=== PATIENT | female | born 1955 | race Caucasian/White ===

== ENCOUNTER 2017-04-30 10:22 | Observation (INO) | payer MEDICARE, MEDICAID ==
[2017-04-30] MEDS ORDERED: Sodium Chloride 0.9% 10 ML Syringe FLUSH PRN (11:48)
[2017-04-30] MEDS ORDERED: Acetaminophen 325 MG Tab PO PRN (12:00)
--- NOTE | 2017-04-30 12:17 | PCM.HP ---
H&P History of Present Illness - General Date of Service: 04/30/17 Admit Problem/Dx: Admission Diagnosis/Problem Admission Diagnosis/Problem Anemia due to blood loss Source of Information: Patient History Limitations: Reports: No Limitations - History of Present Illness Initial Comments - Free Text/Narative: Patient presents to the clinic with shortness of breath, vertigo and low blood pressure. Patient thinks it is due to her weight loss and needing to decrease medications. However, about 1 1/2 weeks ago the patient had a significant amount of vaginal blooding with clots which lasted for 3 days. Patient has been having vaginal bleeding on and off for the last 9 months however has not been compliant in following up with the recommendations in doing a pelvic ultrasound and endometrial biopsy. Onset of Symptoms: Reports: Gradual Improves with: Reports: Rest Worsens with: Reports: Movement Associated Symptoms: Reports: Shortness of Breath, Weakness - Related Data Allergies/Adverse Reactions: Allergies Allergy/AdvReac Type Severity Reaction Status Date / Time gabapentin Allergy Other Verified 04/30/17 12:17 morphine Allergy Other Verified 04/30/17 12:17 promethazine [From Phenergan] Allergy Other Verified 04/30/17 12:17 Home Medications: Home Meds Lisinopril 20 mg PO QPM@199904/30/17 [History] Metoprolol Tartrate 25 mg PO BID@,04/30/17 [History] Solifenacin Succinate [Vesicare] 10 mg PO QPM@199904/30/17 [History] Past Medical History HEENT History: Reports: Sinusitis Other HEENT History: recurrent sinusitis Cardiovascular History: Reports: Hypertension, PVD Respiratory History: Reports: COPD 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: Reports: Dysfunctional 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 Musculoskeletal History: Reports: Fibromyalgia Endocrine/Metabolic History: Reports: Diabetes, Type II Hematologic History: Reports: B12 Deficiency - Past Surgical History GI Surgical History: Reports: Bariatric Procedure, Cholecystectomy, Hernia Repair/Other (ventral hernia surgery) Social & Family History - Family History Cardiac: Reports: CAD (sister with CAD) - Tobacco Use Smoking Status *Q: Never Smoker - Alcohol Use Alcohol Use History: No H&P Review of Systems - Review of Systems: Review Of Systems: See Below General: Reports: Weakness, Fatigue HEENT: Reports: Vertigo Pulmonary: Reports: Shortness of Breath Cardiovascular: Reports: Dyspnea on Exertion, Lightheadedness Gastrointestinal: Reports: No Symptoms Genitourinary: Reports: Other (heavy vaginally bleeding) Musculoskeletal: Reports: No Symptoms Skin: Reports: No Symptoms Psychiatric: Reports: No Symptoms Neurological: Reports: No Symptoms Hematologic/Lymphatic: Reports: No Symptoms Immunologic: Reports: No Symptoms Exam - Exam Exam: See Below - Exam General: Alert, Oriented, Cooperative HEENT: Conjunctiva Clear, EACs Clear, EOMI, Hearing Intact, Mucosa Moist & [place] , Nares Patent, Normal Nasal Septum, Posterior Pharynx Clear, Pupils Equal, Pupils Reactive Neck: Supple, Trachea Midline Lungs: Clear to Auscultation, Normal Respiratory Effort Cardiovascular: Regular Rate, Regular Rhythm, Normal S1, Normal S2 Abdomen: Normal Bowel Sounds, Soft, Pelvis Stable Back Exam: Normal Inspection, Full Range of Motion Extremities: Normal Inspection Peripheral Pulses: 1+: Dorsalis Pedis (L), Dorsalis Pedis (R) Skin: Warm, Dry, Intact Neurological: Cranial Nerves Intact, Reflexes Equal Bilateral Neuro Extensive - Mental Status: Alert, Oriented x3, Normal Mood/Affect, Normal Cognition, Memory Intact Neuro Extensive - Motor, Sensory, Reflexes: CN II-XII Intact, Normal Gait, Normal Reflexes Psychiatric: Alert, Normal Affect, Normal Mood *Q Meaningful Use (ADM) - VTE *Q VTE Criteria *Q: - Stroke *Q Stroke Criteria *Q: - AMI *Q AMI Criteria *Q: - Problem List (1) Anemia SNOMED Code(s): 923076062 ICD Code: D64.9 - ANEMIA, UNSPECIFIED Status: Acute Current Visit: Yes Qualifiers: Anemia type: unspecified type Qualified Code(s): D64.9 - Anemia, unspecified (2) Dysfunctional uterine bleeding SNOMED Code(s): 09439051 ICD Code: N93.8 - OTHER SPECIFIED ABNORMAL UTERINE AND VAGINAL BLEEDING Status: Acute Current Visit: Yes (3) Diabetes SNOMED Code(s): 12953171 ICD Code: E11.9 - TYPE 2 DIABETES MELLITUS WITHOUT COMPLICATIONS Status: Acute Current Visit: Yes Qualifiers: Diabetes mellitus type: type 2 Diabetes mellitus complication status: without complication (4) Hypotension SNOMED Code(s): 65911696 ICD Code: I95.9 - HYPOTENSION, UNSPECIFIED Status: Acute Current Visit: Yes Qualifiers: Hypotension type: unspecified hypotension type Qualified Code(s): I95.9 - Hypotension, unspecified (5) Vertigo SNOMED Code(s): 934449279 ICD Code: R42 - DIZZINESS AND GIDDINESS Status: Acute Current Visit: Yes Problem List Initiated/Reviewed/Updated: Yes Orders Last 24hrs: Active Orders 24 hr Category Date Time Status Patient Status [ADT] Routine ADT 04/30/17 11:48 Ordered Blood Glucose Check, Bedside [RC] BIDMEALS Care 04/30/17 11:48 Ordered Intake and Output [RC] QSHIFT Care 04/30/17 11:50 Ordered May Shower [RC] ASDIRECTED Care 04/30/17 11:48 Ordered Oxygen Therapy [RC] PRN Care 04/30/17 11:48 Ordered Peripheral IV Care [RC] . DIRECTED Care 04/30/17 11:52 Ordered Pulse Oximetry [RC] PRN Care 04/30/17 11:50 Ordered Up With Assistance [RC] ASDIRECTED Care 04/30/17 11:48 Ordered VTE/DVT Education [RC] PER UNIT ROUTINE Care 04/30/17 11:48 Ordered Vital Signs [RC] Q4H Care 04/30/17 11:48 Ordered [place] [employer] Diet [DIET] Diet 04/30/17 Lunch Ordered Chest 2V [CR] Routine Exams 04/30/17 10:30 Taken Pelvis Non OB Comp [US] Routine Exams 05/01/17 08:00 Ordered CBC WITH AUTO DIFF [HEME] AM Lab 05/01/17 05:11 Ordered COMPREHENSIVE METABOLIC PN,CMP [CHEM] AM Lab 05/01/17 05:11 Ordered RED BLOOD CELLS LP [BBK] Routine Lab 04/30/17 11:53 Ordered TYPE AND SCREEN [BBK] Routine Lab 04/30/17 11:53 Ordered Acetaminophen [Tylenol] Med 04/30/17 11:48 Ordered 650 mg PO Q4H PRN Sodium Chloride 0.9% @ 75 MLS/HR(1000ml) Med 04/30/17 12:00 Ordered Sodium Chloride 0.9% [Normal Saline] 1,000 ml IV ASDIRECTED Sodium Chloride 0.9% [Saline Flush] Med 04/30/17 11:48 Ordered 10 ml FLUSH ASDIRECTED PRN Peripheral IV Insertion Adult [OM.PC] Routine Oth 04/30/17 11:48 Ordered Transfuse PRBC [Transfuse Red Blood Cells] [COMM] Oth 04/30/17 11:53 Ordered Routine Resuscitation Status Routine Resus Stat 04/30/17 11:48 Ordered Medication Orders Acetaminophen (Tylenol) 650 mg PO Q4H PRN PRN Reason: Pain (Mild 1-3)/fever Sodium Chloride (Normal Saline) 1,000 mls @ 75 mls/hr IV ASDIRECTED AMANDO Sodium Chloride (Saline Flush) 10 ml FLUSH ASDIRECTED PRN PRN Reason: Keep Vein Open Assessment/Plan Comment:: 04/30/2017 Patient is admitted for observation due to symptomatic anemia from significant vaginally bleeding. Hgb 7.1. Patient agreed to the plan of care and blood transfusion. Ordered pelvic ultrasound. Recheck labs in the morning. Oxygen as needed. Blood consent obtained. D Dimer slightly elevated at 507 (0-400) will recheck and ordered Ct scan of the lungs and bilat venous doppler. Discussed with Dr Javier. Ariela Cameron,GERONTOLOGY AIDE
[2017-04-30] MEDS ORDERED: Meclizine 25 MG Tab PO PRN (13:09)
[2017-04-30] MEDS ORDERED: Acetaminophen/HYDROcodone 325-5 MG Tab PO PRN (13:19)
[2017-04-30] MEDS ORDERED: Iopamidol 755 Mg/ML 100 ML Bottle IVPUSH ONE (13:30)
[2017-04-30] MEDS: Sodium Chloride 0.9% 1,000 ML IV SCH (14:05)
[2017-04-30] MEDS ORDERED: Insulin Detemir 100 Units/ML 3 ML Pen SUBCUT SCH (20:00)
[2017-04-30] MEDS ORDERED: VESICARE 10 MG PO SCH (20:00)
[2017-04-30] MEDS: Metoprolol Tartrate 25 MG Tab PO SCH (20:28)
[2017-04-30] MEDS ORDERED: Temazepam 15 MG Cap PO PRN (22:08)
[2017-05-01] MEDS: Sodium Chloride 0.9% 1,000 ML IV SCH (05:32)
[2017-05-01 07:58] LABS: CHLORIDE,CL 107 mmol/L (98-107); SODIUM,NA 141 mmol/L (136-145)
[2017-05-01] MEDS ORDERED: Cyanocobalamin (Vitamin B12) 250 MCG Tab PO SCH (08:00)
[2017-05-01] MEDS ORDERED: Montelukast 10 MG Tab PO SCH (08:00)
[2017-05-01] MEDS ORDERED: Insulin Detemir 100 Units/ML 3 ML Pen SUBCUT SCH (08:00)
[2017-05-01] MEDS: Metoprolol Tartrate 25 MG Tab PO SCH (08:38)
[2017-05-01 12:28] VITALS: BP 144/67
--- NOTE | 2017-05-01 12:45 | PCM.PN ---
- General Info Date of Service: 05/01/17 Admission Dx/Problem (Free Text): Admission Diagnosis/Problem Admission Diagnosis/Problem Anemia due to blood loss Functional Status: Reports: pain controlled - Review of Systems General: Reports: No Symptoms HEENT: Reports: no symptoms Pulmonary: Reports: no symptoms Cardiovascular: Reports: No Symptoms Gastrointestinal: Reports: No symptoms Genitourinary: Reports: no symptoms Musculoskeletal: Reports: no symptoms Skin: Reports: no symptoms Neurological: Reports: No Symptoms Psychiatric: Reports: no symptoms - Patient Data Vitals - most recent: Last Vital Signs Temp 98.5 F 05/01/17 12:00 Pulse 77 05/01/17 12:00 Resp 16 05/01/17 12:00 BP 144/67 H 05/01/17 12:00 Pulse Ox 100 05/01/17 12:00 Weight - most recent: 258 lb 1.593 oz I&O - last 24 hours: Intake & Output 04/30/17 05/01/17 05/01/17 22:59 06:59 14:59 Intake Total 1331 500 730 Output Total 2100 1200 1100 Balance -769 -700 -370 Lab Results last 24 hrs: Laboratory Results - last 24 hr 04/30/17 04/30/17 05/01/17 Range/Units 12:00 17:36 07:05 WBC 7.8 (4.0-10.2) K/uL RBC 3.22 L (3.77-5.09) M/uL Hgb 9.5 L D (11.7-15.5) g/dL Hct 28.7 L (34.0-46.0) % MCV 89.1 (84.0-98.0) fL MCH 29.5 (28.2-33.3) pg MCHC 33.1 (31.7-36.0) g/dL RDW 13.4 (11.2-14.1) % Plt Count 613 H D (150-350) K/uL Neut % (Auto) 61.5 (45.0-80.0) % Lymph % (Auto) 26.0 (10.0-50.0) % [place] % (Auto) 7.9 (2.0-14.0) % Eos % (Auto) 3.6 (0.0-5.0) % Baso % (Auto) 1.0 (0.0-2.0) % Neut # (Auto) 4.80 (1.40-7.00) K/uL Lymph # (Auto) 2.03 (0.50-3.50) K/uL [place] # (Auto) 0.62 (0.00-1.00) K/uL Eos # (Auto) 0.28 (0.00-0.50) K/uL Baso # (Auto) 0.08 (0.00-0.20) K/uL D-Dimer, Quantitative (0-400) ng/mL Sodium (136-145) mmol/L Potassium (3.5-5.1) mmol/L Chloride (98-107) mmol/L Carbon Dioxide (21.0-32.0) mmol/L BUN (7-18) mg/dL Creatinine (0.51-1.17) mg/dL Est Cr Clr Drug Dosing mL/min Estimated GFR (MDRD) mL/min Glucose (74-106) mg/dL POC Glucose 178 H (65-110) mg/dl Calcium (8.5-10.1) mg/dL Total Bilirubin (0.2-1.0) mg/dL AST (15-37) U/L ALT (12-78) U/L Alkaline Phosphatase (46-116) IU/L Total Protein (6.4-8.2) g/dL Albumin (3.4-5.0) g/dL Blood Type O POSITIVE Gel Antibody Screen Negative Crossmatch See Detail 05/01/17 05/01/17 05/01/17 Range/Units 07:05 07:05 07:12 WBC (4.0-10.2) K/uL RBC (3.77-5.09) M/uL Hgb (11.7-15.5) g/dL Hct (34.0-46.0) % MCV (84.0-98.0) fL MCH (28.2-33.3) pg MCHC (31.7-36.0) g/dL RDW (11.2-14.1) % Plt Count (150-350) K/uL Neut % (Auto) (45.0-80.0) % Lymph % (Auto) (10.0-50.0) % [place] % (Auto) (2.0-14.0) % Eos % (Auto) (0.0-5.0) % Baso % (Auto) (0.0-2.0) % Neut # (Auto) (1.40-7.00) K/uL Lymph # (Auto) (0.50-3.50) K/uL [place] # (Auto) (0.00-1.00) K/uL Eos # (Auto) (0.00-0.50) K/uL Baso # (Auto) (0.00-0.20) K/uL D-Dimer, Quantitative 588 H (0-400) ng/mL Sodium 141 (136-145) mmol/L Potassium 4.2 (3.5-5.1) mmol/L Chloride 107 (98-107) mmol/L Carbon Dioxide 24.9 (21.0-32.0) mmol/L BUN 16 (7-18) mg/dL Creatinine 0.62 (0.51-1.17) mg/dL Est Cr Clr Drug Dosing 97.72 mL/min Estimated GFR (MDRD) > 60 mL/min Glucose 149 H (74-106) mg/dL POC Glucose 156 H (65-110) mg/dl Calcium 8.6 (8.5-10.1) mg/dL Total Bilirubin 0.3 (0.2-1.0) mg/dL AST 18 (15-37) U/L ALT 24 (12-78) U/L Alkaline Phosphatase 75 (46-116) IU/L Total Protein 7.2 (6.4-8.2) g/dL Albumin 3.0 L (3.4-5.0) g/dL Blood Type Gel Antibody Screen Crossmatch Med Orders - Current: Current Medications Acetaminophen (Tylenol) 650 mg PO Q4H PRN PRN Reason: Pain (Mild 1-3)/fever Hydrocodone Bitart/Acetaminophen ([place] 325-5 Mg) 1 tab PO TID PRN PRN Reason: Pain Last Admin: 04/30/17 22:15 Dose: 1 tab Cyanocobalamin (Vitamin B12) 500 mcg PO DAILY [facility] Last Admin: 05/01/17 08:39 Dose: 500 mcg Insulin Detemir (Levemir) 20 unit SUBCUT QPM@1999 [facility] Last Admin: 04/30/17 20:30 Dose: 20 units Insulin Detemir (Levemir) 40 unit SUBCUT DAILY [facility] Last Admin: 05/01/17 08:39 Dose: 40 unit Meclizine HCl (Antivert) 25 mg PO Q6H PRN PRN Reason: Dizziness Last Admin: 04/30/17 13:16 Dose: 25 mg Metoprolol Tartrate (Lopressor) 25 mg PO BID@08,20 [facility] Last Admin: 05/01/17 08:38 Dose: 25 mg Montelukast Sodium (Singulair) 10 mg PO DAILY [facility] Last Admin: 05/01/17 08:38 Dose: 10 mg Vesicare 10 Mg Tabs (*Pt Own Med*) 1 each PO DAILY@1999 [facility] Last Admin: 04/30/17 20:29 Dose: 1 each Temazepam (Restoril) 15 mg PO BEDTIME PRN PRN Reason: Insomnia Last Admin: 04/30/17 22:15 Dose: 15 mg Discontinued Medications Sodium Chloride (Normal Saline) 1,000 mls @ 75 mls/hr IV ASDIRECTED [facility] Last Admin: 05/01/17 05:32 Dose: 75 mls/hr Iopamidol (Isovue-370 (76%)) 100 ml IVPUSH ONETIME ONE Stop: 04/30/17 13:31 Last Admin: 04/30/17 13:50 Dose: 100 ml Sodium Chloride (Saline Flush) 10 ml FLUSH ASDIRECTED PRN PRN Reason: Keep Vein Open - Exam General: alert, oriented HEENT: Pupils equal, Pupils reactive, EOMI, Mucous membr. moist/pink Neck: supple Lungs: Clear to auscultation, Normal respiratory effort Cardiovascular: Regular Rate, Regular Rhythm Abdomen: bowel sounds present, soft, no tenderness, no distension (Female) Exam: Deferred Back Exam: Normal Inspection Extremities: no edema, no calf tenderness Skin: warm, dry, intact Neurological: no new focal deficit Psy/Mental Status: alert, normal affect, normal mood - Problem List & Annotations (1) Anemia SNOMED Code(s): 112712536 Code(s): D64.9 - ANEMIA, UNSPECIFIED Status: Acute Priority: High Current Visit: Yes Qualifiers: Anemia type: unspecified type Qualified Code(s): D64.9 - Anemia, unspecified (2) Diabetes SNOMED Code(s): 50445514 Code(s): E11.9 - TYPE 2 DIABETES MELLITUS WITHOUT COMPLICATIONS Status: Acute Current Visit: Yes Qualifiers: Diabetes mellitus type: type 2 Diabetes mellitus complication status: without complication (3) Dysfunctional uterine bleeding SNOMED Code(s): 90931348 Code(s): N93.8 - OTHER SPECIFIED ABNORMAL UTERINE AND VAGINAL BLEEDING Status: Acute Current Visit: Yes (4) Hypotension SNOMED Code(s): 88082670 Code(s): I95.9 - HYPOTENSION, UNSPECIFIED Status: Acute Current Visit: Yes Qualifiers: Hypotension type: unspecified hypotension type Qualified Code(s): I95.9 - Hypotension, unspecified (5) Vertigo SNOMED Code(s): 059767364 Code(s): R42 - DIZZINESS AND GIDDINESS Status: Acute Current Visit: Yes - Problem List Review Problem List Initiated/Reviewed/Updated: Yes - My Orders Last 24 Hours: My Active Orders 04/30/17 22:08 Temazepam [Restoril] 15 mg PO BEDTIME PRN 05/01/17 12:41 Peripheral IV Discontinue [OM.PC] Routine - Plan Plan:: 04/30/2017 Patient is admitted for observation due to symptomatic anemia from significant vaginally bleeding. Hgb 7.1. Patient agreed to the plan of care and blood transfusion. Ordered pelvic ultrasound. Recheck labs in the morning. Oxygen as needed. Blood consent obtained. D Dimer slightly elevated at 507 (0-400) will recheck and ordered Ct scan of the lungs and bilat venous doppler. Discussed with Dr Javier. Ariela Cameron,CIVIL GEOTECHNICAL ENGINEER 05/01/17 Concepcion Osorio MD Feels much better today. Ready for discharge.
--- NOTE | 2017-05-01 12:48 | PCM.DCSUM1 ---
Discharge Summary - Discharge Data Discharge Date: 05/01/17 Discharge Disposition: Home, Self-Care 01 Condition: Good - Discharge Diagnosis/Problem(s) (1) Anemia SNOMED Code(s): 688968565 ICD Code: D64.9 - ANEMIA, UNSPECIFIED Status: Acute Priority: High Current Visit: Yes Qualifiers: Anemia type: unspecified type Qualified Code(s): D64.9 - Anemia, unspecified (2) Diabetes SNOMED Code(s): 88669153 ICD Code: E11.9 - TYPE 2 DIABETES MELLITUS WITHOUT COMPLICATIONS Status: Acute Current Visit: Yes Qualifiers: Diabetes mellitus type: type 2 Diabetes mellitus complication status: without complication Diabetes mellitus superintendent container terminal insulin use: with superintendent container terminal use Qualified Code(s): E11.9 - Type 2 diabetes mellitus without complications ; Z79.4 - shelter (current) use of insulin (3) Dysfunctional uterine bleeding SNOMED Code(s): 22036315 ICD Code: N93.8 - OTHER SPECIFIED ABNORMAL UTERINE AND VAGINAL BLEEDING Status: Acute Priority: High Current Visit: Yes (4) Hypotension SNOMED Code(s): 04666116 ICD Code: I95.9 - HYPOTENSION, UNSPECIFIED Status: Acute Current Visit: Yes Qualifiers: Hypotension type: unspecified hypotension type Qualified Code(s): I95.9 - Hypotension, unspecified (5) Vertigo SNOMED Code(s): 193043020 ICD Code: R42 - DIZZINESS AND GIDDINESS Status: Acute Current Visit: Yes - Discharge Plan Home Medications: Home Meds Acetaminophen/Diphenhydramine [Tylenol Pm Ex-Strength Caplet] 2 tab PO QPM 04/30 [History] Acetaminophen/HYDROcodone [[place] 325-5 MG] 1 tab PO TID PRN 04/30/17 [History] Biotin 10,000 mcg PO QPM 04/30/17 [History] Calcium Carbonate/Vitamin D3 [Calcium 600 + Vit D Tablet] 1 tab PO BID@0800, 2000 04/30/17 [History] Cholecalciferol (Vitamin D3) [Vitamin D3] 2,000 units PO DAILY 04/30/17 [History ] Clopidogrel [Plavix] 75 mg PO DAILY 04/30/17 [History] Cyanocobalamin (Vitamin B-12) [B-12] 500 mcg PO DAILY 04/30/17 [History] Fish Oil/[place]-3 Fatty Acids [Fish Oil 1,000 MG] 1 cap PO QPM 04/30/17 [History] Insulin Detemir [Levemir Flextouch] 20 units SUBCUT QPM 04/30/17 [History] Insulin Detemir [Levemir Flextouch] 40 unit SQ DAILY 04/30/17 [History] Ipratropium [place] 2 sprays NS BID@0800,199904/30/17 [History] Lisinopril 20 mg PO QPM@199904/30/17 [History] Magnesium Oxide [Magnesium] 500 mg PO DAILY 04/30/17 [History] Metoprolol Tartrate 25 mg PO BID@08,04/30/17 [History] Milnacipran HCl [[place]] 50 mg PO QPM 04/30/17 [History] Montelukast [Singulair] 10 mg PO DAILY 04/30/17 [History] Multivitamin with Minerals [Jose Multivitamin with Mineral] 1 tab PO BID@0800, 199904/30/17 [History] Solifenacin Succinate [Vesicare] 10 mg PO QPM@199904/30/17 [History] Ubidecarenone [Co Q-10] 200 mg PO DAILY 04/30/17 [History] - Discharge Summary/Plan Comment DC Time >30 min.: No Discharge Summary/Plan Comment: 05/01/17 Follow up at [facility]. - Patient Data Vitals - Most Recent: Last Vital Signs Temp 98.5 F 05/01/17 12:00 Pulse 77 05/01/17 12:00 Resp 16 05/01/17 12:00 BP 144/67 H 05/01/17 12:00 Pulse Ox 100 05/01/17 12:00 Weight - Most Recent: 258 lb 1.593 oz I&O - Last 24 hours: Intake & Output 04/30/17 05/01/17 05/01/17 22:59 06:59 14:59 Intake Total 1331 500 730 Output Total 2100 1200 1100 Balance -302 -924 -418 Lab Results - Last 24 hrs: Laboratory Results - last 24 hr 04/30/17 04/30/17 05/01/17 Range/Units 12:00 17:36 07:05 WBC 7.8 (4.0-10.2) K/uL RBC 3.22 L (3.77-5.09) M/uL Hgb 9.5 L D (11.7-15.5) g/dL Hct 28.7 L (34.0-46.0) % MCV 89.1 (84.0-98.0) fL MCH 29.5 (28.2-33.3) pg MCHC 33.1 (31.7-36.0) g/dL RDW 13.4 (11.2-14.1) % Plt Count 613 H D (150-350) K/uL Neut % (Auto) 61.5 (45.0-80.0) % Lymph % (Auto) 26.0 (10.0-50.0) % [place] % (Auto) 7.9 (2.0-14.0) % Eos % (Auto) 3.6 (0.0-5.0) % Baso % (Auto) 1.0 (0.0-2.0) % Neut # (Auto) 4.80 (1.40-7.00) K/uL Lymph # (Auto) 2.03 (0.50-3.50) K/uL [place] # (Auto) 0.62 (0.00-1.00) K/uL Eos # (Auto) 0.28 (0.00-0.50) K/uL Baso # (Auto) 0.08 (0.00-0.20) K/uL D-Dimer, Quantitative (0-400) ng/mL Sodium (136-145) mmol/L Potassium (3.5-5.1) mmol/L Chloride (98-107) mmol/L Carbon Dioxide (21.0-32.0) mmol/L BUN (7-18) mg/dL Creatinine (0.51-1.17) mg/dL Est Cr Clr Drug Dosing mL/min Estimated GFR (MDRD) mL/min Glucose (74-106) mg/dL POC Glucose 178 H (65-110) mg/dl Calcium (8.5-10.1) mg/dL Total Bilirubin (0.2-1.0) mg/dL AST (15-37) U/L ALT (12-78) U/L Alkaline Phosphatase (46-116) IU/L Total Protein (6.4-8.2) g/dL Albumin (3.4-5.0) g/dL Blood Type O POSITIVE Gel Antibody Screen Negative Crossmatch See Detail 05/01/17 05/01/17 05/01/17 Range/Units 07:05 07:05 07:12 WBC (4.0-10.2) K/uL RBC (3.77-5.09) M/uL Hgb (11.7-15.5) g/dL Hct (34.0-46.0) % MCV (84.0-98.0) fL MCH (28.2-33.3) pg MCHC (31.7-36.0) g/dL RDW (11.2-14.1) % Plt Count (150-350) K/uL Neut % (Auto) (45.0-80.0) % Lymph % (Auto) (10.0-50.0) % [place] % (Auto) (2.0-14.0) % Eos % (Auto) (0.0-5.0) % Baso % (Auto) (0.0-2.0) % Neut # (Auto) (1.40-7.00) K/uL Lymph # (Auto) (0.50-3.50) K/uL [place] # (Auto) (0.00-1.00) K/uL Eos # (Auto) (0.00-0.50) K/uL Baso # (Auto) (0.00-0.20) K/uL D-Dimer, Quantitative 588 H (0-400) ng/mL Sodium 141 (136-145) mmol/L Potassium 4.2 (3.5-5.1) mmol/L Chloride 107 (98-107) mmol/L Carbon Dioxide 24.9 (21.0-32.0) mmol/L BUN 16 (7-18) mg/dL Creatinine 0.62 (0.51-1.17) mg/dL Est Cr Clr Drug Dosing 97.72 mL/min Estimated GFR (MDRD) > 60 mL/min Glucose 149 H (74-106) mg/dL POC Glucose 156 H (65-110) mg/dl Calcium 8.6 (8.5-10.1) mg/dL Total Bilirubin 0.3 (0.2-1.0) mg/dL AST 18 (15-37) U/L ALT 24 (12-78) U/L Alkaline Phosphatase 75 (46-116) IU/L Total Protein 7.2 (6.4-8.2) g/dL Albumin 3.0 L (3.4-5.0) g/dL Blood Type Gel Antibody Screen Crossmatch Med Orders - Current: Current Medications Acetaminophen (Tylenol) 650 mg PO Q4H PRN PRN Reason: Pain (Mild 1-3)/fever Hydrocodone Bitart/Acetaminophen ([place] 325-5 Mg) 1 tab PO TID PRN PRN Reason: Pain Last Admin: 04/30/17 22:15 Dose: 1 tab Cyanocobalamin (Vitamin B12) 500 mcg PO DAILY [facility] Last Admin: 05/01/17 08:39 Dose: 500 mcg Insulin Detemir (Levemir) 20 unit SUBCUT QPM@1999 [facility] Last Admin: 04/30/17 20:30 Dose: 20 units Insulin Detemir (Levemir) 40 unit SUBCUT DAILY [facility] Last Admin: 05/01/17 08:39 Dose: 40 unit Meclizine HCl (Antivert) 25 mg PO Q6H PRN PRN Reason: Dizziness Last Admin: 04/30/17 13:16 Dose: 25 mg Metoprolol Tartrate (Lopressor) 25 mg PO BID@08 [facility] Last Admin: 05/01/17 08:38 Dose: 25 mg Montelukast Sodium (Singulair) 10 mg PO DAILY [facility] Last Admin: 05/01/17 08:38 Dose: 10 mg Vesicare 10 Mg Tabs (*Pt Own Med*) 1 each PO DAILY@1999 [facility] Last Admin: 04/30/17 20:29 Dose: 1 each Temazepam (Restoril) 15 mg PO BEDTIME PRN PRN Reason: Insomnia Last Admin: 04/30/17 22:15 Dose: 15 mg Discontinued Medications Sodium Chloride (Normal Saline) 1,000 mls @ 75 mls/hr IV ASDIRECTED [facility] Last Admin: 05/01/17 05:32 Dose: 75 mls/hr Iopamidol (Isovue-370 (76%)) 100 ml IVPUSH ONETIME ONE Stop: 04/30/17 13:31 Last Admin: 04/30/17 13:50 Dose: 100 ml Sodium Chloride (Saline Flush) 10 ml FLUSH ASDIRECTED PRN PRN Reason: Keep Vein Open *Q Meaningful Use (DIS) - VTE *Q VTE Criteria *Q: - Stroke *Q Stroke Criteria *Q: - AMI *Q AMI Criteria *Q:
== END 2017-05-01 13:27 | disposition home or self-care (01) ==
LOC: LL.DI 10:22 → LL.MS 11:27
PROVIDERS: ADMIT Nurse Practitioner Family; ATTEND Family Medicine
DX: D50.0 Iron deficiency anemia secondary to blood loss (chronic) (principal); N93.8 Other specified abnormal uterine and vaginal bleeding; E11.9 Type 2 diabetes mellitus without complications; I95.9 Hypotension, unspecified; R42 Dizziness and giddiness; R06.02 Shortness of breath; R53.1 Weakness; I10 Essential (primary) hypertension; I73.9 Peripheral vascular disease, unspecified; M79.7 Fibromyalgia; E53.8 Deficiency of other specified B group vitamins; J44.9 Chronic obstructive pulmonary disease, unspecified; Z79.02 Long term (current) use of antithrombotics/antiplatelets; Z79.4 Long term (current) use of insulin; Z79.899 Other long term (current) drug therapy; Z98.84 Bariatric surgery status; Z90.49 Acquired absence of other specified parts of digestive tract; Z82.49 Family history of ischemic heart disease and other diseases of the circulatory system
CPT/HCPCS: 36415; 36430; 71020; 71275; 76830; 76856; 80053; 82962; 85025; 85379; 86850; 86900; 86901; 86920; 86922; 93970; 96360; 96361; A9270; G0378; G0379; J1815; J7030; P9016; Q9967

== ENCOUNTER 2017-10-22 11:11 | Emergency (ER) | payer MEDICARE, MEDICAID ==
[2017-10-22 11:17] VITALS: BP 145/81
--- NOTE | 2017-10-22 11:41 | EDM.PDOC ---
ED HPI GENERAL MEDICAL PROBLEM - General Chief Complaint: Fever Stated Complaint: fever Time Seen by Provider: 10/22/17 11:30 Source of Information: Reports: Patient History Limitations: Reports: No Limitations - History of Present Illness INITIAL COMMENTS - FREE TEXT/NARRATIVE: Patient is a 62-year-old female known to have endometrial cancer underwent hysterectomy and lymph node dissection. Patient is currently on fourth round of chemotherapy. Patient had been doing fairly well. She has now developed a temperature at home of 100.5 per her report. Now she is in the ER and her temp is 101.2 F. Patient also reporting nausea yesterday and diarrhea today with chills and body aches. 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 Generalized Pain Score (Numeric/FACES): 4 - Related Data Allergies Allergy/AdvReac Type Severity Reaction Status Date / Time gabapentin Allergy Other Verified 10/22/17 11:22 morphine Allergy Other Verified 10/22/17 11:22 promethazine [From Phenergan] Allergy Other Verified 10/22/17 11:22 Home Meds: Home Meds Acetaminophen/Diphenhydramine [Tylenol Pm Ex-Strength Caplet] 2 tab PO QPM 04/30 [History] Acetaminophen/HYDROcodone [[place] 325-5 MG] 1 - 2 tab PO QPM PRN 04/30/17 [ History] Biotin 10,000 mcg PO QAM 04/30/17 [History] Calcium Carbonate/Vitamin D3 [Calcium 600 + Vit D Tablet] 1 tab PO BID@799, 199904/30/17 [History] Clopidogrel [Plavix] 75 mg PO QAM 04/30/17 [History] Fish Oil/[place]-3 Fatty Acids [Fish Oil 1,000 MG] 1 cap PO QPM 04/30/17 [History] Insulin Detemir [Levemir Flextouch] 20 units SUBCUT QPM 04/30/17 [History] Insulin Detemir [Levemir Flextouch] 40 unit SQ QAM 04/30/17 [History] Ipratropium [place] 2 sprays NS BID@08,199904/30/17 [History] Metoprolol Tartrate 25 mg PO BID@08,20 04/30/17 [History] Milnacipran HCl [Savella] 50 mg PO BID 04/30/17 [History] Montelukast [Singulair] 10 mg PO QAM 04/30/17 [History] Solifenacin Succinate [Vesicare] 10 mg PO QPM@199904/30/17 [History] Ubidecarenone [Co Q-10] 200 mg PO QAM 04/30/17 [History] Dexamethasone 4 mg PO ASDIRECTED 08/29/17 [History] Docusate Sodium [Stool Softener] 1 tab PO ASDIRECTED PRN 08/29/17 [History] Non-Formulary Medication [NF Drug] 1 tab PO BID 08/29/17 [History] Ondansetron [Zofran ODT] 4 mg PO ASDIRECTED PRN 08/29/17 [History] Polyethylene Glycol 3350 [MiraLAX] 17 gm PO DAILY PRN 08/29/17 [History] Lisinopril 10 mg PO DAILY 10/17/17 [History] Ascorbate Calcium [Vitamin C] 500 mg PO DAILY 10/22/17 [History] Ferrous Sulfate [Iron] 65 mg PO DAILY 10/22/17 [History] Past Medical History HEENT History: Reports: Sinusitis Other HEENT History: recurrent sinusitis Cardiovascular History: Reports: Hypertension, PVD Respiratory History: Reports: COPD 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 Denies: Cough, Sputum, Hemoptysis Cardiovascular: Reports: No Symptoms Endocrine: Reports: No Symptoms GI/Abdominal: Reports: Diarrhea : Reports: No Symptoms Musculoskeletal: Reports: Other (Muscle aches) Skin: Reports: No Symptoms Neurological: Reports: No Symptoms Psychiatric: Reports: No Symptoms ED EXAM, GENERAL - Physical Exam Exam: See Below Exam Limited By: No Limitations General Appearance: Alert, WD/WN, Mild Distress Eye Exam: Bilateral Eye: EOMI, PERRL Ears: Normal External Exam, Normal Canal, Hearing Grossly Normal, Normal TMs Ear Exam: Bilateral Ear: Auricle Normal, Canal Normal, TM normal Nose: Normal Inspection, Normal Mucosa, No Blood Throat/Mouth: Normal Inspection, Normal Lips, Normal Teeth, Normal Gums, Normal Oropharynx, Normal Voice, No Airway Compromise Head: Atraumatic, Normocephalic Neck: Normal Inspection, Supple, Non-Tender, Full Range of Motion Respiratory/Chest: No Respiratory Distress, Lungs Clear, Normal Breath Sounds, No Accessory Muscle Use, Chest Non-Tender Cardiovascular: Normal Peripheral Pulses, Regular Rate, Rhythm, No Edema, No Gallop, No JVD, No Murmur, No Rub GI/Abdominal: Normal Bowel Sounds, Soft, Non-Tender, No Organomegaly, No Distention, No Abnormal Bruit, No Mass (Female) Exam: Deferred Rectal (Female) Exam: Deferred Back Exam: Normal Inspection, Full Range of Motion, NT Extremities: Normal Inspection, Normal Range of Motion, Non-Tender, Normal Capillary Refill, No Pedal Edema Neurological: Alert, Oriented, CN II-XII Intact, Normal Cognition, Normal Gait, Normal Reflexes, No Motor/Sensory Deficits Psychiatric: Normal Affect, Normal Mood Skin Exam: Warm, Dry, Intact, Normal Color, No Rash Lymphatic: No Adenopathy Course - Vital Signs Last Recorded V/S: Last Vital Signs Temp 101.2 F H 10/22/17 11:16 Pulse 107 H 10/22/17 11:16 Resp 16 10/22/17 11:16 BP 145/81 H 10/22/17 11:16 Pulse Ox 100 10/22/17 11:16 - Orders/Labs/Meds Orders: Active Orders 24 hr Category Date Time Status CXR [Chest 2V] [CR] Stat Exams 10/22/17 11:48 Taken CULTURE BLOOD [BC] Stat Lab 10/22/17 11:38 Received CULTURE BLOOD [BC] Stat Lab 10/22/17 11:38 Received Blood Culture x2 Reflex Set [OM.PC] Stat Oth 10/22/17 11:28 Ordered Labs: Laboratory Tests 10/22/17 10/22/17 10/22/17 Range/Units 11:30 11:30 11:50 WBC 10.6 H (4.0-10.2) K/uL RBC 3.41 L (3.77-5.09) M/uL Hgb 9.8 L (11.7-15.5) g/dL Hct 30.4 L (34.0-46.0) % MCV 89.1 (84.0-98.0) fL MCH 28.7 (28.2-33.3) pg MCHC 32.2 (31.7-36.0) g/dL Plt Count 288 D (150-350) K/uL Neut % (Auto) 84.7 H (45.0-80.0) % Lymph % (Auto) 10.6 (10.0-50.0) % [place] % (Auto) 2.8 (2.0-14.0) % Eos % (Auto) 1.6 (0.0-5.0) % Baso % (Auto) 0.3 (0.0-2.0) % Neut # (Auto) 8.94 H (1.40-7.00) K/uL Lymph # (Auto) 1.12 (0.50-3.50) K/uL [place] # (Auto) 0.30 (0.00-1.00) K/uL Eos # (Auto) 0.17 (0.00-0.50) K/uL Baso # (Auto) 0.03 (0.00-0.20) K/uL Sodium 137 (136-145) mmol/L Potassium 4.7 (3.5-5.1) mmol/L Chloride 104 (98-107) mmol/L Carbon Dioxide 23.3 (21.0-32.0) mmol/L BUN 18 (7-18) mg/dL Creatinine 0.68 (0.51-1.17) mg/dL Est Cr Clr Drug Dosing 87.64 mL/min Estimated GFR (MDRD) > 60 mL/min Glucose 125 H (74-106) mg/dL Lactic Acid (0.4-2.0) mmol/L Calcium 9.1 (8.5-10.1) mg/dL Total Bilirubin 0.2 (0.2-1.0) mg/dL AST 18 (15-37) U/L ALT 31 (12-78) U/L Alkaline Phosphatase 111 (46-116) IU/L Total Protein 7.2 (6.4-8.2) g/dL Albumin 3.3 L (3.4-5.0) g/dL Specimen Type Urincc Urine Color Yellow Urine Appearance Clear Urine pH 5.5 (5.0-9.0) Ur Specific [place] 1.025 (1.005-1.030) Urine Protein 100 H (NEGATIVE) mg/dL Urine Glucose (UA) 100 H (NEGATIVE) mg/dL Urine Ketones Negative (NEGATIVE) mg/dL Urine Occult Blood Negative (NEGATIVE) Urine Nitrite Negative (NEGATIVE) Urine Bilirubin Negative (NEGATIVE) Urine Urobilinogen 0.2 (0.2-1.0) E.U./dL Ur Leukocyte Esterase Negative (NEGATIVE) Urine RBC 0-5 /HPF Urine WBC 0-5 /HPF Ur Epithelial Cells Few /LPF Urine Bacteria Rare (NONE TO FEW) /HPF 10/22/17 Range/Units 11:50 WBC (4.0-10.2) K/uL RBC (3.77-5.09) M/uL Hgb (11.7-15.5) g/dL Hct (34.0-46.0) % MCV (84.0-98.0) fL MCH (28.2-33.3) pg MCHC (31.7-36.0) g/dL Plt Count (150-350) K/uL Neut % (Auto) (45.0-80.0) % Lymph % (Auto) (10.0-50.0) % [place] % (Auto) (2.0-14.0) % Eos % (Auto) (0.0-5.0) % Baso % (Auto) (0.0-2.0) % Neut # (Auto) (1.40-7.00) K/uL Lymph # (Auto) (0.50-3.50) K/uL [place] # (Auto) (0.00-1.00) K/uL Eos # (Auto) (0.00-0.50) K/uL Baso # (Auto) (0.00-0.20) K/uL Sodium (136-145) mmol/L Potassium (3.5-5.1) mmol/L Chloride (98-107) mmol/L Carbon Dioxide (21.0-32.0) mmol/L BUN (7-18) mg/dL Creatinine (0.51-1.17) mg/dL Est Cr Clr Drug Dosing mL/min Estimated GFR (MDRD) mL/min Glucose (74-106) mg/dL Lactic Acid < 0.3 L (0.4-2.0) mmol/L Calcium (8.5-10.1) mg/dL Total Bilirubin (0.2-1.0) mg/dL AST (15-37) U/L ALT (12-78) U/L Alkaline Phosphatase (46-116) IU/L Total Protein (6.4-8.2) g/dL Albumin (3.4-5.0) g/dL Specimen Type Urine Color Urine Appearance Urine pH (5.0-9.0) Ur Specific [place] (1.005-1.030) Urine Protein (NEGATIVE) mg/dL Urine Glucose (UA) (NEGATIVE) mg/dL Urine Ketones (NEGATIVE) mg/dL Urine Occult Blood (NEGATIVE) Urine Nitrite (NEGATIVE) Urine Bilirubin (NEGATIVE) Urine Urobilinogen (0.2-1.0) E.U./dL Ur Leukocyte Esterase (NEGATIVE) Urine RBC /HPF Urine WBC /HPF Ur Epithelial Cells /LPF Urine Bacteria (NONE TO FEW) /HPF - Re-Assessments/Exams Free Text/Narrative Re-Assessment/Exam: Patient seen and worked up. The white count slightly elevated 10.6. ANC 8.9. Urine negative. Chest x-ray negative. No focus of infection identified. Discussed patient with oncologist Dr. Carson Blanchard. At this time, we will send her home. If her fever continues 24 hours or more, we will start her on Levaquin 500 daily by mouth per oncologist recommendation. Prescription given to patient. Departure - Departure Time of Disposition: 12:34 Disposition: Home, Self-Care 01 Condition: Good Clinical Impression: Fever and chills - Discharge Information Referrals: Ariela Cameron NP [Primary Care Provider] - Forms: ED Department Discharge Care Plan Goals: Patient seen and worked up. The white count slightly elevated 10.6. ANC 8.9. Urine negative. Chest x-ray negative. No focus of infection identified. Discussed patient with oncologist Dr. Carson Blanchard. At this time, we will send her home. If her fever continues 24 hours or more, we will start her on Levaquin 500 daily by mouth per oncologist recommendation. Prescription given to patient. - My Orders Last 24 Hours: My Active Orders 10/22/17 11:28 Blood Culture x2 Reflex Set [OM.PC] Stat 10/22/17 11:38 CULTURE BLOOD [BC] Stat CULTURE BLOOD [BC] Stat 10/22/17 11:48 CXR [Chest 2V] [CR] Stat - Assessment/Plan Last 24 Hours: My Active Orders 10/22/17 11:28 Blood Culture x2 Reflex Set [OM.PC] Stat 10/22/17 11:38 CULTURE BLOOD [BC] Stat CULTURE BLOOD [BC] Stat 10/22/17 11:48 CXR [Chest 2V] [CR] Stat
[2017-10-22 11:47] LABS: CHLORIDE,CL 104 mmol/L (98-107); SODIUM,NA 137 mmol/L (136-145)
== END 2017-10-22 12:40 | disposition home or self-care (01) ==
LOC: LL.ED 11:11
DX: R50.9 Fever, unspecified (principal); I10 Essential (primary) hypertension; J44.9 Chronic obstructive pulmonary disease, unspecified; E11.9 Type 2 diabetes mellitus without complications; Z79.4 Long term (current) use of insulin; Z79.02 Long term (current) use of antithrombotics/antiplatelets; Z79.899 Other long term (current) drug therapy; Z88.5 Allergy status to narcotic agent; Z88.8 Allergy status to other drugs, medicaments and biological substances
CPT/HCPCS: 36415; 71020; 80053; 81001; 83605; 85025; 87040; 99283; 99284

== ENCOUNTER 2017-10-25 10:20 | Emergency (ER) | payer MEDICARE, MEDICAID ==
[2017-10-25 10:23] VITALS: BP 143/54
--- NOTE | 2017-10-25 10:57 | EDM.PDOC ---
ED HPI GENERAL MEDICAL PROBLEM - General Chief Complaint: Fever Stated Complaint: fever Time Seen by Provider: 10/25/17 10:30 Source of Information: Reports: Patient History Limitations: Reports: No Limitations - History of Present Illness INITIAL COMMENTS - FREE TEXT/NARRATIVE: Pt. is a 62 Y/O seen in ER with C/C of fever Left leg swelling with redness and warm, resent history of chemo for endometrial cancer last row was October 16, 2017 about 3 days ago patient was worked up for increased temperature and discuss with oncologist patient sent home on no medications as per oncologist Onset: Gradual Duration: Day(s): (2 days) Location: Reports: Lower Extremity, Left Quality: Reports: Sharp (Left ankle pain on flexion) Severity: Moderate Improves with: Reports: Immobilization Worsens with: Reports: Movement Context: Reports: Other (Multiple foot ulcers) Associated Symptoms: Reports: Other (Foot ulcers one in the great toe two left heel patient seen podiatry) Left Ankle Pain Score (Numeric/FACES): 8 - Related Data Allergies Allergy/AdvReac Type Severity Reaction Status Date / Time gabapentin Allergy Other Verified 10/25/17 10:24 morphine Allergy Other Verified 10/25/17 10:24 promethazine [From Phenergan] Allergy Other Verified 10/25/17 10:24 Home Meds: Home Meds Acetaminophen/Diphenhydramine [Tylenol Pm Ex-Strength Caplet] 2 tab PO QPM 04/30 [History] Acetaminophen/HYDROcodone [[place] 325-5 MG] 1 - 2 tab PO QPM PRN 04/30/17 [ History] Biotin 10,000 mcg PO QAM 04/30/17 [History] Calcium Carbonate/Vitamin D3 [Calcium 600 + Vit D Tablet] 1 tab PO BID@0800, 199904/30/17 [History] Clopidogrel [Plavix] 75 mg PO QAM 04/30/17 [History] Fish Oil/[place]-3 Fatty Acids [Fish Oil 1,000 MG] 1 cap PO QPM 04/30/17 [History] Insulin Detemir [Levemir Flextouch] 20 units SUBCUT QPM 04/30/17 [History] Insulin Detemir [Levemir Flextouch] 40 unit SQ QAM 04/30/17 [History] Ipratropium [place] 2 sprays NS BID@0800,199904/30/17 [History] Metoprolol Tartrate 25 mg PO BID@08,20 04/30/17 [History] Milnacipran HCl [Savella] 50 mg PO BID 04/30/17 [History] Montelukast [Singulair] 10 mg PO QAM 04/30/17 [History] Solifenacin Succinate [Vesicare] 10 mg PO QPM@199904/30/17 [History] Ubidecarenone [Co Q-10] 200 mg PO QAM 04/30/17 [History] Dexamethasone 4 mg PO ASDIRECTED 08/29/17 [History] Docusate Sodium [Stool Softener] 1 tab PO ASDIRECTED PRN 08/29/17 [History] Non-Formulary Medication [NF Drug] 1 tab PO BID 08/29/17 [History] Ondansetron [Zofran ODT] 4 mg PO ASDIRECTED PRN 08/29/17 [History] Polyethylene Glycol 3350 [MiraLAX] 17 gm PO DAILY PRN 08/29/17 [History] Lisinopril 10 mg PO DAILY 10/17/17 [History] Ascorbate Calcium [Vitamin C] 500 mg PO DAILY 10/22/17 [History] Ferrous Sulfate [Iron] 65 mg PO DAILY 10/22/17 [History] Acetaminophen [Acetaminophen Extra Strength] 1,000 mg PO Q4HR PRN 10/25/17 [ History] Levofloxacin [Levaquin] 500 mg PO Q24H 10 Days #10 tablet 10/25/17 [Rx] Past Medical History HEENT History: Reports: Sinusitis Other HEENT History: recurrent sinusitis Cardiovascular History: Reports: Hypertension, PVD 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 History: Reports: COPD 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 Musculoskeletal History: Reports: Fibromyalgia Endocrine/Metabolic History: Reports: Diabetes, Type II Hematologic History: Reports: B12 Deficiency - Past Surgical History GI Surgical History: Reports: Bariatric Procedure, Cholecystectomy, Hernia Repair/Other Social & Family History - Family History Cardiac: Reports: CAD - Tobacco Use Smoking Status *Q: Former Smoker Packs/Tins Daily: 0.5 Used Tobacco, but Quit: Yes Month Tobacco Last Used: - Caffeine Use Caffeine Use: Reports: Coffee - Recreational Drug Use Recreational Drug Use: No ED ROS GENERAL - Review of Systems Review Of Systems: See Below Constitutional: Reports: Fever (Low-grade according to patient has taken Tylenol ) HEENT: Reports: Rhinitis Respiratory: Reports: No Symptoms Cardiovascular: Reports: No Symptoms Endocrine: Reports: Other (Type 2 diabetes insulin required) GI/Abdominal: Reports: No Symptoms : Reports: No Symptoms Musculoskeletal: Reports: Leg Pain (Left ankle with movement) Skin: Reports: Erythema, Change in Color, Other (Redness of left ankle with poikilothremia) Neurological: Reports: No Symptoms Psychiatric: Reports: No Symptoms Hematologic/Lymphatic: Reports: No Symptoms ED EXAM, GENERAL - Physical Exam Exam: See Below Exam Limited By: No Limitations General Appearance: Alert, WD/WN Ears: Normal External Exam, Normal Canal, Hearing Grossly Normal, Normal TMs Nose: Normal Inspection, Clear Rhinorrhea Throat/Mouth: Normal Inspection, Normal Lips, Normal Teeth, Normal Gums, Normal Oropharynx, Normal Voice, No Airway Compromise Head: Atraumatic, Normocephalic Neck: Normal Inspection, Supple, Non-Tender, Full Range of Motion Respiratory/Chest: No Respiratory Distress, Lungs Clear, Normal Breath Sounds, No Accessory Muscle Use, Chest Non-Tender Cardiovascular: Normal Peripheral Pulses, Regular Rate, Rhythm, No Edema, No Gallop, No JVD, No Murmur, No Rub GI/Abdominal: Normal Bowel Sounds, Soft, Non-Tender, No Organomegaly, No Distention, No Abnormal Bruit, No Mass (Female) Exam: Deferred Rectal (Female) Exam: Deferred Back Exam: Normal Inspection, Full Range of Motion, NT Extremities: Pedal Edema (Left leg), Leg Pain (Left leg pain), Other (3 small ulcers to 2 in the heel, 1 in the great toe left foot left foot edema) Skin Exam: Warm, Dry, Erythema, Increased Warmth (Left leg) Course - Vital Signs Last Recorded V/S: Last Vital Signs Temp 97.3 F 10/25/17 10:20 Pulse 92 10/25/17 10:20 Resp 18 10/25/17 10:20 BP 143/54 H 10/25/17 10:20 Pulse Ox 98 10/25/17 10:20 - Orders/Labs/Meds Orders: Active Orders 24 hr Category Date Time Status CULTURE BLOOD [BC] Stat Lab 10/25/17 10:50 Ordered CULTURE BLOOD [BC] Stat Lab 12/09/17 11:15 Ordered Labs: Laboratory Tests 10/25/17 10/25/17 Range/Units 11:05 11:05 WBC 14.3 H (4.0-10.2) K/uL RBC 2.98 L (3.77-5.09) M/uL Hgb 8.6 L (11.7-15.5) g/dL Hct 26.9 L (34.0-46.0) % MCV 90.3 (84.0-98.0) fL MCH 28.9 (28.2-33.3) pg MCHC 32.0 (31.7-36.0) g/dL Plt Count 297 (150-350) K/uL Neut % (Auto) 86.2 H (45.0-80.0) % Lymph % (Auto) 6.6 L (10.0-50.0) % [place] % (Auto) 6.4 (2.0-14.0) % Eos % (Auto) 0.6 (0.0-5.0) % Baso % (Auto) 0.2 (0.0-2.0) % Neut # (Auto) 12.33 H (1.40-7.00) K/uL Lymph # (Auto) 0.94 (0.50-3.50) K/uL [place] # (Auto) 0.91 (0.00-1.00) K/uL Eos # (Auto) 0.08 (0.00-0.50) K/uL Baso # (Auto) 0.03 (0.00-0.20) K/uL Sodium 136 (136-145) mmol/L Potassium 4.3 (3.5-5.1) mmol/L Chloride 104 (98-107) mmol/L Carbon Dioxide 21.7 (21.0-32.0) mmol/L BUN 29 H (7-18) mg/dL Creatinine 0.82 (0.51-1.17) mg/dL Est Cr Clr Drug Dosing 72.68 mL/min Estimated GFR (MDRD) > 60 mL/min Glucose 177 H (74-106) mg/dL Calcium 8.4 L (8.5-10.1) mg/dL Departure - Departure Time of Disposition: 11:43 Disposition: Home, Self-Care 01 Condition: Fair Clinical Impression: Cellulitis of left leg Diabetes Qualifiers: Diabetes mellitus type: type 2 Diabetes mellitus complication status: without complication Diabetes mellitus 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
[2017-10-25 11:29] LABS: CHLORIDE,CL 104 mmol/L (98-107); SODIUM,NA 136 mmol/L (136-145)
== END 2017-10-25 11:48 | disposition home or self-care (01) ==
LOC: LL.ED 10:20
DX: L03.116 Cellulitis of left lower limb (principal); E11.9 Type 2 diabetes mellitus without complications; I10 Essential (primary) hypertension; J44.9 Chronic obstructive pulmonary disease, unspecified; Z79.899 Other long term (current) drug therapy; Z79.4 Long term (current) use of insulin; Z87.891 Personal history of nicotine dependence; Z88.5 Allergy status to narcotic agent; Z88.8 Allergy status to other drugs, medicaments and biological substances
CPT/HCPCS: 36415; 80048; 85025; 87040; 99283

== ENCOUNTER 2018-02-26 16:00 | Inpatient (IN) | payer MEDICARE, MEDICAID ==
[2018-02-26] MEDS ORDERED: Ondansetron 4 MG Tab.DIS PO PRN (16:52)
--- NOTE | 2018-02-26 17:23 | PCM.HP ---
H&P History of Present Illness - General Date of Service: 02/26/18 Admit Problem/Dx: Admission Diagnosis/Problem Admission Diagnosis/Problem Sinusitis Source of Information: Patient History Limitations: Reports: No Limitations - History of Present Illness Initial Comments - Free Text/Narative: Patient presents to the clinic with not feeling well, states, " I feel like I am going crazy!" Patient has been seen frequently in the clinic for recurrent sinusitis and vertigo. Received IM injections of antibiotic, oral antibiotics, IM Kenalog injection 4 weeks ago, oral prednisone given 02/09/2018 for 4 doses but then later she got a prescription for Dexamethasone 4mg which she has been taking daily since the end of January. Sometimes she will take one to three pills a day. She states that once the pill wore off, she will start to have shakes and dizziness so she would end of taking another steroid pill. The patient recently finished radiation treatments for endometrial cancer. she has episodes of sweating and blood sugars have been elevated. Onset of Symptoms: Reports: Sudden Duration of Symptoms: Reports: Intermittent Location: Reports: Generalized Improves with: Reports: Rest Worsens with: Reports: Movement Associated Symptoms: Reports: Diaphoresis, Loss of Appetite, Malaise, Nausea/ Vomiting, Weakness - Related Data Allergies/Adverse Reactions: Allergies Allergy/AdvReac Type Severity Reaction Status Date / Time gabapentin Allergy Other Verified 10/25/17 10:24 morphine Allergy Other Verified 10/25/17 10:24 promethazine [From Phenergan] Allergy Other Verified 10/25/17 10:24 Home Medications: Home Meds Acetaminophen/Diphenhydramine [Tylenol Pm Ex-Strength Caplet] 2 tab PO QPM 04/30 [History] Acetaminophen/HYDROcodone [[place] 325-5 MG] 1 - 2 tab PO QPM PRN 04/30/17 [ History] Biotin 10,000 mcg PO QAM 04/30/17 [History] Calcium Carbonate/Vitamin D3 [Calcium 600 + Vit D Tablet] 1 tab PO BID@0800, 2000 04/30/17 [History] Clopidogrel [Plavix] 75 mg PO QAM 04/30/17 [History] Fish Oil/[place]-3 Fatty Acids [Fish Oil 1,000 MG] 1 cap PO QPM 04/30/17 [History] Insulin Detemir [Levemir Flextouch] 20 units SUBCUT QPM 04/30/17 [History] Insulin Detemir [Levemir Flextouch] 40 unit SQ QAM 04/30/17 [History] Ipratropium [place] 2 sprays NS BID@0800,199904/30/17 [History] Metoprolol Tartrate 25 mg PO BID@08,20 04/30/17 [History] Milnacipran HCl [Savella] 50 mg PO BID 04/30/17 [History] Montelukast [Singulair] 10 mg PO QAM 04/30/17 [History] Solifenacin Succinate [Vesicare] 10 mg PO QPM@199904/30/17 [History] Ubidecarenone [Co Q-10] 200 mg PO QAM 04/30/17 [History] Dexamethasone 4 mg PO ASDIRECTED 08/29/17 [History] Docusate Sodium [Stool Softener] 1 tab PO ASDIRECTED PRN 08/29/17 [History] Non-Formulary Medication [NF Drug] 1 tab PO BID 08/29/17 [History] Ondansetron [Zofran ODT] 4 mg PO ASDIRECTED PRN 08/29/17 [History] Polyethylene Glycol 3350 [MiraLAX] 17 gm PO DAILY PRN 08/29/17 [History] Lisinopril 10 mg PO DAILY 10/17/17 [History] Ascorbate Calcium [Vitamin C] 500 mg PO DAILY 10/22/17 [History] Ferrous Sulfate [Iron] 65 mg PO DAILY 10/22/17 [History] Acetaminophen [Acetaminophen Extra Strength] 1,000 mg PO Q4HR PRN 10/25/17 [ History] Levofloxacin [Levaquin] 500 mg PO Q24H 10 Days #10 tablet 10/25/17 [Rx] Past Medical History HEENT History: Reports: Sinusitis Other HEENT History: recurrent sinusitis Cardiovascular History: Reports: Hypertension, PVD Respiratory History: Reports: COPD 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: Dysfunctional 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 Musculoskeletal History: Reports: Fibromyalgia Endocrine/Metabolic History: Reports: Diabetes, Type II Hematologic History: Reports: B12 Deficiency - Past Surgical History GI Surgical History: Reports: Bariatric Procedure, Cholecystectomy, Hernia Repair/Other Social & Family History - Family History Cardiac: Reports: CAD - Tobacco Use Smoking Status *Q: Former Smoker Packs/Tins Daily: 0.5 Used Tobacco, but Quit: Yes Month/Year Tobacco Last Used: - Caffeine Use Caffeine Use: Reports: Coffee - Recreational Drug Use Recreational Drug Use: No H&P Review of Systems - Review of Systems: Review Of Systems: See Below General: Reports: Weakness HEENT: Reports: Sinus Congestion, Sore Throat, Vertigo Pulmonary: Reports: No Symptoms Cardiovascular: Reports: No Symptoms Gastrointestinal: Reports: Decreased Appetite Genitourinary: Reports: No Symptoms Musculoskeletal: Reports: No Symptoms Skin: Reports: Erythema (redness noted on nose and bilat elbows and hands) Psychiatric: Reports: Mood Lability Neurological: Reports: Dizziness Hematologic/Lymphatic: Reports: No Symptoms Immunologic: Reports: No Symptoms Exam - Exam Exam: See Below - Vital Signs Vital Signs: Last Vital Signs Temp 98.5 F 02/26/18 16:27 Pulse 71 02/26/18 16:27 Resp 16 02/26/18 16:27 BP 136/75 02/26/18 16:27 Pulse Ox 92 L 02/26/18 16:27 Weight: 259 lb 3.2 oz - Exam General: Alert, Oriented, Cooperative HEENT: Conjunctiva Clear, EACs Clear, EOMI, Hearing Intact, Mucosa Moist & [place] , Nares Patent, Normal Nasal Septum, Posterior Pharynx Clear, Pupils Equal, Pupils Reactive, TMs Clear (sinus pressures frontal and maxillary ) Neck: Supple, Trachea Midline Lungs: Clear to Auscultation, Normal Respiratory Effort Cardiovascular: Regular Rate, Regular Rhythm, Normal S1, Normal S2 GI/Abdominal Exam: Normal Bowel Sounds, Soft, Non-Tender, No Organomegaly, No Distention, No Abnormal Bruit Back Exam: Normal Inspection, Full Range of Motion Extremities: Normal Inspection, Normal Range of Motion, Non-Tender, No Pedal Edema, Normal Capillary Refill Peripheral Pulses: 1+: Dorsalis Pedis (L), Dorsalis Pedis (R) Skin: Warm, Dry, Intact Neurological: Cranial Nerves Intact, Reflexes Equal Bilateral Neuro Extensive - Mental Status: Alert, Oriented x3, Normal Mood/Affect, Normal Cognition, Memory Intact Neuro Extensive - Motor, Sensory, Reflexes: CN II-XII Intact, Normal Gait, Normal Reflexes Psychiatric: Alert, Normal Affect - Problem List (1) Sinusitis SNOMED Code(s): 95341976 ICD Code: J32.9 - CHRONIC SINUSITIS, UNSPECIFIED Status: Acute Current Visit: Yes Qualifiers: Sinusitis location: maxillary Recurrence: recurrent (2) Steroid-induced psychosis SNOMED Code(s): 686113132 ICD Code: AHB8921 - Status: Acute Current Visit: Yes (3) Vertigo SNOMED Code(s): 646524119 ICD Code: R42 - DIZZINESS AND GIDDINESS Status: Acute Current Visit: No (4) Diabetes mellitus SNOMED Code(s): 37676045 ICD Code: E11.9 - TYPE 2 DIABETES MELLITUS WITHOUT COMPLICATIONS Status: Acute Current Visit: Yes Qualifiers: Diabetes mellitus type: type 2 Diabetes mellitus remote computer terminal operator insulin use: with remote computer terminal operator use Diabetes mellitus complication status: with unspecified complications Qualified Code(s): E11.8 - Type 2 diabetes mellitus with unspecified complications; Z79.4 - detention (current) use of insulin Problem List Initiated/Reviewed/Updated: Yes Orders Last 24hrs: Active Orders 24 hr Category Date Time Status Patient Status [ADT] Routine ADT 02/26/18 16:52 Ordered Ambulate [RC] ASDIRECTED Care 02/26/18 16:52 Ordered Ambulate [RC] PER UNIT ROUTINE Care 02/26/18 16:55 Ordered Blood Glucose Check, Bedside [RC] QIDACANDBED Care 02/26/18 16:52 Ordered Cardiac Monitoring [RC] CONTINUOUS Care 02/26/18 16:55 Ordered Intake and Output [RC] QSHIFT Care 02/26/18 16:54 Ordered May Shower [RC] ASDIRECTED Care 02/26/18 16:52 Ordered Oxygen Therapy [RC] PRN Care 02/26/18 16:52 Ordered Peripheral IV Care [RC] . DIRECTED Care 02/26/18 16:56 Ordered VTE/DVT Education [RC] PER UNIT ROUTINE Care 02/26/18 16:52 Ordered Vital Signs [RC] Q4H Care 02/26/18 16:52 Ordered [place] Diet [DIET] Diet 02/26/18 Dinner Ordered CBC WITH AUTO DIFF [HEME] DAILY Lab 02/27/18 05:11 Ordered CBC WITH AUTO DIFF [HEME] DAILY Lab 02/28/18 05:11 Ordered CBC WITH AUTO DIFF [HEME] DAILY Lab 03/01/18 05:11 Ordered CBC WITH AUTO DIFF [HEME] DAILY Lab 03/02/18 05:11 Ordered COMPREHENSIVE METABOLIC PN,CMP [CHEM] DAILY Lab 02/27/18 05:11 Ordered COMPREHENSIVE METABOLIC PN,CMP [CHEM] DAILY Lab 02/28/18 05:11 Ordered COMPREHENSIVE METABOLIC PN,CMP [CHEM] DAILY Lab 03/01/18 05:11 Ordered COMPREHENSIVE METABOLIC PN,CMP [CHEM] DAILY Lab 03/02/18 05:11 Ordered CULTURE URINE [RM] Stat Lab 02/26/18 16:52 Ordered FOLATE [REF] Routine Lab 02/27/18 05:11 Ordered IRON PNL (FE, TIBC, ELIANA, %SAT) [REF] Routine Lab 02/27/18 05:11 Ordered MAGNESIUM [CHEM] Routine Lab 02/27/18 05:11 Ordered TSH ULTRASENSITIVE [CHEM] Routine Lab 02/27/18 05:11 Ordered UA W/MICROSCOPIC [URIN] Routine Lab 02/26/18 16:52 Ordered VITAMIN B12 [CHEM] Routine Lab 02/27/18 05:11 Ordered Acetaminophen [Tylenol] Med 02/26/18 16:52 Ordered 650 mg PO Q4H PRN Lactated Ringers [Ringers, Lactated] 1,000 ml Med 02/26/18 17:00 Ordered IV ASDIRECTED Ondansetron [Zofran ODT] Med 02/26/18 16:52 Ordered 4 mg PO Q6H PRN Sodium Chloride 0.9% [Saline Flush] Med 02/26/18 16:52 Ordered 10 ml FLUSH ASDIRECTED PRN cefTRIAXone [Rocephin] Med 02/26/18 20:00 Ordered 1 gm IVPUSH Q12H methylPREDNISolone Sod Succ [Solu-MEDROL] Med 02/26/18 17:15 Ordered 40 mg IVPUSH DAILY Antiembolic Hose [OM.PC] Per Unit Routine Oth 02/26/18 16:55 Ordered Peripheral IV Insertion Adult [OM.PC] Routine Oth 02/26/18 16:52 Ordered Saline Lock Insert [OM.PC] Routine Oth 02/26/18 16:52 Ordered Resuscitation Status Routine Resus Stat 02/26/18 16:52 Ordered Medication Orders Acetaminophen (Tylenol) 650 mg PO Q4H PRN PRN Reason: Pain (Mild 1-3)/fever Ceftriaxone Sodium (Rocephin) 1 gm IVPUSH Q12H AMANDO Lactated Ringer's (Ringers, Lactated) 1,000 mls @ 50 mls/hr IV ASDIRECTED AMANDO Methylprednisolone Sodium Succinate (Solu-Medrol) 40 mg IVPUSH DAILY AMANDO Ondansetron HCl (Zofran Odt) 4 mg PO Q6H PRN PRN Reason: Nausea/Vomiting Sodium Chloride (Saline Flush) 10 ml FLUSH ASDIRECTED PRN PRN Reason: Keep Vein Open Assessment/Plan Comment:: 02/26/2018 Patient is admitted and treated with IV Rocephin for recurrent sinusitis and outpatient failure in this immunocompromised patient. Pt recently finished chemo and radiation for endometrial cancer. Complicated symptoms due to patient self administering oral steroid usage causing diaphoresis, elevated blood sugars , mood alterations, elevated white count and diaphoresis. Will give IV fluids and low dose solumedrol IV, start a slow taper down of steroid due to patient's build up dependency to the steroid. Check labs in the morning, and monitor blood sugars. Patient is a full code and agreed to plan of care. Discussed with Dr Javier. Patient may need CT scan of the sinus if no improvement with IV rocephin Ariela Cameron,SEED TECHNICIAN
[2018-02-26] MEDS: Lactated Ringers 1,000 ML IV SCH (17:31)
[2018-02-26] MEDS: methylPREDNISolone Sodium Succinate 40 MG/1 ML SDV IVPUSH SCH (17:31)
[2018-02-26] MEDS ORDERED: Docusate Sodium 100 MG Cap PO PRN (17:37)
[2018-02-26] MEDS ORDERED: Insulin Detemir 100 Units/ML 3 ML Pen SUBCUT SCH (18:00)
[2018-02-26] MEDS: Metoprolol Tartrate 25 MG Tab PO SCH (21:07)
[2018-02-26] MEDS: Acetaminophen 500 MG Tab PO SCH (21:07)
[2018-02-26] MEDS: diphenhydrAMINE 25 MG Cap PO SCH (21:07)
[2018-02-26] MEDS: Insulin Detemir 100 Units/ML 3 ML Pen SUBCUT SCH (21:08)
[2018-02-26] MEDS: IPRATROPIUM 0.06% NS SCH (21:08)
[2018-02-26] MEDS: Calcium Carbonate/Vitamin D3 1500 MG-400 Units Tab PO SCH (21:08)
[2018-02-26] MEDS: cefTRIAXone 1 GM Vial IVPUSH SCH (21:10)
[2018-02-26] MEDS: SAVELLA 50 MG PO SCH (21:10)
[2018-02-26] MEDS: Sodium Chloride 0.9% 10 ML Syringe FLUSH PRN (21:13)
[2018-02-26] MEDS: Acetaminophen/HYDROcodone 325-5 MG Tab PO PRN (21:20)
[2018-02-27] MEDS: cefTRIAXone 1 GM Vial IVPUSH SCH ×2 (08:16→21:03)
[2018-02-27] MEDS: methylPREDNISolone Sodium Succinate 40 MG/1 ML SDV IVPUSH SCH (08:16)
[2018-02-27] MEDS: Lisinopril 10 MG Tab PO SCH (08:16)
[2018-02-27 08:17] LABS: CHLORIDE,CL 103 mmol/L (98-107); SODIUM,NA 139 mmol/L (136-145)
[2018-02-27] MEDS: Montelukast 10 MG Tab PO SCH (08:17)
[2018-02-27] MEDS: Ascorbic Acid 500 MG Tab PO SCH (08:17)
[2018-02-27] MEDS: Metoprolol Tartrate 25 MG Tab PO SCH ×2 (08:17→20:54)
[2018-02-27] MEDS: Calcium Carbonate/Vitamin D3 1500 MG-400 Units Tab PO SCH ×2 (08:17→20:54)
[2018-02-27] MEDS: Clopidogrel 75 MG Tab PO SCH (08:17)
[2018-02-27] MEDS: Fluconazole 100 MG Tab PO SCH (08:18)
[2018-02-27] MEDS: Ferrous Sulfate 325 MG Tab PO SCH (08:18)
[2018-02-27] MEDS: Trospium 20 MG Tab PO SCH ×3 (08:18→17:02)
[2018-02-27] MEDS: Insulin Detemir 100 Units/ML 3 ML Pen SUBCUT SCH ×2 (08:19→20:58)
[2018-02-27] MEDS: SAVELLA 50 MG PO SCH ×2 (08:47→20:58)
[2018-02-27] MEDS: IPRATROPIUM 0.06% NS SCH ×2 (08:48→21:02)
[2018-02-27] MEDS: Acetaminophen 325 MG Tab PO PRN ×2 (11:13→17:08)
[2018-02-27] MEDS: Lactated Ringers 1,000 ML IV SCH (16:29)
[2018-02-27] MEDS: diphenhydrAMINE 25 MG Cap PO SCH (20:52)
[2018-02-27] MEDS: Acetaminophen 500 MG Tab PO SCH (20:53)
[2018-02-27] MEDS: [UNRECOGNIZED DRUG - OTHER] PO SCH (20:57)
[2018-02-27] MEDS: Sodium Chloride 0.9% 10 ML Syringe FLUSH SCH (21:06)
[2018-02-27] MEDS: Acetaminophen/HYDROcodone 325-5 MG Tab PO PRN (22:49)
--- NOTE | 2018-02-27 23:00 | PCM.PN ---
- General Info Date of Service: 02/27/18 Admission Dx/Problem (Free Text): Admission Diagnosis/Problem Admission Diagnosis/Problem Sinusitis Functional Status: Reports: Pain Controlled, Other (feeling a little bit better) - Review of Systems General: Reports: Appetite (decreased) HEENT: Reports: No Symptoms Pulmonary: Reports: No Symptoms Cardiovascular: Reports: No Symptoms Gastrointestinal: Reports: No Symptoms Genitourinary: Reports: No Symptoms Musculoskeletal: Reports: No Symptoms Skin: Reports: No Symptoms Neurological: Reports: Dizziness, Weakness Psychiatric: Reports: Other (feeling like I'm going crazy is improving) - Patient Data Vitals - Most Recent: Last Vital Signs Temp 98.5 F 02/27/18 16:00 Pulse 60 02/27/18 20:54 Resp 16 02/27/18 16:00 BP 128/74 02/27/18 20:54 Pulse Ox 95 02/27/18 16:00 Weight - Most Recent: 259 lb 3.2 oz I&O - Last 24 Hours: Intake & Output 02/27/18 02/27/18 02/27/18 06:59 14:59 22:59 Intake Total 330 1200 1230 Output Total 1000 2100 1250 Balance -670 -900 -20 Lab Results Last 24 Hours: Laboratory Results - last 24 hr 02/26/18 02/27/18 02/27/18 Range/Units 17:35 06:55 06:55 WBC 9.3 (4.0-10.2) K/uL RBC 3.43 L (3.77-5.09) M/uL Hgb 11.3 L (11.7-15.5) g/dL Hct 33.7 L (34.0-46.0) % MCV 98.3 H (84.0-98.0) fL MCH 32.9 (28.2-33.3) pg MCHC 33.5 (31.7-36.0) g/dL RDW 12.6 (11.2-14.1) % Plt Count 274 (150-350) K/uL Neut % (Auto) 88.6 H (45.0-80.0) % Lymph % (Auto) 6.2 L (10.0-50.0) % [place] % (Auto) 5.0 (2.0-14.0) % Eos % (Auto) 0.1 (0.0-5.0) % Baso % (Auto) 0.1 (0.0-2.0) % Neut # (Auto) 8.21 H (1.40-7.00) K/uL Lymph # (Auto) 0.57 (0.50-3.50) K/uL [place] # (Auto) 0.46 (0.00-1.00) K/uL Eos # (Auto) 0.01 (0.00-0.50) K/uL Baso # (Auto) 0.01 (0.00-0.20) K/uL Sodium 139 (136-145) mmol/L Potassium 3.3 L (3.5-5.1) mmol/L Chloride 103 (98-107) mmol/L Carbon Dioxide 28.9 (21.0-32.0) mmol/L BUN 22 H (7-18) mg/dL Creatinine 0.71 (0.51-1.17) mg/dL Est Cr Clr Drug Dosing 89.98 mL/min Estimated GFR (MDRD) > 60 mL/min Glucose 195 H (74-106) mg/dL POC Glucose (65-110) mg/dl Calcium 8.6 (8.5-10.1) mg/dL Magnesium 2.0 (1.8-2.4) mg/dL Iron (50-175) ug/dL TIBC (250-450) ug/dL % Saturation Ferritin (8-388) ng/mL Total Bilirubin 0.2 (0.2-1.0) mg/dL AST 15 (15-37) U/L ALT 52 (12-78) U/L Alkaline Phosphatase 76 (46-116) IU/L C-Reactive Protein (<=0.9) mg/dL Total Protein 7.0 (6.4-8.2) g/dL Albumin 3.0 L (3.4-5.0) g/dL Vitamin B12 416 (193-986) pg/mL Folate (8.6-58.9) ng/mL TSH, Ultra Sensitive 0.755 (0.358-3.740) mIU/mL Specimen Type Urinblad Urine Color Yellow Urine Appearance Clear Urine pH 5.5 (5.0-9.0) Ur Specific [place] 1.010 (1.005-1.030) Urine Protein 30 H (NEGATIVE) mg/dL Urine Glucose (UA) 250 H (NEGATIVE) mg/dL Urine Ketones Negative (NEGATIVE) mg/dL Urine Occult Blood Negative (NEGATIVE) Urine Nitrite Negative (NEGATIVE) Urine Bilirubin Negative (NEGATIVE) Urine Urobilinogen 0.2 (0.2-1.0) E.U./dL Ur Leukocyte Esterase Negative (NEGATIVE) Urine RBC 0-5 /HPF Urine WBC 0-5 /HPF Ur Epithelial Cells Rare /LPF Amorphous Sediment Few (0/HPF) /HPF Urine Bacteria Few (NONE TO FEW) /HPF 02/27/18 02/27/18 02/27/18 Range/Units 06:55 06:55 06:55 WBC (4.0-10.2) K/uL RBC (3.77-5.09) M/uL Hgb (11.7-15.5) g/dL Hct (34.0-46.0) % MCV (84.0-98.0) fL MCH (28.2-33.3) pg MCHC (31.7-36.0) g/dL RDW (11.2-14.1) % Plt Count (150-350) K/uL Neut % (Auto) (45.0-80.0) % Lymph % (Auto) (10.0-50.0) % [place] % (Auto) (2.0-14.0) % Eos % (Auto) (0.0-5.0) % Baso % (Auto) (0.0-2.0) % Neut # (Auto) (1.40-7.00) K/uL Lymph # (Auto) (0.50-3.50) K/uL [place] # (Auto) (0.00-1.00) K/uL Eos # (Auto) (0.00-0.50) K/uL Baso # (Auto) (0.00-0.20) K/uL Sodium (136-145) mmol/L Potassium (3.5-5.1) mmol/L Chloride (98-107) mmol/L Carbon Dioxide (21.0-32.0) mmol/L BUN (7-18) mg/dL Creatinine (0.51-1.17) mg/dL Est Cr Clr Drug Dosing mL/min Estimated GFR (MDRD) mL/min Glucose (74-106) mg/dL POC Glucose (65-110) mg/dl Calcium (8.5-10.1) mg/dL Magnesium (1.8-2.4) mg/dL Iron 84 (50-175) ug/dL TIBC 277 (250-450) ug/dL % Saturation 30.98898 Ferritin 73 (8-388) ng/mL Total Bilirubin (0.2-1.0) mg/dL AST (15-37) U/L ALT (12-78) U/L Alkaline Phosphatase (46-116) IU/L C-Reactive Protein < 0.1 (<=0.9) mg/dL Total Protein (6.4-8.2) g/dL Albumin (3.4-5.0) g/dL Vitamin B12 (193-986) pg/mL Folate 12.8 (8.6-58.9) ng/mL TSH, Ultra Sensitive (0.358-3.740) mIU/mL Specimen Type Urine Color Urine Appearance Urine pH (5.0-9.0) Ur Specific [place] (1.005-1.030) Urine Protein (NEGATIVE) mg/dL Urine Glucose (UA) (NEGATIVE) mg/dL Urine Ketones (NEGATIVE) mg/dL Urine Occult Blood (NEGATIVE) Urine Nitrite (NEGATIVE) Urine Bilirubin (NEGATIVE) Urine Urobilinogen (0.2-1.0) E.U./dL Ur Leukocyte Esterase (NEGATIVE) Urine RBC /HPF Urine WBC /HPF Ur Epithelial Cells /LPF Amorphous Sediment (0/HPF) /HPF Urine Bacteria (NONE TO FEW) /HPF 02/27/18 02/27/18 Range/Units 07:45 16:53 WBC (4.0-10.2) K/uL RBC (3.77-5.09) M/uL Hgb (11.7-15.5) g/dL Hct (34.0-46.0) % MCV (84.0-98.0) fL MCH (28.2-33.3) pg MCHC (31.7-36.0) g/dL RDW (11.2-14.1) % Plt Count (150-350) K/uL Neut % (Auto) (45.0-80.0) % Lymph % (Auto) (10.0-50.0) % [place] % (Auto) (2.0-14.0) % Eos % (Auto) (0.0-5.0) % Baso % (Auto) (0.0-2.0) % Neut # (Auto) (1.40-7.00) K/uL Lymph # (Auto) (0.50-3.50) K/uL [place] # (Auto) (0.00-1.00) K/uL Eos # (Auto) (0.00-0.50) K/uL Baso # (Auto) (0.00-0.20) K/uL Sodium (136-145) mmol/L Potassium (3.5-5.1) mmol/L Chloride (98-107) mmol/L Carbon Dioxide (21.0-32.0) mmol/L BUN (7-18) mg/dL Creatinine (0.51-1.17) mg/dL Est Cr Clr Drug Dosing mL/min Estimated GFR (MDRD) mL/min Glucose (74-106) mg/dL POC Glucose 178 H 280 H* (65-110) mg/dl Calcium (8.5-10.1) mg/dL Magnesium (1.8-2.4) mg/dL Iron (50-175) ug/dL TIBC (250-450) ug/dL % Saturation Ferritin (8-388) ng/mL Total Bilirubin (0.2-1.0) mg/dL AST (15-37) U/L ALT (12-78) U/L Alkaline Phosphatase (46-116) IU/L C-Reactive Protein (<=0.9) mg/dL Total Protein (6.4-8.2) g/dL Albumin (3.4-5.0) g/dL Vitamin B12 (193-986) pg/mL Folate (8.6-58.9) ng/mL TSH, Ultra Sensitive (0.358-3.740) mIU/mL Specimen Type Urine Color Urine Appearance Urine pH (5.0-9.0) Ur Specific [place] (1.005-1.030) Urine Protein (NEGATIVE) mg/dL Urine Glucose (UA) (NEGATIVE) mg/dL Urine Ketones (NEGATIVE) mg/dL Urine Occult Blood (NEGATIVE) Urine Nitrite (NEGATIVE) Urine Bilirubin (NEGATIVE) Urine Urobilinogen (0.2-1.0) E.U./dL Ur Leukocyte Esterase (NEGATIVE) Urine RBC /HPF Urine WBC /HPF Ur Epithelial Cells /LPF Amorphous Sediment (0/HPF) /HPF Urine Bacteria (NONE TO FEW) /HPF Med Orders - Current: Current Medications Acetaminophen (Tylenol) 650 mg PO Q4H PRN PRN Reason: Pain (Mild 1-3)/fever Last Admin: 02/27/18 17:08 Dose: 650 mg Acetaminophen (Tylenol Extra Strength) 1,000 mg PO DAILY@1999 [facility] Last Admin: 02/27/18 20:53 Dose: 1,000 mg Hydrocodone Bitart/Acetaminophen ([place] 325-5 Mg) 1 tab PO DAILY@1999 PRN PRN Reason: Pain Last Admin: 02/27/18 22:49 Dose: 1 tab Ascorbic Acid (Vitamin C) 500 mg PO DAILY [facility] Last Admin: 02/27/18 08:17 Dose: 500 mg Calcium Carbonate (Caltrate 600+D 1500 Mg-400 Units) 1 tab PO BID@ [facility] Last Admin: 02/27/18 20:54 Dose: 1 tab Ceftriaxone Sodium (Rocephin) 1 gm IVPUSH Q12H [facility] Last Admin: 02/27/18 21:03 Dose: 1 gm [facility]opidogrel [facility] ([facility]) [facility] Admin: 02/27/18 08:17 Dose: 75 mg Diphenhydramine HCl (Benadryl) 50 mg PO DAILY@1999 [facility] Last Admin: 02/27/18 20:52 Dose: 50 mg Docusate Sodium (Colace) 100 mg PO BID PRN PRN Reason: Constipation Ferrous Sulfate (Ferrous Sulfate) 325 mg PO DAILY [facility] Last Admin: 02/27/18 08:18 Dose: 325 mg Fluconazole (Diflucan) 100 mg PO DAILY [facility] Stop: 03/02/18 08:01 Last Admin: 02/27/18 08:18 Dose: 100 mg Insulin Detemir (Levemir) [facility] [place] Admin: 02/27/18 08:19 Dose: 40 units Insulin Detemir (Levemir) 20 unit SUBCUT DAILY@1999 [facility] Last Admin: 02/27/18 20:58 Dose: 20 units Lisinopril (Prinivil) 10 mg PO DAILY [facility] Last Admin: 02/27/18 08:16 Dose: 10 mg Methylprednisolone Sodium Succinate (Solu-Medrol) 40 mg IVPUSH DAILY [facility] Last Admin: 02/27/18 08:16 Dose: 40 mg Metoprolol Tartrate (Lopressor) 25 mg PO BID@08,20 [facility] Last Admin: 02/27/18 20:54 Dose: 25 mg Montelukast Sodium (Singulair) 10 mg PO QAM [facility] Last Admin: 02/27/18 08:17 Dose: 10 mg Ipratropium 0.06% Nasal [place] Own Med 0 sprays NS BID@799,1999 [facility] Last Admin: 02/27/18 21:02 Dose: 2 sprays [place] 50 Mg Tablet (Own Med) 0 mg PO BID@ [facility] Last Admin: 02/27/18 20:58 Dose: 50 mg NfBariatric Advantage Ultra Mvi Own Med 1 each PO BID [facility] Last Admin: 02/27/18 20:57 Dose: 1 each Ondansetron HCl (Zofran Odt) 4 mg PO Q6H PRN PRN Reason: Nausea/Vomiting Sodium Chloride (Saline Flush) 10 ml FLUSH ASDIRECTED PRN PRN Reason: Keep Vein Open Last Admin: 02/26/18 21:13 Dose: 10 ml Sodium Chloride (Saline Flush) 10 ml FLUSH Q12HR [facility] Last Admin: 02/27/18 21:06 Dose: 10 ml Trospium (Sanctura) 20 mg PO BID [facility] Last Admin: 02/27/18 17:02 Dose: 20 mg Discontinued Medications Lactated Ringer's (Ringers, Lactated) 1,000 mls @ 50 mls/hr IV ASDIRECTED [facility] Last Admin: 02/27/18 16:29 Dose: 50 mls/hr Insulin Detemir (Levemir) 20 unit SUBCUT QPM [facility] Last Admin: 02/26/18 18:45 Dose: Not Given Non-Formulary Medication (Acetaminophen/Diphenhydramine [Tylenol Pm Ex-Strength Caplet]) 2 tab PO DAILY@1999 [facility] - Exam General: Alert, Cooperative, No Acute Distress HEENT: Mucous Membr. Moist/[place], Other (alopecia generalized) Neck: Trachea Midline, No JVD Lungs: Clear to Auscultation, Normal Respiratory Effort Cardiovascular: Regular Rate, Regular Rhythm GI/Abdominal Exam: Soft, Non-Tender, No Distention (Female) Exam: Deferred Back Exam: Normal Inspection Extremities: Non-Tender, No Pedal Edema, Other (increased pigmentation unchanged ) Skin: Warm, Dry, Intact Neurological: No New Focal Deficit Psy/Mental Status: Alert, Normal Affect, Normal Mood - Problem List & Annotations (1) Dizziness SNOMED Code(s): 755436799, 656061987 Code(s): R42 - DIZZINESS AND GIDDINESS Status: Acute Priority: High Current Visit: Yes (2) Diabetes mellitus SNOMED Code(s): 38750620 Code(s): E11.9 - TYPE 2 DIABETES MELLITUS WITHOUT COMPLICATIONS Status: Acute Current Visit: Yes Qualifiers: Diabetes mellitus type: type 2 Diabetes mellitus skilled nursing insulin use: with intermediate school teacher use Diabetes mellitus complication status: with unspecified complications Qualified Code(s): E11.8 - Type 2 diabetes mellitus with unspecified complications; Z79.4 - retirement (current) use of insulin (3) Sinusitis SNOMED Code(s): 83207093 Code(s): J32.9 - CHRONIC SINUSITIS, UNSPECIFIED Status: Acute Current Visit: Yes Qualifiers: Sinusitis location: maxillary Recurrence: recurrent (4) Steroid-induced psychosis SNOMED Code(s): 457013197 Code(s): YAS2898 - Status: Acute Current Visit: Yes (5) Anemia SNOMED Code(s): 516470623 Code(s): D64.9 - ANEMIA, UNSPECIFIED Status: Acute Priority: High Current Visit: No Qualifiers: Anemia type: unspecified type Qualified Code(s): D64.9 - Anemia, unspecified (6) Vertigo SNOMED Code(s): 112393629 Code(s): R42 - DIZZINESS AND GIDDINESS Status: Acute Current Visit: No - Problem List Review Problem List Initiated/Reviewed/Updated: Yes - My Orders Last 24 Hours: My Active Orders 02/27/18 20:00 Sodium Chloride 0.9% [Saline Flush] 10 ml FLUSH Q12HR 02/28/18 05:11 CRP [C-REACTIVE PROTEIN] [CHEM] DAILY 02/28/18 06:00 Discontinue Telemetry Monitoring [Cardiac Monitoring Discontinue] [RC] Click to Edit 03/01/18 05:11 CRP [C-REACTIVE PROTEIN] [CHEM] DAILY - Plan Plan:: 02/26/2018 Patient is admitted and treated with IV Rocephin for recurrent sinusitis and outpatient failure in this immunocompromised patient. Pt recently finished chemo and radiation for endometrial cancer. Complicated symptoms due to patient self administering oral steroid usage causing diaphoresis, elevated blood sugars , mood alterations, elevated white count and diaphoresis. Will give IV fluids and low dose solumedrol IV, start a slow taper down of steroid due to patient's build up dependency to the steroid. Check labs in the morning, and monitor blood sugars. Patient is a full code and agreed to plan of care. Discussed with Dr Javier. Patient may need CT scan of the sinus if no improvement with IV rocephin Ariela Cameron,POTATO PEELER 02/27/18 Concepcion Osorio MD She does feel a little bit better today. Still dizzy.
[2018-02-28] MEDS: methylPREDNISolone Sodium Succinate 40 MG/1 ML SDV IVPUSH SCH (07:21)
[2018-02-28] MEDS: Trospium 20 MG Tab PO SCH ×2 (07:22→17:12)
[2018-02-28] MEDS: Fluconazole 100 MG Tab PO SCH (07:22)
[2018-02-28] MEDS: cefTRIAXone 1 GM Vial IVPUSH SCH ×2 (07:22→21:22)
[2018-02-28] MEDS: Montelukast 10 MG Tab PO SCH (07:23)
[2018-02-28] MEDS: Ascorbic Acid 500 MG Tab PO SCH (07:23)
[2018-02-28] MEDS: Calcium Carbonate/Vitamin D3 1500 MG-400 Units Tab PO SCH ×2 (07:23→21:17)
[2018-02-28] MEDS: Metoprolol Tartrate 25 MG Tab PO SCH ×2 (07:24→21:17)
[2018-02-28] MEDS: Ferrous Sulfate 325 MG Tab PO SCH (07:27)
[2018-02-28] MEDS: SAVELLA 50 MG PO SCH ×2 (07:28→21:19)
[2018-02-28] MEDS: Lisinopril 10 MG Tab PO SCH (07:28)
[2018-02-28] MEDS: IPRATROPIUM 0.06% NS SCH ×2 (07:29→21:20)
[2018-02-28] MEDS: Insulin Detemir 100 Units/ML 3 ML Pen SUBCUT SCH (07:30)
[2018-02-28] MEDS: [UNRECOGNIZED DRUG - OTHER] PO SCH ×2 (07:30→17:13)
[2018-02-28] MEDS: Clopidogrel 75 MG Tab PO SCH (07:35)
[2018-02-28] MEDS: Sodium Chloride 0.9% 10 ML Syringe FLUSH SCH ×2 (07:35→21:39)
[2018-02-28] MEDS: Sodium Chloride 0.9% 10 ML Syringe FLUSH PRN (07:36)
[2018-02-28 08:03] LABS: CHLORIDE,CL 106 mmol/L (98-107); SODIUM,NA 141 mmol/L (136-145)
--- NOTE | 2018-02-28 10:47 | PCM.PN ---
- General Info Date of Service: 02/28/18 Admission Dx/Problem (Free Text): Admission Diagnosis/Problem Admission Diagnosis/Problem Sinusitis Functional Status: Reports: Pain Controlled, Tolerating Diet, Ambulating - Review of Systems General: Reports: Weakness HEENT: Reports: Sinus Congestion Pulmonary: Reports: No Symptoms Cardiovascular: Reports: PND, Lightheadedness Gastrointestinal: Reports: No Symptoms Genitourinary: Reports: No Symptoms Musculoskeletal: Reports: No Symptoms Skin: Reports: No Symptoms Neurological: Reports: No Symptoms Psychiatric: Reports: No Symptoms - Patient Data Vitals - Most Recent: Last Vital Signs Temp 98 F 02/28/18 08:00 Pulse 71 02/28/18 08:00 Resp 16 02/28/18 08:00 BP 157/71 H 02/28/18 08:00 Pulse Ox 96 02/28/18 08:00 Weight - Most Recent: 259 lb 3.2 oz I&O - Last 24 Hours: Intake & Output 02/27/18 02/28/18 02/28/18 22:59 06:59 14:59 Intake Total 1530 965 Output Total 2000 900 Balance -470 65 Lab Results Last 24 Hours: Laboratory Results - last 24 hr 02/27/18 02/27/18 02/28/18 Range/Units 06:55 16:53 07:20 WBC 6.1 (4.0-10.2) K/uL RBC 3.36 L (3.77-5.09) M/uL Hgb 11.0 L (11.7-15.5) g/dL Hct 33.1 L (34.0-46.0) % MCV 98.5 H (84.0-98.0) fL MCH 32.7 (28.2-33.3) pg MCHC 33.2 (31.7-36.0) g/dL RDW 12.7 (11.2-14.1) % Plt Count 255 (150-350) K/uL Neut % (Auto) 78.5 (45.0-80.0) % Lymph % (Auto) 11.5 (10.0-50.0) % [place] % (Auto) 8.4 (2.0-14.0) % Eos % (Auto) 1.6 (0.0-5.0) % Baso % (Auto) 0.0 (0.0-2.0) % Neut # (Auto) 4.77 (1.40-7.00) K/uL Lymph # (Auto) 0.70 (0.50-3.50) K/uL [place] # (Auto) 0.51 (0.00-1.00) K/uL Eos # (Auto) 0.10 (0.00-0.50) K/uL Baso # (Auto) 0.00 (0.00-0.20) K/uL Sodium (136-145) mmol/L Potassium (3.5-5.1) mmol/L Chloride (98-107) mmol/L Carbon Dioxide (21.0-32.0) mmol/L BUN (7-18) mg/dL Creatinine (0.51-1.17) mg/dL Est Cr Clr Drug Dosing mL/min Estimated GFR (MDRD) mL/min Glucose (74-106) mg/dL POC Glucose 280 H* (65-110) mg/dl Calcium (8.5-10.1) mg/dL Total Bilirubin (0.2-1.0) mg/dL AST (15-37) U/L ALT (12-78) U/L Alkaline Phosphatase (46-116) IU/L C-Reactive Protein < 0.1 (<=0.9) mg/dL Total Protein (6.4-8.2) g/dL Albumin (3.4-5.0) g/dL 02/28/18 02/28/18 Range/Units 07:20 07:36 WBC (4.0-10.2) K/uL RBC (3.77-5.09) M/uL Hgb (11.7-15.5) g/dL Hct (34.0-46.0) % MCV (84.0-98.0) fL MCH (28.2-33.3) pg MCHC (31.7-36.0) g/dL RDW (11.2-14.1) % Plt Count (150-350) K/uL Neut % (Auto) (45.0-80.0) % Lymph % (Auto) (10.0-50.0) % [place] % (Auto) (2.0-14.0) % Eos % (Auto) (0.0-5.0) % Baso % (Auto) (0.0-2.0) % Neut # (Auto) (1.40-7.00) K/uL Lymph # (Auto) (0.50-3.50) K/uL [place] # (Auto) (0.00-1.00) K/uL Eos # (Auto) (0.00-0.50) K/uL Baso # (Auto) (0.00-0.20) K/uL Sodium 141 (136-145) mmol/L Potassium 3.0 L (3.5-5.1) mmol/L Chloride 106 (98-107) mmol/L Carbon Dioxide 27.4 (21.0-32.0) mmol/L BUN 23 H (7-18) mg/dL Creatinine 0.82 (0.51-1.17) mg/dL Est Cr Clr Drug Dosing 77.91 mL/min Estimated GFR (MDRD) > 60 mL/min Glucose 89 (74-106) mg/dL POC Glucose 77 (65-110) mg/dl Calcium 8.4 L (8.5-10.1) mg/dL Total Bilirubin 0.2 (0.2-1.0) mg/dL AST 25 (15-37) U/L ALT 69 (12-78) U/L Alkaline Phosphatase 69 (46-116) IU/L C-Reactive Protein < 0.1 (<=0.9) mg/dL Total Protein 6.3 L (6.4-8.2) g/dL Albumin 2.8 L (3.4-5.0) g/dL Med Orders - Current: Current Medications Acetaminophen (Tylenol) 650 mg PO Q4H PRN PRN Reason: Pain (Mild 1-3)/fever Last Admin: 02/27/18 17:08 Dose: 650 mg Acetaminophen (Tylenol Extra Strength) 1,000 mg PO DAILY@1999 [facility] Last Admin: 02/27/18 20:53 Dose: 1,000 mg Hydrocodone Bitart/Acetaminophen ([place] 325-5 Mg) 1 tab PO DAILY@1999 PRN PRN Reason: Pain Last Admin: 02/27/18 22:49 Dose: 1 tab Ascorbic Acid (Vitamin C) 500 mg PO DAILY [facility] Last Admin: 02/28/18 07:23 Dose: 500 mg Calcium Carbonate (Caltrate 600+D 1500 Mg-400 Units) 1 tab PO BID@ [facility] Last Admin: 02/28/18 07:23 Dose: 1 tab Ceftriaxone Sodium (Rocephin) 1 gm IVPUSH Q12H [facility] Last Admin: 02/28/18 07:22 Dose: 1 gm Clopidogrel Bisulfate (Plavix) 75 mg PO QAM [facility] [place] Last Admin: 02/28/18 07:35 Dose: 75 mg Diphenhydramine HCl (Benadryl) 50 mg PO DAILY@1999 [facility] Last Admin: 02/27/18 20:52 Dose: 50 mg Docusate Sodium (Colace) 100 mg PO BID PRN PRN Reason: Constipation Ferrous Sulfate (Ferrous Sulfate) 325 mg PO DAILY [facility] Last Admin: 02/28/18 07:27 Dose: 325 mg Fluconazole (Diflucan) 100 mg PO DAILY [facility] Stop: 03/02/18 08:01 Last Admin: 02/28/18 07:22 Dose: 100 mg Insulin Detemir (Levemir) 40 unit SUBCUT [facility] Last Admin: 02/28/18 07:30 Dose: 40 units Insulin Detemir (Levemir) 15 unit SUBCUT DAILY@1999 [facility] Lisinopril (Prinivil) 10 mg PO DAILY [facility] Last Admin: 02/28/18 07:28 Dose: 10 mg Methylprednisolone Sodium Succinate (Solu-Medrol) 20 mg IVPUSH DAILY [facility] Metoprolol Tartrate (Lopressor) 25 mg PO BID@08 [facility] Last Admin: 02/28/18 07:24 Dose: 25 mg Montelukast Sodium (Singulair) 10 mg PO [facility] Last Admin: 02/28/18 07:23 Dose: 10 mg Ipratropium 0.06% Nasal [place] Own Med 0 sprays NS BID@ [facility] Last Admin: 02/28/18 07:29 Dose: 2 sprays Savella 50 Mg Tablet (Own Med) 0 mg PO BID@ [facility] Last Admin: 02/28/18 07:28 Dose: 50 mg NfBariatric Advantage Ultra Mvi Own Med 1 each PO BID [facility] Last Admin: 02/28/18 07:30 Dose: 1 each Ondansetron HCl (Zofran Odt) 4 mg PO Q6H PRN PRN Reason: Nausea/Vomiting Potassium Chloride (Klor-Con 10) 20 meq PO WITHBREAKFAST [facility] Sodium Chloride (Saline Flush) 10 ml FLUSH ASDIRECTED PRN PRN Reason: Keep Vein Open Last Admin: 02/28/18 07:36 Dose: 10 ml Sodium Chloride (Saline Flush) 10 ml FLUSH Q12HR [facility] Last Admin: 02/28/18 07:35 Dose: 10 ml Trospium (Sanctura) 20 mg PO BID [facility] [place] Last Admin: 02/28/18 07:22 Dose: 20 mg Discontinued Medications Lactated Ringer's (Ringers, Lactated) 1,000 mls @ 50 mls/hr IV ASDIRECTED [facility] [place] Last Admin: 02/27/18 16:29 Dose: 50 mls/hr Insulin Detemir (Levemir) 20 unit SUBCUT QPM [facility] [place] Last Admin: 02/26/18 18:45 Dose: Not Given Insulin Detemir (Levemir) 20 unit SUBCUT DAILY@1999 [facility] [place] Last Admin: 02/27/18 20:58 Dose: 20 units Methylprednisolone Sodium Succinate (Solu-Medrol) 40 mg IVPUSH DAILY [facility] [place] Last Admin: 02/28/18 07:21 Dose: 40 mg Methylprednisolone Sodium Succinate (Solu-Medrol) 20 mg IVPUSH DAILY [facility] Non-Formulary Medication (Acetaminophen/Diphenhydramine [Tylenol Pm Ex-Strength Caplet]) 2 tab PO DAILY@1999 [facility] - Exam General: Alert, Oriented, Cooperative, No Acute Distress HEENT: Pupils Equal, Pupils Reactive, EOMI, Mucous Membr. Moist/[place] Neck: Supple Lungs: Clear to Auscultation, Normal Respiratory Effort Cardiovascular: Regular Rate, Regular Rhythm GI/Abdominal Exam: Normal Bowel Sounds, Soft, Non-Tender Extremities: Normal Inspection, Normal Range of Motion, Non-Tender, No Pedal Edema, Normal Capillary Refill Peripheral Pulses: 1+: Dorsalis Pedis (L), Dorsalis Pedis (R) Skin: Warm, Dry, Intact Neurological: No New Focal Deficit Psy/Mental Status: Alert, Normal Affect, Normal Mood - Problem List & Annotations (1) Sinusitis SNOMED Code(s): 24924058 Code(s): J32.9 - CHRONIC SINUSITIS, UNSPECIFIED Status: Acute Current Visit: Yes Qualifiers: Sinusitis location: maxillary Recurrence: recurrent (2) Steroid-induced psychosis SNOMED Code(s): 957077868 Code(s): OXT2638 - Status: Acute Current Visit: Yes (3) Vertigo SNOMED Code(s): 577771248 Code(s): R42 - DIZZINESS AND GIDDINESS Status: Acute Current Visit: No (4) Diabetes mellitus SNOMED Code(s): 47831380 Code(s): E11.9 - TYPE 2 DIABETES MELLITUS WITHOUT COMPLICATIONS Status: Acute Current Visit: Yes Qualifiers: Diabetes mellitus type: type 2 Diabetes mellitus long lines operator insulin use: with long lines operator use Diabetes mellitus complication status: with unspecified complications Qualified Code(s): E11.8 - Type 2 diabetes mellitus with unspecified complications; Z79.4 - retirement (current) use of insulin - Problem List Review Problem List Initiated/Reviewed/Updated: Yes - My Orders Last 24 Hours: My Active Orders 02/27/18 12:00 Vital Signs [RC] QID 02/27/18 20:00 Non-Formulary Medication [NF Drug] 1 each PO BID 02/28/18 12:00 Potassium Chloride [Klor-Con 10] 20 meq PO WITHBREAKFAST 02/28/18 20:00 Insulin Detemir [Levemir] 15 unit SUBCUT DAILY@199903/01/18 05:11 CBC WITH AUTO DIFF [HEME] DAILY COMPREHENSIVE METABOLIC PN,CMP [CHEM] DAILY 03/01/18 08:00 methylPREDNISolone Sod Succ [Solu-MEDROL] 20 mg IVPUSH DAILY 03/02/18 05:11 CBC WITH AUTO DIFF [HEME] DAILY COMPREHENSIVE METABOLIC PN,CMP [CHEM] DAILY - Plan Plan:: 02/26/2018 Patient is admitted and treated with IV Rocephin for recurrent sinusitis and outpatient failure in this immunocompromised patient. Pt recently finished chemo and radiation for endometrial cancer. Complicated symptoms due to patient self administering oral steroid usage causing diaphoresis, elevated blood sugars , mood alterations, elevated white count and diaphoresis. Will give IV fluids and low dose solumedrol IV, start a slow taper down of steroid due to patient's build up dependency to the steroid. Check labs in the morning, and monitor blood sugars. Patient is a full code and agreed to plan of care. Discussed with Dr Javier. Patient may need CT scan of the sinus if no improvement with IV rocephin Ariela Cameron CNP 02/27/18 Concepcion Osorio MD She does feel a little bit better today. Still dizzy. 02/28/2018 Patient has some dizziness but better. Blood sugar in the 70's this morning, patient ate a snack last night. Will decrease dose of evening insulin. Potassium at 3.0 will start oral replacement and recheck in the morning. Still with pressure over the sinuses, continue IV rocephin. Decrease dose of solumedrol IV, monitor closely for withdrawal signs. Patient will need slow taper of steroids once discharged. Ariela Cameron CNP
[2018-02-28] MEDS: Potassium Chloride 10 MEQ Tab.ER PO SCH (11:18)
[2018-02-28] MEDS ORDERED: methylPREDNISolone Sodium Succinate 40 MG/1 ML SDV IVPUSH SCH (17:00)
[2018-02-28] MEDS ORDERED: Insulin Detemir 100 Units/ML 3 ML Pen SUBCUT SCH ×2 (20:00)
[2018-02-28] MEDS: diphenhydrAMINE 25 MG Cap PO SCH (21:15)
[2018-02-28] MEDS: Acetaminophen/HYDROcodone 325-5 MG Tab PO PRN (21:16)
[2018-02-28] MEDS: Acetaminophen 500 MG Tab PO SCH (21:18)
[2018-03-01] MEDS: Montelukast 10 MG Tab PO SCH (07:16)
[2018-03-01] MEDS: Fluconazole 100 MG Tab PO SCH (07:17)
[2018-03-01] MEDS: Potassium Chloride 10 MEQ Tab.ER PO SCH (07:17)
[2018-03-01] MEDS: Clopidogrel 75 MG Tab PO SCH (07:17)
[2018-03-01] MEDS: Ferrous Sulfate 325 MG Tab PO SCH (07:18)
[2018-03-01] MEDS: Lisinopril 10 MG Tab PO SCH (07:18)
[2018-03-01] MEDS: Ascorbic Acid 500 MG Tab PO SCH (07:18)
[2018-03-01] MEDS: Trospium 20 MG Tab PO SCH ×2 (07:19→17:32)
[2018-03-01] MEDS: Calcium Carbonate/Vitamin D3 1500 MG-400 Units Tab PO SCH ×2 (07:19→19:41)
[2018-03-01] MEDS: Metoprolol Tartrate 25 MG Tab PO SCH ×2 (07:19→19:40)
[2018-03-01] MEDS: IPRATROPIUM 0.06% NS SCH ×2 (07:20→19:37)
[2018-03-01] MEDS: SAVELLA 50 MG PO SCH ×2 (07:20→19:37)
[2018-03-01] MEDS: [UNRECOGNIZED DRUG - OTHER] PO SCH ×2 (07:20→17:32)
[2018-03-01] MEDS: Insulin Detemir 100 Units/ML 3 ML Pen SUBCUT SCH ×2 (07:21→08:23)
[2018-03-01] MEDS: cefTRIAXone 1 GM Vial IVPUSH SCH ×2 (07:22→19:35)
[2018-03-01] MEDS: methylPREDNISolone Sodium Succinate 40 MG/1 ML SDV IVPUSH SCH (07:22)
[2018-03-01] MEDS: Sodium Chloride 0.9% 10 ML Syringe FLUSH SCH ×2 (07:24→19:36)
[2018-03-01] MEDS: Sodium Chloride 0.9% 10 ML Syringe FLUSH PRN (07:25)
[2018-03-01 07:47] LABS: CHLORIDE,CL 103 mmol/L (98-107); SODIUM,NA 138 mmol/L (136-145)
--- NOTE | 2018-03-01 08:33 | PCM.PN ---
- General Info Date of Service: 03/01/18 Admission Dx/Problem (Free Text): Admission Diagnosis/Problem Admission Diagnosis/Problem Sinusitis Functional Status: Reports: Pain Controlled, Tolerating Diet, Ambulating - Review of Systems General: Reports: Weakness HEENT: Reports: Sinus Congestion Pulmonary: Reports: No Symptoms Cardiovascular: Reports: No Symptoms Gastrointestinal: Reports: No Symptoms Genitourinary: Reports: No Symptoms Musculoskeletal: Reports: No Symptoms Skin: Reports: No Symptoms Neurological: Reports: No Symptoms Psychiatric: Reports: No Symptoms - Patient Data Vitals - Most Recent: Last Vital Signs Temp 97.7 F 02/28/18 20:00 Pulse 98 03/01/18 07:19 Resp 17 02/28/18 12:00 BP 132/72 03/01/18 07:19 Pulse Ox 97 02/28/18 20:00 Weight - Most Recent: 259 lb 3.2 oz I&O - Last 24 Hours: Intake & Output 02/28/18 03/01/18 03/01/18 22:59 06:59 14:59 Intake Total 85 570 Output Total 950 400 Balance -865 170 Lab Results Last 24 Hours: Laboratory Results - last 24 hr 02/28/18 02/28/18 02/28/18 Range/Units 11:36 16:50 21:36 WBC (4.0-10.2) K/uL RBC (3.77-5.09) M/uL Hgb (11.7-15.5) g/dL Hct (34.0-46.0) % MCV (84.0-98.0) fL MCH (28.2-33.3) pg MCHC (31.7-36.0) g/dL RDW (11.2-14.1) % Plt Count (150-350) K/uL Neut % (Auto) (45.0-80.0) % Lymph % (Auto) (10.0-50.0) % [place] % (Auto) (2.0-14.0) % Eos % (Auto) (0.0-5.0) % Baso % (Auto) (0.0-2.0) % Neut # (Auto) (1.40-7.00) K/uL Lymph # (Auto) (0.50-3.50) K/uL [place] # (Auto) (0.00-1.00) K/uL Eos # (Auto) (0.00-0.50) K/uL Baso # (Auto) (0.00-0.20) K/uL Sodium (136-145) mmol/L Potassium (3.5-5.1) mmol/L Chloride (98-107) mmol/L Carbon Dioxide (21.0-32.0) mmol/L BUN (7-18) mg/dL Creatinine (0.51-1.17) mg/dL Est Cr Clr Drug Dosing mL/min Estimated GFR (MDRD) mL/min Glucose (74-106) mg/dL POC Glucose 190 H 407 H* 256 H* (65-110) mg/dl Calcium (8.5-10.1) mg/dL Total Bilirubin (0.2-1.0) mg/dL AST (15-37) U/L ALT (12-78) U/L Alkaline Phosphatase (46-116) IU/L C-Reactive Protein (<=0.9) mg/dL Total Protein (6.4-8.2) g/dL Albumin (3.4-5.0) g/dL 03/01/18 03/01/18 03/01/18 Range/Units 06:34 07:20 07:20 WBC 7.4 (4.0-10.2) K/uL RBC 3.61 L (3.77-5.09) M/uL Hgb 12.1 (11.7-15.5) g/dL Hct 35.4 (34.0-46.0) % MCV 98.1 H (84.0-98.0) fL MCH 33.5 H (28.2-33.3) pg MCHC 34.2 (31.7-36.0) g/dL RDW 13.0 (11.2-14.1) % Plt Count 271 (150-350) K/uL Neut % (Auto) 83.2 H (45.0-80.0) % Lymph % (Auto) 9.6 L (10.0-50.0) % [place] % (Auto) 5.8 (2.0-14.0) % Eos % (Auto) 1.3 (0.0-5.0) % Baso % (Auto) 0.1 (0.0-2.0) % Neut # (Auto) 6.18 (1.40-7.00) K/uL Lymph # (Auto) 0.71 (0.50-3.50) K/uL [place] # (Auto) 0.43 (0.00-1.00) K/uL Eos # (Auto) 0.10 (0.00-0.50) K/uL Baso # (Auto) 0.01 (0.00-0.20) K/uL Sodium 138 (136-145) mmol/L Potassium 3.4 L (3.5-5.1) mmol/L Chloride 103 (98-107) mmol/L Carbon Dioxide 27.7 (21.0-32.0) mmol/L BUN 24 H (7-18) mg/dL Creatinine 0.81 (0.51-1.17) mg/dL Est Cr Clr Drug Dosing 78.87 mL/min Estimated GFR (MDRD) > 60 mL/min Glucose 230 H (74-106) mg/dL POC Glucose 63 L (65-110) mg/dl Calcium 8.4 L (8.5-10.1) mg/dL Total Bilirubin 0.2 (0.2-1.0) mg/dL AST 31 (15-37) U/L ALT 80 H (12-78) U/L Alkaline Phosphatase 82 (46-116) IU/L C-Reactive Protein < 0.1 (<=0.9) mg/dL Total Protein 7.0 (6.4-8.2) g/dL Albumin 3.1 L (3.4-5.0) g/dL 03/01/18 Range/Units 08:22 WBC (4.0-10.2) K/uL RBC (3.77-5.09) M/uL Hgb (11.7-15.5) g/dL Hct (34.0-46.0) % MCV (84.0-98.0) fL MCH (28.2-33.3) pg MCHC (31.7-36.0) g/dL RDW (11.2-14.1) % Plt Count (150-350) K/uL Neut % (Auto) (45.0-80.0) % Lymph % (Auto) (10.0-50.0) % [place] % (Auto) (2.0-14.0) % Eos % (Auto) (0.0-5.0) % Baso % (Auto) (0.0-2.0) % Neut # (Auto) (1.40-7.00) K/uL Lymph # (Auto) (0.50-3.50) K/uL [place] # (Auto) (0.00-1.00) K/uL Eos # (Auto) (0.00-0.50) K/uL Baso # (Auto) (0.00-0.20) K/uL Sodium (136-145) mmol/L Potassium (3.5-5.1) mmol/L Chloride (98-107) mmol/L Carbon Dioxide (21.0-32.0) mmol/L BUN (7-18) mg/dL Creatinine (0.51-1.17) mg/dL Est Cr Clr Drug Dosing mL/min Estimated GFR (MDRD) mL/min Glucose (74-106) mg/dL POC Glucose 188 H (65-110) mg/dl Calcium (8.5-10.1) mg/dL Total Bilirubin (0.2-1.0) mg/dL AST (15-37) U/L ALT (12-78) U/L Alkaline Phosphatase (46-116) IU/L C-Reactive Protein (<=0.9) mg/dL Total Protein (6.4-8.2) g/dL Albumin (3.4-5.0) g/dL Sean Results Last 24 Hours: Microbiology 02/26/18 17:35 Urine Culture - Final Urine, Bladder MIXED POSITIVE JORDIN DAY 2 Med Orders - Current: Current Medications Acetaminophen (Tylenol) 650 mg PO Q4H PRN PRN Reason: Pain (Mild 1-3)/fever Last Admin: 02/27/18 17:08 Dose: 650 mg Acetaminophen (Tylenol Extra Strength) 1,000 mg PO DAILY@1999 [facility] Last Admin: 02/28/18 21:18 Dose: 1,000 mg Hydrocodone Bitart/Acetaminophen ([place] 325-5 Mg) 1 tab PO DAILY@1999 PRN PRN Reason: Pain Last Admin: 02/28/18 21:16 Dose: 1 tab Ascorbic Acid (Vitamin C) 500 mg PO DAILY [facility] Last Admin: 03/01/18 07:18 Dose: 500 mg Calcium Carbonate (Caltrate 600+D 1500 Mg-400 Units) 1 tab PO BID@ [facility] Last Admin: 03/01/18 07:19 Dose: 1 tab Ceftriaxone Sodium (Rocephin) 1 gm IVPUSH Q12H [facility] Last Admin: 03/01/18 07:22 Dose: 1 gm Clopidogrel Bisulfate (Plavix) 75 mg PO QAM [facility] Last Admin: 03/01/18 07:17 Dose: 75 mg Diphenhydramine HCl (Benadryl) 50 mg PO DAILY@1999 [facility] Last Admin: 02/28/18 21:15 Dose: 50 mg Docusate Sodium (Colace) 100 mg PO BID PRN PRN Reason: Constipation Ferrous Sulfate (Ferrous Sulfate) 325 mg PO DAILY [facility] Last Admin: 03/01/18 07:18 Dose: 325 mg Fluconazole (Diflucan) 100 mg PO DAILY [facility] Stop: 03/02/18 08:01 Last Admin: 03/01/18 07:17 Dose: 100 mg Insulin Detemir (Levemir) 40 unit SUBCUT [facility] Last Admin: 03/01/18 08:23 Dose: 40 units Insulin Detemir (Levemir) 10 unit SUBCUT DAILY@1999 [facility] Lisinopril (Prinivil) 10 mg PO DAILY [facility] Last Admin: 03/01/18 07:18 Dose: 10 mg Meclizine HCl (Antivert) 25 mg PO Q6H PRN PRN Reason: Dizziness Methylprednisolone Sodium Succinate (Solu-Medrol) 20 mg IVPUSH DAILY [facility] Last Admin: 03/01/18 07:22 Dose: 20 mg Metoprolol Tartrate (Lopressor) 25 mg PO BID@ [facility] Last Admin: 03/01/18 07:19 Dose: 25 mg Montelukast Sodium (Singulair) 10 mg PO QAM [facility] Last Admin: 03/01/18 07:16 Dose: 10 mg Ipratropium 0.06% Nasal [place] Own Med 0 sprays NS BID@799,1999 [facility] Last Admin: 03/01/18 07:20 Dose: 2 sprays Savella 50 Mg Tablet (Own Med) 0 mg PO BID@ [facility] Last Admin: 04/15/18 07:20 Dose: 50 mg NfBariatric Advantage Ultra Mvi Own Med 1 each PO BID [facility] Last Admin: 03/01/18 07:20 Dose: 1 each Ondansetron HCl (Zofran Odt) 4 mg PO Q6H PRN PRN Reason: Nausea/Vomiting Potassium Chloride (Klor-Con 10) 20 meq PO WITHBREAKFAST [facility] Last Admin: 03/01/18 07:17 Dose: 20 meq Sodium Chloride (Saline Flush) 10 ml FLUSH ASDIRECTED PRN PRN Reason: Keep Vein Open Last Admin: 03/01/18 07:25 Dose: 10 ml Sodium Chloride (Saline Flush) 10 ml FLUSH Q12HR [facility] Last Admin: 03/01/18 07:24 Dose: 10 ml Trospium (Sanctura) 20 mg PO BID [facility] Last Admin: 03/01/18 07:19 Dose: 20 mg Discontinued Medications Lactated Ringer's (Ringers, Lactated) 1,000 mls @ 50 mls/hr IV ASDIRECTED [facility] Last Admin: 02/27/18 16:29 Dose: 50 mls/hr Insulin Detemir (Levemir) 20 unit SUBCUT QPM [facility] Last Admin: 02/26/18 18:45 Dose: Not Given Insulin Detemir (Levemir) 20 unit SUBCUT DAILY@1999 [facility] Last Admin: 02/27/18 20:58 Dose: 20 units Insulin Detemir (Levemir) 15 unit SUBCUT DAILY@1999 [facility] Insulin Detemir (Levemir) 20 unit SUBCUT DAILY@1999 [facility] Last Admin: 02/28/18 21:20 Dose: 20 units Methylprednisolone Sodium Succinate (Solu-Medrol) 40 mg IVPUSH DAILY [facility] Last Admin: 02/28/18 07:21 Dose: 40 mg Methylprednisolone Sodium Succinate (Solu-Medrol) 20 mg IVPUSH DAILY [facility] Non-Formulary Medication (Acetaminophen/Diphenhydramine [Tylenol Pm Ex-Strength Caplet]) 2 tab PO DAILY@1999 [facility] - Exam General: Alert, Oriented, Cooperative, No Acute Distress HEENT: Pupils Equal, Pupils Reactive, EOMI, Mucous Membr. Moist/[place] (tender over sinuses more on the left than the right) Neck: Supple Lungs: Clear to Auscultation, Normal Respiratory Effort Cardiovascular: Regular Rate, Regular Rhythm, No Murmurs GI/Abdominal Exam: Normal Bowel Sounds, Soft, Non-Tender, No Organomegaly, No Distention, No Abnormal Bruit Extremities: Normal Inspection, Normal Range of Motion, Non-Tender, No Pedal Edema Peripheral Pulses: 1+: Dorsalis Pedis (L), Dorsalis Pedis (R) Skin: Warm, Dry, Intact Neurological: No New Focal Deficit Psy/Mental Status: Alert, Normal Affect, Normal Mood - Problem List & Annotations (1) Sinusitis SNOMED Code(s): 96464171 Code(s): J32.9 - CHRONIC SINUSITIS, UNSPECIFIED Status: Acute Current Visit: Yes Qualifiers: Sinusitis location: maxillary Recurrence: recurrent (2) Steroid-induced psychosis SNOMED Code(s): 882349040 Code(s): AHA2068 - Status: Acute Current Visit: Yes (3) Vertigo SNOMED Code(s): 209656944 Code(s): R42 - DIZZINESS AND GIDDINESS Status: Acute Current Visit: No (4) Diabetes mellitus SNOMED Code(s): 36400092 Code(s): E11.9 - TYPE 2 DIABETES MELLITUS WITHOUT COMPLICATIONS Status: Acute Current Visit: Yes Qualifiers: Diabetes mellitus type: type 2 Diabetes mellitus custodial insulin use: with custodial use Diabetes mellitus complication status: with unspecified complications Qualified Code(s): E11.8 - Type 2 diabetes mellitus with unspecified complications; Z79.4 - senior care (current) use of insulin - Problem List Review Problem List Initiated/Reviewed/Updated: Yes - My Orders Last 24 Hours: My Active Orders 02/28/18 12:00 Potassium Chloride [Klor-Con 10] 20 meq PO WITHBREAKFAST 03/01/18 08:00 methylPREDNISolone Sod Succ [Solu-MEDROL] 20 mg IVPUSH DAILY 03/01/18 08:26 Communication Order [RC] ROUTINE Meclizine [Antivert] 25 mg PO Q6H PRN 03/01/18 20:00 Insulin Detemir [Levemir] 10 unit SUBCUT DAILY@199903/02/18 05:11 CBC WITH AUTO DIFF [HEME] DAILY COMPREHENSIVE METABOLIC PN,CMP [CHEM] DAILY - Plan Plan:: 02/26/2018 Patient is admitted and treated with IV Rocephin for recurrent sinusitis and outpatient failure in this immunocompromised patient. Pt recently finished chemo and radiation for endometrial cancer. Complicated symptoms due to patient self administering oral steroid usage causing diaphoresis, elevated blood sugars , mood alterations, elevated white count and diaphoresis. Will give IV fluids and low dose solumedrol IV, start a slow taper down of steroid due to patient's build up dependency to the steroid. Check labs in the morning, and monitor blood sugars. Patient is a full code and agreed to plan of care. Discussed with Dr Javier. Patient may need CT scan of the sinus if no improvement with IV rocephin Ariela Cameron CNP 02/27/18 Concepcion Osorio MD She does feel a little bit better today. Still dizzy. 02/28/2018 Patient has some dizziness but better. Blood sugar in the 70's this morning, patient ate a snack last night. Will decrease dose of evening insulin. Potassium at 3.0 will start oral replacement and recheck in the morning. Still with pressure over the sinuses, continue IV rocephin. Decrease dose of solumedrol IV, monitor closely for withdrawal signs. Patient will need slow taper of steroids once discharged. Ariela Cameron CNP 03/01/2018 Patient had a low blood sugar this morning and blood sugar was elevated around 400 yesterday before supper so patient received regular dose last evening. Patient states eating a good supper and snack, will decrease Lantus dose in the evening. Potassium improved. Still with some dizzy spells and sinus pressure, states seeing ENT for recurrent sinusitis in the past with a CT scan of the sinuses over one year ago. Will recheck CT scan of the sinuses in the morning. Patient has oncology appointment on February. Recheck labs in the morning. Ariela Cameron CNP
[2018-03-01] MEDS: Acetaminophen 325 MG Tab PO PRN (12:29)
[2018-03-01] MEDS: Meclizine 25 MG Tab PO PRN (14:19)
[2018-03-01] MEDS: diphenhydrAMINE 25 MG Cap PO SCH (19:38)
[2018-03-01] MEDS: Acetaminophen 500 MG Tab PO SCH (19:41)
[2018-03-01] MEDS: Acetaminophen/HYDROcodone 325-5 MG Tab PO PRN (19:42)
[2018-03-01] MEDS ORDERED: Insulin Detemir 100 Units/ML 3 ML Pen SUBCUT SCH (20:00)
[2018-03-02 08:06] LABS: CHLORIDE,CL 103 mmol/L (98-107); SODIUM,NA 139 mmol/L (136-145)
[2018-03-02] MEDS: Meclizine 25 MG Tab PO PRN (08:11)
[2018-03-02] MEDS: [UNRECOGNIZED DRUG - OTHER] PO SCH ×2 (08:15→17:51)
[2018-03-02] MEDS: Potassium Chloride 10 MEQ Tab.ER PO SCH (08:16)
[2018-03-02] MEDS: Ascorbic Acid 500 MG Tab PO SCH (08:19)
[2018-03-02] MEDS: Metoprolol Tartrate 25 MG Tab PO SCH (08:19)
[2018-03-02] MEDS: Fluconazole 100 MG Tab PO SCH (08:19)
[2018-03-02] MEDS: Clopidogrel 75 MG Tab PO SCH (08:20)
[2018-03-02] MEDS: Ferrous Sulfate 325 MG Tab PO SCH (08:20)
[2018-03-02] MEDS: Calcium Carbonate/Vitamin D3 1500 MG-400 Units Tab PO SCH (08:20)
[2018-03-02] MEDS: Trospium 20 MG Tab PO SCH ×2 (08:20→17:51)
[2018-03-02] MEDS: Lisinopril 10 MG Tab PO SCH (08:21)
[2018-03-02] MEDS: methylPREDNISolone Sodium Succinate 40 MG/1 ML SDV IVPUSH SCH (08:21)
[2018-03-02] MEDS: Montelukast 10 MG Tab PO SCH (08:21)
[2018-03-02] MEDS: cefTRIAXone 1 GM Vial IVPUSH SCH (08:21)
[2018-03-02] MEDS: Sodium Chloride 0.9% 10 ML Syringe FLUSH SCH (08:22)
[2018-03-02] MEDS: SAVELLA 50 MG PO SCH (08:22)
[2018-03-02] MEDS: Insulin Detemir 100 Units/ML 3 ML Pen SUBCUT SCH (08:23)
[2018-03-02] MEDS: IPRATROPIUM 0.06% NS SCH (08:24)
[2018-03-02 12:40] VITALS: BP 124/60
[2018-03-02] MEDS: Acetaminophen 325 MG Tab PO PRN (13:15)
--- NOTE | 2018-03-02 18:24 | PCM.PN ---
- General Info Date of Service: 03/02/18 Admission Dx/Problem (Free Text): Admission Diagnosis/Problem Admission Diagnosis/Problem Sinusitis Functional Status: Reports: Pain Controlled, Tolerating Diet, Ambulating - Review of Systems General: Reports: No Symptoms HEENT: Reports: No Symptoms Pulmonary: Reports: No Symptoms Cardiovascular: Reports: No Symptoms Gastrointestinal: Reports: No Symptoms Genitourinary: Reports: No Symptoms Musculoskeletal: Reports: No Symptoms Skin: Reports: No Symptoms Neurological: Reports: Dizziness (improved) Psychiatric: Reports: No Symptoms - Patient Data Vitals - Most Recent: Last Vital Signs Temp 98.4 F 03/02/18 12:00 Pulse 74 03/02/18 12:00 Resp 16 03/02/18 12:00 BP 124/60 03/02/18 12:00 Pulse Ox 97 03/02/18 12:00 Weight - Most Recent: 259 lb 3.195 oz I&O - Last 24 Hours: Intake & Output 03/02/18 03/02/18 03/02/18 06:59 14:59 22:59 Intake Total 450 4020 Output Total 500 Balance -50 4020 Lab Results Last 24 Hours: Laboratory Results - last 24 hr 03/02/18 03/02/18 03/02/18 Range/Units 06:02 06:55 06:55 WBC 6.7 (4.0-10.2) K/uL RBC 3.57 L (3.77-5.09) M/uL Hgb 11.8 (11.7-15.5) g/dL Hct 36.1 (34.0-46.0) % MCV 101.1 H D (84.0-98.0) fL MCH 33.1 (28.2-33.3) pg MCHC 32.7 (31.7-36.0) g/dL RDW 13.0 (11.2-14.1) % Plt Count 263 (150-350) K/uL Neut % (Auto) 78.0 (45.0-80.0) % Lymph % (Auto) 12.1 (10.0-50.0) % [place] % (Auto) 7.6 (2.0-14.0) % Eos % (Auto) 2.2 (0.0-5.0) % Baso % (Auto) 0.1 (0.0-2.0) % Neut # (Auto) 5.19 (1.40-7.00) K/uL Lymph # (Auto) 0.81 (0.50-3.50) K/uL [place] # (Auto) 0.51 (0.00-1.00) K/uL Eos # (Auto) 0.15 (0.00-0.50) K/uL Baso # (Auto) 0.01 (0.00-0.20) K/uL Sodium 139 (136-145) mmol/L Potassium 3.1 L (3.5-5.1) mmol/L Chloride 103 (98-107) mmol/L Carbon Dioxide 26.5 (21.0-32.0) mmol/L BUN 28 H (7-18) mg/dL Creatinine 0.83 (0.51-1.17) mg/dL Est Cr Clr Drug Dosing 77.17 mL/min Estimated GFR (MDRD) > 60 mL/min Glucose 166 H (74-106) mg/dL POC Glucose 51 L (65-110) mg/dl Calcium 8.1 L (8.5-10.1) mg/dL Total Bilirubin 0.2 (0.2-1.0) mg/dL AST 64 H (15-37) U/L ALT 110 H (12-78) U/L Alkaline Phosphatase 81 (46-116) IU/L Total Protein 6.8 (6.4-8.2) g/dL Albumin 3.0 L (3.4-5.0) g/dL 03/02/18 03/02/18 Range/Units 08:14 17:27 WBC (4.0-10.2) K/uL RBC (3.77-5.09) M/uL Hgb (11.7-15.5) g/dL Hct (34.0-46.0) % MCV (84.0-98.0) fL MCH (28.2-33.3) pg MCHC (31.7-36.0) g/dL RDW (11.2-14.1) % Plt Count (150-350) K/uL Neut % (Auto) (45.0-80.0) % Lymph % (Auto) (10.0-50.0) % [place] % (Auto) (2.0-14.0) % Eos % (Auto) (0.0-5.0) % Baso % (Auto) (0.0-2.0) % Neut # (Auto) (1.40-7.00) K/uL Lymph # (Auto) (0.50-3.50) K/uL [place] # (Auto) (0.00-1.00) K/uL Eos # (Auto) (0.00-0.50) K/uL Baso # (Auto) (0.00-0.20) K/uL Sodium (136-145) mmol/L Potassium (3.5-5.1) mmol/L Chloride (98-107) mmol/L Carbon Dioxide (21.0-32.0) mmol/L BUN (7-18) mg/dL Creatinine (0.51-1.17) mg/dL Est Cr Clr Drug Dosing mL/min Estimated GFR (MDRD) mL/min Glucose (74-106) mg/dL POC Glucose 193 H 319 H* (65-110) mg/dl Calcium (8.5-10.1) mg/dL Total Bilirubin (0.2-1.0) mg/dL AST (15-37) U/L ALT (12-78) U/L Alkaline Phosphatase (46-116) IU/L Total Protein (6.4-8.2) g/dL Albumin (3.4-5.0) g/dL Med Orders - Current: Current Medications Acetaminophen (Tylenol) 650 mg PO Q4H PRN PRN Reason: Pain (Mild 1-3)/fever Last Admin: 03/02/18 13:15 Dose: 650 mg Acetaminophen (Tylenol Extra Strength) 1,000 mg PO DAILY@1999 [facility] Last Admin: 03/01/18 19:41 Dose: 1,000 mg Hydrocodone Bitart/Acetaminophen ([place] 325-5 Mg) 1 tab PO DAILY@1999 PRN PRN Reason: Pain Last Admin: 03/01/18 19:42 Dose: 1 tab Ascorbic Acid (Vitamin C) 500 mg PO DAILY [facility] Last Admin: 03/02/18 08:19 Dose: 500 mg Calcium Carbonate (Caltrate 600+D 1500 Mg-400 Units) 1 tab PO BID@ [facility] Last Admin: 03/02/18 08:20 Dose: 1 tab Ceftriaxone Sodium (Rocephin) 1 gm IVPUSH Q12H [facility] Last Admin: 03/02/18 08:21 Dose: 1 gm Clopidogrel Bisulfate (Plavix) 75 mg PO QAM [facility] Last Admin: 03/02/18 08:20 Dose: 75 mg Diphenhydramine HCl (Benadryl) 50 mg PO DAILY@1999 [facility] Last Admin: 03/01/18 19:38 Dose: 50 mg Docusate Sodium (Colace) 100 mg PO BID PRN PRN Reason: Constipation Ferrous Sulfate (Ferrous Sulfate) 325 mg PO DAILY [facility] Last Admin: 03/02/18 08:20 Dose: 325 mg Insulin [facility]emir (Leve[facility]) [facility] [place] Admin: 03/02/18 08:23 Dose: 40 units Insulin Detemir (Levemir) 10 unit SUBCUT DAILY@1999 [facility] Last Admin: 03/01/18 19:43 Dose: 10 units Lisinopril (Prinivil) 10 mg PO DAILY [facility] Last Admin: 03/02/18 08:21 Dose: 10 mg Meclizine HCl (Antivert) 25 mg PO Q6H PRN PRN Reason: Dizziness Last Admin: 03/02/18 08:11 Dose: 25 mg Methylprednisolone Sodium Succinate (Solu-Medrol) 20 mg IVPUSH DAILY [facility] Last Admin: 03/02/18 08:21 Dose: 20 mg Metoprolol Tartrate (Lopressor) 25 mg PO BID@ [facility] Last Admin: 03/02/18 08:19 Dose: 25 mg Montelukast Sodium (Singulair) [facility] [place] [place] Admin: 03/02/18 08:21 Dose: 10 mg Ipratropium 0.06% Nasal [place] Own Med 0 sprays NS BID@ [facility] Last Admin: 03/02/18 08:24 Dose: 2 sprays Savella 50 Mg Tablet (Own Med) 0 mg PO BID@ [facility] Last Admin: 03/02/18 08:22 Dose: 50 mg NfBariatric Advantage Ultra Mvi Own Med 1 each PO BID [facility] Last Admin: 03/02/18 17:51 Dose: 1 each Ondansetron HCl (Zofran Odt) 4 mg PO Q6H PRN PRN Reason: Nausea/Vomiting Last Admin: 03/02/18 08:11 Dose: 4 mg Potassium Chloride (Klor-Con 10) 20 meq PO WITHBREAKFAST [facility] Last Admin: 03/02/18 08:16 Dose: 20 meq Sodium Chloride (Saline Flush) 10 ml FLUSH ASDIRECTED PRN PRN Reason: Keep Vein Open Last Admin: 03/01/18 07:25 Dose: 10 ml Sodium Chloride (Saline Flush) 10 ml FLUSH Q12HR [facility] Last Admin: 03/02/18 08:22 Dose: 10 ml Trospium (Sanctura) 20 mg PO BID [facility] Last Admin: 03/02/18 17:51 Dose: 20 mg Discontinued Medications Fluconazole (Diflucan) 100 mg PO DAILY [facility] Stop: 03/02/18 08:01 Last Admin: 03/02/18 08:19 Dose: 100 mg Lactated Ringer's (Ringers, Lactated) 1,000 mls @ 50 mls/hr IV ASDIRECTED [facility] Last Admin: 02/27/18 16:29 Dose: 50 mls/hr Insulin Detemir (Levemir) 20 unit SUBCUT QPM [facility] Last Admin: 02/26/18 18:45 Dose: Not Given Insulin Detemir (Levemir) 20 unit SUBCUT DAILY@1999 [facility] Last Admin: 02/27/18 20:58 Dose: 20 units Insulin Detemir (Levemir) 15 unit SUBCUT DAILY@1999 [facility] Insulin Detemir (Levemir) 20 unit SUBCUT DAILY@1999 [facility] Last Admin: 02/28/18 21:20 Dose: 20 units Methylprednisolone Sodium Succinate (Solu-Medrol) 40 mg IVPUSH DAILY [facility] Last Admin: 02/28/18 07:21 Dose: 40 mg Methylprednisolone Sodium Succinate (Solu-Medrol) 20 mg IVPUSH DAILY [facility] Non-Formulary Medication (Acetaminophen/Diphenhydramine [Tylenol Pm Ex-Strength Caplet]) 2 tab PO DAILY@1999 [facility] - Exam General: Alert, Cooperative, No Acute Distress HEENT: Mucous Membr. Moist/[place], Other (left sinus pressure, alopecia) Neck: Trachea Midline, No JVD Lungs: Clear to Auscultation, Normal Respiratory Effort Cardiovascular: Regular Rate, Regular Rhythm GI/Abdominal Exam: Soft, Non-Tender, No Distention (Female) Exam: Deferred Back Exam: Normal Inspection Extremities: Non-Tender, Pedal Edema (minimal), Other (increased pigmentation BLE (hemosiderosis)) Skin: Warm, Dry, Intact Neurological: No New Focal Deficit Psy/Mental Status: Alert, Normal Affect, Normal Mood - Problem List & Annotations (1) Dizziness SNOMED Code(s): 840838451, 920774096 Code(s): R42 - DIZZINESS AND GIDDINESS Status: Acute Priority: High Current Visit: Yes (2) Diabetes mellitus SNOMED Code(s): 75797132 Code(s): E11.9 - TYPE 2 DIABETES MELLITUS WITHOUT COMPLICATIONS Status: Acute Current Visit: Yes Qualifiers: Diabetes mellitus type: type 2 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 Diabetes mellitus complication status: with unspecified complications Qualified Code(s): E11.8 - Type 2 diabetes mellitus with unspecified complications; Z79.4 - [facility] (current) use of insulin (3) Sinusitis SNOMED Code(s): 01290702 Code(s): J32.9 - CHRONIC SINUSITIS, UNSPECIFIED Status: Acute Current Visit: Yes Qualifiers: Sinusitis location: maxillary Recurrence: recurrent (4) Steroid-induced psychosis SNOMED Code(s): 521767433 Code(s): MEF2153 - Status: Acute Current Visit: Yes (5) Anemia SNOMED Code(s): 219367643 Code(s): D64.9 - ANEMIA, UNSPECIFIED Status: Acute Priority: High Current Visit: No Qualifiers: Anemia type: unspecified type Qualified Code(s): D64.9 - Anemia, unspecified (6) Vertigo SNOMED Code(s): 049052007 Code(s): R42 - DIZZINESS AND GIDDINESS Status: Acute Current Visit: No (7) Fungus ball SNOMED Code(s): 2864480, 11178444 Code(s): B49 - UNSPECIFIED MYCOSIS Status: Acute Priority: High Current Visit: Yes (8) Endometrial adenocarcinoma SNOMED Code(s): 648451737 Code(s): C54.1 - MALIGNANT NEOPLASM OF ENDOMETRIUM Status: Acute Priority : Medium Current Visit: Yes - Problem List Review Problem List Initiated/Reviewed/Updated: Yes - My Orders Last 24 Hours: My Active Orders 03/02/18 18:11 Discontinue Saline Lock [Peripheral IV Discontinue] [OM.PC] Routine 03/02/18 18:18 Ready for Discharge [RC] PER UNIT ROUTINE - Plan Plan:: 02/26/2018 Patient is admitted and treated with IV Rocephin for recurrent sinusitis and outpatient failure in this immunocompromised patient. Pt recently finished chemo and radiation for endometrial cancer. Complicated symptoms due to patient self administering oral steroid usage causing diaphoresis, elevated blood sugars , mood alterations, elevated white count and diaphoresis. Will give IV fluids and low dose solumedrol IV, start a slow taper down of steroid due to patient's build up dependency to the steroid. Check labs in the morning, and monitor blood sugars. Patient is a full code and agreed to plan of care. Discussed with Dr Javier. Patient may need CT scan of the sinus if no improvement with IV rocephin Ariela Cameron CNP 02/27/18 Concepcion Osorio MD She does feel a little bit better today. Still dizzy. 02/28/2018 Patient has some dizziness but better. Blood sugar in the 70's this morning, patient ate a snack last night. Will decrease dose of evening insulin. Potassium at 3.0 will start oral replacement and recheck in the morning. Still with pressure over the sinuses, continue IV rocephin. Decrease dose of solumedrol IV, monitor closely for withdrawal signs. Patient will need slow taper of steroids once discharged. Ariela Cameron CNP 03/01/2018 Patient had a low blood sugar this morning and blood sugar was elevated around 400 yesterday before supper so patient received regular dose last evening. Patient states eating a good supper and snack, will decrease Lantus dose in the evening. Potassium improved. Still with some dizzy spells and sinus pressure, states seeing ENT for recurrent sinusitis in the past with a CT scan of the sinuses over one year ago. Will recheck CT scan of the sinuses in the morning. Patient has oncology appointment on February. Recheck labs in the morning. Ariela Cameron CNP 03/02/18 Concepcion Osorio MD Feels better. Still some dizziness. I did discuss CT results with her. She has appointment with her oncologist on Friday03/04/18 then she will need to re- establish appointment with Dr. Sajan REYES. We discussed her decadron dose.
--- NOTE | 2018-03-02 18:25 | PCM.DCSUM1 ---
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 Diabetes mellitus complication status: with unspecified complications Qualified Code(s): E11.8 - Type 2 diabetes mellitus with unspecified complications; 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 (3) Sinusitis SNOMED Code(s): 41582908 ICD Code: J32.9 - CHRONIC SINUSITIS, UNSPECIFIED Status: Acute Current Visit: Yes Qualifiers: Sinusitis location: maxillary Recurrence: recurrent (4) Steroid-induced psychosis SNOMED Code(s): 776746415 ICD Code: UBP0075 - Status: Acute Current Visit: Yes (5) Anemia SNOMED Code(s): 733940139 ICD Code: D64.9 - ANEMIA, UNSPECIFIED Status: Acute Priority: High Current Visit: No Qualifiers: Anemia type: unspecified type Qualified Code(s): D64.9 - Anemia, unspecified (6) Vertigo SNOMED Code(s): 902838451 ICD Code: R42 - DIZZINESS AND GIDDINESS Status: Acute Current Visit: No (7) Fungus ball SNOMED Code(s): 3802368, 82721902 ICD Code: B49 - UNSPECIFIED MYCOSIS Status: Acute Priority: High Current Visit: Yes (8) Endometrial adenocarcinoma SNOMED Code(s): 011239881 ICD Code: C54.1 - MALIGNANT NEOPLASM OF ENDOMETRIUM Status: Acute Priority: Medium Current Visit: Yes - Patient Instructions Diet: Diabetic Diet Activity: As Tolerated Driving: May Drive Today Showering/Bathing: May Shower Other/Special Instructions: Keep your appointment with your oncologist as already scheduled. [place] [facility] [place]. Will need to schedule with Dr. Sajan REYES. - Discharge Plan Home Medications: Home Meds Acetaminophen/Diphenhydramine [Tylenol Pm Ex-Strength Caplet] 2 tab PO DAILY@ 199904/30/17 [History] Acetaminophen/HYDROcodone [[place] 325-5 MG] 1 - 2 tab PO DAILY@1999 PRN 04/30/17 [History] Biotin 10,000 mcg PO QAM 04/30/17 [History] Calcium Carbonate/Vitamin D3 [Calcium 600 + Vit D Tablet] 1 tab PO BID@0800, 199904/30/17 [History] Clopidogrel [Plavix] 75 mg PO QAM 04/30/17 [History] Fish Oil/[place]-3 Fatty Acids [Fish Oil 1,000 MG] 1 cap PO DAILY@199904/30/17 [ History] Insulin Detemir [Levemir Flextouch] 20 units SUBCUT QPM@199904/30/17 [History] Insulin Detemir [Levemir Flextouch] 40 unit SQ QAM 04/30/17 [History] Ipratropium [place] 2 sprays NS BID@08,199904/30/17 [History] Metoprolol Tartrate 25 mg PO BID@,04/30/17 [History] Milnacipran HCl [Savella] 50 mg PO BID@,04/30/17 [History] Montelukast [Singulair] 10 mg PO QAM 04/30/17 [History] Solifenacin Succinate [Vesicare] 10 mg PO QPM@199904/30/17 [History] Ubidecarenone [Co Q-10] 200 mg PO QAM 04/30/17 [History] Dexamethasone 4 mg PO ASDIRECTED 08/29/17 [History] Docusate Sodium [Stool Softener] 1 tab PO BID PRN 08/29/17 [History] Non-Formulary Medication [NF Drug] 1 tab PO BID@,08/29/17 [History] Ondansetron [Zofran ODT] 4 mg PO ASDIRECTED PRN 08/29/17 [History] Polyethylene Glycol 3350 [MiraLAX] 17 gm PO DAILY PRN 08/29/17 [History] Lisinopril 10 mg PO DAILY 10/17/17 [History] Ascorbate Calcium [Vitamin C] 500 mg PO DAILY 10/22/17 [History] Ferrous Sulfate [Iron] 65 mg PO DAILY 10/22/17 [History] - Discharge Summary/Plan Comment DC Time >30 min.: No - Patient Data Vitals - Most Recent: Last Vital Signs Temp 98.4 F 03/02/18 12:00 Pulse 74 03/02/18 12:00 Resp 16 03/02/18 12:00 BP 124/60 03/02/18 12:00 Pulse Ox 97 03/02/18 12:00 Weight - Most Recent: 259 lb 3.195 oz I&O - Last 24 hours: Intake & Output 03/02/18 03/02/18 03/02/18 06:59 14:59 22:59 Intake Total 450 4020 Output Total 500 Balance -50 4020 Lab Results - Last 24 hrs: Laboratory Results - last 24 hr 03/02/18 03/02/18 03/02/18 Range/Units 06:02 06:55 06:55 WBC 6.7 (4.0-10.2) K/uL RBC 3.57 L (3.77-5.09) M/uL Hgb 11.8 (11.7-15.5) g/dL Hct 36.1 (34.0-46.0) % MCV 101.1 H D (84.0-98.0) fL MCH 33.1 (28.2-33.3) pg MCHC 32.7 (31.7-36.0) g/dL RDW 13.0 (11.2-14.1) % Plt Count 263 (150-350) K/uL Neut % (Auto) 78.0 (45.0-80.0) % Lymph % (Auto) 12.1 (10.0-50.0) % [place] % (Auto) 7.6 (2.0-14.0) % Eos % (Auto) 2.2 (0.0-5.0) % Baso % (Auto) 0.1 (0.0-2.0) % Neut # (Auto) 5.19 (1.40-7.00) K/uL Lymph # (Auto) 0.81 (0.50-3.50) K/uL [place] # (Auto) 0.51 (0.00-1.00) K/uL Eos # (Auto) 0.15 (0.00-0.50) K/uL Baso # (Auto) 0.01 (0.00-0.20) K/uL Sodium 139 (136-145) mmol/L Potassium 3.1 L (3.5-5.1) mmol/L Chloride 103 (98-107) mmol/L Carbon Dioxide 26.5 (21.0-32.0) mmol/L BUN 28 H (7-18) mg/dL Creatinine 0.83 (0.51-1.17) mg/dL Est Cr Clr Drug Dosing 77.17 mL/min Estimated GFR (MDRD) > 60 mL/min Glucose 166 H (74-106) mg/dL POC Glucose 51 L (65-110) mg/dl Calcium 8.1 L (8.5-10.1) mg/dL Total Bilirubin 0.2 (0.2-1.0) mg/dL AST 64 H (15-37) U/L ALT 110 H (12-78) U/L Alkaline Phosphatase 81 (46-116) IU/L Total Protein 6.8 (6.4-8.2) g/dL Albumin 3.0 L (3.4-5.0) g/dL 03/02/18 03/02/18 Range/Units 08:14 17:27 WBC (4.0-10.2) K/uL RBC (3.77-5.09) M/uL Hgb (11.7-15.5) g/dL Hct (34.0-46.0) % MCV (84.0-98.0) fL MCH (28.2-33.3) pg MCHC (31.7-36.0) g/dL RDW (11.2-14.1) % Plt Count (150-350) K/uL Neut % (Auto) (45.0-80.0) % Lymph % (Auto) (10.0-50.0) % [place] % (Auto) (2.0-14.0) % Eos % (Auto) (0.0-5.0) % Baso % (Auto) (0.0-2.0) % Neut # (Auto) (1.40-7.00) K/uL Lymph # (Auto) (0.50-3.50) K/uL [place] # (Auto) (0.00-1.00) K/uL Eos # (Auto) (0.00-0.50) K/uL Baso # (Auto) (0.00-0.20) K/uL Sodium (136-145) mmol/L Potassium (3.5-5.1) mmol/L Chloride (98-107) mmol/L Carbon Dioxide (21.0-32.0) mmol/L BUN (7-18) mg/dL Creatinine (0.51-1.17) mg/dL Est Cr Clr Drug Dosing mL/min Estimated GFR (MDRD) mL/min Glucose (74-106) mg/dL POC Glucose 193 H 319 H* (65-110) mg/dl Calcium (8.5-10.1) mg/dL Total Bilirubin (0.2-1.0) mg/dL AST (15-37) U/L ALT (12-78) U/L Alkaline Phosphatase (46-116) IU/L Total Protein (6.4-8.2) g/dL Albumin (3.4-5.0) g/dL Med Orders - Current: Current Medications Acetaminophen (Tylenol) 650 mg PO Q4H PRN PRN Reason: Pain (Mild 1-3)/fever Last Admin: 03/02/18 13:15 Dose: 650 mg Acetaminophen (Tylenol Extra Strength) 1,000 mg PO DAILY@1999 [facility] Last Admin: 03/01/18 19:41 Dose: 1,000 mg Hydrocodone Bitart/Acetaminophen ([place] 325-5 Mg) 1 tab PO DAILY@1999 PRN PRN Reason: Pain Last Admin: 03/01/18 19:42 Dose: 1 tab Ascorbic Acid (Vitamin C) 500 mg PO DAILY [facility] Last Admin: 03/02/18 08:19 Dose: 500 mg Calcium Carbonate (Caltrate 600+D 1500 Mg-400 Units) 1 tab PO BID@799,1999 [facility] Last Admin: 03/02/18 08:20 Dose: 1 tab Ceftriaxone Sodium (Rocephin) 1 gm IVPUSH Q12H [facility] Last Admin: 03/02/18 08:21 Dose: 1 gm Clopidogrel Bisulfate (Plavix) 75 mg PO QAM [facility] Last Admin: 03/02/18 08:20 Dose: 75 mg Diphenhydramine HCl (Benadryl) 50 mg PO DAILY@1999 [facility] Last Admin: 03/01/18 19:38 Dose: 50 mg Docusate Sodium (Colace) 100 mg PO BID PRN PRN Reason: Constipation Ferrous Sulfate (Ferrous Sulfate) 325 mg PO DAILY [facility] Last Admin: 03/02/18 08:20 Dose: 325 mg Insulin Detemir (Levemir) 40 unit SUBCUT QAM [facility] Last Admin: 03/02/18 08:23 Dose: 40 units Insulin Detemir (Levemir) 10 unit SUBCUT DAILY@1999 [facility] Last Admin: 03/01/18 19:43 Dose: 10 units Lisinopril (Prinivil) 10 mg PO DAILY [facility] Last Admin: 03/02/18 08:21 Dose: 10 mg Meclizine HCl (Antivert) 25 mg PO Q6H PRN PRN Reason: Dizziness Last Admin: 03/02/18 08:11 Dose: 25 mg Methylprednisolone Sodium Succinate (Solu-Medrol) 20 mg IVPUSH DAILY [facility] Last Admin: 03/02/18 08:21 Dose: 20 mg Metoprolol Tartrate (Lopressor) 25 mg PO BID@ [facility] Last Admin: 03/02/18 08:19 Dose: 25 mg Montelukast Sodium (Singulair) [facility] [place] Last Admin: 03/02/18 08:21 Dose: 10 mg Ipratropium 0.06% Nasal [place] Own Med 0 sprays NS BID@ [facility] Last Admin: 03/02/18 08:24 Dose: 2 sprays Savella 50 Mg Tablet (Own Med) 0 mg PO BID@ [facility] Last Admin: 03/02/18 08:22 Dose: 50 mg NfBariatric Advantage Ultra Mvi Own Med 1 each PO BID [facility] Last Admin: 03/02/18 17:51 Dose: 1 each Ondansetron HCl (Zofran Odt) 4 mg PO Q6H PRN PRN Reason: Nausea/Vomiting Last Admin: 03/02/18 08:11 Dose: 4 mg Potassium Chloride (Klor-Con 10) 20 meq PO WITHBREAKFAST [facility] Last Admin: 03/02/18 08:16 Dose: 20 meq Sodium Chloride (Saline Flush) 10 ml FLUSH ASDIRECTED PRN PRN Reason: Keep Vein Open Last Admin: 03/01/18 07:25 Dose: 10 ml Sodium Chloride (Saline Flush) 10 ml FLUSH Q12HR [facility] Last Admin: 03/02/18 08:22 Dose: 10 ml Trospium (Sanctura) 20 mg PO BID [facility] Last Admin: 03/02/18 17:51 Dose: 20 mg Discontinued Medications Fluconazole (Diflucan) 100 mg PO DAILY [facility] Stop: 03/02/18 08:01 Last Admin: 03/02/18 08:19 Dose: 100 mg Lactated Ringer's (Ringers, Lactated) 1,000 mls @ 50 mls/hr IV ASDIRECTED [facility] Last Admin: 02/27/18 16:29 Dose: 50 mls/hr Insulin Detemir (Levemir) 20 unit SUBCUT QPM [facility] Last Admin: 02/26/18 18:45 Dose: Not Given Insulin Detemir (Levemir) 20 unit SUBCUT DAILY@1999 [facility] Last Admin: 02/27/18 20:58 Dose: 20 units Insulin Detemir (Levemir) 15 unit SUBCUT DAILY@1999 [facility] Insulin Detemir (Levemir) 20 unit SUBCUT DAILY@1999 [facility] Last Admin: 02/28/18 21:20 Dose: 20 units Methylprednisolone Sodium Succinate (Solu-Medrol) 40 mg IVPUSH DAILY [facility] Last Admin: 02/28/18 07:21 Dose: 40 mg Methylprednisolone Sodium Succinate (Solu-Medrol) 20 mg IVPUSH DAILY [facility] Non-Formulary Medication (Acetaminophen/Diphenhydramine [Tylenol Pm Ex-Strength Caplet]) 2 tab PO DAILY@1999 [facility]
== END 2018-03-02 19:20 | disposition home or self-care (01) | DRG 153 ==
LOC: LL.MS 16:00
PROVIDERS: ADMIT Nurse Practitioner Family; ATTEND Family Medicine
DX: J32.0 Chronic maxillary sinusitis (principal); F23 Brief psychotic disorder; B49 Unspecified mycosis; T38.0X5A Adverse effect of glucocorticoids and synthetic analogues, initial encounter; R42 Dizziness and giddiness; I10 Essential (primary) hypertension; J44.9 Chronic obstructive pulmonary disease, unspecified; D64.9 Anemia, unspecified; M79.7 Fibromyalgia; E11.9 Type 2 diabetes mellitus without complications; C54.1 Malignant neoplasm of endometrium; E53.8 Deficiency of other specified B group vitamins; Z98.84 Bariatric surgery status; Z90.49 Acquired absence of other specified parts of digestive tract; Z92.3 Personal history of irradiation; Z88.6 Allergy status to analgesic agent; Z88.8 Allergy status to other drugs, medicaments and biological substances; Z79.4 Long term (current) use of insulin; Z79.891 Long term (current) use of opiate analgesic; Z79.899 Other long term (current) drug therapy; Z87.891 Personal history of nicotine dependence; Z92.21 Personal history of antineoplastic chemotherapy
CPT/HCPCS: 36415; 70486; 80053; 81001; 82607; 82728; 82746; 82962; 83540; 83550; 83735; 84443; 85025; 86140; 87086; A9270-GY; J0696; J1815-GY; J2920; J7050; J7120

== ENCOUNTER 2018-12-05 15:25 | Inpatient (IN) | payer MEDICARE, MEDICAID ==
--- NOTE | 2018-12-05 15:55 | EDM.PDOC ---
ED HPI GENERAL MEDICAL PROBLEM - General Chief Complaint: General Stated Complaint: right lower extremity redness, swelling, pain Time Seen by Provider: 12/05/18 15:25 Source of Information: Reports: Patient, Family History Limitations: Reports: No Limitations - History of Present Illness INITIAL COMMENTS - FREE TEXT/NARRATIVE: 63-year-old came in with swelling of the right leg and redness that has gotten worse in the last 3 days associated with pain chills and temperature past medical history includes cellulitis at the beginning of the month patient has history of endometrial carcinoma she had a total hysterectomy with removal of lymph nodes Duration: Day(s): Location: Reports: Lower Extremity, Right Quality: Reports: Ache, Throbbing Severity: Severe Improves with: Reports: None Treatments ADMINISTRATION VICE PRESIDENT: Reports: Acetaminophen Right Lower Leg Pain Score (Numeric/FACES): 8 - Related Data Allergies Allergy/AdvReac Type Severity Reaction Status Date / Time gabapentin Allergy Shaking Verified 12/05/18 15:32 morphine Allergy Shaking Verified 12/05/18 15:32 promethazine [From Phenergan] Allergy Shaking Verified 12/05/18 15:32 Home Meds: Home Meds Acetaminophen/Diphenhydramine [Tylenol Pm Ex-Strength Caplet] 2 tab PO DAILY@ 199904/30/17 [History] Acetaminophen/HYDROcodone [[place] 325-5 MG] 1 - 2 tab PO DAILY@1999 PRN 04/30/17 [History] Biotin 10,000 mcg PO QA 04/30/17 [History] Calcium Carbonate/Vitamin D3 [Calcium 600 + Vit D Tablet] 1 tab PO BID@0800, 199904/30/17 [History] Clopidogrel [Plavix] 75 mg PO QA 04/30/17 [History] Fish Oil/[place]-3 Fatty Acids [Fish Oil 1,000 MG] 1 cap PO DAILY@199904/30/17 [ History] Insulin Detemir [Levemir Flextouch] 20 units SUBCUT QPM@199904/30/17 [History] Insulin Detemir [Levemir Flextouch] 40 unit SQ QA 04/30/17 [History] Ipratropium [place] 2 sprays NS BID@0800,199904/30/17 [History] Metoprolol Tartrate 25 mg PO BID@08,20 04/30/17 [History] Milnacipran HCl [Savella] 50 mg PO BID@04/30/17 [History] Montelukast [Singulair] 10 mg PO QAM 04/30/17 [History] Solifenacin Succinate [Vesicare] 10 mg PO QPM@199904/30/17 [History] Ubidecarenone [Co Q-10] 200 mg PO QAM 04/30/17 [History] Docusate Sodium [Stool Softener] 1 tab PO BID PRN 08/29/17 [History] Non-Formulary Medication [NF Drug] 1 tab PO BID@08/29/17 [History] Ondansetron [Zofran ODT] 4 mg PO ASDIRECTED PRN 08/29/17 [History] Polyethylene Glycol 3350 [MiraLAX] 17 gm PO DAILY PRN 08/29/17 [History] Lisinopril 10 mg PO DAILY 10/17/17 [History] Prochlorperazine [Compazine] 10 mg PO Q6H PRN 12/05/18 [History] Past Medical History HEENT History: Reports: Sinusitis Other HEENT History: recurrent sinusitis Cardiovascular History: Reports: Hypertension, PVD Respiratory History: Reports: COPD FUSE CUTTER History: Reports: Dysfunctional 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 Musculoskeletal History: Reports: Fibromyalgia Endocrine/Metabolic History: Reports: Diabetes, Type II Hematologic History: Reports: B12 Deficiency - Past Surgical History GI Surgical History: Reports: Bariatric Procedure, Cholecystectomy, Hernia Repair/Other Social & Family History - Family History Cardiac: Reports: CAD - Caffeine Use Caffeine Use: Reports: Coffee ED ROS GENERAL - Review of Systems Review Of Systems: See Below Constitutional: Reports: Fever, Chills, Decreased Appetite HEENT: Reports: No Symptoms Respiratory: Reports: No Symptoms Cardiovascular: Reports: No Symptoms Endocrine: Reports: Fatigue, High Glucose GI/Abdominal: Reports: Diarrhea Musculoskeletal: Reports: No Symptoms Skin: Reports: No Symptoms ED EXAM, GENERAL - Physical Exam Exam: See Below Exam Limited By: No Limitations General Appearance: Alert, WD/WN, No Apparent Distress Ears: Normal External Exam, Normal Canal, Hearing Grossly Normal, Normal TMs Nose: Normal Inspection, Normal Mucosa, No Blood Throat/Mouth: Normal Inspection, Normal Lips, Normal Teeth, Normal Gums, Normal Oropharynx, Normal Voice, No Airway Compromise Head: Atraumatic, Normocephalic Neck: Normal Inspection, Supple, Non-Tender, Full Range of Motion Respiratory/Chest: No Respiratory Distress, Lungs Clear, Normal Breath Sounds, No Accessory Muscle Use, Chest Non-Tender Cardiovascular: Normal Peripheral Pulses, Regular Rate, Rhythm, No Edema, No Gallop, No JVD, No Murmur, No Rub GI/Abdominal: Normal Bowel Sounds, Soft, Non-Tender, No Organomegaly, No Distention, No Abnormal Bruit, No Mass (Female) Exam: Deferred Rectal (Female) Exam: Deferred Back Exam: Normal Inspection, Full Range of Motion, NT Extremities: Pedal Edema (Right leg), Leg Pain (Right leg) Neurological: Alert, Oriented, CN II-XII Intact, Normal Cognition, Normal Gait, Normal Reflexes, No Motor/Sensory Deficits Psychiatric: Normal Affect, Normal Mood Skin Exam: Warm, Dry, Intact, Ecchymosis, Increased Warmth Lymphatic: No Adenopathy Course - Vital Signs Last Recorded V/S: Last Vital Signs Temp 101.6 F H 12/05/18 15:25 Pulse 105 H 12/05/18 15:25 Resp 18 12/05/18 15:25 BP 145/64 H 12/05/18 15:25 Pulse Ox 99 12/05/18 15:25 - Orders/Labs/Meds Orders: Active Orders 24 hr Category Date Time Status Chest 2V [CR] Stat Exams 12/05/18 15:40 Ordered BASIC METABOLIC PANEL,BMP [CHEM] Stat Lab 12/05/18 15:39 Ordered CBC WITH AUTO DIFF [HEME] Stat Lab 12/05/18 15:39 Ordered CULTURE BLOOD [BC] Stat Lab 12/05/18 15:40 Ordered CULTURE BLOOD [BC] Stat Lab 12/05/18 15:40 Ordered LACTIC ACID [CHEM] Stat Lab 12/05/18 15:40 Ordered UA W/MICROSCOPIC [URIN] Stat Lab 12/05/18 15:40 Ordered Blood Culture x2 Reflex Set [OM.PC] Stat Oth 12/05/18 15:40 Ordered Departure - Departure Time of Disposition: 16:54 Disposition: Admitted As Inpatient 67 Condition: Fair Clinical Impression: Lower extremity cellulitis Qualifiers: Laterality: right Qualified Code(s): L03.115 - Cellulitis of right lower limb - Discharge Information *PRESCRIPTION DRUG MONITORING PROGRAM REVIEWED*: No *COPY OF PRESCRIPTION DRUG MONITORING REPORT IN PATIENT SCHUYLER: No Referrals: Ariela Cameron NP [Primary Care Provider] - Care Plan Goals: Patient will be admitted for antibiotic therapy - Problem List & Annotations (1) Cellulitis of right leg SNOMED Code(s): 379426445 Code(s): L03.115 - CELLULITIS OF RIGHT LOWER LIMB Status: Acute Current Visit: Yes Annotation/Comment:: Patient will be admitted for antibiotic (2) Diabetes SNOMED Code(s): 57710765 Code(s): E11.9 - TYPE 2 DIABETES MELLITUS WITHOUT COMPLICATIONS Status: Acute Current Visit: No Qualifiers: Diabetes mellitus type: type 2 Diabetes mellitus group home insulin use: with group home use Diabetes mellitus complication status: without complication Qualified Code(s): E11.9 - Type 2 diabetes mellitus without complications; Z79.4 - care home (current) use of insulin - Problem List Review Problem List Initiated/Reviewed/Updated: Yes - My Orders Last 24 Hours: My Active Orders 12/05/18 15:39 BASIC METABOLIC PANEL,BMP [CHEM] Stat CBC WITH AUTO DIFF [HEME] Stat 12/05/18 15:40 Chest 2V [CR] Stat CULTURE BLOOD [BC] Stat CULTURE BLOOD [BC] Stat LACTIC ACID [CHEM] Stat UA W/MICROSCOPIC [URIN] Stat Blood Culture x2 Reflex Set [OM.PC] Stat - Assessment/Plan Admission H&P: Please use this note as an admission H&P Last 24 Hours: My Active Orders 12/05/18 15:39 BASIC METABOLIC PANEL,BMP [CHEM] Stat CBC WITH AUTO DIFF [HEME] Stat 12/05/18 15:40 Chest 2V [CR] Stat CULTURE BLOOD [BC] Stat CULTURE BLOOD [BC] Stat LACTIC ACID [CHEM] Stat UA W/MICROSCOPIC [URIN] Stat Blood Culture x2 Reflex Set [OM.PC] Stat
[2018-12-05] MEDS ORDERED: Acetaminophen 325 MG Tab PO ONE (16:03)
[2018-12-05] MEDS ORDERED: Ondansetron 4 MG/2 ML SDV IVPUSH PRN (17:30)
[2018-12-05] MEDS ORDERED: Fluconazole 100 MG Tab PO ONE (17:47)
[2018-12-05] MEDS: Piperacillin/Tazobactam 3.375 GM in Sodium Chloride 0.9% 100 ML IV SCH ×2 (18:39→23:26)
[2018-12-05] MEDS: Sodium Chloride 0.9% 10 ML Syringe FLUSH PRN (18:40)
[2018-12-05] MEDS: Lisinopril 20 MG Tab PO SCH (18:43)
[2018-12-05] MEDS ORDERED: IPRATROPIUM BROMIDE NS SCH (20:00)
[2018-12-05] MEDS: Sodium Chloride 0.9% 1,000 ML IV SCH (20:18)
[2018-12-05] MEDS: Multivitamins with Iron and Minerals Tab.Chew PO SCH (20:24)
[2018-12-05] MEDS: diphenhydrAMINE 25 MG Cap PO SCH (20:24)
[2018-12-05] MEDS: Calcium Carbonate/Vitamin D3 1500 MG-400 Units Tab PO SCH (20:24)
[2018-12-05] MEDS: Metoprolol Tartrate 25 MG Tab PO SCH (20:24)
[2018-12-05] MEDS: Fish Oil/Omega-3 Fatty Acids 1 Gm Cap PO SCH (20:24)
[2018-12-05] MEDS: Trospium 20 MG Tab PO SCH (20:25)
[2018-12-05] MEDS: Acetaminophen 500 MG Tab PO SCH (20:25)
[2018-12-05] MEDS: Docusate Sodium 100 MG Cap PO PRN (20:26)
[2018-12-05] MEDS: Acetaminophen/HYDROcodone 325-5 MG Tab PO PRN (20:26)
[2018-12-05] MEDS: Enoxaparin 40 MG/0.4 ML Syringe SUBCUT SCH (20:31)
[2018-12-05] MEDS: Insulin Glarg,Human.Rec.Analog 100 UNIT/ML ML SUBCUT SCH (20:33)
[2018-12-06] MEDS: Sodium Chloride 0.9% 1,000 ML IV SCH ×3 (03:30→18:47)
[2018-12-06] MEDS: Piperacillin/Tazobactam 3.375 GM in Sodium Chloride 0.9% 100 ML IV SCH ×4 (05:30→23:12)
[2018-12-06] MEDS ORDERED: Enoxaparin 40 MG/0.4 ML Syringe SUBCUT SCH (08:00)
[2018-12-06 08:20] LABS: HEMOGLOBIN A1C 8.8 % (4.3-5.7)
[2018-12-06] MEDS: Montelukast 10 MG Tab PO SCH (08:23)
[2018-12-06] MEDS: Multivitamins with Iron and Minerals Tab.Chew PO SCH ×2 (08:23→21:07)
[2018-12-06] MEDS: Trospium 20 MG Tab PO SCH ×2 (08:23→20:11)
[2018-12-06] MEDS: Metoprolol Tartrate 25 MG Tab PO SCH ×2 (08:23→20:13)
[2018-12-06] MEDS: Calcium Carbonate/Vitamin D3 1500 MG-400 Units Tab PO SCH ×2 (08:23→20:14)
[2018-12-06] MEDS: Clopidogrel 75 MG Tab PO SCH (08:23)
[2018-12-06] MEDS: Acetaminophen 325 MG Tab PO PRN (08:24)
[2018-12-06] MEDS: Insulin Glarg,Human.Rec.Analog 100 UNIT/ML ML SUBCUT SCH ×2 (08:25→21:08)
--- NOTE | 2018-12-06 10:50 | PCM.PN ---
- General Info Date of Service: 12/06/18 Functional Status: Reports: Pain Controlled, Tolerating Diet, Urinating - Review of Systems General: Reports: Fever, Weakness HEENT: Reports: No Symptoms Pulmonary: Reports: No Symptoms Cardiovascular: Reports: No Symptoms Gastrointestinal: Reports: No Symptoms Genitourinary: Reports: No Symptoms Musculoskeletal: Reports: Leg Pain Skin: Reports: Other (Redness in left arm good improving right leg improving but still very tender) Neurological: Reports: No Symptoms Psychiatric: Reports: No Symptoms - Patient Data Vitals - Most Recent: Last Vital Signs Temp 100 F 12/06/18 07:45 Pulse 90 12/06/18 08:23 Resp 18 12/06/18 07:45 BP 118/64 12/06/18 08:23 Pulse Ox 97 12/06/18 07:45 Weight - Most Recent: 276 lb 4.8 oz I&O - Last 24 Hours: Intake & Output 12/05/18 12/06/18 12/06/18 22:59 06:59 14:59 Intake Total 300 2085 360 Output Total 200 450 200 Balance 100 1635 160 Lab Results Last 24 Hours: Laboratory Results - last 24 hr 12/05/18 12/05/18 12/05/18 Range/Units 16:05 16:05 16:05 WBC 8.0 (4.0-10.2) K/uL RBC 3.42 L (3.77-5.09) M/uL Hgb 10.6 L (11.7-15.5) g/dL Hct 32.0 L (34.0-46.0) % MCV 93.6 D (84.0-98.0) fL MCH 31.0 (28.2-33.3) pg MCHC 33.1 (31.7-36.0) g/dL RDW 13.5 (11.2-14.1) % Plt Count 242 (150-350) K/uL Neut % (Auto) 89.9 H (45.0-80.0) % Lymph % (Auto) 6.7 L (10.0-50.0) % [place] % (Auto) 3.1 (2.0-14.0) % Eos % (Auto) 0.1 (0.0-5.0) % Baso % (Auto) 0.2 (0.0-2.0) % Neut # (Auto) 7.22 H (1.40-7.00) K/uL Lymph # (Auto) 0.54 (0.50-3.50) K/uL [place] # (Auto) 0.25 (0.00-1.00) K/uL Eos # (Auto) 0.01 (0.00-0.50) K/uL Baso # (Auto) 0.02 (0.00-0.20) K/uL Sodium 129 L (136-145) mmol/L Potassium 4.2 (3.5-5.1) mmol/L Chloride 94 L (98-107) mmol/L Carbon Dioxide 22.3 (21.0-32.0) mmol/L BUN 28 H (7-18) mg/dL Creatinine 1.15 (0.51-1.17) mg/dL Est Cr Clr Drug Dosing 49.32 mL/min Estimated GFR (MDRD) 48 mL/min Glucose 258 H (74-106) mg/dL POC Glucose (65-110) mg/dl Hemoglobin A1c (4.3-5.7) % Lactic Acid 1.7 (0.4-2.0) mmol/L Calcium 9.0 (8.5-10.1) mg/dL Magnesium (1.8-2.4) mg/dL Creatine Kinase (26-308) U/L Specimen Type Urine Color Urine Appearance Urine pH (5.0-9.0) Ur Specific [place] (1.005-1.030) Urine Protein (NEGATIVE) mg/dL Urine Glucose (UA) (NEGATIVE) mg/dL Urine Ketones (NEGATIVE) mg/dL Urine Occult Blood (NEGATIVE) Urine Nitrite (NEGATIVE) Urine Bilirubin (NEGATIVE) Urine Urobilinogen (0.2-1.0) E.U./dL Ur Leukocyte Esterase (NEGATIVE) Urine RBC /HPF Urine WBC /HPF Ur Epithelial Cells /LPF Amorphous Sediment (0/HPF) /HPF Urine Bacteria (NONE TO FEW) /HPF Granular Casts (NEGATIVE) /LPF 12/05/18 12/05/18 12/06/18 Range/Units 18:55 20:22 07:23 WBC (4.0-10.2) K/uL RBC (3.77-5.09) M/uL Hgb (11.7-15.5) g/dL Hct (34.0-46.0) % MCV (84.0-98.0) fL MCH (28.2-33.3) pg MCHC (31.7-36.0) g/dL RDW (11.2-14.1) % Plt Count (150-350) K/uL Neut % (Auto) (45.0-80.0) % Lymph % (Auto) (10.0-50.0) % [place] % (Auto) (2.0-14.0) % Eos % (Auto) (0.0-5.0) % Baso % (Auto) (0.0-2.0) % Neut # (Auto) (1.40-7.00) K/uL Lymph # (Auto) (0.50-3.50) K/uL [place] # (Auto) (0.00-1.00) K/uL Eos # (Auto) (0.00-0.50) K/uL Baso # (Auto) (0.00-0.20) K/uL Sodium (136-145) mmol/L Potassium (3.5-5.1) mmol/L Chloride (98-107) mmol/L Carbon Dioxide (21.0-32.0) mmol/L BUN (7-18) mg/dL Creatinine (0.51-1.17) mg/dL Est Cr Clr Drug Dosing mL/min Estimated GFR (MDRD) mL/min Glucose (74-106) mg/dL POC Glucose 265 H* 203 H (65-110) mg/dl Hemoglobin A1c (4.3-5.7) % Lactic Acid (0.4-2.0) mmol/L Calcium (8.5-10.1) mg/dL Magnesium (1.8-2.4) mg/dL Creatine Kinase (26-308) U/L Specimen Type Urinvoid Urine Color Dark yellow Urine Appearance Slightly cloudy Urine pH 5.5 (5.0-9.0) Ur Specific [place] 1.020 (1.005-1.030) Urine Protein 100 H (NEGATIVE) mg/dL Urine Glucose (UA) 100 H (NEGATIVE) mg/dL Urine Ketones 15 H (NEGATIVE) mg/dL Urine Occult Blood Trace-intact H (NEGATIVE) Urine Nitrite Negative (NEGATIVE) Urine Bilirubin Small H (NEGATIVE) Urine Urobilinogen 0.2 (0.2-1.0) E.U./dL Ur Leukocyte Esterase Trace H (NEGATIVE) Urine RBC 0-5 /HPF Urine WBC 5-10 H /HPF Ur Epithelial Cells Moderate H /LPF Amorphous Sediment Few (0/HPF) /HPF Urine Bacteria Many H (NONE TO FEW) /HPF Granular Casts Moderate H (NEGATIVE) /LPF 12/06/18 12/06/18 12/06/18 Range/Units 07:30 07:30 07:30 WBC 7.7 (4.0-10.2) K/uL RBC 3.22 L (3.77-5.09) M/uL Hgb 10.1 L (11.7-15.5) g/dL Hct 30.2 L (34.0-46.0) % MCV 93.8 (84.0-98.0) fL MCH 31.4 (28.2-33.3) pg MCHC 33.4 (31.7-36.0) g/dL RDW 13.5 (11.2-14.1) % Plt Count 240 (150-350) K/uL Neut % (Auto) 88.3 H (45.0-80.0) % Lymph % (Auto) 7.1 L (10.0-50.0) % [place] % (Auto) 4.4 (2.0-14.0) % Eos % (Auto) 0.1 (0.0-5.0) % Baso % (Auto) 0.1 (0.0-2.0) % Neut # (Auto) 6.79 (1.40-7.00) K/uL Lymph # (Auto) 0.55 (0.50-3.50) K/uL [place] # (Auto) 0.34 (0.00-1.00) K/uL Eos # (Auto) 0.01 (0.00-0.50) K/uL Baso # (Auto) 0.01 (0.00-0.20) K/uL Sodium 131 L (136-145) mmol/L Potassium 3.8 (3.5-5.1) mmol/L Chloride 96 L (98-107) mmol/L Carbon Dioxide 23.9 (21.0-32.0) mmol/L BUN 26 H (7-18) mg/dL Creatinine 1.08 (0.51-1.17) mg/dL Est Cr Clr Drug Dosing 52.52 mL/min Estimated GFR (MDRD) 51 mL/min Glucose 190 H (74-106) mg/dL POC Glucose (65-110) mg/dl Hemoglobin A1c 8.8 H (4.3-5.7) % Lactic Acid (0.4-2.0) mmol/L Calcium 8.4 L (8.5-10.1) mg/dL Magnesium 2.0 (1.8-2.4) mg/dL Creatine Kinase 86 (26-308) U/L Specimen Type Urine Color Urine Appearance Urine pH (5.0-9.0) Ur Specific [place] (1.005-1.030) Urine Protein (NEGATIVE) mg/dL Urine Glucose (UA) (NEGATIVE) mg/dL Urine Ketones (NEGATIVE) mg/dL Urine Occult Blood (NEGATIVE) Urine Nitrite (NEGATIVE) Urine Bilirubin (NEGATIVE) Urine Urobilinogen (0.2-1.0) E.U./dL Ur Leukocyte Esterase (NEGATIVE) Urine RBC /HPF Urine WBC /HPF Ur Epithelial Cells /LPF Amorphous Sediment (0/HPF) /HPF Urine Bacteria (NONE TO FEW) /HPF Granular Casts (NEGATIVE) /LPF Sean Results Last 24 Hours: Microbiology 12/05/18 16:50 Wet Prep - Final Throat Med Orders - Current: Current Medications Acetaminophen (Tylenol Extra Strength) 1,000 mg PO BEDTIME [facility] Last Admin: 12/05/18 20:25 Dose: 1,000 mg Acetaminophen (Tylenol) 650 mg PO Q4H PRN PRN Reason: Fever/Pain Last Admin: 12/06/18 08:24 Dose: 650 mg Hydrocodone Bitart/Acetaminophen ([place] 325-5 Mg) 1 tab PO DAILY@2000 PRN PRN Reason: Pain Last Admin: 12/05/18 20:26 Dose: 1 tab Hydrocodone Bitart/Acetaminophen ([place] 325-5 Mg) 1 tab PO Q6H PRN PRN Reason: For pain in lower extremities Calcium Carbonate (Caltrate 600+D 1500 Mg-400 Units) 1 tab PO Q12H [facility] Last Admin: 12/06/18 08:23 Dose: 1 tab Clopidogrel Bisulfate (Plavix) 75 mg PO QAM [facility] Last Admin: 12/06/18 08:23 Dose: 75 mg Diphenhydramine HCl (Benadryl) 50 mg PO BEDTIME [facility] Last Admin: 12/05/18 20:24 Dose: 50 mg Docusate Sodium (Colace) 100 mg PO BID PRN PRN Reason: Constipation Last Admin: 12/05/18 20:26 Dose: 100 mg Enoxaparin Sodium (Lovenox) 40 mg SUBCUT DAILY@ [facility] Last Admin: 12/05/18 20:31 Dose: 40 mg Fish Oil (Fish Oil) 1 gm PO DAILY@1999 [facility] Last Admin: 12/05/18 20:24 Dose: 1 gm Piperacillin Sod/Tazobactam (Sod 3.375 gm/ Sodium Chloride) 100 mls @ 200 mls/ hr IV Q6H [facility] Last Admin: 12/06/18 05:30 Dose: 200 mls/hr Sodium Chloride (Normal Saline) 1,000 mls @ 150 mls/hr IV ASDIRECTED [facility] Last Admin: 12/06/18 03:30 Dose: 150 mls/hr Insulin Glargine (Lantus) 20 unit SUBCUT BEDTIME [facility] Last Admin: 12/05/18 20:33 Dose: 20 units Insulin Glargine (Lantus) 40 unit SUBCUT DAILY [facility] Last Admin: 12/06/18 08:25 Dose: 40 units Lisinopril (Prinivil) 10 mg PO QPM [facility] Last Admin: 12/05/18 18:43 Dose: 10 mg Metoprolol Tartrate (Lopressor) 25 mg PO BID@08, [facility] Last Admin: 12/06/18 08:23 Dose: 25 mg Montelukast Sodium (Singulair) 10 mg PO QAM [facility] Last Admin: 12/06/18 08:23 Dose: 10 mg Multivitamins/Folic Acid/Vitamin C (Cerovite Jr) 1 each PO Q12H [facility] Last Admin: 12/06/18 08:23 Dose: 1 each Non-Formulary Medication (Biotin [Biotin]) 10,000 mcg PO QAM [facility] Non-Formulary Medication (Ipratropium [place] [Ipratropium [place]]) 2 sprays NS BID@799,1999 [facility] Non-Formulary Medication (Milnacipran Hcl [Savella]) 50 mg PO BID@0820 [facility] Ondansetron HCl (Zofran) 4 mg IVPUSH Q6H PRN PRN Reason: Nausea/Vomiting Ondansetron HCl (Zofran) 4 mg IVPUSH Q4H PRN PRN Reason: Nausea/Vomiting Polyethylene Glycol (Miralax) 17 gm PO DAILY PRN PRN Reason: Constipation Sodium Chloride (Saline Flush) 10 ml FLUSH ASDIRECTED PRN PRN Reason: Keep Vein Open Last Admin: 12/05/18 18:40 Dose: 10 ml Sodium Chloride (Saline Flush) 10 ml FLUSH ASDIRECTED PRN PRN Reason: Keep Vein Open Trospium (Sanctura) 20 mg PO Q12H [facility] Last Admin: 12/06/18 08:23 Dose: 20 mg Discontinued Medications Acetaminophen (Tylenol) 650 mg PO NOW ONE Stop: 12/05/18 16:04 Last Admin: 12/05/18 16:16 Dose: 650 mg Enoxaparin Sodium (Lovenox) 40 mg SUBCUT DAILY [facility] Fluconazole (Diflucan) 150 mg PO ONETIME ONE Stop: 12/05/18 17:48 Last Admin: 12/05/18 18:43 Dose: 150 mg - Exam General: Alert, Oriented HEENT: Pupils Equal, Pupils Reactive, EOMI, Mucous Membr. Moist/[place] Neck: Supple Lungs: Clear to Auscultation, Normal Respiratory Effort Cardiovascular: Regular Rate, Regular Rhythm GI/Abdominal Exam: Normal Bowel Sounds, Soft, Non-Tender, No Organomegaly, No Distention, No Abnormal Bruit, No Mass, Pelvis Stable (Female) Exam: Deferred Back Exam: Decreased Range of Motion Extremities: Other (Redness improving still complains of pain we'll continue with current therapy we will add pain medications control pain). No: Increased Warmth Skin: Warm, Dry, Other (Rash improving) Wound/Incisions: Erythema Improving Neurological: No New Focal Deficit Psy/Mental Status: Alert, Normal Affect, Normal Mood Physical Findings Comments:: White count improving rash improving will continue on current therapy - Problem List & Annotations (1) Cellulitis of right leg SNOMED Code(s): 355646987 Code(s): L03.115 - CELLULITIS OF RIGHT LOWER LIMB Status: Acute Current Visit: Yes Annotation/Comment:: 12-06-18- Will continue IV therapy. Order pain meds as needed 12-07-18 improving, will continue IV antibiotic therapy. Will order doppler study on her bilateral lower extemities to rule out DVT. (2) Diabetes SNOMED Code(s): 22210999 Code(s): E11.9 - TYPE 2 DIABETES MELLITUS WITHOUT COMPLICATIONS Status: Acute Current Visit: No Qualifiers: Diabetes mellitus type: type 2 Diabetes mellitus long term care administrator insulin use: with penitentiary use Diabetes mellitus complication status: without complication Qualified Code(s): E11.9 - Type 2 diabetes mellitus without complications; Z79.4 - intermediate accountant (current) use of insulin - Problem List Review Problem List Initiated/Reviewed/Updated: Yes - My Orders Last 24 Hours: My Active Orders 12/05/18 15:40 Chest 2V [CR] Stat Blood Culture x2 Reflex Set [OM.PC] Stat 12/05/18 16:10 CULTURE BLOOD [BC] Stat 12/05/18 16:45 CULTURE BLOOD [BC] Stat 12/05/18 17:30 Patient Status [ADT] Routine Bedrest Bathroom Privileges [RC] ASDIRECTED Blood Glucose Check, Bedside [RC] QIDACANDBED Oxygen Therapy [RC] PRN Peripheral IV Care [RC] 08,20 Up to Chair [RC] ASDIRECTED Vital Signs [RC] Q4HR Ondansetron [Zofran] 4 mg IVPUSH Q6H PRN Sodium Chloride 0.9% [Saline Flush] 10 ml FLUSH ASDIRECTED PRN Sodium Chloride 0.9% [Saline Flush] 10 ml FLUSH ASDIRECTED PRN Glucose Management Sub Q Reflex [OM.PC] Click To Edit Peripheral IV Insertion Adult [OM.PC] Routine Saline Lock Insert [OM.PC] Routine Resuscitation Status Routine 12/05/18 17:34 Diabetes Education [RC] DAILY 12/05/18 17:43 Ondansetron [Zofran] 4 mg IVPUSH Q4H PRN 12/05/18 17:44 Docusate Sodium [Colace] 100 mg PO BID PRN Polyethylene Glycol 3350 [MiraLAX] 17 gm PO DAILY PRN 12/05/18 18:00 Lisinopril [Prinivil] 10 mg PO QPM Piperacillin/Tazobactam [Zosyn] 3.375 gm Sodium Chloride 0.9% [Normal Saline] 100 ml IV Q6H 12/05/18 18:38 Acetaminophen [Tylenol] 650 mg PO Q4H PRN 12/05/18 19:30 Sodium Chloride 0.9% [Normal Saline] 1,000 ml IV ASDIRECTED 12/05/18 20:00 Acetaminophen [Tylenol Extra Strength] 1,000 mg PO BEDTIME Acetaminophen/HYDROcodone [[place] 325-5 MG] 1 tab PO DAILY@1999 PRN Calcium Carbonate/Vitamin D3 [Caltrate 600+D 1500 MG-400 Units] 1 tab PO Q12H Enoxaparin [Lovenox] 40 mg SUBCUT DAILY@ Fish Oil/[place]-3 Fatty Acids [Fish Oil] 1 gm PO DAILY@1999 Insulin Glarg,Human.Rec.Analog [LantUS] 20 unit SUBCUT BEDTIME Ipratropium [place]ens [Ipratropium [place]] 2 sprays NS BID@0800,1999 Metoprolol Tartrate [Lopressor] 25 mg PO BID@08,20 Milnacipran HCl [Savella] 50 mg PO BID@08, Multivitamins with Iron/Min [Cerovite Jr] 1 each PO Q12H Trospium [Sanctura] 20 mg PO Q12H diphenhydrAMINE [Benadryl] 50 mg PO BEDTIME 12/05/18 [employer] Diet [DIET] 12/06/18 08:00 Biotin [Biotin] 10,000 mcg PO QAM Clopidogrel [Plavix] 75 mg PO QAM Insulin Glarg,Human.Rec.Analog [LantUS] 40 unit SUBCUT DAILY Montelukast [Singulair] 10 mg PO QAM 12/06/18 10:33 Acetaminophen/HYDROcodone [Jewell 325-5 MG] 1 tab PO Q6H PRN 12/06/18 10:35 CBC WITH AUTO DIFF [HEME] Stat 12/07/18 05:11 BASIC METABOLIC PANEL,BMP [CHEM] AM
[2018-12-06] MEDS: Acetaminophen/HYDROcodone 325-5 MG Tab PO PRN ×2 (11:04→20:11)
[2018-12-06] MEDS: Nystatin Susp 100,000 Unit/ML 5 ML UD Cup PO SCH ×2 (15:34→20:15)
[2018-12-06] MEDS: Lisinopril 20 MG Tab PO SCH (20:09)
[2018-12-06] MEDS: Acetaminophen 500 MG Tab PO SCH (20:12)
[2018-12-06] MEDS: diphenhydrAMINE 25 MG Cap PO SCH (20:12)
[2018-12-06] MEDS: Fish Oil/Omega-3 Fatty Acids 1 Gm Cap PO SCH (20:14)
[2018-12-06] MEDS: Enoxaparin 40 MG/0.4 ML Syringe SUBCUT SCH (20:17)
[2018-12-07] MEDS: Acetaminophen/HYDROcodone 325-5 MG Tab PO PRN ×4 (02:24→20:48)
[2018-12-07] MEDS: Sodium Chloride 0.9% 1,000 ML IV SCH (02:25)
[2018-12-07] MEDS: Piperacillin/Tazobactam 3.375 GM in Sodium Chloride 0.9% 100 ML IV SCH ×3 (05:12→18:59)
[2018-12-07] MEDS: Nystatin Susp 100,000 Unit/ML 5 ML UD Cup PO SCH ×4 (07:40→20:46)
[2018-12-07] MEDS: Multivitamins with Iron and Minerals Tab.Chew PO SCH ×2 (07:40→20:48)
[2018-12-07] MEDS: Calcium Carbonate/Vitamin D3 1500 MG-400 Units Tab PO SCH ×2 (07:41→20:49)
[2018-12-07] MEDS: Clopidogrel 75 MG Tab PO SCH (07:41)
[2018-12-07] MEDS: Trospium 20 MG Tab PO SCH ×2 (07:41→20:50)
[2018-12-07] MEDS: Montelukast 10 MG Tab PO SCH (07:41)
[2018-12-07] MEDS: Insulin Glarg,Human.Rec.Analog 100 UNIT/ML ML SUBCUT SCH ×2 (07:42→20:51)
[2018-12-07] MEDS: Metoprolol Tartrate 25 MG Tab PO SCH ×2 (07:45→20:48)
[2018-12-07] MEDS: Polyethylene Glycol 3350 Powder 17 GM Packet PO PRN (08:55)
[2018-12-07 09:14] LABS: CHLORIDE,CL 102 mmol/L (98-107); SODIUM,NA 136 mmol/L (136-145)
[2018-12-07] MEDS: Sodium Chloride 0.9% 10 ML Syringe FLUSH PRN ×4 (11:26→19:00)
--- NOTE | 2018-12-07 11:35 | PCM.PN ---
- General Info Date of Service: 12/07/18 - Review of Systems General: Reports: Fatigue. Denies: Chills, Night Sweats HEENT: Reports: No Symptoms Pulmonary: Reports: No Symptoms Cardiovascular: Reports: No Symptoms Gastrointestinal: Reports: No Symptoms Genitourinary: Reports: No Symptoms Musculoskeletal: Reports: Other (right leg swelling secondary to cellulitis) Skin: Reports: Rash (right leg cellulitis; red; improving) Neurological: Reports: No Symptoms Psychiatric: Reports: No Symptoms - Patient Data Vitals - Most Recent: Last Vital Signs Temp 98.3 F 12/07/18 08:00 Pulse 89 12/07/18 08:00 Resp 20 12/07/18 08:00 BP 127/71 12/07/18 08:00 Pulse Ox 98 12/07/18 08:00 Weight - Most Recent: 276 lb 4.815 oz I&O - Last 24 Hours: Intake & Output 12/06/18 12/07/18 12/07/18 22:59 06:59 14:59 Intake Total 902 2261 236 Output Total 200 Balance 902 2261 36 Lab Results Last 24 Hours: Laboratory Results - last 24 hr 12/06/18 12/06/18 12/07/18 Range/Units 17:50 21:06 05:11 WBC (4.0-10.2) K/uL RBC (3.77-5.09) M/uL Hgb (11.7-15.5) g/dL Hct (34.0-46.0) % MCV (84.0-98.0) fL MCH (28.2-33.3) pg MCHC (31.7-36.0) g/dL RDW (11.2-14.1) % Plt Count (150-350) K/uL Neut % (Auto) (45.0-80.0) % Lymph % (Auto) (10.0-50.0) % [place] % (Auto) (2.0-14.0) % Eos % (Auto) (0.0-5.0) % Baso % (Auto) (0.0-2.0) % Neut # (Auto) (1.40-7.00) K/uL Lymph # (Auto) (0.50-3.50) K/uL [place] # (Auto) (0.00-1.00) K/uL Eos # (Auto) (0.00-0.50) K/uL Baso # (Auto) (0.00-0.20) K/uL Sodium 136 (136-145) mmol/L Potassium 3.4 L (3.5-5.1) mmol/L Chloride 102 (98-107) mmol/L Carbon Dioxide 20.8 L (21.0-32.0) mmol/L BUN 20 H (7-18) mg/dL Creatinine 0.92 (0.51-1.17) mg/dL Est Cr Clr Drug Dosing 61.49 mL/min Estimated GFR (MDRD) > 60 mL/min Glucose 157 H (74-106) mg/dL POC Glucose 235 H 279 H* (65-110) mg/dl Calcium 8.0 L (8.5-10.1) mg/dL 12/07/18 12/07/18 12/07/18 Range/Units 07:22 07:25 11:27 WBC 7.5 (4.0-10.2) K/uL RBC 2.98 L (3.77-5.09) M/uL Hgb 9.3 L (11.7-15.5) g/dL Hct 28.1 L (34.0-46.0) % MCV 94.3 (84.0-98.0) fL MCH 31.2 (28.2-33.3) pg MCHC 33.1 (31.7-36.0) g/dL RDW 13.5 (11.2-14.1) % Plt Count 211 (150-350) K/uL Neut % (Auto) 84.9 H (45.0-80.0) % Lymph % (Auto) 7.7 L (10.0-50.0) % [place] % (Auto) 6.4 (2.0-14.0) % Eos % (Auto) 0.7 (0.0-5.0) % Baso % (Auto) 0.3 (0.0-2.0) % Neut # (Auto) 6.36 (1.40-7.00) K/uL Lymph # (Auto) 0.58 (0.50-3.50) K/uL [place] # (Auto) 0.48 (0.00-1.00) K/uL Eos # (Auto) 0.05 (0.00-0.50) K/uL Baso # (Auto) 0.02 (0.00-0.20) K/uL Sodium (136-145) mmol/L Potassium (3.5-5.1) mmol/L Chloride (98-107) mmol/L Carbon Dioxide (21.0-32.0) mmol/L BUN (7-18) mg/dL Creatinine (0.51-1.17) mg/dL Est Cr Clr Drug Dosing mL/min Estimated GFR (MDRD) mL/min Glucose (74-106) mg/dL POC Glucose 135 H 191 H (65-110) mg/dl Calcium (8.5-10.1) mg/dL Sean Results Last 24 Hours: Microbiology 12/05/18 16:45 Aerobic Blood Culture - Final Blood - Venous - Lab Draw Gram Positive Cocci Staphylococcus Coagulase Neg Anaerobic Blood Culture - Final 12/05/18 16:10 Aerobic Blood Culture - Preliminary Blood - Venous NO GROWTH AFTER 1 DAY Anaerobic Blood Culture - Preliminary NO GROWTH AFTER 1 DAY Med Orders - Current: Current Medications Acetaminophen (Tylenol Extra Strength) 1,000 mg PO BEDTIME [facility] Last Admin: 12/06/18 20:12 Dose: 1,000 mg Acetaminophen (Tylenol) 650 mg PO Q4H PRN PRN Reason: Fever/Pain Last Admin: 12/06/18 08:24 Dose: 650 mg Hydrocodone Bitart/Acetaminophen ([place] 325-5 Mg) 1 tab PO DAILY@2000 PRN PRN Reason: Pain Last Admin: 12/06/18 20:11 Dose: 1 tab Hydrocodone Bitart/Acetaminophen ([place] 325-5 Mg) 1 tab PO Q6H PRN PRN Reason: For pain in lower extremities Last Admin: 12/07/18 08:55 Dose: 1 tab Calcium Carbonate (Caltrate 600+D 1500 Mg-400 Units) 1 tab PO Q12H [facility] Last Admin: 12/07/18 07:41 Dose: 1 tab Clopidogrel Bisulfate (Plavix) 75 mg PO QAM [facility] Last Admin: 12/07/18 07:41 Dose: 75 mg Diphenhydramine HCl (Benadryl) 50 mg PO BEDTIME [facility] Last Admin: 12/06/18 20:12 Dose: 50 mg Docusate Sodium (Colace) 100 mg PO BID PRN PRN Reason: Constipation Last Admin: 12/05/18 20:26 Dose: 100 mg Enoxaparin Sodium (Lovenox) 40 mg SUBCUT DAILY@ [facility] Last Admin: 12/06/18 20:17 Dose: 40 mg Fish Oil (Fish Oil) 1 gm PO DAILY@1999 [facility] Last Admin: 12/06/18 20:14 Dose: 1 gm Piperacillin Sod/Tazobactam (Sod 3.375 gm/ Sodium Chloride) 100 mls @ 200 mls/ hr IV Q6H [facility] Last Admin: 12/07/18 11:25 Dose: 200 mls/hr Sodium Chloride (Normal Saline) 1,000 mls @ 150 mls/hr IV ASDIRECTED [facility] Last Admin: 12/07/18 02:25 Dose: 150 mls/hr Insulin Glargine (Lantus) 20 unit SUBCUT BEDTIME [facility] Last Admin: 12/06/18 21:08 Dose: 20 units Insulin Glargine (Lantus) 40 unit SUBCUT DAILY [facility] Last Admin: 12/07/18 07:42 Dose: 40 units Lisinopril (Prinivil) 10 mg PO QPM [facility] Last Admin: 12/06/18 20:09 Dose: Not Given Metoprolol Tartrate (Lopressor) 25 mg PO BID@ [facility] Last Admin: 12/07/18 07:45 Dose: 25 mg Montelukast Sodium (Singulair) 10 mg PO QAM [facility] Last Admin: 12/07/18 07:41 Dose: 10 mg Multivitamins/Folic Acid/Vitamin C (Cerovite Jr) 1 each PO Q12H [facility] Last Admin: 12/07/18 07:40 Dose: 1 each Non-Formulary Medication (Biotin [Biotin]) 10,000 mcg PO QAM [facility] Non-Formulary Medication (Ipratropium [place] [Ipratropium [place]]) 2 sprays NS BID@799,1999 [facility] Non-Formulary Medication (Milnacipran Hcl [Savella]) 50 mg PO BID@08, [facility] Nystatin (Mycostatin) 5 ml PO QID [facility] Last Admin: 12/07/18 11:26 Dose: 5 ml Ondansetron HCl (Zofran) 4 mg IVPUSH Q6H PRN PRN Reason: Nausea/Vomiting Ondansetron HCl (Zofran) 4 mg IVPUSH Q4H PRN PRN Reason: Nausea/Vomiting Polyethylene Glycol (Miralax) 17 gm PO DAILY PRN PRN Reason: Constipation Last Admin: 12/07/18 08:55 Dose: 17 gm Sodium Chloride (Saline Flush) 10 ml FLUSH ASDIRECTED PRN PRN Reason: Keep Vein Open Last Admin: 12/07/18 11:26 Dose: 10 ml Sodium Chloride (Saline Flush) 10 ml FLUSH ASDIRECTED PRN PRN Reason: Keep Vein Open Last Admin: 12/07/18 11:26 Dose: 10 ml Trospium (Sanctura) 20 mg PO Q12H [facility] Last Admin: 12/07/18 07:41 Dose: 20 mg Discontinued Medications Acetaminophen (Tylenol) 650 mg PO NOW ONE Stop: 12/05/18 16:04 Last Admin: 12/05/18 16:16 Dose: 650 mg Enoxaparin Sodium (Lovenox) 40 mg SUBCUT DAILY [facility] Fluconazole (Diflucan) 150 mg PO ONETIME ONE Stop: 12/05/18 17:48 Last Admin: 12/05/18 18:43 Dose: 150 mg - Exam General: Alert, Oriented HEENT: Pupils Equal, Pupils Reactive, EOMI, Mucous Membr. Moist/[place] Neck: Supple Lungs: Clear to Auscultation, Normal Respiratory Effort Cardiovascular: Regular Rate, Regular Rhythm GI/Abdominal Exam: Normal Bowel Sounds, Soft, Non-Tender, No Organomegaly, No Distention, No Abnormal Bruit, No Mass, Pelvis Stable (Female) Exam: Deferred Back Exam: Normal Inspection, Full Range of Motion Extremities: Redness (right leg cellulitis with swelling; improving), Other ( will order bilateral venous doppler) Skin: Rash (right leg swelling and redness ) Wound/Incisions: No Drainage Neurological: No New Focal Deficit Psy/Mental Status: Alert, Normal Affect, Normal Mood - Problem List & Annotations (1) Cellulitis of right leg SNOMED Code(s): 648557762 Code(s): L03.115 - CELLULITIS OF RIGHT LOWER LIMB Status: Acute Current Visit: Yes Annotation/Comment:: improving, will continue IV antibiotic therapy. Will order doppler study on her bilateral lower extemities to rule out DVT. 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
[2018-12-07] MEDS: Acetaminophen 325 MG Tab PO PRN (12:36)
[2018-12-07] MEDS: MILNACIPRAN HCL 50 MG PO SCH ×2 (15:44→20:50)
[2018-12-07] MEDS: Lisinopril 20 MG Tab PO SCH (19:00)
[2018-12-07] MEDS: Enoxaparin 40 MG/0.4 ML Syringe SUBCUT SCH (20:46)
[2018-12-07] MEDS: Acetaminophen 500 MG Tab PO SCH (20:47)
[2018-12-07] MEDS: Fish Oil/Omega-3 Fatty Acids 1 Gm Cap PO SCH (20:48)
[2018-12-07] MEDS: diphenhydrAMINE 25 MG Cap PO SCH (20:50)
[2018-12-08] MEDS: Piperacillin/Tazobactam 3.375 GM in Sodium Chloride 0.9% 100 ML IV SCH ×4 (01:17→17:25)
[2018-12-08] MEDS: Sodium Chloride 0.9% 10 ML Syringe FLUSH PRN ×4 (01:17→17:25)
[2018-12-08] MEDS: Acetaminophen/HYDROcodone 325-5 MG Tab PO PRN ×3 (04:09→19:48)
[2018-12-08 07:33] LABS: CHLORIDE,CL 104 mmol/L (98-107); SODIUM,NA 138 mmol/L (136-145)
[2018-12-08] MEDS: Insulin Glarg,Human.Rec.Analog 100 UNIT/ML ML SUBCUT SCH ×2 (08:07→19:52)
[2018-12-08] MEDS: Metoprolol Tartrate 25 MG Tab PO SCH ×2 (08:08→19:48)
[2018-12-08] MEDS: MILNACIPRAN HCL 50 MG PO SCH ×2 (08:08→19:51)
[2018-12-08] MEDS: Montelukast 10 MG Tab PO SCH (08:08)
[2018-12-08] MEDS: Clopidogrel 75 MG Tab PO SCH (08:08)
[2018-12-08] MEDS: Trospium 20 MG Tab PO SCH ×2 (08:08→19:49)
[2018-12-08] MEDS: Calcium Carbonate/Vitamin D3 1500 MG-400 Units Tab PO SCH (08:09)
[2018-12-08] MEDS: Multivitamins with Iron and Minerals Tab.Chew PO SCH (08:09)
[2018-12-08] MEDS: Nystatin Susp 100,000 Unit/ML 5 ML UD Cup PO SCH ×4 (08:09→20:00)
[2018-12-08] MEDS: Polyethylene Glycol 3350 Powder 17 GM Packet PO PRN (08:27)
[2018-12-08] MEDS: Docusate Sodium 100 MG Cap PO PRN ×2 (08:27→20:00)
[2018-12-08] MEDS: Potassium Chloride 10 MEQ Tab.ER PO SCH ×2 (15:04→17:23)
[2018-12-08] MEDS: Lisinopril 20 MG Tab PO SCH (17:23)
--- NOTE | 2018-12-08 19:07 | PCM.PN ---
- General Info Date of Service: 12/08/18 Functional Status: Reports: Tolerating Diet, Urinating - Review of Systems General: Reports: Chills HEENT: Reports: No Symptoms Pulmonary: Reports: No Symptoms Cardiovascular: Reports: No Symptoms Gastrointestinal: Reports: No Symptoms Genitourinary: Reports: No Symptoms Musculoskeletal: Reports: Leg Pain (right), Foot Pain (right) Skin: Reports: Other (severe redness, swelling, RLE from knee to toes, significant fluid pocket RLE anterior compartment. Blisters weeping skin RLE below and lateral to right knee, large blisters coalising and weeping right lateral ankle) Neurological: Reports: Other (diabetic neuropathy BLE) Psychiatric: Reports: No Symptoms - Patient Data Vitals - Most Recent: Last Vital Signs Temp 97.6 F 12/08/18 16:00 Pulse 96 12/08/18 16:00 Resp 20 12/08/18 16:00 BP 145/68 H 12/08/18 17:23 Pulse Ox 99 12/08/18 16:00 Weight - Most Recent: 276 lb 4.8 oz I&O - Last 24 Hours: Intake & Output 12/08/18 12/08/18 12/08/18 06:59 14:59 22:59 Intake Total 1100 1880 920 Output Total 675 500 Balance 1100 1205 420 Lab Results Last 24 Hours: Laboratory Results - last 24 hr 12/07/18 12/08/18 12/08/18 Range/Units 20:45 07:02 07:09 WBC 8.9 (4.0-10.2) K/uL RBC 2.97 L (3.77-5.09) M/uL Hgb 9.1 L (11.7-15.5) g/dL Hct 27.7 L (34.0-46.0) % MCV 93.3 (84.0-98.0) fL MCH 30.6 (28.2-33.3) pg MCHC 32.9 (31.7-36.0) g/dL RDW 13.6 (11.2-14.1) % Plt Count 252 (150-350) K/uL Neut % (Auto) 79.9 (45.0-80.0) % Lymph % (Auto) 12.2 (10.0-50.0) % [place] % (Auto) 6.7 (2.0-14.0) % Eos % (Auto) 1.0 (0.0-5.0) % Baso % (Auto) 0.2 (0.0-2.0) % Neut # (Auto) 7.09 H (1.40-7.00) K/uL Lymph # (Auto) 1.08 (0.50-3.50) K/uL [place] # (Auto) 0.59 (0.00-1.00) K/uL Eos # (Auto) 0.09 (0.00-0.50) K/uL Baso # (Auto) 0.02 (0.00-0.20) K/uL Sodium 138 (136-145) mmol/L Potassium 3.2 L (3.5-5.1) mmol/L Chloride 104 (98-107) mmol/L Carbon Dioxide 21.9 (21.0-32.0) mmol/L BUN 14 (7-18) mg/dL Creatinine 0.87 (0.51-1.17) mg/dL Est Cr Clr Drug Dosing 65.03 mL/min Estimated GFR (MDRD) > 60 mL/min Glucose 72 L (74-106) mg/dL POC Glucose 181 H (65-110) mg/dl Lactic Acid (0.4-2.0) mmol/L Calcium 8.2 L (8.5-10.1) mg/dL C-Reactive Protein (<=0.9) mg/dL 12/08/18 12/08/18 12/08/18 Range/Units 07:09 07:09 07:11 WBC (4.0-10.2) K/uL RBC (3.77-5.09) M/uL Hgb (11.7-15.5) g/dL Hct (34.0-46.0) % MCV (84.0-98.0) fL MCH (28.2-33.3) pg MCHC (31.7-36.0) g/dL RDW (11.2-14.1) % Plt Count (150-350) K/uL Neut % (Auto) (45.0-80.0) % Lymph % (Auto) (10.0-50.0) % [place] % (Auto) (2.0-14.0) % Eos % (Auto) (0.0-5.0) % Baso % (Auto) (0.0-2.0) % Neut # (Auto) (1.40-7.00) K/uL Lymph # (Auto) (0.50-3.50) K/uL [place] # (Auto) (0.00-1.00) K/uL Eos # (Auto) (0.00-0.50) K/uL Baso # (Auto) (0.00-0.20) K/uL Sodium (136-145) mmol/L Potassium (3.5-5.1) mmol/L Chloride (98-107) mmol/L Carbon Dioxide (21.0-32.0) mmol/L BUN (7-18) mg/dL Creatinine (0.51-1.17) mg/dL Est Cr Clr Drug Dosing mL/min Estimated GFR (MDRD) mL/min Glucose (74-106) mg/dL POC Glucose 71 (65-110) mg/dl Lactic Acid 0.8 (0.4-2.0) mmol/L Calcium (8.5-10.1) mg/dL C-Reactive Protein 18.7 H (<=0.9) mg/dL 12/08/18 12/08/18 Range/Units 11:29 16:54 WBC (4.0-10.2) K/uL RBC (3.77-5.09) M/uL Hgb (11.7-15.5) g/dL Hct (34.0-46.0) % MCV (84.0-98.0) fL MCH (28.2-33.3) pg MCHC (31.7-36.0) g/dL RDW (11.2-14.1) % Plt Count (150-350) K/uL Neut % (Auto) (45.0-80.0) % Lymph % (Auto) (10.0-50.0) % [place] % (Auto) (2.0-14.0) % Eos % (Auto) (0.0-5.0) % Baso % (Auto) (0.0-2.0) % Neut # (Auto) (1.40-7.00) K/uL Lymph # (Auto) (0.50-3.50) K/uL [place] # (Auto) (0.00-1.00) K/uL Eos # (Auto) (0.00-0.50) K/uL Baso # (Auto) (0.00-0.20) K/uL Sodium (136-145) mmol/L Potassium (3.5-5.1) mmol/L Chloride (98-107) mmol/L Carbon Dioxide (21.0-32.0) mmol/L BUN (7-18) mg/dL Creatinine (0.51-1.17) mg/dL Est Cr Clr Drug Dosing mL/min Estimated GFR (MDRD) mL/min Glucose (74-106) mg/dL POC Glucose 148 H 191 H (65-110) mg/dl Lactic Acid (0.4-2.0) mmol/L Calcium (8.5-10.1) mg/dL C-Reactive Protein (<=0.9) mg/dL Sean Results Last 24 Hours: Microbiology 12/05/18 16:10 Aerobic Blood Culture - Preliminary Blood - Venous NO GROWTH AFTER 3 DAYS Anaerobic Blood Culture - Preliminary NO GROWTH AFTER 3 DAYS Med Orders - Current: Current Medications Acetaminophen (Tylenol Extra Strength) 1,000 mg PO BEDTIME [facility] Last Admin: 12/07/18 20:47 Dose: 1,000 mg Acetaminophen (Tylenol) 650 mg PO Q4H PRN PRN Reason: Fever/Pain Last Admin: 12/07/18 12:36 Dose: 650 mg Hydrocodone Bitart/Acetaminophen ([place] 325-5 Mg) 1 tab PO DAILY@2000 PRN PRN Reason: Pain Last Admin: 12/07/18 20:48 Dose: 1 tab Hydrocodone Bitart/Acetaminophen ([place] 325-5 Mg) 1 tab PO Q6H PRN PRN Reason: For pain in lower extremities Last Admin: 12/08/18 13:14 Dose: 1 tab Diphenhydramine HCl (Benadryl) 50 mg PO BEDTIME [facility] Last Admin: 12/07/18 20:50 Dose: 50 mg Docusate Sodium (Colace) 100 mg PO BID PRN PRN Reason: Constipation Last Admin: 12/08/18 08:27 Dose: 100 mg Fentanyl (Sublimaze) 100 mcg IVPUSH Q2H PRN PRN Reason: Pain (severe 7-10) Piperacillin Sod/Tazobactam (Sod 3.375 gm/ Sodium Chloride) 100 mls @ 200 mls/ hr IV Q6H [facility] Last Admin: 12/08/18 17:25 Dose: 200 mls/hr Vancomycin HCl 1.25 gm/ Sodium (Chloride) 250 mls @ 135 mls/hr IV Q12H [facility] Insulin Glargine (Lantus) 20 unit SUBCUT BEDTIME [facility] Last Admin: 12/07/18 20:51 Dose: 20 units Insulin Glargine (Lantus) 40 unit SUBCUT DAILY [facility] Last Admin: 12/08/18 08:07 Dose: 40 units Lisinopril (Prinivil) 10 mg PO QPM [facility] Last Admin: 12/08/18 17:23 Dose: 10 mg Metoprolol Tartrate (Lopressor) 25 mg PO BID@08,20 [facility] Last Admin: 12/08/18 08:08 Dose: 25 mg Montelukast Sodium (Singulair) 10 mg PO QAM [facility] Last Admin: 12/08/18 08:08 Dose: 10 mg Non-Formulary Medication (Ipratropium [place] [Ipratropium [place]]) 2 sprays NS BID@0800,2000 [facility] Milnacipran Hcl [ Savella] 50 Mg Tablets 50 mg PO BID@08,20 [facility] Last Admin: 12/08/18 08:08 Dose: 50 mg Nystatin (Mycostatin) 5 ml PO QID [facility] Last Admin: 12/08/18 15:04 Dose: 5 ml Ondansetron HCl (Zofran) 4 mg IVPUSH Q6H PRN PRN Reason: Nausea/Vomiting Ondansetron HCl (Zofran) 4 mg IVPUSH Q4H PRN PRN Reason: Nausea/Vomiting Polyethylene Glycol (Miralax) 17 gm PO DAILY PRN PRN Reason: Constipation Last Admin: 12/08/18 08:27 Dose: 17 gm Potassium Chloride (Klor-Con 10) 10 meq PO TID@1000,1400,1800 [facility] Last Admin: 12/08/18 17:23 Dose: 10 meq Sodium Chloride (Saline Flush) 10 ml FLUSH ASDIRECTED PRN PRN Reason: Keep Vein Open Last Admin: 12/08/18 17:25 Dose: 10 ml Sodium Chloride (Saline Flush) 10 ml FLUSH Q12HR [facility] Trospium (Sanctura) 20 mg PO Q12H [facility] Last Admin: 12/08/18 08:08 Dose: 20 mg Vancomycin HCl (Pharmacy To Dose - Vancomycin) 1 dose .XX ASDIRECTED [facility] Discontinued Medications Acetaminophen (Tylenol) 650 mg PO NOW ONE Stop: 12/05/18 16:04 Last Admin: 12/05/18 16:16 Dose: 650 mg Calcium Carbonate (Caltrate 600+D 1500 Mg-400 Units) 1 tab PO Q12H [facility] Last Admin: 12/08/18 08:09 Dose: 1 tab Clopidogrel Bisulfate (Plavix) 75 mg PO QAM [facility] Last Admin: 12/08/18 08:08 Dose: 75 mg Enoxaparin Sodium (Lovenox) 40 mg SUBCUT DAILY [facility] Enoxaparin Sodium (Lovenox) 40 mg SUBCUT DAILY@20 [facility] Last Admin: 12/07/18 20:46 Dose: 40 mg Fish Oil (Fish Oil) 1 gm PO DAILY@1999 [facility] Last Admin: 12/07/18 20:48 Dose: 1 gm Fluconazole (Diflucan) 150 mg PO ONETIME ONE Stop: 12/05/18 17:48 Last Admin: 12/05/18 18:43 Dose: 150 mg Sodium Chloride (Normal Saline) 1,000 mls @ 150 mls/hr IV ASDIRECTED [facility] Last Admin: 12/07/18 02:25 Dose: 150 mls/hr Multivitamins/Folic Acid/Vitamin C (Cerovite Jr) 1 each PO Q12H [facility] Last Admin: 12/08/18 08:09 Dose: 1 each Non-Formulary Medication (Biotin [Biotin]) 10,000 mcg PO [facility] Sodium Chloride (Saline Flush) 10 ml FLUSH ASDIRECTED PRN PRN Reason: Keep Vein Open Last Admin: 12/07/18 19:00 Dose: 10 ml - Exam Quality Assessment: DVT Prophylaxis General: Alert, Cooperative, Mild Distress (pain in right foot/leg with any movement) HEENT: Pupils Equal, Pupils Reactive, Mucous Membr. Moist/[place] Neck: Trachea Midline, No JVD Lungs: Clear to Auscultation, Normal Respiratory Effort Cardiovascular: Regular Rate, Regular Rhythm GI/Abdominal Exam: Soft, Non-Tender, No Distention (Female) Exam: Deferred Back Exam: Normal Inspection Extremities: Pedal Edema (RLE), Leg Pain (right), Increased Warmth (RLE), Redness (RLE), Other (RLE blisters weeping, fluid bulging RLE anterior compartment, deep crack right great toe, blackened eschar heel) Skin: Other (see extremities report, toe nails thickened, dystrophic) Wound/Incisions: Drainage (from RLE blisters), Erythema (not improving) Neurological: No New Focal Deficit Psy/Mental Status: Alert, Normal Affect, Normal Mood - Problem List & Annotations (1) Cellulitis of right leg SNOMED Code(s): 705354945 Code(s): L03.115 - CELLULITIS OF RIGHT LOWER LIMB Status: Acute Priority : High Current Visit: Yes (2) Chills (without fever) SNOMED Code(s): 32407032 Code(s): R68.83 - CHILLS (WITHOUT FEVER) Status: Acute Priority: High Current Visit: Yes (3) Anemia SNOMED Code(s): 769695983 Code(s): D64.9 - ANEMIA, UNSPECIFIED Status: Acute Priority: High Current Visit: No Qualifiers: Anemia type: unspecified type Qualified Code(s): D64.9 - Anemia, unspecified (4) Diabetes mellitus SNOMED Code(s): 55860140 Code(s): E11.9 - TYPE 2 DIABETES MELLITUS WITHOUT COMPLICATIONS Status: Acute Current Visit: No Qualifiers: Diabetes mellitus type: type 2 Diabetes mellitus exterminator insulin use: with jail use Diabetes mellitus complication status: with unspecified complications Qualified Code(s): E11.8 - Type 2 diabetes mellitus with unspecified complications; 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 (5) Vertigo SNOMED Code(s): 479819109 Code(s): R42 - DIZZINESS AND GIDDINESS Status: Acute Current Visit: No - Problem List Review Problem List Initiated/Reviewed/Updated: Yes - My Orders Last 24 Hours: My Active Orders 12/08/18 12:18 Consult to Occupational Therapy [OT Evaluation and Treatment] [CONS] Routine Consult to Physical Therapy [PT Evaluation and Treatment] [CONS] Routine 12/08/18 14:00 Potassium Chloride [Klor-Con 10] 10 meq PO TID@1000,1400,1800 12/08/18 18:33 CULTURE BLOOD [BC] Stat CULTURE BLOOD [BC] Stat Blood Culture x2 Reflex Set [OM.PC] Stat 12/08/18 18:34 CULTURE WOUND + SMEAR [RM] Routine 12/08/18 18:35 CULTURE WOUND + SMEAR [RM] Routine 12/08/18 18:37 Communication Order [RC] ROUTINE 12/08/18 18:39 Communication Order [RC] ROUTINE 12/08/18 18:45 Pharmacy to Dose - Vancomycin 1 dose .XX ASDIRECTED 12/08/18 18:50 fentaNYL [Sublimaze] 100 mcg IVPUSH Q2H PRN 12/08/18 18:53 Consult to PICC Team [CONS] Routine 12/08/18 19:00 Notify Provider Consults [RC] ASDIRECTED Consult to Physician [CONS] Routine Vancomycin 1.25 gm Sodium Chloride 0.9% [Normal Saline] 250 ml IV Q12H 12/08/18 20:00 Sodium Chloride 0.9% [Saline Flush] 10 ml FLUSH Q12HR 12/09/18 05:11 Foot wo Cont Rt [CT] Routine Lower Leg wo Cont Rt [CT] Routine Tibia Fibula Rt [CR] Routine CMP [COMPREHENSIVE METABOLIC PN,CMP] [CHEM] Routine CRP [C-REACTIVE PROTEIN] [CHEM] Routine 12/09/18 08:00 Foot 2V Rt [CR] Routine 12/10/18 06:30 VANCOMYCIN TROUGH [CHEM] Timed - Plan Plan:: 12/09/18 Concepcion Osorio MD Leg is clinically worse today. Will start vancomycin for improved staph coverage. She is difficult IV access and will need prolonged IV antibiotics so will consult for PICC in AM. See orders.
[2018-12-08] MEDS: Non-Formulary Medication 1 Each (Biotin [Biotin] 10,000 MCG) PO SCH ×2 (19:24→19:25)
[2018-12-08] MEDS: Sodium Chloride 0.9% 10 ML Syringe FLUSH SCH (19:44)
[2018-12-08] MEDS: diphenhydrAMINE 25 MG Cap PO SCH (19:48)
[2018-12-08] MEDS: Acetaminophen 500 MG Tab PO SCH (19:49)
[2018-12-08] MEDS: Clindamycin Phosphate 600 MG in Sodium Chloride 0.9% 100 ML IV SCH (22:03)
[2018-12-09] MEDS: Piperacillin/Tazobactam 3.375 GM in Sodium Chloride 0.9% 100 ML IV SCH ×5 (00:02→23:10)
[2018-12-09] MEDS: Clindamycin Phosphate 600 MG in Sodium Chloride 0.9% 100 ML IV SCH ×3 (03:17→19:07)
[2018-12-09] MEDS: Acetaminophen/HYDROcodone 325-5 MG Tab PO PRN ×2 (04:21→21:26)
[2018-12-09 07:36] LABS: CHLORIDE,CL 105 mmol/L (98-107); SODIUM,NA 137 mmol/L (136-145)
[2018-12-09] MEDS: Insulin Glarg,Human.Rec.Analog 100 UNIT/ML ML SUBCUT SCH ×2 (08:36→19:18)
[2018-12-09] MEDS: Trospium 20 MG Tab PO SCH ×2 (08:41→19:05)
[2018-12-09] MEDS: Nystatin Susp 100,000 Unit/ML 5 ML UD Cup PO SCH ×4 (08:42→19:06)
[2018-12-09] MEDS: Montelukast 10 MG Tab PO SCH (08:42)
[2018-12-09] MEDS: Metoprolol Tartrate 25 MG Tab PO SCH ×2 (08:42→19:14)
[2018-12-09] MEDS: MILNACIPRAN HCL 50 MG PO SCH ×2 (08:43→19:08)
[2018-12-09] MEDS: Sodium Chloride 0.9% 10 ML Syringe FLUSH SCH ×2 (08:44→19:07)
[2018-12-09] MEDS: Potassium Chloride 10 MEQ Tab.ER PO SCH ×3 (09:00→17:37)
[2018-12-09] MEDS: fentaNYL 100 MCG/2 ML SDV IVPUSH PRN ×2 (09:38→19:07)
[2018-12-09] MEDS: Ondansetron 4 MG/2 ML SDV IVPUSH PRN (09:39)
[2018-12-09] MEDS: Sodium Chloride 0.9% 10 ML Syringe FLUSH PRN ×7 (09:44→23:11)
[2018-12-09] MEDS: Docusate Sodium 100 MG Cap PO PRN (11:51)
[2018-12-09] MEDS: Polyethylene Glycol 3350 Powder 17 GM Packet PO PRN (11:53)
[2018-12-09] MEDS: Lisinopril 20 MG Tab PO SCH (17:37)
--- NOTE | 2018-12-09 18:58 | PCM.PN ---
- General Info Date of Service: 12/09/18 Functional Status: Reports: Tolerating Diet, Urinating - Review of Systems General: Reports: Weakness HEENT: Reports: No Symptoms Pulmonary: Reports: No Symptoms Cardiovascular: Reports: No Symptoms Gastrointestinal: Reports: No Symptoms Genitourinary: Reports: No Symptoms Musculoskeletal: Reports: Leg Pain (right still severe with any movement), Foot Pain (right) Skin: Reports: Other (RLE marked erythema and swelling) Neurological: Reports: Weakness Psychiatric: Reports: No Symptoms - Patient Data Vitals - Most Recent: Last Vital Signs Temp 97.5 F 12/09/18 15:43 Pulse 92 12/09/18 15:43 Resp 24 H 12/09/18 15:43 BP 134/70 12/09/18 17:37 Pulse Ox 100 12/09/18 15:43 Weight - Most Recent: 276 lb 4.8 oz I&O - Last 24 Hours: Intake & Output 12/09/18 12/09/18 12/09/18 06:59 14:59 22:59 Intake Total 1333 1260 360 Output Total 1100 400 300 Balance 233 860 60 Lab Results Last 24 Hours: Laboratory Results - last 24 hr 12/08/18 12/08/18 12/09/18 Range/Units 19:33 23:28 00:41 WBC (4.0-10.2) K/uL RBC (3.77-5.09) M/uL Hgb (11.7-15.5) g/dL Hct (34.0-46.0) % MCV (84.0-98.0) fL MCH (28.2-33.3) pg MCHC (31.7-36.0) g/dL RDW (11.2-14.1) % Plt Count (150-350) K/uL Neut % (Auto) (45.0-80.0) % Lymph % (Auto) (10.0-50.0) % [place] % (Auto) (2.0-14.0) % Eos % (Auto) (0.0-5.0) % Baso % (Auto) (0.0-2.0) % Neut # (Auto) (1.40-7.00) K/uL Lymph # (Auto) (0.50-3.50) K/uL [place] # (Auto) (0.00-1.00) K/uL Eos # (Auto) (0.00-0.50) K/uL Baso # (Auto) (0.00-0.20) K/uL Sodium (136-145) mmol/L Potassium (3.5-5.1) mmol/L Chloride (98-107) mmol/L Carbon Dioxide (21.0-32.0) mmol/L BUN (7-18) mg/dL Creatinine (0.51-1.17) mg/dL Est Cr Clr Drug Dosing mL/min Estimated GFR (MDRD) mL/min Glucose (74-106) mg/dL POC Glucose 220 H 62 L 160 H (65-110) mg/dl Calcium (8.5-10.1) mg/dL Total Bilirubin (0.2-1.0) mg/dL AST (15-37) U/L ALT (12-78) U/L Alkaline Phosphatase (46-116) IU/L C-Reactive Protein (<=0.9) mg/dL Total Protein (6.4-8.2) g/dL Albumin (3.4-5.0) g/dL 12/09/18 12/09/18 12/09/18 Range/Units 05:03 05:50 06:55 WBC 9.4 (4.0-10.2) K/uL RBC 2.70 L (3.77-5.09) M/uL Hgb 8.4 L (11.7-15.5) g/dL Hct 25.2 L (34.0-46.0) % MCV 93.3 (84.0-98.0) fL MCH 31.1 (28.2-33.3) pg MCHC 33.3 (31.7-36.0) g/dL RDW 13.2 (11.2-14.1) % Plt Count 274 (150-350) K/uL Neut % (Auto) 83.4 H (45.0-80.0) % Lymph % (Auto) 8.8 L (10.0-50.0) % [place] % (Auto) 6.5 (2.0-14.0) % Eos % (Auto) 1.1 (0.0-5.0) % Baso % (Auto) 0.2 (0.0-2.0) % Neut # (Auto) 7.84 H (1.40-7.00) K/uL Lymph # (Auto) 0.83 (0.50-3.50) K/uL [place] # (Auto) 0.61 (0.00-1.00) K/uL Eos # (Auto) 0.10 (0.00-0.50) K/uL Baso # (Auto) 0.02 (0.00-0.20) K/uL Sodium (136-145) mmol/L Potassium (3.5-5.1) mmol/L Chloride (98-107) mmol/L Carbon Dioxide (21.0-32.0) mmol/L BUN (7-18) mg/dL Creatinine (0.51-1.17) mg/dL Est Cr Clr Drug Dosing mL/min Estimated GFR (MDRD) mL/min Glucose (74-106) mg/dL POC Glucose 61 L 151 H (65-110) mg/dl Calcium (8.5-10.1) mg/dL Total Bilirubin (0.2-1.0) mg/dL AST (15-37) U/L ALT (12-78) U/L Alkaline Phosphatase (46-116) IU/L C-Reactive Protein (<=0.9) mg/dL Total Protein (6.4-8.2) g/dL Albumin (3.4-5.0) g/dL 12/09/18 12/09/18 12/09/18 Range/Units 06:55 07:29 11:16 WBC (4.0-10.2) K/uL RBC (3.77-5.09) M/uL Hgb (11.7-15.5) g/dL Hct (34.0-46.0) % MCV (84.0-98.0) fL MCH (28.2-33.3) pg MCHC (31.7-36.0) g/dL RDW (11.2-14.1) % Plt Count (150-350) K/uL Neut % (Auto) (45.0-80.0) % Lymph % (Auto) (10.0-50.0) % [place] % (Auto) (2.0-14.0) % Eos % (Auto) (0.0-5.0) % Baso % (Auto) (0.0-2.0) % Neut # (Auto) (1.40-7.00) K/uL Lymph # (Auto) (0.50-3.50) K/uL [place] # (Auto) (0.00-1.00) K/uL Eos # (Auto) (0.00-0.50) K/uL Baso # (Auto) (0.00-0.20) K/uL Sodium 137 (136-145) mmol/L Potassium 3.5 (3.5-5.1) mmol/L Chloride 105 (98-107) mmol/L Carbon Dioxide 20.9 L (21.0-32.0) mmol/L BUN 15 (7-18) mg/dL Creatinine 0.77 (0.51-1.17) mg/dL Est Cr Clr Drug Dosing 73.47 mL/min Estimated GFR (MDRD) > 60 mL/min Glucose 141 H (74-106) mg/dL POC Glucose 138 H 162 H (65-110) mg/dl Calcium 8.0 L (8.5-10.1) mg/dL Total Bilirubin 0.2 (0.2-1.0) mg/dL AST 14 L (15-37) U/L ALT 22 (12-78) U/L Alkaline Phosphatase 105 (46-116) IU/L C-Reactive Protein 10.8 H (<=0.9) mg/dL Total Protein 6.1 L (6.4-8.2) g/dL Albumin 1.7 L (3.4-5.0) g/dL 12/09/18 Range/Units 16:49 WBC (4.0-10.2) K/uL RBC (3.77-5.09) M/uL Hgb (11.7-15.5) g/dL Hct (34.0-46.0) % MCV (84.0-98.0) fL MCH (28.2-33.3) pg MCHC (31.7-36.0) g/dL RDW (11.2-14.1) % Plt Count (150-350) K/uL Neut % (Auto) (45.0-80.0) % Lymph % (Auto) (10.0-50.0) % [place] % (Auto) (2.0-14.0) % Eos % (Auto) (0.0-5.0) % Baso % (Auto) (0.0-2.0) % Neut # (Auto) (1.40-7.00) K/uL Lymph # (Auto) (0.50-3.50) K/uL [place] # (Auto) (0.00-1.00) K/uL Eos # (Auto) (0.00-0.50) K/uL Baso # (Auto) (0.00-0.20) K/uL Sodium (136-145) mmol/L Potassium (3.5-5.1) mmol/L Chloride (98-107) mmol/L Carbon Dioxide (21.0-32.0) mmol/L BUN (7-18) mg/dL Creatinine (0.51-1.17) mg/dL Est Cr Clr Drug Dosing mL/min Estimated GFR (MDRD) mL/min Glucose (74-106) mg/dL POC Glucose 235 H (65-110) mg/dl Calcium (8.5-10.1) mg/dL Total Bilirubin (0.2-1.0) mg/dL AST (15-37) U/L ALT (12-78) U/L Alkaline Phosphatase (46-116) IU/L C-Reactive Protein (<=0.9) mg/dL Total Protein (6.4-8.2) g/dL Albumin (3.4-5.0) g/dL Sean Results Last 24 Hours: Microbiology 12/05/18 16:10 Aerobic Blood Culture - Preliminary Blood - Venous NO GROWTH AFTER 4 DAYS Anaerobic Blood Culture - Preliminary NO GROWTH AFTER 4 DAYS 12/08/18 18:05 Gram Stain - Final Toe, Right - Right Big 12/08/18 18:05 Gram Stain - Final Ankle, Right Med Orders - Current: Current Medications Acetaminophen (Tylenol Extra Strength) 1,000 mg PO BEDTIME [facility] Last Admin: 12/08/18 19:49 Dose: 1,000 mg Acetaminophen (Tylenol) 650 mg PO Q4H PRN PRN Reason: Fever/Pain Last Admin: 12/07/18 12:36 Dose: 650 mg Hydrocodone Bitart/Acetaminophen ([place] 325-5 Mg) 1 tab PO DAILY@1999 PRN PRN Reason: Pain Last Admin: 12/08/18 19:48 Dose: 1 tab Hydrocodone Bitart/Acetaminophen ([place] 325-5 Mg) 1 tab PO Q6H PRN PRN Reason: For pain in lower extremities Last Admin: 12/09/18 04:21 Dose: 1 tab Diphenhydramine HCl (Benadryl) 50 mg PO BEDTIME [facility] Last Admin: 12/08/18 19:48 Dose: 50 mg Docusate Sodium (Colace) 100 mg PO BID PRN PRN Reason: Constipation Last Admin: 12/09/18 11:51 Dose: 100 mg Fentanyl (Sublimaze) 100 mcg IVPUSH Q2H PRN PRN Reason: Pain (severe 7-10) Last Admin: 12/09/18 09:38 Dose: 100 mcg Piperacillin Sod/Tazobactam (Sod 3.375 gm/ Sodium Chloride) 100 mls @ 200 mls/ hr IV Q6H [facility] Last Admin: 12/09/18 17:38 Dose: 200 mls/hr Clindamycin Phosphate 600 mg/ (Sodium Chloride) 104 mls @ 200 mls/hr IV Q8H [facility] Last Admin: 12/09/18 15:23 Dose: 200 mls/hr Vancomycin HCl 1.25 gm/ Sodium (Chloride) 250 mls @ 135 mls/hr IV Q12H [facility] Last Admin: 12/09/18 08:40 Dose: 135 mls/hr Insulin Glargine (Lantus) 20 unit SUBCUT BEDTIME [facility] Last Admin: 12/08/18 19:52 Dose: 20 units Insulin Glargine (Lantus) 40 unit SUBCUT DAILY [facility] Last Admin: 12/09/18 08:36 Dose: 40 units Lisinopril (Prinivil) 10 mg PO QPM [facility] Last Admin: 12/09/18 17:37 Dose: 10 mg Metoprolol Tartrate (Lopressor) 25 mg PO BID@08,20 [facility] Last Admin: 12/09/18 08:42 Dose: 25 mg Montelukast Sodium (Singulair) 10 mg PO QAM [facility] Last Admin: 12/09/18 08:42 Dose: 10 mg Non-Formulary Medication (Ipratropium [place] [Ipratropium [place]]) 2 sprays NS BID@0800,1999 [facility] Milnacipran Hcl [ Savella] 50 Mg Tablets 50 mg PO BID@08,20 [facility] Last Admin: 12/09/18 08:43 Dose: 50 mg Nystatin (Mycostatin) 10 ml PO QID [facility] Last Admin: 12/09/18 16:00 Dose: 10 ml Ondansetron HCl (Zofran) 4 mg IVPUSH Q4H PRN PRN Reason: Nausea/Vomiting Last Admin: 12/09/18 09:39 Dose: 4 mg Polyethylene Glycol (Miralax) 17 gm PO DAILY PRN PRN Reason: Constipation Last Admin: 12/09/18 11:53 Dose: 17 gm Potassium Chloride (Klor-Con 10) 10 meq PO TID@1000,1400,1800 [facility] Last Admin: 12/09/18 17:37 Dose: 10 meq Sodium Chloride (Saline Flush) 10 ml FLUSH ASDIRECTED PRN PRN Reason: Keep Vein Open Last Admin: 12/09/18 17:40 Dose: 10 ml Sodium Chloride (Saline Flush) 10 ml FLUSH Q12HR [facility] Last Admin: 12/09/18 08:44 Dose: 10 ml Trospium (Sanctura) 20 mg PO Q12H [facility] Last Admin: 12/09/18 08:41 Dose: 20 mg Vancomycin HCl (Pharmacy To Dose - Vancomycin) 1 dose .XX ASDIRECTED [facility] Discontinued Medications Acetaminophen (Tylenol) 650 mg PO NOW ONE Stop: 12/05/18 16:04 Last Admin: 12/05/18 16:16 Dose: 650 mg Calcium Carbonate (Caltrate 600+D 1500 Mg-400 Units) 1 tab PO Q12H [facility] Last Admin: 12/08/18 08:09 Dose: 1 tab Clopidogrel Bisulfate (Plavix) 75 mg PO QAM [facility] Last Admin: 12/08/18 08:08 Dose: 75 mg Enoxaparin Sodium (Lovenox) 40 mg SUBCUT DAILY [facility] Enoxaparin Sodium (Lovenox) 40 mg SUBCUT DAILY@ [facility] Last Admin: 12/07/18 20:46 Dose: 40 mg Fish Oil (Fish Oil) 1 gm PO DAILY@1999 [facility] Last Admin: 12/07/18 20:48 Dose: 1 gm Fluconazole (Diflucan) 150 mg PO ONETIME ONE Stop: 12/05/18 17:48 Last Admin: 12/05/18 18:43 Dose: 150 mg Sodium Chloride (Normal Saline) 1,000 mls @ 150 mls/hr IV ASDIRECTED [facility] Last Admin: 12/07/18 02:25 Dose: 150 mls/hr Vancomycin HCl 1.25 gm/ Sodium (Chloride) 250 mls @ 135 mls/hr IV Q12H [facility] Last Admin: 12/08/18 19:43 Dose: 135 mls/hr Multivitamins/Folic Acid/Vitamin C (Cerovite Jr) 1 each PO Q12H [facility] Last Admin: 12/08/18 08:09 Dose: 1 each Non-Formulary Medication (Biotin [Biotin]) 10,000 mcg PO QAM [facility] Last Admin: 12/08/18 19:25 Dose: Not Given Nystatin (Mycostatin) 5 ml PO QID [facility] Last Admin: 12/08/18 15:04 Dose: 5 ml Ondansetron HCl (Zofran) 4 mg IVPUSH Q6H PRN PRN Reason: Nausea/Vomiting Sodium Chloride (Saline Flush) 10 ml FLUSH ASDIRECTED PRN PRN Reason: Keep Vein Open Last Admin: 12/07/18 19:00 Dose: 10 ml - Exam Quality Assessment: Central Line/PICC (not able to insert today) General: Alert, Cooperative HEENT: Mucous Membr. Moist/[place] Neck: Trachea Midline, No JVD Lungs: Clear to Auscultation, Normal Respiratory Effort Cardiovascular: Regular Rate, Regular Rhythm GI/Abdominal Exam: Soft, Non-Tender, No Distention (Female) Exam: Deferred Back Exam: Normal Inspection Extremities: Pedal Edema (right slight improvement today), Leg Pain (right), Increased Warmth (right leg below knee), Redness (still quite significant but slight improvement), Other (skin crack over #1MTP joint with surrounding redness , x-ray shows fluid collection under this crack) Skin: Other (redness, warmth right anterior compartment with soft ball size ballotable area) Wound/Incisions: Drainage (right lateral ankle and right lateral leg below right knee is decreasing but still present) Neurological: No New Focal Deficit Psy/Mental Status: Alert, Normal Affect, Normal Mood - Problem List & Annotations (1) Staphylococcus aureus bacteremia without sepsis SNOMED Code(s): 929062225 Code(s): R78.81 - BACTEREMIA Status: Acute Priority: High Current Visit : Yes (2) Cellulitis of right leg SNOMED Code(s): 714991513 Code(s): L03.115 - CELLULITIS OF RIGHT LOWER LIMB Status: Acute Priority : High Current Visit: Yes (3) Chills (without fever) SNOMED Code(s): 17047056 Code(s): R68.83 - CHILLS (WITHOUT FEVER) Status: Acute Priority: High Current Visit: Yes (4) Anemia SNOMED Code(s): 435335325 Code(s): D64.9 - ANEMIA, UNSPECIFIED Status: Acute Priority: High Current Visit: No Qualifiers: Anemia type: unspecified type Qualified Code(s): D64.9 - Anemia, unspecified (5) Diabetes mellitus SNOMED Code(s): 02501256 Code(s): E11.9 - TYPE 2 DIABETES MELLITUS WITHOUT COMPLICATIONS Status: Acute Current Visit: No Qualifiers: Diabetes mellitus type: type 2 Diabetes mellitus long term care phlebotomist insulin use: with long term care phlebotomist use Diabetes mellitus complication status: with unspecified complications Qualified Code(s): E11.8 - Type 2 diabetes mellitus with unspecified complications; Z79.4 - alf (current) use of insulin (6) Vertigo SNOMED Code(s): 147703449 Code(s): R42 - DIZZINESS AND GIDDINESS Status: Acute Current Visit: No (7) Essential (primary) hypertension SNOMED Code(s): 46632842 Code(s): I10 - ESSENTIAL (PRIMARY) HYPERTENSION Status: Acute Priority: Low Current Visit: Yes - Problem List Review Problem List Initiated/Reviewed/Updated: Yes - My Orders Last 24 Hours: My Active Orders 12/08/18 18:05 CULTURE WOUND + SMEAR [RM] Routine CULTURE WOUND + SMEAR [RM] Routine 12/08/18 18:33 Blood Culture x2 Reflex Set [OM.PC] Stat 12/08/18 18:37 Communication Order [RC] ROUTINE 12/08/18 18:39 Communication Order [RC] ROUTINE 12/08/18 18:45 Pharmacy to Dose - Vancomycin 1 dose .XX ASDIRECTED 12/08/18 18:50 fentaNYL [Sublimaze] 100 mcg IVPUSH Q2H PRN 12/08/18 18:53 Consult to PICC Team [CONS] Routine 12/08/18 18:55 CULTURE BLOOD [BC] Stat 12/08/18 19:00 Notify Provider Consults [RC] ASDIRECTED Consult to Physician [CONS] Routine 12/08/18 19:05 CULTURE BLOOD [BC] Stat 12/08/18 20:00 Clindamycin Phosphate [Cleocin] 600 mg Sodium Chloride 0.9% [Normal Saline] 100 ml IV Q8H Nystatin [Mycostatin] 10 ml PO QID Sodium Chloride 0.9% [Saline Flush] 10 ml FLUSH Q12HR 12/09/18 05:11 Foot 2V Rt [CR] Routine Foot wo Cont Rt [CT] Routine Lower Leg wo Cont Rt [CT] Routine Tibia Fibula Rt [CR] Routine 12/09/18 09:00 Vancomycin 1.25 gm Sodium Chloride 0.9% [Normal Saline] 250 ml IV Q12H 12/09/18 13:06 Central Line Assessment [RC] Q12HR Central Line Insert Checklist [RC] ASDIRECTED Communication Order [RC] ASDIRECTED Communication Order [RC] ASDIRECTED OR PCXR-No Charge-PICC/Central [CR] Stat 12/09/18 13:08 Central Line PICC Insertion [Central Venous Line Insertion] [OM.PC] Routine 12/10/18 08:30 CBC WITH AUTO DIFF [HEME] Routine CMP [COMPREHENSIVE METABOLIC PN,CMP] [CHEM] Routine CRP [C-REACTIVE PROTEIN] [CHEM] Routine VANCOMYCIN TROUGH [CHEM] Timed - Plan Plan:: 12/09/18 Concepcion Osorio MD Leg is clinically worse today. Will start vancomycin for improved staph coverage. She is difficult IV access and will need prolonged IV antibiotics so will consult for PICC in AM. See orders. 12/10/18 Concepcion Osorio MD Right leg slight clinical improvement today. CRP did decrease. Unable to place PICC today. X-ray, CT suspicious for fluid filled cyst/abscess right foot. Also fluid/abscess right anterior compartment. Surgeon to see her tomorrow for possible debridement. Retry PICC tomorrow with possible nurse anesthitist. She needs continued inpatient status due to severity of cellulitis right lower extremity and need for continued IV antibiotics and surgical consultation.
[2018-12-09] MEDS: Acetaminophen 500 MG Tab PO SCH (19:05)
[2018-12-09] MEDS: diphenhydrAMINE 25 MG Cap PO SCH (19:06)
[2018-12-10] MEDS: Acetaminophen/HYDROcodone 325-5 MG Tab PO PRN ×3 (02:41→18:07)
[2018-12-10] MEDS: Clindamycin Phosphate 600 MG in Sodium Chloride 0.9% 100 ML IV SCH ×2 (04:43→12:13)
[2018-12-10] MEDS: Sodium Chloride 0.9% 10 ML Syringe FLUSH PRN ×5 (04:44→12:15)
[2018-12-10] MEDS ORDERED: Magnesium Hydroxide 400 MG/5 ML Susp 30 ML Cup PO PRN (04:53)
[2018-12-10] MEDS: Piperacillin/Tazobactam 3.375 GM in Sodium Chloride 0.9% 100 ML IV SCH ×3 (05:20→18:07)
[2018-12-10] MEDS: Acetaminophen 325 MG Tab PO PRN (05:37)
[2018-12-10] MEDS: Nystatin Susp 100,000 Unit/ML 5 ML UD Cup PO SCH ×2 (07:43→12:13)
[2018-12-10] MEDS: Trospium 20 MG Tab PO SCH ×2 (07:43→19:50)
[2018-12-10] MEDS: Metoprolol Tartrate 25 MG Tab PO SCH ×2 (07:43→19:50)
[2018-12-10] MEDS: Montelukast 10 MG Tab PO SCH (07:43)
[2018-12-10] MEDS: Insulin Glarg,Human.Rec.Analog 100 UNIT/ML ML SUBCUT SCH ×2 (07:44→19:51)
[2018-12-10] MEDS: MILNACIPRAN HCL 50 MG PO SCH ×2 (07:44→19:52)
[2018-12-10] MEDS: Sodium Chloride 0.9% 10 ML Syringe FLUSH SCH ×2 (07:49→19:50)
[2018-12-10 08:33] LABS: CHLORIDE,CL 106 mmol/L (98-107); SODIUM,NA 138 mmol/L (136-145)
[2018-12-10] MEDS: Potassium Chloride 10 MEQ Tab.ER PO SCH ×3 (08:59→18:06)
--- NOTE | 2018-12-10 12:28 | PN ---
HISTORY: This 63-year-old female was seen in consultation from Dr. Frederick for evaluation of right lower extremity infection. The patient was admitted on 12/05 through the emergency room with right lower extremity pain, redness, and swelling. This had been going on for the past few days and gradually worsening. Cellulitis had been spreading up to her knee at that time of admission. She was placed on IV antibiotics. She did have a fever upon admission, which has improved. Her white blood cell count was normal throughout her stay. Yesterday, she underwent a CT scan of her foot and ankle region. This questioned the possibility of an abscess near the first metatarsal on the plantar surface. PAST MEDICAL HISTORY: Reviewed. The patient is diabetic and has known peripheral vascular disease. PHYSICAL EXAMINATION: GENERAL: Reveals a pleasant lady who is resting comfortably in bed and in no acute distress. VITAL SIGNS: Reviewed. She is afebrile at this time. EXTREMITIES: Her previous marking shows that the cellulitis has significantly regressed to the lower third of the calf. The cellulitis appears to be mostly above the ankle. The foot is edematous with hypertrophic skin and some dry cracks by the big toe, but no evidence of infection in the foot itself. When the first metatarsal area is palpated, I do not feel any obvious abscess. ASSESSMENT: Right lower extremity cellulitis. Blood cultures were positive for Staph. She is on appropriate antibiotics. The cellulitis appears to be responding slowly. As long as she continues to improve, I would continue this and not do any more aggressive therapy. A CT scan next week would be a good way to monitor this since clinically her foot does not have any evidence of an abscess at this time. JEAN MARIE ARNETT MD /[id number]
[2018-12-10] MEDS: Lisinopril 20 MG Tab PO SCH (18:05)
--- NOTE | 2018-12-10 19:07 | PCM.PN ---
- General Info Date of Service: 12/10/18 Functional Status: Reports: Other (right lower extremity still quite painful with any palpation or movement) - Review of Systems General: Reports: Weakness HEENT: Reports: No Symptoms Pulmonary: Reports: No Symptoms Cardiovascular: Reports: No Symptoms Gastrointestinal: Reports: No Symptoms Genitourinary: Reports: No Symptoms Musculoskeletal: Reports: Leg Pain (right), Foot Pain (right) Neurological: Reports: No Symptoms Psychiatric: Reports: No Symptoms - Patient Data Vitals - Most Recent: Last Vital Signs Temp 96.9 F 12/10/18 16:00 Pulse 95 12/10/18 16:00 Resp 16 12/10/18 11:41 BP 135/86 12/10/18 18:05 Pulse Ox 95 12/10/18 16:00 Weight - Most Recent: 276 lb 4.8 oz I&O - Last 24 Hours: Intake & Output 12/10/18 12/10/18 12/10/18 06:59 14:59 22:59 Intake Total 870 1080 Output Total 1550 425 Balance -680 655 Lab Results Last 24 Hours: Laboratory Results - last 24 hr 12/09/18 12/10/18 12/10/18 Range/Units 18:54 06:17 08:20 WBC (4.0-10.2) K/uL RBC (3.77-5.09) M/uL Hgb (11.7-15.5) g/dL Hct (34.0-46.0) % MCV (84.0-98.0) fL MCH (28.2-33.3) pg MCHC (31.7-36.0) g/dL RDW (11.2-14.1) % Plt Count (150-350) K/uL Neut % (Auto) (45.0-80.0) % Lymph % (Auto) (10.0-50.0) % [place] % (Auto) (2.0-14.0) % Eos % (Auto) (0.0-5.0) % Baso % (Auto) (0.0-2.0) % Neut # (Auto) (1.40-7.00) K/uL Lymph # (Auto) (0.50-3.50) K/uL [place] # (Auto) (0.00-1.00) K/uL Eos # (Auto) (0.00-0.50) K/uL Baso # (Auto) (0.00-0.20) K/uL Sodium 138 (136-145) mmol/L Potassium 3.7 (3.5-5.1) mmol/L Chloride 106 (98-107) mmol/L Carbon Dioxide 21.1 (21.0-32.0) mmol/L BUN 13 (7-18) mg/dL Creatinine 0.75 (0.51-1.17) mg/dL Est Cr Clr Drug Dosing 75.43 mL/min Estimated GFR (MDRD) > 60 mL/min Glucose 128 H (74-106) mg/dL POC Glucose 228 H 76 (65-110) mg/dl Calcium 8.0 L (8.5-10.1) mg/dL Total Bilirubin 0.2 (0.2-1.0) mg/dL AST 14 L (15-37) U/L ALT 22 (12-78) U/L Alkaline Phosphatase 102 (46-116) IU/L C-Reactive Protein 7.8 H (<=0.9) mg/dL Total Protein 6.2 L (6.4-8.2) g/dL Albumin 1.8 L (3.4-5.0) g/dL Vancomycin Trough 14.4 (10-20) ug/mL 12/10/18 12/10/18 12/10/18 Range/Units 08:20 11:02 16:43 WBC 7.9 (4.0-10.2) K/uL RBC 2.76 L (3.77-5.09) M/uL Hgb 8.5 L (11.7-15.5) g/dL Hct 26.0 L (34.0-46.0) % MCV 94.2 (84.0-98.0) fL MCH 30.8 (28.2-33.3) pg MCHC 32.7 (31.7-36.0) g/dL RDW 13.6 (11.2-14.1) % Plt Count 332 (150-350) K/uL Neut % (Auto) 77.4 (45.0-80.0) % Lymph % (Auto) 12.0 (10.0-50.0) % [place] % (Auto) 8.3 (2.0-14.0) % Eos % (Auto) 2.0 (0.0-5.0) % Baso % (Auto) 0.3 (0.0-2.0) % Neut # (Auto) 6.12 (1.40-7.00) K/uL Lymph # (Auto) 0.95 (0.50-3.50) K/uL [place] # (Auto) 0.66 (0.00-1.00) K/uL Eos # (Auto) 0.16 (0.00-0.50) K/uL Baso # (Auto) 0.02 (0.00-0.20) K/uL Sodium (136-145) mmol/L Potassium (3.5-5.1) mmol/L Chloride (98-107) mmol/L Carbon Dioxide (21.0-32.0) mmol/L BUN (7-18) mg/dL Creatinine (0.51-1.17) mg/dL Est Cr Clr Drug Dosing mL/min Estimated GFR (MDRD) mL/min Glucose (74-106) mg/dL POC Glucose 154 H 173 H (65-110) mg/dl Calcium (8.5-10.1) mg/dL Total Bilirubin (0.2-1.0) mg/dL AST (15-37) U/L ALT (12-78) U/L Alkaline Phosphatase (46-116) IU/L C-Reactive Protein (<=0.9) mg/dL Total Protein (6.4-8.2) g/dL Albumin (3.4-5.0) g/dL Vancomycin Trough (10-20) ug/mL Sean Results Last 24 Hours: Microbiology 12/05/18 16:45 Aerobic Blood Culture - Final Blood - Venous - Lab Draw Gram Positive Cocci Staphylococcus Coagulase Neg Staphylococcus Epidermidis Anaerobic Blood Culture - Final 12/05/18 16:10 Aerobic Blood Culture - Final Blood - Venous NO GROWTH AFTER 5 DAYS Anaerobic Blood Culture - Final NO GROWTH AFTER 5 DAYS 12/08/18 18:05 Gram Stain - Final Toe, Right - Right Big Wound Culture - Preliminary 12/08/18 18:05 Gram Stain - Final Ankle, Right Wound Culture - Preliminary NO GROWTH AFTER 1 DAY 12/08/18 19:05 Aerobic Blood Culture - Preliminary Blood - Venous - Lab Draw NO GROWTH AFTER 1 DAY Anaerobic Blood Culture - Preliminary NO GROWTH AFTER 1 DAY 12/08/18 18:55 Aerobic Blood Culture - Preliminary Blood - Venous NO GROWTH AFTER 1 DAY Anaerobic Blood Culture - Preliminary NO GROWTH AFTER 1 DAY Med Orders - Current: Current Medications Acetaminophen (Tylenol Extra Strength) 1,000 mg PO BEDTIME [facility] Last Admin: 12/09/18 19:05 Dose: 1,000 mg Acetaminophen (Tylenol) 650 mg PO Q4H PRN PRN Reason: Fever/Pain Last Admin: 12/10/18 05:37 Dose: 650 mg Hydrocodone Bitart/Acetaminophen ([place] 325-5 Mg) 1 tab PO DAILY@2000 PRN PRN Reason: Pain Last Admin: 12/09/18 21:26 Dose: 1 tab Hydrocodone Bitart/Acetaminophen ([place] 325-5 Mg) 1 tab PO Q6H PRN PRN Reason: For pain in lower extremities Last Admin: 12/10/18 18:07 Dose: 1 tab Diphenhydramine HCl (Benadryl) 50 mg PO BEDTIME [facility] Last Admin: 12/09/18 19:06 Dose: 50 mg Docusate Sodium (Colace) 100 mg PO BID PRN PRN Reason: Constipation Last Admin: 12/09/18 11:51 Dose: 100 mg Fentanyl (Sublimaze) 100 mcg IVPUSH Q2H PRN PRN Reason: Pain (severe 7-10) Last Admin: 12/09/18 19:07 Dose: 100 mcg Fluconazole (Diflucan) 50 mg PO DAILY [facility] Vancomycin HCl 1.25 gm/ Sodium (Chloride) 250 mls @ 135 mls/hr IV Q12H [facility] Last Admin: 12/10/18 08:58 Dose: 135 mls/hr Clindamycin Phosphate 900 mg/ (Sodium Chloride) 106 mls @ 200 mls/hr IV Q8H [facility] Insulin Glargine (Lantus) 20 unit SUBCUT BEDTIME [facility] Last Admin: 12/09/18 19:18 Dose: 20 units Insulin Glargine (Lantus) 40 unit SUBCUT DAILY [facility] Last Admin: 12/10/18 07:44 Dose: 40 units Lisinopril (Prinivil) 10 mg PO QPM [facility] Last Admin: 12/10/18 18:05 Dose: 10 mg Magnesium Hydroxide (Milk Of Magnesia) 30 ml PO DAILY PRN PRN Reason: Constipation Last Admin: 12/10/18 05:20 Dose: 30 ml Metoprolol Tartrate (Lopressor) 25 mg PO BID@, [facility] Last Admin: 12/10/18 07:43 Dose: 25 mg Montelukast Sodium (Singulair) 10 mg PO QAM [facility] Last Admin: 12/10/18 07:43 Dose: 10 mg Mupirocin (Bactroban Oint) 0 gm TOP Q12HR [facility] Non-Formulary Medication (Ipratropium [place] [Ipratropium [place]]) 2 sprays NS BID@0800,1999 [facility] Milnacipran Hcl [ Savella] 50 Mg Tablets 50 mg PO BID@, [facility] Last Admin: 12/10/18 07:44 Dose: 50 mg Ondansetron HCl (Zofran) 4 mg IVPUSH Q4H PRN PRN Reason: Nausea/Vomiting Last Admin: 12/09/18 09:39 Dose: 4 mg Polyethylene Glycol (Miralax) 17 gm PO DAILY PRN PRN Reason: Constipation Last Admin: 12/09/18 11:53 Dose: 17 gm Potassium Chloride (Klor-Con 10) 10 meq PO TID@1000,1400,1800 [facility] Last Admin: 12/10/18 18:06 Dose: 10 meq Sodium Chloride (Saline Flush) 10 ml FLUSH ASDIRECTED PRN PRN Reason: Keep Vein Open Last Admin: 12/10/18 12:15 Dose: 10 ml Sodium Chloride (Saline Flush) 10 ml FLUSH Q12HR [facility] Last Admin: 12/10/18 07:49 Dose: 10 ml Trospium (Sanctura) 20 mg PO Q12H [facility] Last Admin: 12/10/18 07:43 Dose: 20 mg Vancomycin HCl (Pharmacy To Dose - Vancomycin) 1 dose .XX ASDIRECTED [facility] Discontinued Medications Acetaminophen (Tylenol) 650 mg PO NOW ONE Stop: 12/05/18 16:04 Last Admin: 12/05/18 16:16 Dose: 650 mg Calcium Carbonate (Caltrate 600+D 1500 Mg-400 Units) 1 tab PO Q12H [facility] Last Admin: 12/08/18 08:09 Dose: 1 tab Clopidogrel Bisulfate (Plavix) [facility] [place] Last Admin: 12/08/18 08:08 Dose: 75 mg Enoxaparin Sodium (Lovenox) 40 mg SUBCUT DAILY [facility] Enoxaparin Sodium (Lovenox) 40 mg SUBCUT DAILY@20 [facility] Last Admin: 12/07/18 20:46 Dose: 40 mg Fish Oil (Fish Oil) 1 gm PO DAILY@1999 [facility] Last Admin: 12/07/18 20:48 Dose: 1 gm Fluconazole (Diflucan) 150 mg PO ONETIME ONE Stop: 12/05/18 17:48 Last Admin: 12/05/18 18:43 Dose: 150 mg Piperacillin Sod/Tazobactam (Sod 3.375 gm/ Sodium Chloride) 100 mls @ 200 mls/ hr IV Q6H [facility] Last Admin: 12/10/18 18:07 Dose: 200 mls/hr Sodium Chloride (Normal Saline) 1,000 mls @ 150 mls/hr IV ASDIRECTED [facility] Last Admin: 12/07/18 02:25 Dose: 150 mls/hr Vancomycin HCl 1.25 gm/ Sodium (Chloride) 250 mls @ 135 mls/hr IV Q12H [facility] Last Admin: 12/08/18 19:43 Dose: 135 mls/hr Clindamycin Phosphate 600 mg/ (Sodium Chloride) 104 mls @ 200 mls/hr IV Q8H [facility] Last Admin: 12/10/18 12:13 Dose: 200 mls/hr Multivitamins/Folic Acid/Vitamin C (Cerovite Jr) 1 each PO Q12H [facility] Last Admin: 12/08/18 08:09 Dose: 1 each Non-Formulary Medication (Biotin [Biotin]) 10,000 mcg PO QAM [facility] Last Admin: 12/08/18 19:25 Dose: Not Given Nystatin (Mycostatin) 5 ml PO QID [facility] Last Admin: 12/08/18 15:04 Dose: 5 ml Nystatin (Mycostatin) 10 ml PO QID [facility] Last Admin: 12/10/18 12:13 Dose: 10 ml Ondansetron HCl (Zofran) 4 mg IVPUSH Q6H PRN PRN Reason: Nausea/Vomiting Sodium Chloride (Saline Flush) 10 ml FLUSH ASDIRECTED PRN PRN Reason: Keep Vein Open Last Admin: 12/07/18 19:00 Dose: 10 ml - Exam General: Alert, Cooperative HEENT: Mucous Membr. Moist/[place] Neck: Trachea Midline, No JVD Lungs: Clear to Auscultation, Normal Respiratory Effort Cardiovascular: Regular Rate, Regular Rhythm, No Murmurs GI/Abdominal Exam: Soft, Non-Tender, No Distention (Female) Exam: Deferred Back Exam: Normal Inspection Extremities: Pedal Edema (right has decreased), Leg Pain (right), Increased Warmth (right LE is decreasing) Skin: Other (right leg redness and edema has receded and decreased.) Wound/Incisions: Drainage (RLE from blisters) Psy/Mental Status: Alert, Normal Affect, Normal Mood - Problem List & Annotations (1) Cellulitis of right leg SNOMED Code(s): 803904299 Code(s): L03.115 - CELLULITIS OF RIGHT LOWER LIMB Status: Acute Priority : High Current Visit: Yes (2) Chills (without fever) SNOMED Code(s): 41527794 Code(s): R68.83 - CHILLS (WITHOUT FEVER) Status: Acute Priority: High Current Visit: Yes (3) Anemia SNOMED Code(s): 961787424 Code(s): D64.9 - ANEMIA, UNSPECIFIED Status: Acute Priority: High Current Visit: No Qualifiers: Anemia type: unspecified type Qualified Code(s): D64.9 - Anemia, unspecified (4) Diabetes mellitus SNOMED Code(s): 48427873 Code(s): E11.9 - TYPE 2 DIABETES MELLITUS WITHOUT COMPLICATIONS Status: Acute Current Visit: No Qualifiers: Diabetes mellitus type: type 2 Diabetes mellitus alf insulin use: with 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 Diabetes mellitus complication status: with unspecified complications Qualified Code(s): E11.8 - Type 2 diabetes mellitus with unspecified complications; Z79.4 - MCC (current) use of insulin (5) Vertigo SNOMED Code(s): 995879318 Code(s): R42 - DIZZINESS AND GIDDINESS Status: Acute Current Visit: No (6) Essential (primary) hypertension SNOMED Code(s): 41057081 Code(s): I10 - ESSENTIAL (PRIMARY) HYPERTENSION Status: Acute Priority: Low Current Visit: Yes (7) Staphylococcus epidermidis bacteremia SNOMED Code(s): 925780364224, 057451538902 Code(s): R78.81 - BACTEREMIA Status: Acute Priority: High Current Visit : Yes - Problem List Review Problem List Initiated/Reviewed/Updated: Yes - My Orders Last 24 Hours: My Active Orders 12/09/18 20:00 Wound Care [RC] Q12H 12/10/18 04:53 Magnesium Hydroxide [Milk of Magnesia] 30 ml PO DAILY PRN 12/10/18 20:00 Clindamycin Phosphate [Cleocin] 900 mg Sodium Chloride 0.9% [Normal Saline] 100 ml IV Q8H Mupirocin Oint [Bactroban Oint] See Dose Instructions TOP Q12HR 12/11/18 05:11 CBC WITH AUTO DIFF [HEME] Routine CMP [COMPREHENSIVE METABOLIC PN,CMP] [CHEM] Routine CRP [C-REACTIVE PROTEIN] [CHEM] Routine 12/11/18 08:00 Fluconazole [Diflucan] 50 mg PO DAILY 12/12/18 08:30 VANCOMYCIN TROUGH [CHEM] Routine - Plan Plan:: 12/09/18 Concepcion Osorio MD Leg is clinically worse today. Will start vancomycin for improved staph coverage. She is difficult IV access and will need prolonged IV antibiotics so will consult for PICC in AM. See orders. 12/10/18 Concepcion Osorio MD Right leg slight clinical improvement today. CRP did decrease. Unable to place PICC today. X-ray, CT suspicious for fluid filled cyst/abscess right foot. Also fluid/abscess right anterior compartment. Surgeon to see her tomorrow for possible debridement. Retry PICC tomorrow with possible nurse anesthitist. She needs continued inpatient status due to severity of cellulitis right lower extremity and need for continued IV antibiotics and surgical consultation. 12/11/18 Concepcion Patterson consulted and evaluated her today. See his note. Blood culture +staph epi with sensitivities noted. Sensitive to vancomycin and clindamycin. Attempt at PICC again today was unsuccessful. Clinically the leg is slowly improving since the vancomycin and clindamycin were started. Sadie does not want to go to [place] for a PICC line. We do have IV access at this time. Will continue IV vancomycin and IV clindamycin and recheck labs in the morning. She prefers to switch to oral antibiotics rather than go to [place] for PICC. Will need to clinically assess in AM if the cellulitis is improved enough to switch to oral antibiotics. Due to severity of the cellulitis and need for continued IV antibiotics she requires continued inpatient status. Also add bactroban topically.
[2018-12-10] MEDS: Clindamycin Phosphate 900 MG in Sodium Chloride 0.9% 100 ML IV SCH (19:48)
[2018-12-10] MEDS: diphenhydrAMINE 25 MG Cap PO SCH (19:49)
[2018-12-10] MEDS: Acetaminophen 500 MG Tab PO SCH (19:50)
[2018-12-10] MEDS: Mupirocin Oint 22 GM Tube TOP SCH (19:52)
[2018-12-11] MEDS: Acetaminophen/HYDROcodone 325-5 MG Tab PO PRN ×2 (00:32→08:41)
[2018-12-11] MEDS: Clindamycin Phosphate 900 MG in Sodium Chloride 0.9% 100 ML IV SCH ×3 (04:19→19:53)
[2018-12-11 07:54] LABS: CHLORIDE,CL 105 mmol/L (98-107); SODIUM,NA 138 mmol/L (136-145)
[2018-12-11] MEDS ORDERED: Clopidogrel 75 MG Tab PO SCH (08:00)
[2018-12-11] MEDS ORDERED: Fluconazole 100 MG Tab PO SCH (08:00)
[2018-12-11] MEDS: Sodium Chloride 0.9% 10 ML Syringe FLUSH PRN ×4 (08:40→15:18)
[2018-12-11] MEDS: Sodium Chloride 0.9% 10 ML Syringe FLUSH SCH ×2 (08:40→19:54)
[2018-12-11] MEDS: Trospium 20 MG Tab PO SCH ×2 (08:40→19:56)
[2018-12-11] MEDS: Metoprolol Tartrate 25 MG Tab PO SCH ×2 (08:41→19:55)
[2018-12-11] MEDS: Montelukast 10 MG Tab PO SCH (08:41)
[2018-12-11] MEDS: MILNACIPRAN HCL 50 MG PO SCH ×2 (08:43→19:57)
[2018-12-11] MEDS: Mupirocin Oint 22 GM Tube TOP SCH ×2 (08:50→19:49)
[2018-12-11] MEDS: Insulin Glarg,Human.Rec.Analog 100 UNIT/ML ML SUBCUT SCH (08:51)
--- NOTE | 2018-12-11 10:20 | PCM.PN ---
- General Info Date of Service: 12/11/18 Admission Dx/Problem (Free Text): cellulitis of the left LE Type 2 DM Functional Status: Reports: Pain Controlled Pain Score: 6 (patient states pain controlled on oral narcotics) - Review of Systems General: Reports: Weakness, Fatigue HEENT: Reports: Post Nasal Drip Pulmonary: Reports: No Symptoms Cardiovascular: Reports: No Symptoms Gastrointestinal: Reports: No Symptoms Genitourinary: Reports: No Symptoms Musculoskeletal: Reports: Leg Pain Skin: Reports: Other (Right LE erythematous and warm to touch) Neurological: Reports: No Symptoms Psychiatric: Reports: Anxiety - Patient Data Vitals - Most Recent: Last Vital Signs Temp 96.6 F 12/10/18 19:48 Pulse 98 12/11/18 08:41 Resp 16 12/10/18 11:41 BP 112/58 L 12/11/18 08:41 Pulse Ox 96 12/10/18 19:48 Weight - Most Recent: 276 lb 4.8 oz I&O - Last 24 Hours: Intake & Output 12/10/18 12/11/18 12/11/18 22:59 06:59 14:59 Intake Total 100 1127 346 Output Total 2350 Balance 100 -1223 346 Lab Results Last 24 Hours: Laboratory Results - last 24 hr 12/10/18 12/10/18 12/10/18 Range/Units 11:02 16:43 19:43 WBC (4.0-10.2) K/uL RBC (3.77-5.09) M/uL Hgb (11.7-15.5) g/dL Hct (34.0-46.0) % MCV (84.0-98.0) fL MCH (28.2-33.3) pg MCHC (31.7-36.0) g/dL RDW (11.2-14.1) % Plt Count (150-350) K/uL Neut % (Auto) (45.0-80.0) % Lymph % (Auto) (10.0-50.0) % [place] % (Auto) (2.0-14.0) % Eos % (Auto) (0.0-5.0) % Baso % (Auto) (0.0-2.0) % Neut # (Auto) (1.40-7.00) K/uL Lymph # (Auto) (0.50-3.50) K/uL [place] # (Auto) (0.00-1.00) K/uL Eos # (Auto) (0.00-0.50) K/uL Baso # (Auto) (0.00-0.20) K/uL Sodium (136-145) mmol/L Potassium (3.5-5.1) mmol/L Chloride (98-107) mmol/L Carbon Dioxide (21.0-32.0) mmol/L BUN (7-18) mg/dL Creatinine (0.51-1.17) mg/dL Est Cr Clr Drug Dosing mL/min Estimated GFR (MDRD) mL/min Glucose (74-106) mg/dL POC Glucose 154 H 173 H 284 H* (65-110) mg/dl Calcium (8.5-10.1) mg/dL Total Bilirubin (0.2-1.0) mg/dL AST (15-37) U/L ALT (12-78) U/L Alkaline Phosphatase (46-116) IU/L C-Reactive Protein (<=0.9) mg/dL Total Protein (6.4-8.2) g/dL Albumin (3.4-5.0) g/dL 12/11/18 12/11/18 12/11/18 Range/Units 02:04 03:05 07:04 WBC (4.0-10.2) K/uL RBC (3.77-5.09) M/uL Hgb (11.7-15.5) g/dL Hct (34.0-46.0) % MCV (84.0-98.0) fL MCH (28.2-33.3) pg MCHC (31.7-36.0) g/dL RDW (11.2-14.1) % Plt Count (150-350) K/uL Neut % (Auto) (45.0-80.0) % Lymph % (Auto) (10.0-50.0) % [place] % (Auto) (2.0-14.0) % Eos % (Auto) (0.0-5.0) % Baso % (Auto) (0.0-2.0) % Neut # (Auto) (1.40-7.00) K/uL Lymph # (Auto) (0.50-3.50) K/uL [place] # (Auto) (0.00-1.00) K/uL Eos # (Auto) (0.00-0.50) K/uL Baso # (Auto) (0.00-0.20) K/uL Sodium (136-145) mmol/L Potassium (3.5-5.1) mmol/L Chloride (98-107) mmol/L Carbon Dioxide (21.0-32.0) mmol/L BUN (7-18) mg/dL Creatinine (0.51-1.17) mg/dL Est Cr Clr Drug Dosing mL/min Estimated GFR (MDRD) mL/min Glucose (74-106) mg/dL POC Glucose 54 L 177 H 94 (65-110) mg/dl Calcium (8.5-10.1) mg/dL Total Bilirubin (0.2-1.0) mg/dL AST (15-37) U/L ALT (12-78) U/L Alkaline Phosphatase (46-116) IU/L C-Reactive Protein (<=0.9) mg/dL Total Protein (6.4-8.2) g/dL Albumin (3.4-5.0) g/dL 12/11/18 12/11/18 Range/Units 07:25 07:25 WBC 10.2 (4.0-10.2) K/uL RBC 2.94 L (3.77-5.09) M/uL Hgb 9.0 L (11.7-15.5) g/dL Hct 27.8 L (34.0-46.0) % MCV 94.6 (84.0-98.0) fL MCH 30.6 (28.2-33.3) pg MCHC 32.4 (31.7-36.0) g/dL RDW 13.6 (11.2-14.1) % Plt Count 389 H (150-350) K/uL Neut % (Auto) 80.0 (45.0-80.0) % Lymph % (Auto) 12.2 (10.0-50.0) % [place] % (Auto) 6.0 (2.0-14.0) % Eos % (Auto) 1.6 (0.0-5.0) % Baso % (Auto) 0.2 (0.0-2.0) % Neut # (Auto) 8.20 H (1.40-7.00) K/uL Lymph # (Auto) 1.25 (0.50-3.50) K/uL [place] # (Auto) 0.61 (0.00-1.00) K/uL Eos # (Auto) 0.16 (0.00-0.50) K/uL Baso # (Auto) 0.02 (0.00-0.20) K/uL Sodium 138 (136-145) mmol/L Potassium 4.2 (3.5-5.1) mmol/L Chloride 105 (98-107) mmol/L Carbon Dioxide 24.5 (21.0-32.0) mmol/L BUN 11 (7-18) mg/dL Creatinine 0.73 (0.51-1.17) mg/dL Est Cr Clr Drug Dosing 77.50 mL/min Estimated GFR (MDRD) > 60 mL/min Glucose 99 (74-106) mg/dL POC Glucose (65-110) mg/dl Calcium 8.5 (8.5-10.1) mg/dL Total Bilirubin 0.2 (0.2-1.0) mg/dL AST 16 (15-37) U/L ALT 24 (12-78) U/L Alkaline Phosphatase 104 (46-116) IU/L C-Reactive Protein 6.8 H (<=0.9) mg/dL Total Protein 6.9 (6.4-8.2) g/dL Albumin 1.9 L (3.4-5.0) g/dL Sean Results Last 24 Hours: Microbiology 12/08/18 18:05 Gram Stain - Final Ankle, Right Wound Culture - Preliminary NO GROWTH AFTER 1 DAY 12/08/18 18:05 Gram Stain - Final Toe, Right - Right Big Wound Culture - Preliminary Staphylococcus Aureus 12/08/18 19:05 Aerobic Blood Culture - Preliminary Blood - Venous - Lab Draw NO GROWTH AFTER 2 DAYS Anaerobic Blood Culture - Preliminary NO GROWTH AFTER 2 DAYS 12/08/18 18:55 Aerobic Blood Culture - Preliminary Blood - Venous NO GROWTH AFTER 2 DAYS Anaerobic Blood Culture - Preliminary NO GROWTH AFTER 2 DAYS 12/05/18 16:45 Aerobic Blood Culture - Final Blood - Venous - Lab Draw Gram Positive Cocci Staphylococcus Coagulase Neg Staphylococcus Epidermidis Anaerobic Blood Culture - Final 12/05/18 16:10 Aerobic Blood Culture - Final Blood - Venous NO GROWTH AFTER 5 DAYS Anaerobic Blood Culture - Final NO GROWTH AFTER 5 DAYS Med Orders - Current: Current Medications Acetaminophen (Tylenol Extra Strength) 1,000 mg PO BEDTIME [facility] Last Admin: 12/10/18 19:50 Dose: 1,000 mg Acetaminophen (Tylenol) 650 mg PO Q4H PRN PRN Reason: Fever/Pain Last Admin: 12/10/18 05:37 Dose: 650 mg Hydrocodone Bitart/Acetaminophen (Halma 325-5 Mg) 1 tab PO DAILY@2000 PRN PRN Reason: Pain Last Admin: 12/09/18 21:26 Dose: 1 tab Hydrocodone Bitart/Acetaminophen (Halma 325-5 Mg) 1 tab PO Q6H PRN PRN Reason: For pain in lower extremities Last Admin: 12/11/18 08:41 Dose: 1 tab Clopidogrel Bisulfate (Plavix) 75 mg PO DAILY [facility] Last Admin: 12/11/18 08:42 Dose: 75 mg Diphenhydramine HCl (Benadryl) 50 mg PO BEDTIME [facility] Last Admin: 12/10/18 19:49 Dose: 50 mg Docusate Sodium (Colace) 100 mg PO BID PRN PRN Reason: Constipation Last Admin: 12/09/18 11:51 Dose: 100 mg Fentanyl (Sublimaze) 100 mcg IVPUSH Q2H PRN PRN Reason: Pain (severe 7-10) Last Admin: 12/09/18 19:07 Dose: 100 mcg Fluconazole (Diflucan) 50 mg PO DAILY [facility] Last Admin: 12/11/18 08:49 Dose: 50 mg Vancomycin HCl 1.25 gm/ Sodium (Chloride) 250 mls @ 135 mls/hr IV Q12H [facility] Last Admin: 12/11/18 08:39 Dose: 135 mls/hr Clindamycin Phosphate 900 mg/ (Sodium Chloride) 106 mls @ 200 mls/hr IV Q8H [facility] Last Admin: 12/11/18 04:19 Dose: 200 mls/hr Insulin Glargine (Lantus) 35 unit SUBCUT DAILY [facility] Insulin Glargine (Lantus) 15 unit SUBCUT BEDTIME [facility] Lisinopril (Prinivil) 10 mg PO QPM [facility] Last Admin: 12/10/18 18:05 Dose: 10 mg Magnesium Hydroxide (Milk Of Magnesia) 30 ml PO DAILY PRN PRN Reason: Constipation Last Admin: 12/10/18 05:20 Dose: 30 ml Metoprolol Tartrate (Lopressor) 25 mg PO BID@08,20 [facility] Last Admin: 12/11/18 08:41 Dose: 25 mg Montelukast Sodium (Singulair) 10 mg PO QAM [facility] Last Admin: 12/11/18 08:41 Dose: 10 mg Mupirocin (Bactroban Oint) 0 gm TOP Q12HR [facility] Last Admin: 12/11/18 08:50 Dose: 1 applic Ipratropium [place] [Nasal Jenkinjones] 2 Sprays 2 sprays NS BID@0800,1999 [facility] Milnacipran Hcl [ Savella] 50 Mg Tablets 50 mg PO BID@08,20 [facility] Last Admin: 12/11/18 08:43 Dose: 50 mg Ondansetron HCl (Zofran) 4 mg IVPUSH Q4H PRN PRN Reason: Nausea/Vomiting Last Admin: 12/09/18 09:39 Dose: 4 mg Polyethylene Glycol (Miralax) 17 gm PO DAILY PRN PRN Reason: Constipation Last Admin: 12/09/18 11:53 Dose: 17 gm Potassium Chloride (Klor-Con 10) 10 meq PO TID@1000,1400,1800 [facility] Last Admin: 12/10/18 18:06 Dose: 10 meq Sodium Chloride (Saline Flush) 10 ml FLUSH ASDIRECTED PRN PRN Reason: Keep Vein Open Last Admin: 12/11/18 08:40 Dose: 10 ml Sodium Chloride (Saline Flush) 10 ml FLUSH Q12HR [facility] Last Admin: 12/11/18 08:40 Dose: 10 ml Trospium (Sanctura) 20 mg PO Q12H [facility] Last Admin: 12/11/18 08:40 Dose: 20 mg Vancomycin HCl (Pharmacy To Dose - Vancomycin) 1 dose .XX ASDIRECTED [facility] Discontinued Medications Acetaminophen (Tylenol) 650 mg PO NOW ONE Stop: 12/05/18 16:04 Last Admin: 12/05/18 16:16 Dose: 650 mg Calcium Carbonate (Caltrate 600+D 1500 Mg-400 Units) 1 tab PO Q12H [facility] Last Admin: 12/08/18 08:09 Dose: 1 tab Clopidogrel Bisulfate (Plavix) 75 mg PO QAM [facility] Last Admin: 12/08/18 08:08 Dose: 75 mg Enoxaparin Sodium (Lovenox) 40 mg SUBCUT DAILY [facility] Enoxaparin Sodium (Lovenox) 40 mg SUBCUT DAILY@20 [facility] Last Admin: 12/07/18 20:46 Dose: 40 mg Fish Oil (Fish Oil) 1 gm PO DAILY@1999 [facility] Last Admin: 12/07/18 20:48 Dose: 1 gm Fluconazole (Diflucan) 150 mg PO ONETIME ONE Stop: 12/05/18 17:48 Last Admin: 12/05/18 18:43 Dose: 150 mg Piperacillin Sod/Tazobactam (Sod 3.375 gm/ Sodium Chloride) 100 mls @ 200 mls/ hr IV Q6H [facility] Last Admin: 12/10/18 18:07 Dose: 200 mls/hr Sodium Chloride (Normal Saline) 1,000 mls @ 150 mls/hr IV ASDIRECTED [facility] Last Admin: 12/07/18 02:25 Dose: 150 mls/hr Vancomycin HCl 1.25 gm/ Sodium (Chloride) 250 mls @ 135 mls/hr IV Q12H [facility] Last Admin: 12/08/18 19:43 Dose: 135 mls/hr Clindamycin Phosphate 600 mg/ (Sodium Chloride) 104 mls @ 200 mls/hr IV Q8H [facility] Last Admin: 12/10/18 12:13 Dose: 200 mls/hr Insulin Glargine (Lantus) 20 unit SUBCUT BEDTIME [facility] Last Admin: 12/10/18 19:51 Dose: 20 units Insulin Glargine (Lantus) 40 unit SUBCUT DAILY [facility] Last Admin: 12/11/18 08:51 Dose: 40 units Multivitamins/Folic Acid/Vitamin C (Cerovite Jr) 1 each PO Q12H [facility] Last Admin: 12/08/18 08:09 Dose: 1 each Non-Formulary Medication (Biotin [Biotin]) 10,000 mcg PO QAM [facility] Last Admin: 12/08/18 19:25 Dose: Not Given Nystatin (Mycostatin) 5 ml PO QID [facility] Last Admin: 12/08/18 15:04 Dose: 5 ml Nystatin (Mycostatin) 10 ml PO QID [facility] Last Admin: 12/10/18 12:13 Dose: 10 ml Ondansetron HCl (Zofran) 4 mg IVPUSH Q6H PRN PRN Reason: Nausea/Vomiting Sodium Chloride (Saline Flush) 10 ml FLUSH ASDIRECTED PRN PRN Reason: Keep Vein Open Last Admin: 12/07/18 19:00 Dose: 10 ml - Exam Quality Assessment: DVT Prophylaxis, Skin Breakdown General: Alert, Oriented, Cooperative, No Acute Distress HEENT: Pupils Equal, Pupils Reactive, EOMI, Mucous Membr. Moist/[place] Neck: Supple Lungs: Clear to Auscultation, Normal Respiratory Effort Cardiovascular: Regular Rate, Regular Rhythm, No Murmurs GI/Abdominal Exam: Normal Bowel Sounds, Soft, Non-Tender, No Organomegaly, No Distention Back Exam: Normal Inspection, Full Range of Motion Extremities: Pedal Edema, Increased Warmth Peripheral Pulses: 1+: Posterior Tibial (L), Posterior Tibial (R), Dorsalis Pedis (L), Dorsalis Pedis (R) Skin: Warm, Rash, Other (Right LE redn and warm to touch, yellow draingage noted , tender to touch, redness extends right below the knee) Neurological: No New Focal Deficit Psy/Mental Status: Alert, Normal Affect, Normal Mood, Anxious - Problem List & Annotations (1) Cellulitis of right leg SNOMED Code(s): 355779353 Code(s): L03.115 - CELLULITIS OF RIGHT LOWER LIMB Status: Acute Priority : High Current Visit: Yes Annotation/Comment:: continue on IV therapy (2) Essential (primary) hypertension SNOMED Code(s): 37490887 Code(s): I10 - ESSENTIAL (PRIMARY) HYPERTENSION Status: Acute Priority: Low Current Visit: Yes (3) Diabetes SNOMED Code(s): 46158807 Code(s): E11.9 - TYPE 2 DIABETES MELLITUS WITHOUT COMPLICATIONS Status: Acute Current Visit: No Qualifiers: Diabetes mellitus type: type 2 Diabetes mellitus fpc insulin use: with car jockey use Diabetes mellitus complication status: without complication Qualified Code(s): E11.9 - Type 2 diabetes mellitus without complications; Z79.4 - custodial (current) use of insulin - Problem List Review Problem List Initiated/Reviewed/Updated: Yes - My Orders Last 24 Hours: My Active Orders 12/11/18 09:27 Communication Order [RC] ROUTINE 12/11/18 20:00 Insulin Glarg,Human.Rec.Analog [LantUS] 15 unit SUBCUT BEDTIME 12/12/18 08:00 Insulin Glarg,Human.Rec.Analog [LantUS] 35 unit SUBCUT DAILY - Plan Plan:: 12/09/18 Concepcion Osorio MD Leg is clinically worse today. Will start vancomycin for improved staph coverage. She is difficult IV access and will need prolonged IV antibiotics so will consult for PICC in AM. See orders. 12/10/18 Concepcion Osorio MD Right leg slight clinical improvement today. CRP did decrease. Unable to place PICC today. X-ray, CT suspicious for fluid filled cyst/abscess right foot. Also fluid/abscess right anterior compartment. Surgeon to see her tomorrow for possible debridement. Retry PICC tomorrow with possible nurse anesthitist. She needs continued inpatient status due to severity of cellulitis right lower extremity and need for continued IV antibiotics and surgical consultation. 12/11/18 Concepcion Patterson consulted and evaluated her today. See his note. Blood culture +staph epi with sensitivities noted. Sensitive to vancomycin and clindamycin. Attempt at PICC again today was unsuccessful. Clinically the leg is slowly improving since the vancomycin and clindamycin were started. Sadie does not want to go to [place] for a PICC line. We do have IV access at this time. Will continue IV vancomycin and IV clindamycin and recheck labs in the morning. She prefers to switch to oral antibiotics rather than go to [place] for PICC. Will need to clinically assess in AM if the cellulitis is improved enough to switch to oral antibiotics. Due to severity of the cellulitis and need for continued IV antibiotics she requires continued inpatient status. Also add bactroban topically. 12/11/2018 Patient seen this morning, continues with significant redness, drainage, tenderness, and edema to the right LE. On IV Vanco and IV Clindamycin. CRP continues to be elevated. Pain controlled with Loratab. Patient will need extended antibiotics IV due to severe cellulitis. Discussed with the patient and Dr Javier. Unable to place PICC line in [place], patient now agrees to go to [place] to have PICC line placed. tail board worker states the patient is able to go up for a PICC line per ambulance due to infection, pain , diabetic and needing medications to help with the transfer for vertigo. Dr Javier gave okay for ambulance transfer to [place] and back due to medical reasoning. Called Interventional Radiology at [place] and agreed to place PICC line today. Nurse at hospital to call [phone] when the patient is sent to them. Plan for the patient to come back to [place] for further antibiotic treatments. Unable to use oral medications due to infection severity and elevated CRP. Patient verbalized understanding. Adjusted insulin due to low sugar reads. Ariela Cameron, [employer] IN[employer]ER
[2018-12-11] MEDS: Potassium Chloride 10 MEQ Tab.ER PO SCH ×3 (11:10→19:07)
[2018-12-11] MEDS ORDERED: Meclizine 25 MG Tab PO PRN (14:30)
[2018-12-11] MEDS ORDERED: Ondansetron 4 MG Tab.DIS PO PRN (14:30)
[2018-12-11] MEDS: Ondansetron 4 MG/2 ML SDV IVPUSH PRN (15:18)
[2018-12-11] MEDS: Lisinopril 20 MG Tab PO SCH (19:08)
[2018-12-11] MEDS: diphenhydrAMINE 25 MG Cap PO SCH (19:50)
[2018-12-11] MEDS: Acetaminophen 500 MG Tab PO SCH (19:55)
[2018-12-11 19:57] VITALS: BP 134/57
[2018-12-11] MEDS ORDERED: Insulin Glarg,Human.Rec.Analog 100 UNIT/ML ML SUBCUT SCH (20:00)
[2018-12-12] MEDS: fentaNYL 100 MCG/2 ML SDV IVPUSH PRN (00:52)
[2018-12-12] MEDS: Ondansetron 4 MG/2 ML SDV IVPUSH PRN (00:52)
[2018-12-12] MEDS: Clindamycin Phosphate 900 MG in Sodium Chloride 0.9% 100 ML IV SCH (04:48)
[2018-12-12] MEDS: Acetaminophen/HYDROcodone 325-5 MG Tab PO PRN (04:54)
[2018-12-12] MEDS: Sodium Chloride 0.9% 10 ML Syringe FLUSH SCH (04:55)
--- NOTE | 2018-12-12 07:18 | PCM.PN ---
- General Info Date of Service: 12/12/18 Admission Dx/Problem (Free Text): cellulitis of the left LE Type 2 DM Functional Status: Reports: Pain Controlled (pain controlled with lortab oral rates pain 02/24 at this ie), Tolerating Diet - Review of Systems General: Reports: Weakness, Fatigue HEENT: Reports: No Symptoms Pulmonary: Reports: No Symptoms Cardiovascular: Reports: No Symptoms Gastrointestinal: Reports: No Symptoms Genitourinary: Reports: No Symptoms Musculoskeletal: Reports: Leg Pain Skin: Reports: Other (redness to left LE) Neurological: Reports: No Symptoms Psychiatric: Reports: No Symptoms - Patient Data Vitals - Most Recent: Last Vital Signs Temp 98.3 F 12/11/18 18:59 Pulse 74 12/11/18 19:55 Resp 20 12/11/18 18:59 BP 134/57 L 12/11/18 19:55 Pulse Ox 98 12/11/18 18:59 Weight - Most Recent: 276 lb 4.8 oz I&O - Last 24 Hours: Intake & Output 12/11/18 12/12/18 12/12/18 22:59 06:59 14:59 Intake Total 375 1490 Output Total 1100 Balance -725 1490 Lab Results Last 24 Hours: Laboratory Results - last 24 hr 12/11/18 12/11/18 12/11/18 Range/Units 07:25 07:25 11:28 WBC 10.2 (4.0-10.2) K/uL RBC 2.94 L (3.77-5.09) M/uL Hgb 9.0 L (11.7-15.5) g/dL Hct 27.8 L (34.0-46.0) % MCV 94.6 (84.0-98.0) fL MCH 30.6 (28.2-33.3) pg MCHC 32.4 (31.7-36.0) g/dL RDW 13.6 (11.2-14.1) % Plt Count 389 H (150-350) K/uL Neut % (Auto) 80.0 (45.0-80.0) % Lymph % (Auto) 12.2 (10.0-50.0) % Perry % (Auto) 6.0 (2.0-14.0) % Eos % (Auto) 1.6 (0.0-5.0) % Baso % (Auto) 0.2 (0.0-2.0) % Neut # (Auto) 8.20 H (1.40-7.00) K/uL Lymph # (Auto) 1.25 (0.50-3.50) K/uL [place] # (Auto) 0.61 (0.00-1.00) K/uL Eos # (Auto) 0.16 (0.00-0.50) K/uL Baso # (Auto) 0.02 (0.00-0.20) K/uL Sodium 138 (136-145) mmol/L Potassium 4.2 (3.5-5.1) mmol/L Chloride 105 (98-107) mmol/L Carbon Dioxide 24.5 (21.0-32.0) mmol/L BUN 11 (7-18) mg/dL Creatinine 0.73 (0.51-1.17) mg/dL Est Cr Clr Drug Dosing 77.50 mL/min Estimated GFR (MDRD) > 60 mL/min Glucose 99 (74-106) mg/dL POC Glucose 148 H (65-110) mg/dl Calcium 8.5 (8.5-10.1) mg/dL Total Bilirubin 0.2 (0.2-1.0) mg/dL AST 16 (15-37) U/L ALT 24 (12-78) U/L Alkaline Phosphatase 104 (46-116) IU/L C-Reactive Protein 6.8 H (<=0.9) mg/dL Total Protein 6.9 (6.4-8.2) g/dL Albumin 1.9 L (3.4-5.0) g/dL 12/11/18 12/12/18 Range/Units 19:47 04:44 WBC (4.0-10.2) K/uL RBC (3.77-5.09) M/uL Hgb (11.7-15.5) g/dL Hct (34.0-46.0) % MCV (84.0-98.0) fL MCH (28.2-33.3) pg MCHC (31.7-36.0) g/dL RDW (11.2-14.1) % Plt Count (150-350) K/uL Neut % (Auto) (45.0-80.0) % Lymph % (Auto) (10.0-50.0) % Perry % (Auto) (2.0-14.0) % Eos % (Auto) (0.0-5.0) % Baso % (Auto) (0.0-2.0) % Neut # (Auto) (1.40-7.00) K/uL Lymph # (Auto) (0.50-3.50) K/uL [place] # (Auto) (0.00-1.00) K/uL Eos # (Auto) (0.00-0.50) K/uL Baso # (Auto) (0.00-0.20) K/uL Sodium (136-145) mmol/L Potassium (3.5-5.1) mmol/L Chloride (98-107) mmol/L Carbon Dioxide (21.0-32.0) mmol/L BUN (7-18) mg/dL Creatinine (0.51-1.17) mg/dL Est Cr Clr Drug Dosing mL/min Estimated GFR (MDRD) mL/min Glucose (74-106) mg/dL POC Glucose 205 H 72 (65-110) mg/dl Calcium (8.5-10.1) mg/dL Total Bilirubin (0.2-1.0) mg/dL AST (15-37) U/L ALT (12-78) U/L Alkaline Phosphatase (46-116) IU/L C-Reactive Protein (<=0.9) mg/dL Total Protein (6.4-8.2) g/dL Albumin (3.4-5.0) g/dL Sean Results Last 24 Hours: Microbiology 12/08/18 19:05 Aerobic Blood Culture - Preliminary Blood - Venous - Lab Draw NO GROWTH AFTER 3 DAYS Anaerobic Blood Culture - Preliminary NO GROWTH AFTER 3 DAYS 12/08/18 18:55 Aerobic Blood Culture - Preliminary Blood - Venous NO GROWTH AFTER 3 DAYS Anaerobic Blood Culture - Preliminary NO GROWTH AFTER 3 DAYS 12/08/18 18:05 Gram Stain - Final Ankle, Right Wound Culture - Preliminary NO GROWTH AFTER 1 DAY 12/08/18 18:05 Gram Stain - Final Toe, Right - Right Big Wound Culture - Preliminary Staphylococcus Aureus Med Orders - Current: Current Medications Acetaminophen (Tylenol Extra Strength) 1,000 mg PO BEDTIME AMANDO Last Admin: 12/11/18 19:55 Dose: 1,000 mg Acetaminophen (Tylenol) 650 mg PO Q4H PRN PRN Reason: Fever/Pain Last Admin: 12/10/18 05:37 Dose: 650 mg Hydrocodone Bitart/Acetaminophen ([place] 325-5 Mg) 1 tab PO DAILY@2000 PRN PRN Reason: Pain Last Admin: 12/12/18 04:54 Dose: 1 tab Hydrocodone Bitart/Acetaminophen ([place] 325-5 Mg) 1 tab PO Q6H PRN PRN Reason: For pain in lower extremities Last Admin: 12/11/18 08:41 Dose: 1 tab Clopidogrel Bisulfate (Plavix) 75 mg PO DAILY [facility] Last Admin: 12/11/18 08:42 Dose: 75 mg Diphenhydramine HCl (Benadryl) 50 mg PO BEDTIME [facility] Last Admin: 12/11/18 19:50 Dose: 50 mg Docusate Sodium (Colace) 100 mg PO BID PRN PRN Reason: Constipation Last Admin: 12/09/18 11:51 Dose: 100 mg Fentanyl (Sublimaze) 100 mcg IVPUSH Q2H PRN PRN Reason: Pain (severe 7-10) Last Admin: 12/12/18 00:52 Dose: 100 mcg Fluconazole (Diflucan) 50 mg PO DAILY [facility] Last Admin: 12/11/18 08:49 Dose: 50 mg Vancomycin HCl 1.25 gm/ Sodium (Chloride) 250 mls @ 135 mls/hr IV Q12H [facility] Last Admin: 12/11/18 21:01 Dose: 135 mls/hr Clindamycin Phosphate 900 mg/ (Sodium Chloride) 106 mls @ 200 mls/hr IV Q8H [facility] Last Admin: 12/12/18 04:48 Dose: 200 mls/hr Insulin Glargine (Lantus) 35 unit SUBCUT DAILY [facility] Lisinopril (Prinivil) 10 mg PO QPM [facility] Last Admin: 12/11/18 19:08 Dose: 10 mg Magnesium Hydroxide (Milk Of Magnesia) 30 ml PO DAILY PRN PRN Reason: Constipation Last Admin: 12/10/18 05:20 Dose: 30 ml Meclizine HCl (Antivert) 25 mg PO Q6H PRN PRN Reason: Dizziness Last Admin: 12/11/18 15:17 Dose: 25 mg Metoprolol Tartrate (Lopressor) 25 mg PO BID@, [facility] Last Admin: 12/11/18 19:55 Dose: 25 mg Montelukast Sodium (Singulair) 10 mg PO QAM [facility] Last Admin: 12/11/18 08:41 Dose: 10 mg Mupirocin (Bactroban Oint) 0 gm TOP Q12HR [facility] Last Admin: 12/11/18 19:49 Dose: 1 applic Ipratropium [place] [Nasal [place]] 2 Sprays 2 sprays NS BID@0800,1999 [facility] Milnacipran Hcl [ Savella] 50 Mg Tablets 50 mg PO BID@, [facility] Last Admin: 12/11/18 19:57 Dose: 50 mg Ondansetron HCl (Zofran) 4 mg IVPUSH Q4H PRN PRN Reason: Nausea/Vomiting Last Admin: 12/12/18 00:52 Dose: 4 mg Ondansetron HCl (Zofran Odt) 4 mg PO Q6H PRN PRN Reason: Nausea/Vomiting Polyethylene Glycol (Miralax) 17 gm PO DAILY PRN PRN Reason: Constipation Last Admin: 12/09/18 11:53 Dose: 17 gm Potassium Chloride (Klor-Con 10) 10 meq PO TID@1000,1400,1800 [facility] Last Admin: 12/11/18 19:07 Dose: 10 meq Sodium Chloride (Saline Flush) 10 ml FLUSH ASDIRECTED PRN PRN Reason: Keep Vein Open Last Admin: 12/11/18 15:18 Dose: 10 ml Sodium Chloride (Saline Flush) 10 ml FLUSH Q12HR [facility] Last Admin: 12/12/18 04:55 Dose: 10 ml Trospium (Sanctura) 20 mg PO Q12H [facility] Last Admin: 12/11/18 19:56 Dose: 20 mg Vancomycin HCl (Pharmacy To Dose - Vancomycin) 1 dose .XX ASDIRECTED [facility] Discontinued Medications Acetaminophen (Tylenol) 650 mg PO NOW ONE Stop: 12/05/18 16:04 Last Admin: 12/05/18 16:16 Dose: 650 mg Calcium Carbonate (Caltrate 600+D 1500 Mg-400 Units) 1 tab PO Q12H [facility] Last Admin: 12/08/18 08:09 Dose: 1 tab Clopidogrel Bisulfate (Plavix) 75 mg PO QAM [facility] Last Admin: 12/08/18 08:08 Dose: 75 mg Enoxaparin Sodium (Lovenox) 40 mg SUBCUT DAILY [facility] Enoxaparin Sodium (Lovenox) 40 mg SUBCUT DAILY@20 [facility] Last Admin: 12/07/18 20:46 Dose: 40 mg Fish Oil (Fish Oil) 1 gm PO DAILY@2000 [facility] Last Admin: 12/07/18 20:48 Dose: 1 gm Fluconazole (Diflucan) 150 mg PO ONETIME ONE Stop: 12/05/18 17:48 Last Admin: 12/05/18 18:43 Dose: 150 mg Piperacillin Sod/Tazobactam (Sod 3.375 gm/ Sodium Chloride) 100 mls @ 200 mls/ hr IV Q6H [facility] Last Admin: 12/10/18 18:07 Dose: 200 mls/hr Sodium Chloride (Normal Saline) 1,000 mls @ 150 mls/hr IV ASDIRECTED [facility] Last Admin: 12/07/18 02:25 Dose: 150 mls/hr Vancomycin HCl 1.25 gm/ Sodium (Chloride) 250 mls @ 135 mls/hr IV Q12H [facility] Last Admin: 12/08/18 19:43 Dose: 135 mls/hr Clindamycin Phosphate 600 mg/ (Sodium Chloride) 104 mls @ 200 mls/hr IV Q8H [facility] Last Admin: 12/10/18 12:13 Dose: 200 mls/hr Insulin Glargine (Lantus) 20 unit SUBCUT BEDTIME [facility] Last Admin: 12/10/18 19:51 Dose: 20 units Insulin Glargine (Lantus) 40 unit SUBCUT DAILY [facility] Last Admin: 12/11/18 08:51 Dose: 40 units Insulin Glargine (Lantus) 35 unit SUBCUT DAILY [facility] Insulin Glargine (Lantus) 15 unit SUBCUT BEDTIME [facility] Insulin Glargine (Lantus) 40 unit SUBCUT DAILY [facility] Multivitamins/Folic Acid/Vitamin C (Cerovite Jr) 1 each PO Q12H [facility] Last Admin: 12/08/18 08:09 Dose: 1 each Non-Formulary Medication (Biotin [Biotin]) 10,000 mcg PO QAM [facility] Last Admin: 12/08/18 19:25 Dose: Not Given Nystatin (Mycostatin) 5 ml PO QID [facility] Last Admin: 12/08/18 15:04 Dose: 5 ml Nystatin (Mycostatin) 10 ml PO QID [facility] Last Admin: 12/10/18 12:13 Dose: 10 ml Ondansetron HCl (Zofran) 4 mg IVPUSH Q6H PRN PRN Reason: Nausea/Vomiting Sodium Chloride (Saline Flush) 10 ml FLUSH ASDIRECTED PRN PRN Reason: Keep Vein Open Last Admin: 12/07/18 19:00 Dose: 10 ml - Exam Quality Assessment: Central Line/PICC General: Alert, Oriented, Cooperative, No Acute Distress HEENT: Mucous Membr. Moist/[place] Neck: Supple Lungs: Clear to Auscultation, Normal Respiratory Effort Cardiovascular: Regular Rate, Regular Rhythm GI/Abdominal Exam: Normal Bowel Sounds, Non-Tender Extremities: Pedal Edema Peripheral Pulses: 1+: Dorsalis Pedis (L), Dorsalis Pedis (R) Skin: Warm, Dry, Intact Neurological: No New Focal Deficit Psy/Mental Status: Alert, Normal Affect - Problem List & Annotations (1) Cellulitis of right leg SNOMED Code(s): 480647909 Code(s): L03.115 - CELLULITIS OF RIGHT LOWER LIMB Status: Acute Priority : High Current Visit: Yes Annotation/Comment:: continue on IV therapy, PICC line in place (2) Essential (primary) hypertension SNOMED Code(s): 05813862 Code(s): I10 - ESSENTIAL (PRIMARY) HYPERTENSION Status: Acute Priority: Low Current Visit: Yes (3) Diabetes SNOMED Code(s): 99742352 Code(s): E11.9 - TYPE 2 DIABETES MELLITUS WITHOUT COMPLICATIONS Status: Acute Current Visit: No Qualifiers: Diabetes mellitus type: type 2 Diabetes mellitus retirement insulin use: with retirement use Diabetes mellitus complication status: without complication Qualified Code(s): E11.9 - Type 2 diabetes mellitus without complications; Z79.4 - nursing home (current) use of insulin - Problem List Review Problem List Initiated/Reviewed/Updated: Yes - My Orders Last 24 Hours: My Active Orders 12/11/18 09:27 Communication Order [RC] ROUTINE 12/11/18 14:30 Meclizine [Antivert] 25 mg PO Q6H PRN Ondansetron [Zofran ODT] 4 mg PO Q6H PRN 12/12/18 08:00 Insulin Glarg,Human.Rec.Analog [LantUS] 35 unit SUBCUT DAILY - Plan Plan:: 12/09/18 Concepcion Osorio MD Leg is clinically worse today. Will start vancomycin for improved staph coverage. She is difficult IV access and will need prolonged IV antibiotics so will consult for PICC in AM. See orders. 12/10/18 Concepcion Osorio MD Right leg slight clinical improvement today. CRP did decrease. Unable to place PICC today. X-ray, CT suspicious for fluid filled cyst/abscess right foot. Also fluid/abscess right anterior compartment. Surgeon to see her tomorrow for possible debridement. Retry PICC tomorrow with possible nurse anesthitist. She needs continued inpatient status due to severity of cellulitis right lower extremity and need for continued IV antibiotics and surgical consultation. 12/11/18 Concepcion Patterson consulted and evaluated her today. See his note. Blood culture +staph epi with sensitivities noted. Sensitive to vancomycin and clindamycin. Attempt at PICC again today was unsuccessful. Clinically the leg is slowly improving since the vancomycin and clindamycin were started. Sadie does not want to go to [place] for a PICC line. We do have IV access at this time. Will continue IV vancomycin and IV clindamycin and recheck labs in the morning. She prefers to switch to oral antibiotics rather than go to [place] for PICC. Will need to clinically assess in AM if the cellulitis is improved enough to switch to oral antibiotics. Due to severity of the cellulitis and need for continued IV antibiotics she requires continued inpatient status. Also add bactroban topically. 12/11/2018 Patient seen this morning, continues with significant redness, drainage, tenderness, and edema to the right LE. On IV Vanco and IV Clindamycin. CRP continues to be elevated. Pain controlled with Loratab. Patient will need extended antibiotics IV due to severe cellulitis. Discussed with the patient and Dr Javier. Unable to place PICC line in [place], patient now agrees to go to [place] to have PICC line placed. 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 Dr Javier gave okay for ambulance transfer to [place] and back due to medical reasoning. Called Interventional Radiology at [place] and agreed to place PICC line today. Nurse at hospital to call [phone] when the patient is sent to them. Plan for the patient to come back to [place] for further antibiotic treatments. Unable to use oral medications due to infection severity and elevated CRP. Patient verbalized understanding. Adjusted insulin due to low sugar reads. Ariela Cameron CNP 12/12/2018 Patient had a PICC line placed at [place] yesterday, patient states it went well she started with leg pain during the ride back to [place]. Needing to take oral pain medication and IV pain medication to get pain under control. Patient continues to need treatment for leg cellulitis. Will plan to transfer to [facility] today for further IV antibiotics. Insulin adjusted, blood sugar at 0400 this mornign was 72. Ariela Cameron,[employer]
--- NOTE | 2018-12-12 07:25 | PCM.DCSUM1 ---
Discharge Summary - Hospital Course Free Text/Narrative:: Patient was admitted to inpatient for cellulitis of the left LE, treated with IV vanco. Unable to place PICC line in [place], patient had to be transported to [place] and PICC line was place in Interventional Radiology department. Insulin adjusted due to hypoglycemia episodes. Diagnosis: Stroke: No - Discharge Data Discharge Date: 12/12/18 Discharge Disposition: DC/Tfer W/I Hosp To Swing 61 Condition: Fair - Discharge Diagnosis/Problem(s) (1) Cellulitis of right leg SNOMED Code(s): 135493501 ICD Code: L03.115 - CELLULITIS OF RIGHT LOWER LIMB Status: Acute Priority : High Current Visit: Yes Problem Details: continue on IV therapy, PICC line in place (2) Essential (primary) hypertension SNOMED Code(s): 79229694 ICD Code: I10 - ESSENTIAL (PRIMARY) HYPERTENSION Status: Acute Priority: Low Current Visit: Yes (3) Diabetes SNOMED Code(s): 58196802 ICD Code: E11.9 - TYPE 2 DIABETES MELLITUS WITHOUT COMPLICATIONS Status: Acute Current Visit: No Qualifiers: Diabetes mellitus type: type 2 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: with assisted use Diabetes mellitus complication status: without complication Qualified Code(s): E11.9 - Type 2 diabetes mellitus without complications; Z79.4 - longterm (current) use of insulin - Patient Summary/Data Consults: Consultations 12/08/18 12:18 Consult to Occupational Therapy [OT Evaluation and Treatment] [CONS] Routine Consult to Physical Therapy [PT Evaluation and Treatment] [CONS] Routine 12/08/18 18:53 Consult to PICC Team [CONS] Routine 12/08/18 19:00 Consult to Physician [CONS] Routine - Patient Instructions Diet: Diabetic Diet Activity: As Tolerated Driving: Do Not Drive Showering/Bathing: May Shower Wound/Incision Care: Change Dressing Daily Notify Provider of: Fever, Increased Pain - Discharge Plan *PRESCRIPTION DRUG MONITORING PROGRAM REVIEWED*: No *COPY OF PRESCRIPTION DRUG MONITORING REPORT IN PATIENT SCHUYLER: No Home Medications: Home Meds Acetaminophen/Diphenhydramine [Tylenol Pm Ex-Strength Caplet] 2 tab PO DAILY@ 199904/30/17 [History] Acetaminophen/HYDROcodone [[place] 325-5 MG] 1 - 2 tab PO DAILY@1999 PRN 04/30/17 [History] Biotin 10,000 mcg PO QAM 04/30/17 [History] Calcium Carbonate/Vitamin D3 [Calcium 600 + Vit D Tablet] 1 tab PO BID@0800, 199904/30/17 [History] Clopidogrel [Plavix] 75 mg PO QAM 04/30/17 [History] Fish Oil/Keller-3 Fatty Acids [Fish Oil 1,000 MG] 1 cap PO DAILY@199904/30/17 [ History] Insulin Detemir [Levemir Flextouch] 20 units SUBCUT QPM@199904/30/17 [History] Insulin Detemir [Levemir Flextouch] 40 unit SQ QAM 04/30/17 [History] Ipratropium [place] 2 sprays NS BID@0800,199904/30/17 [History] Metoprolol Tartrate 25 mg PO BID@08,04/30/17 [History] Milnacipran HCl [Savella] 50 mg PO BID@,04/30/17 [History] Montelukast [Singulair] 10 mg PO QAM 04/30/17 [History] Solifenacin Succinate [Vesicare] 10 mg PO QPM@199904/30/17 [History] Ubidecarenone [Co Q-10] 200 mg PO QAM 04/30/17 [History] Docusate Sodium [Stool Softener] 1 tab PO BID PRN 08/29/17 [History] Non-Formulary Medication [NF Drug] 1 tab PO BID@,08/29/17 [History] Ondansetron [Zofran ODT] 4 mg PO ASDIRECTED PRN 08/29/17 [History] Polyethylene Glycol 3350 [MiraLAX] 17 gm PO DAILY PRN 08/29/17 [History] Lisinopril 10 mg PO QPM 10/17/17 [History] Prochlorperazine [Compazine] 10 mg PO Q6H PRN 12/05/18 [History] Patient Handouts: Piperacillin; Tazobactam injection, Cellulitis, Adult, PICC Insertion Forms: ED Department Discharge Referrals: Ariela Cameron NP [Primary Care Provider] - - Discharge Summary/Plan Comment DC Time >30 min.: No Discharge Summary/Plan Comment: Patient is transferred into swingbed for further IV antibiotics and monitor of the leg. Patient will need IV antibiotics due to significant swelling and redness in the leg, slow improvement is noted. Dr Javier consulted. Patient agrees to plan of care. Ariela Cameron CNP - Patient Data Vitals - Most Recent: Last Vital Signs Temp 98.3 F 12/11/18 18:59 Pulse 74 12/11/18 19:55 Resp 20 12/11/18 18:59 BP 134/57 L 12/11/18 19:55 Pulse Ox 98 12/11/18 18:59 Weight - Most Recent: 276 lb 4.8 oz I&O - Last 24 hours: Intake & Output 12/11/18 12/12/18 12/12/18 22:59 06:59 14:59 Intake Total 375 1490 Output Total 1100 Balance -725 1490 Lab Results - Last 24 hrs: Laboratory Results - last 24 hr 12/11/18 12/11/18 12/11/18 Range/Units 07:25 07:25 11:28 WBC 10.2 (4.0-10.2) K/uL RBC 2.94 L (3.77-5.09) M/uL Hgb 9.0 L (11.7-15.5) g/dL Hct 27.8 L (34.0-46.0) % MCV 94.6 (84.0-98.0) fL MCH 30.6 (28.2-33.3) pg MCHC 32.4 (31.7-36.0) g/dL RDW 13.6 (11.2-14.1) % Plt Count 389 H (150-350) K/uL Neut % (Auto) 80.0 (45.0-80.0) % Lymph % (Auto) 12.2 (10.0-50.0) % [place] % (Auto) 6.0 (2.0-14.0) % Eos % (Auto) 1.6 (0.0-5.0) % Baso % (Auto) 0.2 (0.0-2.0) % Neut # (Auto) 8.20 H (1.40-7.00) K/uL Lymph # (Auto) 1.25 (0.50-3.50) K/uL [place] # (Auto) 0.61 (0.00-1.00) K/uL Eos # (Auto) 0.16 (0.00-0.50) K/uL Baso # (Auto) 0.02 (0.00-0.20) K/uL Sodium 138 (136-145) mmol/L Potassium 4.2 (3.5-5.1) mmol/L Chloride 105 (98-107) mmol/L Carbon Dioxide 24.5 (21.0-32.0) mmol/L BUN 11 (7-18) mg/dL Creatinine 0.73 (0.51-1.17) mg/dL Est Cr Clr Drug Dosing 77.50 mL/min Estimated GFR (MDRD) > 60 mL/min Glucose 99 (74-106) mg/dL POC Glucose 148 H (65-110) mg/dl Calcium 8.5 (8.5-10.1) mg/dL Total Bilirubin 0.2 (0.2-1.0) mg/dL AST 16 (15-37) U/L ALT 24 (12-78) U/L Alkaline Phosphatase 104 (46-116) IU/L C-Reactive Protein 6.8 H (<=0.9) mg/dL Total Protein 6.9 (6.4-8.2) g/dL Albumin 1.9 L (3.4-5.0) g/dL 12/11/18 12/12/18 Range/Units 19:47 04:44 WBC (4.0-10.2) K/uL RBC (3.77-5.09) M/uL Hgb (11.7-15.5) g/dL Hct (34.0-46.0) % MCV (84.0-98.0) fL MCH (28.2-33.3) pg MCHC (31.7-36.0) g/dL RDW (11.2-14.1) % Plt Count (150-350) K/uL Neut % (Auto) (45.0-80.0) % Lymph % (Auto) (10.0-50.0) % [place] % (Auto) (2.0-14.0) % Eos % (Auto) (0.0-5.0) % Baso % (Auto) (0.0-2.0) % Neut # (Auto) (1.40-7.00) K/uL Lymph # (Auto) (0.50-3.50) K/uL [place] # (Auto) (0.00-1.00) K/uL Eos # (Auto) (0.00-0.50) K/uL Baso # (Auto) (0.00-0.20) K/uL Sodium (136-145) mmol/L Potassium (3.5-5.1) mmol/L Chloride (98-107) mmol/L Carbon Dioxide (21.0-32.0) mmol/L BUN (7-18) mg/dL Creatinine (0.51-1.17) mg/dL Est Cr Clr Drug Dosing mL/min Estimated GFR (MDRD) mL/min Glucose (74-106) mg/dL POC Glucose 205 H 72 (65-110) mg/dl Calcium (8.5-10.1) mg/dL Total Bilirubin (0.2-1.0) mg/dL AST (15-37) U/L ALT (12-78) U/L Alkaline Phosphatase (46-116) IU/L C-Reactive Protein (<=0.9) mg/dL Total Protein (6.4-8.2) g/dL Albumin (3.4-5.0) g/dL SHAUN Results - Last 24 hrs: Microbiology 12/08/18 19:05 Aerobic Blood Culture - Preliminary Blood - Venous - Lab Draw NO GROWTH AFTER 3 DAYS Anaerobic Blood Culture - Preliminary NO GROWTH AFTER 3 DAYS 12/08/18 18:55 Aerobic Blood Culture - Preliminary Blood - Venous NO GROWTH AFTER 3 DAYS Anaerobic Blood Culture - Preliminary NO GROWTH AFTER 3 DAYS 12/08/18 18:05 Gram Stain - Final Ankle, Right Wound Culture - Preliminary NO GROWTH AFTER 1 DAY 12/08/18 18:05 Gram Stain - Final Toe, Right - Right Big Wound Culture - Preliminary Staphylococcus Aureus Med Orders - Current: Current Medications Acetaminophen (Tylenol Extra Strength) 1,000 mg PO BEDTIME [facility] Last Admin: 12/11/18 19:55 Dose: 1,000 mg Acetaminophen (Tylenol) 650 mg PO Q4H PRN PRN Reason: Fever/Pain Last Admin: 12/10/18 05:37 Dose: 650 mg Hydrocodone Bitart/Acetaminophen ([place] 325-5 Mg) 1 tab PO DAILY@1999 PRN PRN Reason: Pain Last Admin: 12/12/18 04:54 Dose: 1 tab Hydrocodone Bitart/Acetaminophen ([place] 325-5 Mg) 1 tab PO Q6H PRN PRN Reason: For pain in lower extremities Last Admin: 12/11/18 08:41 Dose: 1 tab Clopidogrel Bisulfate (Plavix) 75 mg PO DAILY [facility] Last Admin: 12/11/18 08:42 Dose: 75 mg Diphenhydramine HCl (Benadryl) 50 mg PO BEDTIME [facility] Last Admin: 12/11/18 19:50 Dose: 50 mg Docusate Sodium (Colace) 100 mg PO BID PRN PRN Reason: Constipation Last Admin: 12/09/18 11:51 Dose: 100 mg Fentanyl (Sublimaze) 100 mcg IVPUSH Q2H PRN PRN Reason: Pain (severe 7-10) Last Admin: 12/12/18 00:52 Dose: 100 mcg Fluconazole (Diflucan) 50 mg PO DAILY [facility] Last Admin: 12/11/18 08:49 Dose: 50 mg Vancomycin HCl 1.25 gm/ Sodium (Chloride) 250 mls @ 135 mls/hr IV Q12H [facility] Last Admin: 12/11/18 21:01 Dose: 135 mls/hr Clindamycin Phosphate 900 mg/ (Sodium Chloride) 106 mls @ 200 mls/hr IV Q8H [facility] Last Admin: 12/12/18 04:48 Dose: 200 mls/hr Insulin Glargine (Lantus) 35 unit SUBCUT DAILY [facility] Lisinopril (Prinivil) 10 mg PO QPM [facility] Last Admin: 12/11/18 19:08 Dose: 10 mg Magnesium Hydroxide (Milk Of Magnesia) 30 ml PO DAILY PRN PRN Reason: Constipation Last Admin: 12/10/18 05:20 Dose: 30 ml Meclizine HCl (Antivert) 25 mg PO Q6H PRN PRN Reason: Dizziness Last Admin: 12/11/18 15:17 Dose: 25 mg Metoprolol Tartrate (Lopressor) 25 mg PO BID@08,20 [facility] Last Admin: 12/11/18 19:55 Dose: 25 mg Montelukast Sodium (Singulair) 10 mg PO QAM [facility] Last Admin: 12/11/18 08:41 Dose: 10 mg Mupirocin (Bactroban Oint) 0 gm TOP Q12HR [facility] Last Admin: 12/11/18 19:49 Dose: 1 applic Ipratropium [place] [Nasal [place]] 2 Sprays 2 sprays NS BID@08,1999 [facility] Milnacipran Hcl [ Savella] 50 Mg Tablets 50 mg PO BID@08,20 [facility] Last Admin: 12/11/18 19:57 Dose: 50 mg Ondansetron HCl (Zofran) 4 mg IVPUSH Q4H PRN PRN Reason: Nausea/Vomiting Last Admin: 12/12/18 00:52 Dose: 4 mg Ondansetron HCl (Zofran Odt) 4 mg PO Q6H PRN PRN Reason: Nausea/Vomiting Polyethylene Glycol (Miralax) 17 gm PO DAILY PRN PRN Reason: Constipation Last Admin: 12/09/18 11:53 Dose: 17 gm Potassium Chloride (Klor-Con 10) 10 meq PO TID@1000,1400,1800 [facility] Last Admin: 12/11/18 19:07 Dose: 10 meq Sodium Chloride (Saline Flush) 10 ml FLUSH ASDIRECTED PRN PRN Reason: Keep Vein Open Last Admin: 12/11/18 15:18 Dose: 10 ml Sodium Chloride (Saline Flush) 10 ml FLUSH Q12HR [facility] Last Admin: 12/12/18 04:55 Dose: 10 ml Trospium (Sanctura) 20 mg PO Q12H [facility] Last Admin: 12/11/18 19:56 Dose: 20 mg Vancomycin HCl (Pharmacy To Dose - Vancomycin) 1 dose .XX ASDIRECTED [facility] Discontinued Medications Acetaminophen (Tylenol) 650 mg PO NOW ONE Stop: 12/05/18 16:04 Last Admin: 12/05/18 16:16 Dose: 650 mg Calcium Carbonate (Caltrate 600+D 1500 Mg-400 Units) 1 tab PO Q12H [facility] Last Admin: 12/08/18 08:09 Dose: 1 tab Clopidogrel Bisulfate (Plavix) 75 mg PO QAM [facility] Last Admin: 12/08/18 08:08 Dose: 75 mg Enoxaparin Sodium (Lovenox) 40 mg SUBCUT DAILY [facility] Enoxaparin Sodium (Lovenox) 40 mg SUBCUT DAILY@ [facility] Last Admin: 12/07/18 20:46 Dose: 40 mg Fish Oil (Fish Oil) 1 gm PO DAILY@1999 [facility] Last Admin: 12/07/18 20:48 Dose: 1 gm Fluconazole (Diflucan) 150 mg PO ONETIME ONE Stop: 12/05/18 17:48 Last Admin: 12/05/18 18:43 Dose: 150 mg Piperacillin Sod/Tazobactam (Sod 3.375 gm/ Sodium Chloride) 100 mls @ 200 mls/ hr IV Q6H [facility] Last Admin: 12/10/18 18:07 Dose: 200 mls/hr Sodium Chloride (Normal Saline) 1,000 mls @ 150 mls/hr IV ASDIRECTED [facility] Last Admin: 12/07/18 02:25 Dose: 150 mls/hr Vancomycin HCl 1.25 gm/ Sodium (Chloride) 250 mls @ 135 mls/hr IV Q12H [facility] Last Admin: 12/08/18 19:43 Dose: 135 mls/hr Clindamycin Phosphate 600 mg/ (Sodium Chloride) 104 mls @ 200 mls/hr IV Q8H [facility] Last Admin: 12/10/18 12:13 Dose: 200 mls/hr Insulin Glargine (Lantus) 20 unit SUBCUT BEDTIME [facility] Last Admin: 12/10/18 19:51 Dose: 20 units Insulin Glargine (Lantus) 40 unit SUBCUT DAILY [facility] Last Admin: 12/11/18 08:51 Dose: 40 units Insulin Glargine (Lantus) 35 unit SUBCUT DAILY [facility] Insulin Glargine (Lantus) 15 unit SUBCUT BEDTIME [facility] Insulin Glargine (Lantus) 40 unit SUBCUT DAILY [facility] Multivitamins/Folic Acid/Vitamin C (Cerovite Jr) 1 each PO Q12H [facility] Last Admin: 12/08/18 08:09 Dose: 1 each Non-Formulary Medication (Biotin [Biotin]) 10,000 mcg PO QAM [facility] Last Admin: 12/08/18 19:25 Dose: Not Given Nystatin (Mycostatin) 5 ml PO QID [facility] Last Admin: 12/08/18 15:04 Dose: 5 ml Nystatin (Mycostatin) 10 ml PO QID [facility] Last Admin: 12/10/18 12:13 Dose: 10 ml Ondansetron HCl (Zofran) 4 mg IVPUSH Q6H PRN PRN Reason: Nausea/Vomiting Sodium Chloride (Saline Flush) 10 ml FLUSH ASDIRECTED PRN PRN Reason: Keep Vein Open Last Admin: 12/07/18 19:00 Dose: 10 ml
[2018-12-12] MEDS ORDERED: Insulin Glarg,Human.Rec.Analog 100 UNIT/ML ML SUBCUT SCH ×3 (08:00)
--- NOTE | 2018-12-14 13:42 | PCM.SN ---
- Free Text/Narrative Note: 12/14/2018 Addendum to 12/12/2018 discharge summary The patient has Right LE cellulitis not left LE this hospitalization. Ariela Cameron,BEATER LEAD
== END 2018-12-12 07:20 | disposition swing bed (61) | DRG 603 ==
LOC: LL.ED 15:25 → UNDOADMIN 16:55 → LL.MS 16:55 → UNDODISIN 12-12 07:20
PROVIDERS: ADMIT Family Medicine; ATTEND Family Medicine
DX: L03.115 Cellulitis of right lower limb (principal); R78.81 Bacteremia; B95.61 Methicillin susceptible Staphylococcus aureus infection as the cause of diseases classified elsewhere; E11.649 Type 2 diabetes mellitus with hypoglycemia without coma; I73.9 Peripheral vascular disease, unspecified; I10 Essential (primary) hypertension; J44.9 Chronic obstructive pulmonary disease, unspecified; M79.7 Fibromyalgia; E53.8 Deficiency of other specified B group vitamins; D64.9 Anemia, unspecified; Z85.44 Personal history of malignant neoplasm of other female genital organs; Z90.710 Acquired absence of both cervix and uterus; Z88.8 Allergy status to other drugs, medicaments and biological substances; Z79.899 Other long term (current) drug therapy; Z79.02 Long term (current) use of antithrombotics/antiplatelets; Z79.4 Long term (current) use of insulin; Z98.84 Bariatric surgery status; Z82.49 Family history of ischemic heart disease and other diseases of the circulatory system
CPT/HCPCS: 36000; 36415; 73590-RT; 73620-RT; 73700-RT; 80048; 80053; 80202; 81001; 82550; 82962; 83036; 83605; 83735; 85025; 86140; 87040; 87070; 87077; 87186; 87205; 87210; 93970; 97161-GP; 99284; A9270-GY; C1751; J1650; J1815-GY; J2405; J2543; J3010; J3370; J3490; J7030; J7050

== ENCOUNTER 2018-12-12 07:20 | Inpatient (IN) | payer MEDICARE, MEDICAID ==
[2018-12-12] MEDS ORDERED: Magnesium Hydroxide 400 MG/5 ML Susp 30 ML Cup PO PRN (07:29)
[2018-12-12] MEDS ORDERED: Docusate Sodium 100 MG Cap PO PRN (07:29)
[2018-12-12] MEDS ORDERED: Polyethylene Glycol 3350 Powder 17 GM Packet PO PRN (07:29)
[2018-12-12] MEDS ORDERED: Acetaminophen 500 MG Tab PO PRN (07:29)
--- NOTE | 2018-12-12 07:55 | PCM.HP ---
H&P History of Present Illness - General Date of Service: 12/12/18 Admit Problem/Dx: cellulitis of the right LE Source of Information: Patient, EMS History Limitations: Reports: No Limitations - History of Present Illness Initial Comments - Free Text/Narative: Patient was admitted inpatient needing further IV antibiotic treatments due to severity of infection in the right leg Location: Reports: Lower Extremity, Right - Related Data Allergies/Adverse Reactions: Allergies Allergy/AdvReac Type Severity Reaction Status Date / Time gabapentin Allergy Shaking Verified 12/05/18 15:32 morphine Allergy Shaking Verified 12/05/18 15:32 promethazine [From Phenergan] Allergy Shaking Verified 12/05/18 15:32 Home Medications: Home Meds Acetaminophen/Diphenhydramine [Tylenol Pm Ex-Strength Caplet] 2 tab PO DAILY@ 199904/30/17 [History] Acetaminophen/HYDROcodone [[place] 325-5 MG] 1 - 2 tab PO DAILY@1999 PRN 04/30/17 [History] Biotin 10,000 mcg PO QA 04/30/17 [History] Calcium Carbonate/Vitamin D3 [Calcium 600 + Vit D Tablet] 1 tab PO BID@0800, 199904/30/17 [History] Clopidogrel [Plavix] 75 mg PO QA 04/30/17 [History] Fish Oil/[place]a-3 Fatty Acids [Fish Oil 1,000 MG] 1 cap PO DAILY@199904/30/17 [ History] Insulin Detemir [Levemir Flextouch] 20 units SUBCUT QPM@199904/30/17 [History] Insulin Detemir [Levemir Flextouch] 40 unit SQ QA 04/30/17 [History] Ipratropium [place] 2 sprays NS BID@0800,199904/30/17 [History] Metoprolol Tartrate 25 mg PO BID@,04/30/17 [History] Milnacipran HCl [Savella] 50 mg PO BID@,04/30/17 [History] Montelukast [Singulair] 10 mg PO QAM 04/30/17 [History] Solifenacin Succinate [Vesicare] 10 mg PO QPM@199904/30/17 [History] Ubidecarenone [Co Q-10] 200 mg PO QA 04/30/17 [History] Docusate Sodium [Stool Softener] 1 tab PO BID PRN 08/29/17 [History] Non-Formulary Medication [NF Drug] 1 tab PO BID@08,20 08/29/17 [History] Ondansetron [Zofran ODT] 4 mg PO ASDIRECTED PRN 08/29/17 [History] Polyethylene Glycol 3350 [MiraLAX] 17 gm PO DAILY PRN 08/29/17 [History] Lisinopril 10 mg PO QPM 10/17/17 [History] Prochlorperazine [Compazine] 10 mg PO Q6H PRN 12/05/18 [History] Past Medical History HEENT History: Reports: Sinusitis Other HEENT History: recurrent sinusitis Cardiovascular History: Reports: Hypertension, PVD Respiratory History: Reports: COPD 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 Musculoskeletal History: Reports: Fibromyalgia Psychiatric History: Reports: None Endocrine/Metabolic History: Reports: Diabetes, Type II Hematologic History: Reports: B12 Deficiency - Past Surgical History GI Surgical History: Reports: Bariatric Procedure, Cholecystectomy, Hernia Repair/Other Social & Family History - Family History Cardiac: Reports: CAD - Caffeine Use Caffeine Use: Reports: Coffee H&P Review of Systems - Review of Systems: Review Of Systems: See Below General: Reports: Weakness, Fatigue HEENT: Reports: No Symptoms Pulmonary: Reports: No Symptoms Cardiovascular: Reports: No Symptoms Gastrointestinal: Reports: No Symptoms Genitourinary: Reports: No Symptoms Musculoskeletal: Reports: Other (right leg pain) Skin: Reports: Erythema Psychiatric: Reports: No Symptoms Neurological: Reports: No Symptoms Hematologic/Lymphatic: Reports: No Symptoms Immunologic: Reports: No Symptoms Exam - Exam Exam: See Below - Exam Quality Assessment: Central Line/PICC General: Alert, Oriented, Cooperative HEENT: EOMI, Hearing Intact Neck: Supple, Trachea Midline Lungs: Clear to Auscultation, Normal Respiratory Effort Cardiovascular: Regular Rate, Regular Rhythm GI/Abdominal Exam: Normal Bowel Sounds, Soft, Non-Tender, No Distention Back Exam: Normal Inspection Extremities: Pedal Edema (pedal edema noted to right LE) Peripheral Pulses: 1+: Dorsalis Pedis (L), Dorsalis Pedis (R) Skin: Other (right LE warm to touch and swollen) Neurological: Cranial Nerves Intact Neuro Extensive - Mental Status: Alert, Oriented x3, Normal Mood/Affect, Normal Cognition, Memory Intact Psychiatric: Alert, Normal Affect, Normal Mood - Problem List (1) Cellulitis of right leg SNOMED Code(s): 166708190 ICD Code: L03.115 - CELLULITIS OF RIGHT LOWER LIMB Status: Acute Priority : High Current Visit: No Problem Details: continue on IV therapy, PICC line in place (2) Diabetes mellitus SNOMED Code(s): 95726838 ICD Code: E11.9 - TYPE 2 DIABETES MELLITUS WITHOUT COMPLICATIONS Status: Acute Current Visit: No Qualifiers: Problem List Initiated/Reviewed/Updated: Yes Orders Last 24hrs: Active Orders 24 hr Category Date Time Status Blood Glucose Check, Bedside [RC] TIDAC Care 12/12/18 07:29 Active Central Line Assessment [RC] QSHIFT Care 12/12/18 07:29 Active Communication Order [RC] DAILY Care 12/12/18 07:43 Active Diabetes Education [RC] Click to Edit Care 12/12/18 07:31 Active Oxygen Therapy [RC] ASDIRECTED Care 12/12/18 07:29 Active Up to Chair [RC] ASDIRECTED Care 12/12/18 07:29 Active Vital Signs [RC] Q8H Care 12/12/18 07:29 Active OT Evaluation and Treatment [CONS] Routine Cons 12/12/18 07:29 Active PT Evaluation and Treatment [CONS] Routine Cons 12/12/18 07:29 Active [place] [employer] Diet [DIET] Diet 12/12/18 Lunch Active CBC WITH AUTO DIFF [HEME] Routine Lab 12/13/18 05:11 Ordered COMPREHENSIVE METABOLIC PN,CMP [CHEM] Routine Lab 12/13/18 05:11 Ordered CRP [C-REACTIVE PROTEIN] [CHEM] Routine Lab 12/13/18 05:11 Ordered VANCOMYCIN TROUGH [CHEM] Routine Lab 12/12/18 08:30 Ordered Acetaminophen [Tylenol Extra Strength] Med 12/12/18 07:29 Active 500 mg PO Q4H PRN Acetaminophen [Tylenol] Med 12/12/18 20:00 Ordered 650 mg PO BEDTIME Acetaminophen/HYDROcodone [[place] 325-5 MG] Med 12/12/18 07:29 Active 1 tab PO Q4H PRN Clindamycin Phosphate [Cleocin] 900 mg Med 12/12/18 12:00 Active Sodium Chloride 0.9% [Normal Saline] 100 ml IV Q8H Clopidogrel [Plavix] Med 12/12/18 08:00 Active 75 mg PO DAILY Docusate Sodium [Colace] Med 12/12/18 07:29 Active 100 mg PO BID PRN Fluconazole [Diflucan] Med 12/12/18 08:00 Ordered 50 mg PO DAILY Insulin Glarg,Human.Rec.Analog [LantUS] Med 12/12/18 08:00 Ordered 35 unit SUBCUT DAILY Lisinopril [Prinivil] Med 12/12/18 18:00 Ordered 10 mg PO DAILY Magnesium Hydroxide [Milk of Magnesia] Med 12/12/18 07:29 Ordered 30 ml PO DAILY PRN Meclizine [Antivert] Med 12/12/18 07:29 Ordered 25 mg PO Q6H PRN Metoprolol Tartrate [Lopressor] Med 12/12/18 08:00 Ordered 25 mg PO Q12H Montelukast [Singulair] Med 12/12/18 08:00 Ordered 10 mg PO BEDTIME Mupirocin Oint [Bactroban Oint] Med 12/12/18 08:00 Ordered See Dose Instructions TOP TID Ondansetron [Zofran ODT] Med 12/12/18 07:29 Ordered 4 mg PO Q6H PRN Pharmacy to Dose - Vancomycin Med 12/12/18 07:30 Ordered 1 dose .XX ASDIRECTED Pharmacy to Dose - Vancomycin Med 12/12/18 08:00 Ordered 1 dose .XX ASDIRECTED Polyethylene Glycol 3350 [MiraLAX] Med 12/12/18 07:29 Ordered 17 gm PO BEDTIME PRN Potassium Chloride [Klor-Con 10] Med 12/12/18 08:00 Ordered 10 meq PO TID Sodium Chloride 0.9% [Saline Flush] Med 12/12/18 07:30 Ordered 10 ml FLUSH ASDIRECTED Trospium [Sanctura] Med 12/12/18 07:30 Ordered 20 mg PO BIDAC Vancomycin 1.25 gm Med 12/12/18 09:00 Ordered Sodium Chloride 0.9% [Normal Saline] 250 ml IV Q12H diphenhydrAMINE [Benadryl] Med 12/12/18 20:00 Ordered 25 mg PO BEDTIME Glucose Management Sub Q Reflex [OM.PC] Click To Edit Ot 12/12/18 07:29 Active Resuscitation Status Routine Resus Stat 12/12/18 07:29 Ordered Medication Orders Acetaminophen (Tylenol Extra Strength) 500 mg PO Q4H PRN PRN Reason: Fever Acetaminophen (Tylenol) 650 mg PO BEDTIME [facility] Hydrocodone Bitart/Acetaminophen ([place] 325-5 Mg) 1 tab PO Q4H PRN PRN Reason: Pain/Fever Clopidogrel Bisulfate (Plavix) 75 mg PO DAILY [facility] Diphenhydramine HCl (Benadryl) 25 mg PO BEDTIME [facility] Docusate Sodium (Colace) 100 mg PO BID PRN PRN Reason: Constipation Fluconazole (Diflucan) 50 mg PO DAILY [facility] Clindamycin Phosphate 900 mg/ (Sodium Chloride) 106 mls @ 200 mls/hr IV Q8H [facility] Vancomycin HCl 1.25 gm/ Sodium (Chloride) 250 mls @ 135 mls/hr IV Q12H [facility] Insulin Glargine (Lantus) 35 unit SUBCUT DAILY [facility] Lisinopril (Prinivil) 10 mg PO DAILY [facility] Magnesium Hydroxide (Milk Of Magnesia) 30 ml PO DAILY PRN PRN Reason: Constipation Meclizine HCl (Antivert) 25 mg PO Q6H PRN PRN Reason: Dizziness Metoprolol Tartrate (Lopressor) 25 mg PO Q12H [facility] Montelukast Sodium (Singulair) 10 mg PO BEDTIME [facility] Mupirocin (Bactroban Oint) 0 gm TOP TID [facility] Ondansetron HCl (Zofran Odt) 4 mg PO Q6H PRN PRN Reason: Nausea/Vomiting Polyethylene Glycol (Miralax) 17 gm PO BEDTIME PRN PRN Reason: Constipation Potassium Chloride (Klor-Con 10) 10 meq PO TID [facility] Sodium Chloride (Saline Flush) 10 ml FLUSH ASDIRECTED [facility] Trospium (Sanctura) 20 mg PO BIDAC [facility] Vancomycin HCl (Pharmacy To Dose - Vancomycin) 1 dose .XX ASDIRECTED [facility] Vancomycin HCl (Pharmacy To Dose - Vancomycin) 1 dose .XX ASDIRECTED [facility] Assessment/Plan Comment:: 12/12/2018 Patient needing IV antibiotics in swingbed, monitoring daily of the leg and lab results. Will need more days of treatment as patient leg is improving but slowly. Will recheck labs in the morning. Consulted with Dr Javier. Ariela Cameron, ASSISTANT PRODUCE MANAGER
[2018-12-12] MEDS ORDERED: Insulin Glarg,Human.Rec.Analog 100 UNIT/ML ML SUBCUT SCH (08:00)
[2018-12-12] MEDS ORDERED: Metoprolol Tartrate 25 MG Tab PO SCH (08:00)
[2018-12-12] MEDS: Clopidogrel 75 MG Tab PO SCH (09:12)
[2018-12-12] MEDS: Trospium 20 MG Tab PO SCH ×2 (09:13→17:30)
[2018-12-12] MEDS: Montelukast 10 MG Tab PO SCH ×2 (09:13→19:41)
[2018-12-12] MEDS: Potassium Chloride 10 MEQ Tab.ER PO SCH ×2 (09:13→14:05)
[2018-12-12] MEDS: Fluconazole 100 MG Tab PO SCH (09:13)
[2018-12-12] MEDS: Mupirocin Oint 22 GM Tube TOP SCH ×3 (09:18→17:34)
[2018-12-12] MEDS: Acetaminophen/HYDROcodone 325-5 MG Tab PO PRN ×3 (12:25→22:44)
[2018-12-12] MEDS: Clindamycin Phosphate 900 MG in Sodium Chloride 0.9% 100 ML IV SCH ×2 (15:08→19:42)
[2018-12-12] MEDS: Lisinopril 20 MG Tab PO SCH (17:31)
[2018-12-12] MEDS ORDERED: Potassium Chloride 10 MEQ Tab.ER PO SCH (18:00)
[2018-12-12] MEDS: diphenhydrAMINE 25 MG Cap PO SCH (19:41)
[2018-12-12] MEDS: Acetaminophen 325 MG Tab PO SCH (19:42)
[2018-12-12] MEDS: Metoprolol Tartrate 25 MG Tab PO SCH (19:42)
[2018-12-12] MEDS: Sodium Chloride 0.9% 10 ML Syringe FLUSH SCH ×3 (19:43→22:43)
[2018-12-13] MEDS: Clindamycin Phosphate 900 MG in Sodium Chloride 0.9% 100 ML IV SCH ×3 (03:06→19:51)
[2018-12-13] MEDS: Sodium Chloride 0.9% 10 ML Syringe FLUSH SCH ×8 (03:06→22:41)
[2018-12-13] MEDS: Acetaminophen/HYDROcodone 325-5 MG Tab PO PRN ×4 (03:18→20:32)
[2018-12-13] MEDS: Fluconazole 100 MG Tab PO SCH (08:40)
[2018-12-13] MEDS: Trospium 20 MG Tab PO SCH ×2 (08:41→17:55)
[2018-12-13] MEDS: Potassium Chloride 10 MEQ Tab.ER PO SCH (08:41)
[2018-12-13] MEDS: Clopidogrel 75 MG Tab PO SCH (08:41)
[2018-12-13] MEDS: Lisinopril 20 MG Tab PO SCH (08:41)
[2018-12-13] MEDS: Metoprolol Tartrate 25 MG Tab PO SCH ×2 (08:42→19:50)
[2018-12-13] MEDS: Insulin Glarg,Human.Rec.Analog 100 UNIT/ML ML SUBCUT SCH (08:45)
[2018-12-13 09:41] LABS: CHLORIDE,CL 105 mmol/L (98-107); SODIUM,NA 139 mmol/L (136-145)
[2018-12-13] MEDS: Mupirocin Oint 22 GM Tube TOP SCH ×3 (12:13→17:57)
[2018-12-13] MEDS: Ondansetron 4 MG Tab.DIS PO PRN (12:16)
[2018-12-13] MEDS: Meclizine 25 MG Tab PO PRN (12:16)
[2018-12-13] MEDS: diphenhydrAMINE 25 MG Cap PO SCH (19:50)
[2018-12-13] MEDS: Acetaminophen 325 MG Tab PO SCH (19:50)
[2018-12-13] MEDS: Montelukast 10 MG Tab PO SCH (19:50)
[2018-12-14] MEDS: Acetaminophen/HYDROcodone 325-5 MG Tab PO PRN ×3 (01:54→18:09)
[2018-12-14] MEDS: Clindamycin Phosphate 900 MG in Sodium Chloride 0.9% 100 ML IV SCH ×3 (03:06→19:58)
[2018-12-14 08:40] LABS: CHLORIDE,CL 103 mmol/L (98-107); SODIUM,NA 138 mmol/L (136-145)
[2018-12-14] MEDS: Trospium 20 MG Tab PO SCH ×2 (09:15→18:11)
[2018-12-14] MEDS: Fluconazole 100 MG Tab PO SCH (09:15)
[2018-12-14] MEDS: Metoprolol Tartrate 25 MG Tab PO SCH ×2 (09:15→19:58)
[2018-12-14] MEDS: Potassium Chloride 10 MEQ Tab.ER PO SCH (09:15)
[2018-12-14] MEDS: Lisinopril 20 MG Tab PO SCH (09:16)
[2018-12-14] MEDS: Insulin Glarg,Human.Rec.Analog 100 UNIT/ML ML SUBCUT SCH (09:16)
[2018-12-14] MEDS: Clopidogrel 75 MG Tab PO SCH (09:16)
[2018-12-14] MEDS: Mupirocin Oint 22 GM Tube TOP SCH ×3 (09:18→21:38)
[2018-12-14] MEDS: MILNACIPRAN 50 MG PO SCH ×3 (10:03→21:38)
[2018-12-14] MEDS: Sodium Chloride 0.9% 10 ML Syringe FLUSH SCH ×2 (11:52→19:59)
--- NOTE | 2018-12-14 15:38 | PCM.PN ---
- General Info Date of Service: 12/14/18 Admission Dx/Problem (Free Text): cellulitis of the right LE Functional Status: Reports: Other (right leg/foot still very painful) - Review of Systems General: Reports: No Symptoms HEENT: Reports: No Symptoms Pulmonary: Reports: No Symptoms Cardiovascular: Reports: No Symptoms Gastrointestinal: Reports: No Symptoms Genitourinary: Reports: No Symptoms Musculoskeletal: Reports: Leg Pain (right pain/swelling), Foot Pain (right foot pain/swelling) Neurological: Reports: Other (peripheral neuropathy) Psychiatric: Reports: No Symptoms - Patient Data Vitals - Most Recent: Last Vital Signs Temp 98.7 F 12/14/18 08:00 Pulse 92 12/14/18 09:15 Resp 16 12/14/18 08:00 BP 136/72 12/14/18 09:16 Pulse Ox 100 12/14/18 08:00 I&O - Last 24 Hours: Intake & Output 12/14/18 12/14/18 12/14/18 06:59 14:59 22:59 Intake Total 300 Balance 300 Lab Results Last 24 Hours: Laboratory Results - last 24 hr 12/13/18 12/13/18 12/14/18 Range/Units 16:56 19:22 03:11 WBC (4.0-10.2) K/uL RBC (3.77-5.09) M/uL Hgb (11.7-15.5) g/dL Hct (34.0-46.0) % MCV (84.0-98.0) fL MCH (28.2-33.3) pg MCHC (31.7-36.0) g/dL RDW (11.2-14.1) % Plt Count (150-350) K/uL Neut % (Auto) (45.0-80.0) % Lymph % (Auto) (10.0-50.0) % [place] % (Auto) (2.0-14.0) % Eos % (Auto) (0.0-5.0) % Baso % (Auto) (0.0-2.0) % Neut # (Auto) (1.40-7.00) K/uL Lymph # (Auto) (0.50-3.50) K/uL [place] # (Auto) (0.00-1.00) K/uL Eos # (Auto) (0.00-0.50) K/uL Baso # (Auto) (0.00-0.20) K/uL Sodium (136-145) mmol/L Potassium (3.5-5.1) mmol/L Chloride (98-107) mmol/L Carbon Dioxide (21.0-32.0) mmol/L BUN (7-18) mg/dL Creatinine (0.51-1.17) mg/dL Est Cr Clr Drug Dosing Estimated GFR (MDRD) mL/min Glucose (74-106) mg/dL POC Glucose 174 H 253 H* 136 H (65-110) mg/dl Calcium (8.5-10.1) mg/dL Total Bilirubin (0.2-1.0) mg/dL AST (15-37) U/L ALT (12-78) U/L Alkaline Phosphatase (46-116) IU/L C-Reactive Protein (<=0.9) mg/dL Total Protein (6.4-8.2) g/dL Albumin (3.4-5.0) g/dL Vancomycin Trough (10-20) ug/mL 12/14/18 12/14/18 12/14/18 Range/Units 07:30 08:15 08:15 WBC 8.1 (4.0-10.2) K/uL RBC 2.74 L (3.77-5.09) M/uL Hgb 8.3 L (11.7-15.5) g/dL Hct 26.1 L (34.0-46.0) % MCV 95.3 (84.0-98.0) fL MCH 30.3 (28.2-33.3) pg MCHC 31.8 (31.7-36.0) g/dL RDW 13.7 (11.2-14.1) % Plt Count 350 (150-350) K/uL Neut % (Auto) 78.7 (45.0-80.0) % Lymph % (Auto) 11.9 (10.0-50.0) % [place] % (Auto) 7.6 (2.0-14.0) % Eos % (Auto) 1.6 (0.0-5.0) % Baso % (Auto) 0.2 (0.0-2.0) % Neut # (Auto) 6.38 (1.40-7.00) K/uL Lymph # (Auto) 0.97 (0.50-3.50) K/uL [place] # (Auto) 0.62 (0.00-1.00) K/uL Eos # (Auto) 0.13 (0.00-0.50) K/uL Baso # (Auto) 0.02 (0.00-0.20) K/uL Sodium 138 (136-145) mmol/L Potassium 4.0 (3.5-5.1) mmol/L Chloride 103 (98-107) mmol/L Carbon Dioxide 24.3 (21.0-32.0) mmol/L BUN 7 (7-18) mg/dL Creatinine 0.77 (0.51-1.17) mg/dL Est Cr Clr Drug Dosing TNP Estimated GFR (MDRD) > 60 mL/min Glucose 184 H (74-106) mg/dL POC Glucose 73 (65-110) mg/dl Calcium 8.3 L (8.5-10.1) mg/dL Total Bilirubin 0.2 (0.2-1.0) mg/dL AST 11 L (15-37) U/L ALT 14 (12-78) U/L Alkaline Phosphatase 81 (46-116) IU/L C-Reactive Protein 6.7 H (<=0.9) mg/dL Total Protein 6.7 (6.4-8.2) g/dL Albumin 1.8 L (3.4-5.0) g/dL Vancomycin Trough (10-20) ug/mL 12/14/18 12/14/18 Range/Units 08:15 10:50 WBC (4.0-10.2) K/uL RBC (3.77-5.09) M/uL Hgb (11.7-15.5) g/dL Hct (34.0-46.0) % MCV (84.0-98.0) fL MCH (28.2-33.3) pg MCHC (31.7-36.0) g/dL RDW (11.2-14.1) % Plt Count (150-350) K/uL Neut % (Auto) (45.0-80.0) % Lymph % (Auto) (10.0-50.0) % [place] % (Auto) (2.0-14.0) % Eos % (Auto) (0.0-5.0) % Baso % (Auto) (0.0-2.0) % Neut # (Auto) (1.40-7.00) K/uL Lymph # (Auto) (0.50-3.50) K/uL [place] # (Auto) (0.00-1.00) K/uL Eos # (Auto) (0.00-0.50) K/uL Baso # (Auto) (0.00-0.20) K/uL Sodium (136-145) mmol/L Potassium (3.5-5.1) mmol/L Chloride (98-107) mmol/L Carbon Dioxide (21.0-32.0) mmol/L BUN (7-18) mg/dL Creatinine (0.51-1.17) mg/dL Est Cr Clr Drug Dosing Estimated GFR (MDRD) mL/min Glucose (74-106) mg/dL POC Glucose 124 H (65-110) mg/dl Calcium (8.5-10.1) mg/dL Total Bilirubin (0.2-1.0) mg/dL AST (15-37) U/L ALT (12-78) U/L Alkaline Phosphatase (46-116) IU/L C-Reactive Protein (<=0.9) mg/dL Total Protein (6.4-8.2) g/dL Albumin (3.4-5.0) g/dL Vancomycin Trough 20.7 H (10-20) ug/mL Med Orders - Current: Current Medications Acetaminophen (Tylenol Extra Strength) 500 mg PO Q4H PRN PRN Reason: Fever Acetaminophen (Tylenol) 650 mg PO BEDTIME [facility] Last Admin: 12/13/18 19:50 Dose: 650 mg Hydrocodone Bitart/Acetaminophen ([place] 325-5 Mg) 1 tab PO Q4H PRN PRN Reason: Pain/Fever Last Admin: 12/14/18 12:24 Dose: 1 tab Clopidogrel Bisulfate (Plavix) 75 mg PO DAILY [facility] Last Admin: 12/14/18 09:16 Dose: 75 mg Diphenhydramine HCl (Benadryl) 25 mg PO BEDTIME [facility] Last Admin: 12/13/18 19:50 Dose: 25 mg Docusate Sodium (Colace) 100 mg PO BID PRN PRN Reason: Constipation Fluconazole (Diflucan) 50 mg PO DAILY [facility] Last Admin: 12/14/18 09:15 Dose: 50 mg Heparin Sodium (Porcine) (Heparin Lock Flush 100 Units/Ml) 300 units FLUSH ASDIRECTED PRN PRN Reason: IV Use Last Admin: 12/14/18 12:28 Dose: 300 units Clindamycin Phosphate 900 mg/ (Sodium Chloride) 106 mls @ 200 mls/hr IV Q8H [facility] Last Admin: 12/14/18 11:52 Dose: 200 mls/hr Vancomycin HCl 1.25 gm/ Sodium (Chloride) 250 mls @ 135 mls/hr IV Q12H [facility] Last Admin: 12/14/18 09:27 Dose: Not Given Insulin Glargine (Lantus) 30 unit SUBCUT DAILY [facility] Last Admin: 12/14/18 09:16 Dose: 30 units Lisinopril (Prinivil) 10 mg PO DAILY [facility] Last Admin: 12/14/18 09:16 Dose: 10 mg Magnesium Hydroxide (Milk Of Magnesia) 30 ml PO DAILY PRN PRN Reason: Constipation Meclizine HCl (Antivert) 25 mg PO Q6H PRN PRN Reason: Dizziness Last Admin: 12/13/18 12:16 Dose: 25 mg Metoprolol Tartrate (Lopressor) 25 mg PO Q12HR [facility] Last Admin: 12/14/18 09:15 Dose: 25 mg Montelukast Sodium (Singulair) 10 mg PO BEDTIME [facility] Last Admin: 12/13/18 19:50 Dose: 10 mg Mupirocin (Bactroban Oint) 0 gm TOP TID [facility] Last Admin: 12/14/18 11:52 Dose: Not Given Milnacipran [Savella ] 50mg Tab Own Med 1 each PO BID@0800,1999 [facility] Last Admin: 12/14/18 10:03 Dose: Not Given Ondansetron HCl (Zofran Odt) 4 mg PO Q6H PRN PRN Reason: Nausea/Vomiting Last Admin: 12/13/18 12:16 Dose: 4 mg Polyethylene Glycol (Miralax) 17 gm PO BEDTIME PRN PRN Reason: Constipation Potassium Chloride (Klor-Con 10) 10 meq PO DAILY [facility] Last Admin: 12/14/18 09:15 Dose: 10 meq Sodium Chloride (Saline Flush) 10 ml FLUSH ASDIRECTED [facility] Last Admin: 12/14/18 11:52 Dose: 10 ml Trospium (Sanctura) 20 mg PO BIDAC [facility] Last Admin: 12/14/18 09:15 Dose: 20 mg Vancomycin HCl (Pharmacy To Dose - Vancomycin) 1 dose .XX ASDIRECTED [facility] Discontinued Medications Insulin Glargine (Lantus) 35 unit SUBCUT DAILY [facility] Last Admin: 12/12/18 09:14 Dose: 35 units Metoprolol Tartrate (Lopressor) 25 mg PO Q12H [facility] Last Admin: 12/12/18 09:12 Dose: 25 mg Potassium Chloride (Klor-Con 10) 10 meq PO TID [facility] Last Admin: 12/12/18 14:05 Dose: Not Given Potassium Chloride (Klor-Con 10) 10 meq PO BID [facility] - Exam Quality Assessment: Central Line/PICC General: Alert, Cooperative, No Acute Distress HEENT: Mucous Membr. Moist/[place] Neck: Trachea Midline, No JVD Lungs: Clear to Auscultation, Normal Respiratory Effort Cardiovascular: Regular Rate, Regular Rhythm GI/Abdominal Exam: Soft, Non-Tender, No Distention (Female) Exam: Deferred Back Exam: Normal Inspection Extremities: Pedal Edema (right), Leg Pain (right), Increased Warmth (right leg is slowly improving), Redness (right leg slowly improving) Skin: Warm, Dry, Intact, Other (except RLE blisters, redness slowly improving) Neurological: No New Focal Deficit Psy/Mental Status: Alert, Normal Affect, Normal Mood - Problem List & Annotations (1) MRSA cellulitis of right foot SNOMED Code(s): 391750068, 852637191, 851603080, 491457988 Code(s): L03.115 - CELLULITIS OF RIGHT LOWER LIMB; B95.62 - METHICILLIN RESIS STAPH INFCT CAUSING DISEASES CLASSD [id number] Status: Acute Priority: High Current Visit: Yes (2) Cellulitis of right leg SNOMED Code(s): 413232362 Code(s): L03.115 - CELLULITIS OF RIGHT LOWER LIMB Status: Acute Priority : High Current Visit: No Annotation/Comment:: continue on IV therapy, PICC line in place (3) Chills (without fever) SNOMED Code(s): 86706105 Code(s): R68.83 - CHILLS (WITHOUT FEVER) Status: Acute Priority: High Current Visit: No (4) Diabetes mellitus SNOMED Code(s): 46361078 Code(s): E11.9 - TYPE 2 DIABETES MELLITUS WITHOUT COMPLICATIONS Status: Acute Current Visit: No Qualifiers: (5) Essential (primary) hypertension SNOMED Code(s): 61453794 Code(s): I10 - ESSENTIAL (PRIMARY) HYPERTENSION Status: Acute Priority: Low Current Visit: No (6) Staphylococcus epidermidis bacteremia SNOMED Code(s): 409297757047, 041265657903 Code(s): R78.81 - BACTEREMIA Status: Acute Priority: High Current Visit : No (7) Vertigo SNOMED Code(s): 297805879 Code(s): R42 - DIZZINESS AND GIDDINESS Status: Acute Current Visit: No - Problem List Review Problem List Initiated/Reviewed/Updated: Yes - My Orders Last 24 Hours: My Active Orders 12/14/18 16:30 VANCOMYCIN RANDOM [CHEM] Routine - Plan Plan:: 12/12/2018 Patient needing IV antibiotics in swingbed, monitoring daily of the leg and lab results. Will need more days of treatment as patient leg is improving but slowly. Will recheck labs in the morning. Consulted with Dr Javier. Ariela Cameron, TOOL SUPERVISOR 12/14/18 Concepcion Osorio MD Leg continues slow improvement. Continue IV antibiotics.
[2018-12-14] MEDS: diphenhydrAMINE 25 MG Cap PO SCH (19:57)
[2018-12-14] MEDS: Acetaminophen 325 MG Tab PO SCH (19:57)
[2018-12-14] MEDS: Montelukast 10 MG Tab PO SCH (19:57)
[2018-12-15] MEDS: Acetaminophen/HYDROcodone 325-5 MG Tab PO PRN ×4 (00:50→19:38)
[2018-12-15] MEDS: Clindamycin Phosphate 900 MG in Sodium Chloride 0.9% 100 ML IV SCH ×3 (03:07→21:18)
[2018-12-15] MEDS: Sodium Chloride 0.9% 10 ML Syringe FLUSH SCH ×8 (03:08→22:12)
[2018-12-15] MEDS: Metoprolol Tartrate 25 MG Tab PO SCH ×2 (08:11→19:33)
[2018-12-15] MEDS: Trospium 20 MG Tab PO SCH ×2 (08:11→17:06)
[2018-12-15] MEDS: MILNACIPRAN 50 MG PO SCH ×2 (08:11→19:33)
[2018-12-15] MEDS: Lisinopril 20 MG Tab PO SCH (08:12)
[2018-12-15] MEDS: Fluconazole 100 MG Tab PO SCH (08:12)
[2018-12-15] MEDS: Potassium Chloride 10 MEQ Tab.ER PO SCH (08:12)
[2018-12-15] MEDS: Clopidogrel 75 MG Tab PO SCH (08:13)
[2018-12-15] MEDS: Insulin Glarg,Human.Rec.Analog 100 UNIT/ML ML SUBCUT SCH (08:13)
[2018-12-15] MEDS: Mupirocin Oint 22 GM Tube TOP SCH (08:14)
--- NOTE | 2018-12-15 11:02 | PCM.PN ---
- General Info Date of Service: 12/15/18 Admission Dx/Problem (Free Text): cellulitis of the right LE Functional Status: Reports: Pain Controlled, Tolerating Diet Pain Score: 5 - Review of Systems General: Reports: Weakness HEENT: Reports: No Symptoms Pulmonary: Reports: No Symptoms Cardiovascular: Reports: No Symptoms Gastrointestinal: Reports: No Symptoms Genitourinary: Reports: No Symptoms Musculoskeletal: Reports: Joint Pain, Joint Swelling Skin: Reports: No Symptoms Neurological: Reports: No Symptoms Psychiatric: Reports: No Symptoms - Patient Data Vitals - Most Recent: Last Vital Signs Temp 97.1 F 12/15/18 08:00 Pulse 94 12/15/18 08:11 Resp 19 12/15/18 08:00 BP 149/93 H 12/15/18 08:12 Pulse Ox 93 L 12/15/18 08:00 Weight - Most Recent: 293 lb I&O - Last 24 Hours: Intake & Output 12/14/18 12/15/18 12/15/18 22:59 06:59 14:59 Intake Total 840 600 Balance 840 600 Lab Results Last 24 Hours: Laboratory Results - last 24 hr 12/14/18 12/14/18 12/14/18 Range/Units 16:24 17:00 19:17 POC Glucose 179 H 171 H (65-110) mg/dl Random Vancomycin 14.5 ug/mL 12/15/18 12/15/18 Range/Units 03:16 07:31 POC Glucose 66 120 H (65-110) mg/dl Random Vancomycin ug/mL Med Orders - Current: Current Medications Acetaminophen (Tylenol Extra Strength) 500 mg PO Q4H PRN PRN Reason: Fever Acetaminophen (Tylenol) 650 mg PO BEDTIME [facility]CLUDE 234 BEDS AT [facility] Last Admin: 12/14/18 19:57 Dose: 650 mg Hydrocodone Bitart/Acetaminophen ([place] 325-5 Mg) 1 tab PO Q4H PRN PRN Reason: Pain/Fever Last Admin: 12/15/18 09:54 Dose: 1 tab Clopidogrel Bisulfate (Plavix) 75 mg PO DAILY [facility] 234 BEDS AT [facility] Last Admin: 12/15/18 08:13 Dose: 75 mg Diphenhydramine HCl (Benadryl) 25 mg PO BEDTIME [facility]CLUDE 234 BEDS AT [facility] Last Admin: 12/14/18 19:57 Dose: 25 mg Docusate Sodium (Colace) 100 mg PO BID PRN PRN Reason: Constipation Fluconazole (Diflucan) 50 mg PO DAILY [facility] 234 BEDS AT [facility] Last Admin: 12/15/18 08:12 Dose: 50 mg Heparin Sodium (Porcine) (Heparin Lock Flush 100 Units/Ml) 300 units FLUSH ASDIRECTED PRN PRN Reason: IV Use Last Admin: 12/15/18 03:47 Dose: 300 units Clindamycin Phosphate 900 mg/ (Sodium Chloride) 106 mls @ 200 mls/hr IV Q8H [facility]S [facility]CLUDE 234 BEDS AT [facility] Last Admin: 12/15/18 03:07 Dose: 200 mls/hr Vancomycin HCl 1 gm/ Sodium (Chloride) 250 mls @ 165 mls/hr IV Q12H [facility]CLUDE 234 BEDS AT [facility] Last Admin: 12/15/18 08:32 Dose: 165 mls/hr Insulin Glargine (Lantus) 25 unit SUBCUT DAILY [facility]CLUDE 234 BEDS AT [facility] Lisinopril (Prinivil) 10 mg PO DAILY [facility] 234 BEDS AT [facility] Last Admin: 12/15/18 08:12 Dose: 10 mg Magnesium Hydroxide (Milk Of Magnesia) 30 ml PO DAILY PRN PRN Reason: Constipation Meclizine HCl (Antivert) 25 mg PO Q6H PRN PRN Reason: Dizziness Last Admin: 12/13/18 12:16 Dose: 25 mg Metoprolol Tartrate (Lopressor) 25 mg PO Q12HR [facility]CLUDE 234 BEDS AT [facility] Last Admin: 12/15/18 08:11 Dose: 25 mg Montelukast Sodium (Singulair) 10 mg PO BEDTIME [facility] 234 BEDS AT [facility] Last Admin: 12/14/18 19:57 Dose: 10 mg Mupirocin (Bactroban Oint) 0 gm TOP DAILY [facility] 234 BEDS AT [facility] Last Admin: 12/15/18 08:14 Dose: 1 applic Milnacipran [Savella ] 50mg Tab Own Med 1 each PO BID@08,1999 [facility]CLUDE 234 BEDS AT [facility] Last Admin: 12/15/18 08:11 Dose: 1 each Ondansetron HCl (Zofran Odt) 4 mg PO Q6H PRN PRN Reason: Nausea/Vomiting Last Admin: 12/13/18 12:16 Dose: 4 mg Polyethylene Glycol (Miralax) 17 gm PO BEDTIME PRN PRN Reason: Constipation Potassium Chloride (Klor-Con 10) 10 meq PO DAILY [facility] 234 BEDS AT [facility] Last Admin: 12/15/18 08:12 Dose: 10 meq Sodium Chloride (Saline Flush) 10 ml FLUSH ASDIRECTED [facility]S INCLUDE 234 BEDS AT [facility] Last Admin: 12/15/18 08:35 Dose: 10 ml Trospium (Sanctura) 20 mg PO BIDAC [facility]CLUDE 234 BEDS AT [facility] Last Admin: 12/15/18 08:11 Dose: 20 mg Vancomycin HCl (Pharmacy To Dose - Vancomycin) 1 dose .XX ASDIRECTED [facility]S INCLUDE 234 BEDS AT [facility] Discontinued Medications Vancomycin HCl 1.25 gm/ Sodium (Chloride) 250 mls @ 135 mls/hr IV Q12H [facility]S INCLUDE 234 BEDS AT [facility] Last Admin: 12/14/18 09:27 Dose: Not Given Insulin Glargine (Lantus) 35 unit SUBCUT DAILY [facility]CLUDE 234 BEDS AT [facility] Last Admin: 12/12/18 09:14 Dose: 35 units Insulin Glargine (Lantus) 30 unit SUBCUT DAILY [facility]CLUDE 234 BEDS AT [facility] Last Admin: 12/15/18 08:13 Dose: 30 units Metoprolol Tartrate (Lopressor) 25 mg PO Q12H [facility]CLUDE 234 BEDS AT [facility] Last Admin: 12/12/18 09:12 Dose: 25 mg Mupirocin (Bactroban Oint) 0 gm TOP TID [facility] INCLUDE 234 BEDS AT [facility] Last Admin: 12/14/18 21:38 Dose: Not Given Potassium Chloride (Klor-Con 10) 10 meq PO TID [facility]CLUDE 234 BEDS AT [facility] Last Admin: 12/12/18 14:05 Dose: Not Given Potassium Chloride (Klor-Con 10) 10 meq PO BID [facility]CLUDE 234 BEDS AT [facility] - Exam Quality Assessment: Central Line/PICC, Skin Breakdown General: Alert, Oriented, Cooperative, No Acute Distress Neck: Supple Lungs: Clear to Auscultation, Normal Respiratory Effort Cardiovascular: Regular Rate, Regular Rhythm GI/Abdominal Exam: Normal Bowel Sounds, Soft, Non-Tender Back Exam: Normal Inspection Extremities: Pedal Edema Peripheral Pulses: 1+: Dorsalis Pedis (L), Dorsalis Pedis (R) Skin: Warm, Dry, Intact Wound/Incisions: Healing Well, Erythema Improving Neurological: No New Focal Deficit - Problem List & Annotations (1) Cellulitis of right leg SNOMED Code(s): 104815010 Code(s): L03.115 - CELLULITIS OF RIGHT LOWER LIMB Status: Acute Priority : High Current Visit: No Annotation/Comment:: continue on IV therapy, PICC line in place (2) Diabetes mellitus SNOMED Code(s): 37768337 Code(s): E11.9 - TYPE 2 DIABETES MELLITUS WITHOUT COMPLICATIONS Status: Acute Current Visit: No Qualifiers: Diabetes mellitus type: type 2 Diabetes mellitus terminal system operator insulin use: with terminal system operator use - Problem List Review Problem List Initiated/Reviewed/Updated: Yes - My Orders Last 24 Hours: My Active Orders 12/14/18 18:00 Vancomycin 1 gm Sodium Chloride 0.9% [Normal Saline] 250 ml IV Q12H 12/16/18 08:00 Insulin Glarg,Human.Rec.Analog [LantUS] 25 unit SUBCUT DAILY - Plan Plan:: 12/12/2018 Patient needing IV antibiotics in swingbed, monitoring daily of the leg and lab results. Will need more days of treatment as patient leg is improving but slowly. Will recheck labs in the morning. Consulted with Dr Javier. Ariela Cameron CNP 12/14/18 Concepcion Osorio MD Leg continues slow improvement. Continue IV antibiotics. 12/15/2018 Patient states pain controlled with oral Lortab. Leg continues to improve with redness and warmth. Patient continues to need swingbed treatment with IV antibiotics, leg improving but slowly. Ariela Cameron,MANAGER [employer]
[2018-12-15] MEDS: Ondansetron 4 MG Tab.DIS PO PRN (12:10)
[2018-12-15] MEDS: Acetaminophen 325 MG Tab PO SCH (19:32)
[2018-12-15] MEDS: diphenhydrAMINE 25 MG Cap PO SCH (19:32)
[2018-12-15] MEDS: Montelukast 10 MG Tab PO SCH (19:33)
[2018-12-16] MEDS: Acetaminophen/HYDROcodone 325-5 MG Tab PO PRN ×5 (01:13→23:52)
[2018-12-16] MEDS: Clindamycin Phosphate 900 MG in Sodium Chloride 0.9% 100 ML IV SCH ×3 (03:49→22:11)
[2018-12-16] MEDS: Sodium Chloride 0.9% 10 ML Syringe FLUSH SCH ×7 (03:49→22:53)
[2018-12-16] MEDS: Clopidogrel 75 MG Tab PO SCH (07:56)
[2018-12-16] MEDS: Fluconazole 100 MG Tab PO SCH (07:56)
[2018-12-16] MEDS: Lisinopril 20 MG Tab PO SCH (07:56)
[2018-12-16] MEDS: Multivitamin Tab PO SCH (07:56)
[2018-12-16] MEDS: Trospium 20 MG Tab PO SCH ×2 (07:57→16:58)
[2018-12-16] MEDS: MILNACIPRAN 50 MG PO SCH ×2 (07:57→20:11)
[2018-12-16] MEDS: Metoprolol Tartrate 25 MG Tab PO SCH ×2 (07:57→20:16)
[2018-12-16] MEDS: Potassium Chloride 10 MEQ Tab.ER PO SCH (07:57)
[2018-12-16] MEDS: Mupirocin Oint 22 GM Tube TOP SCH (07:59)
[2018-12-16] MEDS ORDERED: Insulin Glarg,Human.Rec.Analog 100 UNIT/ML ML SUBCUT SCH (08:00)
[2018-12-16] MEDS: Ondansetron 4 MG Tab.DIS PO PRN (18:43)
[2018-12-16] MEDS: Acetaminophen 325 MG Tab PO SCH (20:10)
[2018-12-16] MEDS: diphenhydrAMINE 25 MG Cap PO SCH (20:10)
[2018-12-16] MEDS: Montelukast 10 MG Tab PO SCH (20:11)
[2018-12-17] MEDS: Clindamycin Phosphate 900 MG in Sodium Chloride 0.9% 100 ML IV SCH ×3 (04:27→21:27)
[2018-12-17] MEDS: Multivitamin Tab PO SCH (07:58)
[2018-12-17] MEDS: Fluconazole 100 MG Tab PO SCH (07:58)
[2018-12-17] MEDS: Metoprolol Tartrate 25 MG Tab PO SCH ×2 (07:58→21:27)
[2018-12-17] MEDS: Potassium Chloride 10 MEQ Tab.ER PO SCH (07:58)
[2018-12-17] MEDS: Clopidogrel 75 MG Tab PO SCH (07:58)
[2018-12-17] MEDS: Lisinopril 20 MG Tab PO SCH (07:59)
[2018-12-17] MEDS: Mupirocin Oint 22 GM Tube TOP SCH (08:00)
[2018-12-17] MEDS: MILNACIPRAN 50 MG PO SCH ×2 (08:00→21:27)
[2018-12-17] MEDS ORDERED: Insulin Glarg,Human.Rec.Analog 100 UNIT/ML ML SUBCUT SCH (08:00)
[2018-12-17] MEDS: Trospium 20 MG Tab PO SCH ×2 (08:09→17:25)
[2018-12-17] MEDS: Sodium Chloride 0.9% 10 ML Syringe FLUSH SCH ×6 (08:11→21:28)
[2018-12-17] MEDS: Acetaminophen/HYDROcodone 325-5 MG Tab PO PRN ×2 (08:57→23:09)
[2018-12-17] MEDS: Ondansetron 4 MG Tab.DIS PO PRN (12:51)
[2018-12-17] MEDS: diphenhydrAMINE 25 MG Cap PO SCH (21:27)
[2018-12-17] MEDS: Montelukast 10 MG Tab PO SCH (21:27)
[2018-12-17] MEDS: Acetaminophen 325 MG Tab PO SCH (21:27)
[2018-12-18] MEDS: Acetaminophen/HYDROcodone 325-5 MG Tab PO PRN ×3 (03:17→21:35)
[2018-12-18] MEDS: Clindamycin Phosphate 900 MG in Sodium Chloride 0.9% 100 ML IV SCH ×3 (03:18→19:39)
[2018-12-18] MEDS: Sodium Chloride 0.9% 10 ML Syringe FLUSH SCH ×9 (03:18→21:35)
[2018-12-18 07:06] LABS: CHLORIDE,CL 107 mmol/L (98-107); SODIUM,NA 141 mmol/L (136-145)
[2018-12-18] MEDS: Fluconazole 100 MG Tab PO SCH (07:50)
[2018-12-18] MEDS: Potassium Chloride 10 MEQ Tab.ER PO SCH (07:50)
[2018-12-18] MEDS: Multivitamin Tab PO SCH ×2 (07:51→17:12)
[2018-12-18] MEDS: Clopidogrel 75 MG Tab PO SCH (07:51)
[2018-12-18] MEDS: Trospium 20 MG Tab PO SCH ×2 (07:51→17:13)
[2018-12-18] MEDS: Lisinopril 20 MG Tab PO SCH (07:52)
[2018-12-18] MEDS: Metoprolol Tartrate 25 MG Tab PO SCH ×2 (07:52→19:37)
[2018-12-18] MEDS: MILNACIPRAN 50 MG PO SCH ×2 (07:53→19:36)
[2018-12-18] MEDS: Insulin Glarg,Human.Rec.Analog 100 UNIT/ML ML SUBCUT SCH (07:53)
--- NOTE | 2018-12-18 16:36 | PCM.PN ---
- General Info Date of Service: 12/18/18 Admission Dx/Problem (Free Text): cellulitis of the right LE Functional Status: Reports: Tolerating Diet, Urinating - Review of Systems General: Reports: Other (pain right leg and foot) HEENT: Reports: No Symptoms Pulmonary: Reports: No Symptoms Cardiovascular: Reports: No Symptoms Gastrointestinal: Reports: No Symptoms Genitourinary: Reports: No Symptoms Musculoskeletal: Reports: Leg Pain (right), Foot Pain (right) Skin: Reports: Bruising, Other (redness, swelling RLE and right foot. Swelling, warmth right anterior compartment has increased) Neurological: Reports: No Symptoms Psychiatric: Reports: No Symptoms - Patient Data Vitals - Most Recent: Last Vital Signs Temp 97.7 F 12/18/18 08:00 Pulse 93 12/18/18 08:00 Resp 16 12/18/18 08:00 BP 142/64 H 12/18/18 08:00 Pulse Ox 100 12/18/18 08:00 Weight - Most Recent: 293 lb I&O - Last 24 Hours: Intake & Output 12/18/18 12/18/18 12/18/18 06:59 14:59 22:59 Intake Total 700 1455 Balance 700 1455 Lab Results Last 24 Hours: Laboratory Results - last 24 hr 12/17/18 12/17/18 12/18/18 Range/Units 17:11 19:52 02:03 WBC (4.0-10.2) K/uL RBC (3.77-5.09) M/uL Hgb (11.7-15.5) g/dL Hct (34.0-46.0) % MCV (84.0-98.0) fL MCH (28.2-33.3) pg MCHC (31.7-36.0) g/dL RDW (11.2-14.1) % Plt Count (150-350) K/uL Neut % (Auto) (45.0-80.0) % Lymph % (Auto) (10.0-50.0) % [place] % (Auto) (2.0-14.0) % Eos % (Auto) (0.0-5.0) % Baso % (Auto) (0.0-2.0) % Neut # (Auto) (1.40-7.00) K/uL Lymph # (Auto) (0.50-3.50) K/uL [place] # (Auto) (0.00-1.00) K/uL Eos # (Auto) (0.00-0.50) K/uL Baso # (Auto) (0.00-0.20) K/uL Sodium (136-145) mmol/L Potassium (3.5-5.1) mmol/L Chloride (98-107) mmol/L Carbon Dioxide (21.0-32.0) mmol/L BUN (7-18) mg/dL Creatinine (0.51-1.17) mg/dL Est Cr Clr Drug Dosing mL/min Estimated GFR (MDRD) mL/min Glucose (74-106) mg/dL POC Glucose 162 H 184 H 141 H (65-110) mg/dl Calcium (8.5-10.1) mg/dL Total Bilirubin (0.2-1.0) mg/dL AST (15-37) U/L ALT (12-78) U/L Alkaline Phosphatase (46-116) IU/L C-Reactive Protein (<=0.9) mg/dL Total Protein (6.4-8.2) g/dL Albumin (3.4-5.0) g/dL Vancomycin Trough (10-20) ug/mL 12/18/18 12/18/18 12/18/18 Range/Units 06:25 06:25 07:02 WBC 4.9 (4.0-10.2) K/uL RBC 2.46 L (3.77-5.09) M/uL Hgb 7.5 L (11.7-15.5) g/dL Hct 23.8 L* (34.0-46.0) % MCV 96.7 (84.0-98.0) fL MCH 30.5 (28.2-33.3) pg MCHC 31.5 L (31.7-36.0) g/dL RDW 13.7 (11.2-14.1) % Plt Count 412 H (150-350) K/uL Neut % (Auto) 68.2 (45.0-80.0) % Lymph % (Auto) 20.4 (10.0-50.0) % [place] % (Auto) 8.6 (2.0-14.0) % Eos % (Auto) 2.2 (0.0-5.0) % Baso % (Auto) 0.6 (0.0-2.0) % Neut # (Auto) 3.33 (1.40-7.00) K/uL Lymph # (Auto) 1.00 (0.50-3.50) K/uL [place] # (Auto) 0.42 (0.00-1.00) K/uL Eos # (Auto) 0.11 (0.00-0.50) K/uL Baso # (Auto) 0.03 (0.00-0.20) K/uL Sodium 141 (136-145) mmol/L Potassium 4.2 (3.5-5.1) mmol/L Chloride 107 (98-107) mmol/L Carbon Dioxide 26.1 (21.0-32.0) mmol/L BUN 9 (7-18) mg/dL Creatinine 0.85 (0.51-1.17) mg/dL Est Cr Clr Drug Dosing 67.98 mL/min Estimated GFR (MDRD) > 60 mL/min Glucose 135 H (74-106) mg/dL POC Glucose 130 H (65-110) mg/dl Calcium 8.2 L (8.5-10.1) mg/dL Total Bilirubin 0.1 L (0.2-1.0) mg/dL AST 13 L (15-37) U/L ALT 14 (12-78) U/L Alkaline Phosphatase 70 (46-116) IU/L C-Reactive Protein 4.1 H (<=0.9) mg/dL Total Protein 6.7 (6.4-8.2) g/dL Albumin 1.9 L (3.4-5.0) g/dL Vancomycin Trough 16.6 (10-20) ug/mL 12/18/18 Range/Units 11:46 WBC (4.0-10.2) K/uL RBC (3.77-5.09) M/uL Hgb (11.7-15.5) g/dL Hct (34.0-46.0) % MCV (84.0-98.0) fL MCH (28.2-33.3) pg MCHC (31.7-36.0) g/dL RDW (11.2-14.1) % Plt Count (150-350) K/uL Neut % (Auto) (45.0-80.0) % Lymph % (Auto) (10.0-50.0) % [place] % (Auto) (2.0-14.0) % Eos % (Auto) (0.0-5.0) % Baso % (Auto) (0.0-2.0) % Neut # (Auto) (1.40-7.00) K/uL Lymph # (Auto) (0.50-3.50) K/uL [place] # (Auto) (0.00-1.00) K/uL Eos # (Auto) (0.00-0.50) K/uL Baso # (Auto) (0.00-0.20) K/uL Sodium (136-145) mmol/L Potassium (3.5-5.1) mmol/L Chloride (98-107) mmol/L Carbon Dioxide (21.0-32.0) mmol/L BUN (7-18) mg/dL Creatinine (0.51-1.17) mg/dL Est Cr Clr Drug Dosing mL/min Estimated GFR (MDRD) mL/min Glucose (74-106) mg/dL POC Glucose 138 H (65-110) mg/dl Calcium (8.5-10.1) mg/dL Total Bilirubin (0.2-1.0) mg/dL AST (15-37) U/L ALT (12-78) U/L Alkaline Phosphatase (46-116) IU/L C-Reactive Protein (<=0.9) mg/dL Total Protein (6.4-8.2) g/dL Albumin (3.4-5.0) g/dL Vancomycin Trough (10-20) ug/mL Med Orders - Current: Current Medications Acetaminophen (Tylenol Extra Strength) 500 mg PO Q4H PRN PRN Reason: Fever Acetaminophen (Tylenol) 650 mg PO BEDTIME [facility] Last Admin: 12/17/18 21:27 Dose: Not Given Hydrocodone Bitart/Acetaminophen ([place] 325-5 Mg) 1 tab PO Q4H PRN PRN Reason: Pain/Fever Last Admin: 12/18/18 03:17 Dose: 1 tab Ascorbic Acid (Vitamin C) 500 mg PO BID [facility] Clopidogrel Bisulfate (Plavix) 75 mg PO DAILY [facility] Last Admin: 12/18/18 07:51 Dose: 75 mg Diphenhydramine HCl (Benadryl) 25 mg PO BEDTIME [facility] Last Admin: 12/17/18 21:27 Dose: Not Given Docusate Sodium (Colace) 100 mg PO BID PRN PRN Reason: Constipation Ferrous Sulfate (Ferrous Sulfate) 325 mg PO BID [facility] Fluconazole (Diflucan) 50 mg PO DAILY [facility] Last Admin: 12/18/18 07:50 Dose: 50 mg Heparin Sodium (Porcine) (Heparin Lock Flush 100 Units/Ml) 300 units FLUSH ASDIRECTED PRN PRN Reason: IV Use Last Admin: 12/18/18 12:49 Dose: 300 units Clindamycin Phosphate 900 mg/ (Sodium Chloride) 106 mls @ 200 mls/hr IV Q8H [facility] Stop: 12/28/18 20:30 Last Admin: 12/18/18 12:00 Dose: 200 mls/hr Vancomycin HCl 1 gm/ Sodium (Chloride) 250 mls @ 165 mls/hr IV Q12H [facility] Stop: 12/28/18 21:30 Last Admin: 12/18/18 07:46 Dose: 165 mls/hr Insulin Glargine (Lantus) 16 unit SUBCUT DAILY [facility] Last Admin: 12/18/18 07:53 Dose: 16 units Lisinopril (Prinivil) 10 mg PO DAILY [facility] Last Admin: 12/18/18 07:52 Dose: 10 mg Magnesium Hydroxide (Milk Of Magnesia) 30 ml PO DAILY PRN PRN Reason: Constipation Meclizine HCl (Antivert) 25 mg PO Q6H PRN PRN Reason: Dizziness Last Admin: 12/13/18 12:16 Dose: 25 mg Metoprolol Tartrate (Lopressor) 25 mg PO Q12HR [facility] Last Admin: 12/18/18 07:52 Dose: 25 mg Montelukast Sodium (Singulair) 10 mg PO BEDTIME [facility] Last Admin: 12/17/18 21:27 Dose: Not Given Multivitamins/Minerals/Vitamin C (Tab-A-Noam) 0.5 tab PO BID [facility] Milnacipran [Savella ] 50mg Tab Own Med 1 each PO BID@08,1999 [facility] Last Admin: 12/18/18 07:53 Dose: 1 each Ondansetron HCl (Zofran Odt) 4 mg PO Q6H PRN PRN Reason: Nausea/Vomiting Last Admin: 12/17/18 12:51 Dose: 4 mg Polyethylene Glycol (Miralax) 17 gm PO BEDTIME PRN PRN Reason: Constipation Potassium Chloride (Klor-Con 10) 10 meq PO DAILY [facility] Last Admin: 12/18/18 07:50 Dose: 10 meq Sodium Chloride (Saline Flush) 10 ml FLUSH ASDIRECTED [facility] Last Admin: 12/18/18 12:47 Dose: 10 ml Trospium (Sanctura) 20 mg PO BIDAC [facility] Last Admin: 12/18/18 07:51 Dose: 20 mg Vancomycin HCl (Pharmacy To Dose - Vancomycin) 1 dose .XX ASDIRECTED [facility] Discontinued Medications Vancomycin HCl 1.25 gm/ Sodium (Chloride) 250 mls @ 135 mls/hr IV Q12H [facility] Last Admin: 12/14/18 09:27 Dose: Not Given Vancomycin HCl 1 gm/ Sodium (Chloride) 250 mls @ 165 mls/hr IV Q12H [facility] Last Admin: 12/15/18 08:32 Dose: 165 mls/hr Insulin Glargine (Lantus) 35 unit SUBCUT DAILY [facility] Last Admin: 12/12/18 09:14 Dose: 35 units Insulin Glargine (Lantus) 30 unit SUBCUT DAILY [facility] Last Admin: 12/15/18 08:13 Dose: 30 units Insulin Glargine (Lantus) 25 unit SUBCUT DAILY [facility] Last Admin: 12/16/18 07:59 Dose: 25 unit Insulin Glargine (Lantus) 20 unit SUBCUT DAILY [facility] Last Admin: 12/17/18 08:00 Dose: 20 unit Metoprolol Tartrate (Lopressor) 25 mg PO Q12H [facility] Last Admin: 12/12/18 09:12 Dose: 25 mg Multivitamins/Minerals/Vitamin C (Tab-A-Noam) 1 tab PO DAILY [facility] Last Admin: 12/18/18 07:51 Dose: 1 tab Mupirocin (Bactroban Oint) 0 gm TOP TID [facility] Last Admin: 12/14/18 21:38 Dose: Not Given Mupirocin (Bactroban Oint) 0 gm TOP DAILY [facility] Last Admin: 12/17/18 08:00 Dose: 1 applic Potassium Chloride (Klor-Con 10) 10 meq PO TID [facility] Last Admin: 12/12/18 14:05 Dose: Not Given Potassium Chloride (Klor-Con 10) 10 meq PO BID [facility] - Exam Quality Assessment: Central Line/PICC General: Alert, Oriented, Cooperative HEENT: Mucous Membr. Moist/[place] Neck: Trachea Midline, No JVD Lungs: Clear to Auscultation, Normal Respiratory Effort Cardiovascular: Regular Rate, Regular Rhythm GI/Abdominal Exam: Soft, Non-Tender, No Distention (Female) Exam: Deferred Back Exam: Normal Inspection Extremities: Pedal Edema (right), Increased Warmth (RLE), Redness (RLE) Skin: Other (RLE no blisters, skin peeling, increase redness, increase swelling) Wound/Incisions: No Drainage, Erythema (worse today) Neurological: No New Focal Deficit Psy/Mental Status: Alert, Normal Affect, Normal Mood - Problem List & Annotations (1) Staphylococcus epidermidis bacteremia SNOMED Code(s): 311171236628, 236462499568 Code(s): R78.81 - BACTEREMIA Status: Acute Priority: High Current Visit : Yes (2) Staph aureus infection SNOMED Code(s): 832127317 Code(s): A49.01 - METHICILLIN SUSCEP STAPH INFECTION, UNSP SITE Status: Acute Priority: High Current Visit: Yes (3) Cellulitis of right leg SNOMED Code(s): 258231008 Code(s): L03.115 - CELLULITIS OF RIGHT LOWER LIMB Status: Acute Priority : High Current Visit: Yes Annotation/Comment:: continue on IV therapy, PICC line in place (4) Chills (without fever) SNOMED Code(s): 06342746 Code(s): R68.83 - CHILLS (WITHOUT FEVER) Status: Acute Priority: High Current Visit: No (5) Diabetes mellitus SNOMED Code(s): 09588299 Code(s): E11.9 - TYPE 2 DIABETES MELLITUS WITHOUT COMPLICATIONS Status: Acute Current Visit: No Qualifiers: Diabetes mellitus type: type 2 Diabetes mellitus shelter 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 (6) Essential (primary) hypertension SNOMED Code(s): 43981976 Code(s): I10 - ESSENTIAL (PRIMARY) HYPERTENSION Status: Acute Priority: Low Current Visit: No (7) Vertigo SNOMED Code(s): 259040453 Code(s): R42 - DIZZINESS AND GIDDINESS Status: Acute Current Visit: No - Problem List Review Problem List Initiated/Reviewed/Updated: Yes - My Orders Last 24 Hours: My Active Orders 12/18/18 08:00 Insulin Glarg,Human.Rec.Analog [LantUS] 16 unit SUBCUT DAILY 12/18/18 18:00 Ascorbic Acid [Vitamin C] 500 mg PO BID Ferrous Sulfate 325 mg PO BID Multivitamins [Tab-A-Noam] 0.5 tab PO BID 12/19/18 08:00 Lower Leg wo Cont Rt [CT] Routine 12/21/18 06:30 CBC WITH AUTO DIFF [HEME] Routine CMP [COMPREHENSIVE METABOLIC PN,CMP] [CHEM] Routine CRP [C-REACTIVE PROTEIN] [CHEM] Routine VANCOMYCIN TROUGH [CHEM] Routine - Plan Plan:: 12/12/2018 Patient needing IV antibiotics in swingbed, monitoring daily of the leg and lab results. Will need more days of treatment as patient leg is improving but slowly. Will recheck labs in the morning. Consulted with Dr Javier. Ariela Cameron CNP 12/14/18 Concepcion Osorio MD Leg continues slow improvement. Continue IV antibiotics. 12/15/2018 Patient states pain controlled with oral Lortab. Leg continues to improve with redness and warmth. Patient continues to need swingbed treatment with IV antibiotics, leg improving but slowly. Ariela Cameron CNP 12/18/18 Concepcion Osorio MD The leg is clinically worse today. Increased swelling and increased redness right anterior compartment. Will re-CT leg tomorrow and continue IV antibiotics. Also discussed anemia. Will start oral iron and vitamin C.
[2018-12-18] MEDS: Ascorbic Acid 500 MG Tab PO SCH (17:12)
[2018-12-18] MEDS: Ferrous Sulfate 325 MG Tab PO SCH (17:13)
[2018-12-18] MEDS: Acetaminophen 325 MG Tab PO SCH (19:34)
[2018-12-18] MEDS: diphenhydrAMINE 25 MG Cap PO SCH (19:35)
[2018-12-18] MEDS: Montelukast 10 MG Tab PO SCH (19:36)
[2018-12-19] MEDS: Acetaminophen/HYDROcodone 325-5 MG Tab PO PRN ×4 (01:40→22:02)
[2018-12-19] MEDS: Sodium Chloride 0.9% 10 ML Syringe FLUSH SCH ×8 (01:45→21:29)
[2018-12-19] MEDS: Clindamycin Phosphate 900 MG in Sodium Chloride 0.9% 100 ML IV SCH ×3 (04:51→21:25)
[2018-12-19] MEDS: Fluconazole 100 MG Tab PO SCH (07:59)
[2018-12-19] MEDS: Trospium 20 MG Tab PO SCH ×2 (07:59→17:14)
[2018-12-19] MEDS: Clopidogrel 75 MG Tab PO SCH (07:59)
[2018-12-19] MEDS: Metoprolol Tartrate 25 MG Tab PO SCH ×2 (08:00→21:26)
[2018-12-19] MEDS: Multivitamin Tab PO SCH ×2 (08:01→17:14)
[2018-12-19] MEDS: Ferrous Sulfate 325 MG Tab PO SCH ×2 (08:01→17:14)
[2018-12-19] MEDS: Lisinopril 20 MG Tab PO SCH (08:02)
[2018-12-19] MEDS: Potassium Chloride 10 MEQ Tab.ER PO SCH (08:02)
[2018-12-19] MEDS: Ascorbic Acid 500 MG Tab PO SCH ×2 (08:02→17:14)
[2018-12-19] MEDS: MILNACIPRAN 50 MG PO SCH ×2 (08:03→21:25)
[2018-12-19] MEDS: Meclizine 25 MG Tab PO PRN (08:05)
[2018-12-19] MEDS: Insulin Glarg,Human.Rec.Analog 100 UNIT/ML ML SUBCUT SCH (08:05)
[2018-12-19] MEDS: diphenhydrAMINE 25 MG Cap PO SCH (21:27)
[2018-12-19] MEDS: Acetaminophen 325 MG Tab PO SCH (21:27)
[2018-12-19] MEDS: Montelukast 10 MG Tab PO SCH (21:28)
[2018-12-20] MEDS: Acetaminophen/HYDROcodone 325-5 MG Tab PO PRN ×3 (02:32→17:15)
[2018-12-20] MEDS: Clindamycin Phosphate 900 MG in Sodium Chloride 0.9% 100 ML IV SCH ×3 (04:00→20:56)
[2018-12-20] MEDS: Sodium Chloride 0.9% 10 ML Syringe FLUSH SCH ×7 (04:00→20:58)
[2018-12-20] MEDS: MILNACIPRAN 50 MG PO SCH ×2 (07:52→20:56)
[2018-12-20] MEDS: Clopidogrel 75 MG Tab PO SCH (07:52)
[2018-12-20] MEDS: Ascorbic Acid 500 MG Tab PO SCH ×2 (07:52→17:15)
[2018-12-20] MEDS: Ferrous Sulfate 325 MG Tab PO SCH ×2 (07:53→17:15)
[2018-12-20] MEDS: Potassium Chloride 10 MEQ Tab.ER PO SCH (07:53)
[2018-12-20] MEDS: Fluconazole 100 MG Tab PO SCH (07:53)
[2018-12-20] MEDS: Metoprolol Tartrate 25 MG Tab PO SCH ×2 (07:54→20:58)
[2018-12-20] MEDS: Trospium 20 MG Tab PO SCH ×2 (07:54→17:15)
[2018-12-20] MEDS: Multivitamin Tab PO SCH ×2 (07:54→17:15)
[2018-12-20] MEDS: Lisinopril 20 MG Tab PO SCH (07:56)
[2018-12-20] MEDS: Insulin Glarg,Human.Rec.Analog 100 UNIT/ML ML SUBCUT SCH (07:59)
[2018-12-20] MEDS: Ondansetron 4 MG Tab.DIS PO PRN (11:27)
[2018-12-20] MEDS: Montelukast 10 MG Tab PO SCH (20:57)
[2018-12-20] MEDS: Acetaminophen 325 MG Tab PO SCH (20:57)
[2018-12-20] MEDS: diphenhydrAMINE 25 MG Cap PO SCH (20:58)
[2018-12-20] MEDS: Acetaminophen/HYDROcodone 325-7.5 MG Tab PO SCH (21:02)
[2018-12-21] MEDS: Acetaminophen/HYDROcodone 325-5 MG Tab PO PRN ×4 (04:20→17:35)
[2018-12-21] MEDS: Sodium Chloride 0.9% 10 ML Syringe FLUSH SCH ×6 (04:21→13:07)
[2018-12-21] MEDS: Clindamycin Phosphate 900 MG in Sodium Chloride 0.9% 100 ML IV SCH ×3 (04:21→20:28)
[2018-12-21 07:36] LABS: CHLORIDE,CL 106 mmol/L (98-107); SODIUM,NA 141 mmol/L (136-145)
[2018-12-21] MEDS: Lisinopril 20 MG Tab PO SCH (08:25)
[2018-12-21] MEDS: Ascorbic Acid 500 MG Tab PO SCH ×2 (08:25→17:35)
[2018-12-21] MEDS: Ferrous Sulfate 325 MG Tab PO SCH ×2 (08:25→17:35)
[2018-12-21] MEDS: Trospium 20 MG Tab PO SCH ×2 (08:26→17:35)
[2018-12-21] MEDS: Multivitamin Tab PO SCH ×2 (08:26→17:34)
[2018-12-21] MEDS: Fluconazole 100 MG Tab PO SCH (08:27)
[2018-12-21] MEDS: Potassium Chloride 10 MEQ Tab.ER PO SCH (08:28)
[2018-12-21] MEDS: Metoprolol Tartrate 25 MG Tab PO SCH ×2 (08:28→20:26)
[2018-12-21] MEDS: Clopidogrel 75 MG Tab PO SCH (08:28)
[2018-12-21] MEDS: MILNACIPRAN 50 MG PO SCH ×2 (08:29→21:53)
[2018-12-21] MEDS: Insulin Glarg,Human.Rec.Analog 100 UNIT/ML ML SUBCUT SCH (08:34)
[2018-12-21] MEDS ORDERED: Alteplase 2 MG Vial IVPUSH ONE (20:06)
[2018-12-21] MEDS: Montelukast 10 MG Tab PO SCH (20:25)
[2018-12-21] MEDS: Acetaminophen 325 MG Tab PO SCH (20:25)
[2018-12-21] MEDS: diphenhydrAMINE 25 MG Cap PO SCH (20:26)
[2018-12-21] MEDS: Acetaminophen/HYDROcodone 325-7.5 MG Tab PO SCH (21:50)
[2018-12-22] MEDS: Clindamycin Phosphate 900 MG in Sodium Chloride 0.9% 100 ML IV SCH ×3 (03:49→20:57)
[2018-12-22] MEDS: Sodium Chloride 0.9% 10 ML Syringe FLUSH SCH ×6 (03:49→21:32)
[2018-12-22] MEDS: MILNACIPRAN 50 MG PO SCH ×2 (08:46→20:57)
[2018-12-22] MEDS: Trospium 20 MG Tab PO SCH ×2 (08:47→17:45)
[2018-12-22] MEDS: Lisinopril 20 MG Tab PO SCH (08:47)
[2018-12-22] MEDS: Multivitamin Tab PO SCH ×2 (08:48→17:45)
[2018-12-22] MEDS: Fluconazole 100 MG Tab PO SCH (08:49)
[2018-12-22] MEDS: Potassium Chloride 10 MEQ Tab.ER PO SCH (08:49)
[2018-12-22] MEDS: Clopidogrel 75 MG Tab PO SCH (08:49)
[2018-12-22] MEDS: Metoprolol Tartrate 25 MG Tab PO SCH ×2 (08:50→20:57)
[2018-12-22] MEDS: Ascorbic Acid 500 MG Tab PO SCH ×2 (08:50→17:45)
[2018-12-22] MEDS: Ferrous Sulfate 325 MG Tab PO SCH ×2 (08:50→17:45)
[2018-12-22] MEDS: Acetaminophen/HYDROcodone 325-5 MG Tab PO PRN ×2 (08:51→17:46)
[2018-12-22] MEDS: Insulin Glarg,Human.Rec.Analog 100 UNIT/ML ML SUBCUT SCH (08:53)
[2018-12-22] MEDS: diphenhydrAMINE 25 MG Cap PO SCH (20:57)
[2018-12-22] MEDS: Acetaminophen 325 MG Tab PO SCH (20:57)
[2018-12-22] MEDS: Montelukast 10 MG Tab PO SCH (20:57)
[2018-12-22] MEDS: Acetaminophen/HYDROcodone 325-7.5 MG Tab PO SCH (21:32)
[2018-12-23] MEDS: Clindamycin Phosphate 900 MG in Sodium Chloride 0.9% 100 ML IV SCH ×3 (04:09→21:14)
[2018-12-23] MEDS: Sodium Chloride 0.9% 10 ML Syringe FLUSH SCH ×10 (04:11→21:55)
[2018-12-23] MEDS: Acetaminophen/HYDROcodone 325-5 MG Tab PO PRN ×3 (04:51→17:30)
[2018-12-23] MEDS: Ferrous Sulfate 325 MG Tab PO SCH ×2 (08:13→17:23)
[2018-12-23] MEDS: Lisinopril 10 MG Tab PO SCH (08:14)
[2018-12-23] MEDS: Trospium 20 MG Tab PO SCH ×2 (08:14→17:22)
[2018-12-23] MEDS: Multivitamin Tab PO SCH ×2 (08:15→17:23)
[2018-12-23] MEDS: Potassium Chloride 10 MEQ Tab.ER PO SCH (08:15)
[2018-12-23] MEDS: Fluconazole 100 MG Tab PO SCH (08:17)
[2018-12-23] MEDS: Metoprolol Tartrate 25 MG Tab PO SCH ×2 (08:18→21:12)
[2018-12-23] MEDS: Clopidogrel 75 MG Tab PO SCH (08:19)
[2018-12-23] MEDS: Ascorbic Acid 500 MG Tab PO SCH ×2 (08:19→17:22)
[2018-12-23] MEDS: Insulin Glarg,Human.Rec.Analog 100 UNIT/ML ML SUBCUT SCH (08:21)
[2018-12-23] MEDS: MILNACIPRAN 50 MG PO SCH ×2 (08:21→21:13)
--- NOTE | 2018-12-23 17:19 | PCM.PN ---
- General Info Date of Service: 12/23/18 Admission Dx/Problem (Free Text): cellulitis of the right LE Functional Status: Reports: Pain Controlled, Tolerating Diet - Review of Systems General: Reports: Weakness HEENT: Reports: No Symptoms Pulmonary: Reports: No Symptoms Cardiovascular: Reports: No Symptoms Gastrointestinal: Reports: No Symptoms Genitourinary: Reports: No Symptoms Musculoskeletal: Reports: Leg Pain, Foot Pain (right ) Skin: Reports: Rash Neurological: Reports: No Symptoms Psychiatric: Reports: No Symptoms - Patient Data Vitals - Most Recent: Last Vital Signs Temp 97.3 F 12/23/18 08:00 Pulse 86 12/23/18 08:18 Resp 15 12/23/18 08:00 BP 126/66 12/23/18 08:18 Pulse Ox 93 L 12/23/18 08:00 Weight - Most Recent: 288 lb 11.2 oz I&O - Last 24 Hours: Intake & Output 12/23/18 12/23/18 12/23/18 06:59 14:59 22:59 Intake Total 862 1070 Balance 862 1070 Lab Results Last 24 Hours: Laboratory Results - last 24 hr 12/22/18 12/23/18 12/23/18 Range/Units 19:21 07:13 12:04 POC Glucose 246 H 156 H 177 H (65-110) mg/dl 12/23/18 Range/Units 16:47 POC Glucose 223 H (65-110) mg/dl Med Orders - Current: Current Medications Acetaminophen (Tylenol Extra Strength) 500 mg PO Q4H PRN PRN Reason: Fever Acetaminophen (Tylenol) 650 mg PO BEDTIME [facility] Last Admin: 12/22/18 20:57 Dose: 650 mg Hydrocodone Bitart/Acetaminophen ([place] 325-5 Mg) 1 tab PO Q4H PRN PRN Reason: Pain/Fever Last Admin: 12/23/18 12:24 Dose: 1 tab Hydrocodone Bitart/Acetaminophen ([place] 325-7.5 Mg) 1 tab PO DAILY@2200 [facility] Last Admin: 12/22/18 21:32 Dose: 1 tab Ascorbic Acid (Vitamin C) 500 mg PO BID [facility] Last Admin: 12/23/18 08:19 Dose: 500 mg Clopidogrel Bisulfate (Plavix) 75 mg PO DAILY [facility] Last Admin: 12/23/18 08:19 Dose: 75 mg Diphenhydramine HCl (Benadryl) 25 mg PO BEDTIME [facility] Last Admin: 12/22/18 20:57 Dose: 25 mg Docusate Sodium (Colace) 100 mg PO BID PRN PRN Reason: Constipation Ferrous Sulfate (Ferrous Sulfate) 325 mg PO BID [facility] Last Admin: 12/23/18 08:13 Dose: 325 mg Fluconazole (Diflucan) 50 mg PO DAILY [facility] Last Admin: 12/23/18 08:17 Dose: 50 mg Heparin Sodium (Porcine) (Heparin Lock Flush 100 Units/Ml) 300 units FLUSH ASDIRECTED PRN PRN Reason: IV Use Last Admin: 12/21/18 13:07 Dose: 300 units Heparin Sodium (Porcine) (Heparin Lock Flush 100 Units/Ml) 300 units FLUSH 0430 ,0830,1230,2030 [facility] Last Admin: 12/23/18 13:05 Dose: 300 units Heparin Sodium (Porcine) (Heparin Lock Flush 100 Units/Ml) 300 units FLUSH Q12H [facility] Last Admin: 12/23/18 10:00 Dose: 300 units Vancomycin HCl 1 gm/ Sodium (Chloride) 250 mls @ 165 mls/hr IV Q12H [facility] Stop: 12/28/18 21:30 Last Admin: 12/23/18 08:12 Dose: 165 mls/hr Clindamycin Phosphate 900 mg/ (Sodium Chloride) 106 mls @ 200 mls/hr IV Q8H [facility] Stop: 12/28/18 20:30 Insulin Glargine (Lantus) 16 unit SUBCUT DAILY [facility] Last Admin: 12/23/18 08:21 Dose: 16 units Lisinopril (Prinivil) 10 mg PO DAILY [facility] Last Admin: 12/23/18 08:14 Dose: 10 mg Magnesium Hydroxide (Milk Of Magnesia) 30 ml PO DAILY PRN PRN Reason: Constipation Meclizine HCl (Antivert) 25 mg PO Q6H PRN PRN Reason: Dizziness Last Admin: 12/19/18 08:05 Dose: 25 mg Metoprolol Tartrate (Lopressor) 25 mg PO Q12HR [facility] Last Admin: 12/23/18 08:18 Dose: 25 mg Montelukast Sodium (Singulair) 10 mg PO BEDTIME [facility] Last Admin: 12/22/18 20:57 Dose: 10 mg Multivitamins/Minerals/Vitamin C (Tab-A-Noam) 0.5 tab PO BID [facility] Last Admin: 12/23/18 08:15 Dose: 0.5 tab Milnacipran [Savella ] 50mg Tab Own Med 1 each PO BID@0800,2000 [facility] Last Admin: 12/23/18 08:21 Dose: 1 each Ondansetron HCl (Zofran Odt) 4 mg PO Q6H PRN PRN Reason: Nausea/Vomiting Last Admin: 12/20/18 11:27 Dose: 4 mg Polyethylene Glycol (Miralax) 17 gm PO BEDTIME PRN PRN Reason: Constipation Potassium Chloride (Klor-Con 10) 10 meq PO DAILY [facility] Last Admin: 12/23/18 08:15 Dose: 10 meq Sodium Chloride (Saline Flush) 10 ml FLUSH ASDIRECTED [facility] Last Admin: 12/23/18 13:05 Dose: 10 ml Trospium (Sanctura) 20 mg PO BIDAC [facility] Last Admin: 12/23/18 08:14 Dose: 20 mg Vancomycin HCl (Pharmacy To Dose - Vancomycin) 1 dose .XX ASDIRECTED [facility] Discontinued Medications Alteplase, Recombinant (Cathflo Activase) 2 mg IVPUSH ONETIME ONE Stop: 12/21/18 20:07 Last Admin: 12/21/18 22:01 Dose: 2 mg Clindamycin Phosphate 900 mg/ (Sodium Chloride) 106 mls @ 200 mls/hr IV Q8H [facility] Stop: 12/28/18 20:30 Last Admin: 12/23/18 12:23 Dose: 200 mls/hr Vancomycin HCl 1.25 gm/ Sodium (Chloride) 250 mls @ 135 mls/hr IV Q12H [facility] Last Admin: 12/14/18 09:27 Dose: Not Given Vancomycin HCl 1 gm/ Sodium (Chloride) 250 mls @ 165 mls/hr IV Q12H [facility] Last Admin: 12/15/18 08:32 Dose: 165 mls/hr Insulin Glargine (Lantus) 35 unit SUBCUT DAILY [facility] Last Admin: 12/12/18 09:14 Dose: 35 units Insulin Glargine (Lantus) 30 unit SUBCUT DAILY [facility] Last Admin: 12/15/18 08:13 Dose: 30 units Insulin Glargine (Lantus) 25 unit SUBCUT DAILY [facility] Last Admin: 12/16/18 07:59 Dose: 25 unit Insulin Glargine (Lantus) 20 unit SUBCUT DAILY [facility] Last Admin: 12/17/18 08:00 Dose: 20 unit Lisinopril (Prinivil) 10 mg PO DAILY [facility] Last Admin: 12/22/18 08:47 Dose: 10 mg Metoprolol Tartrate (Lopressor) 25 mg PO Q12H [facility] Last Admin: 12/12/18 09:12 Dose: 25 mg Multivitamins/Minerals/Vitamin C (Tab-A-Noam) 1 tab PO DAILY [facility] Last Admin: 12/18/18 07:51 Dose: 1 tab Mupirocin (Bactroban Oint) 0 gm TOP TID [facility] Last Admin: 12/14/18 21:38 Dose: Not Given Mupirocin (Bactroban Oint) 0 gm TOP DAILY [facility] Last Admin: 12/17/18 08:00 Dose: 1 applic Potassium Chloride (Klor-Con 10) 10 meq PO TID [facility] Last Admin: 12/12/18 14:05 Dose: Not Given Potassium Chloride (Klor-Con 10) 10 meq PO BID [facility] - Exam Quality Assessment: Central Line/PICC General: Alert, Oriented, Cooperative HEENT: Mucous Membr. Moist/[place] Neck: Supple Lungs: Clear to Auscultation, Normal Respiratory Effort Cardiovascular: Regular Rate, Regular Rhythm GI/Abdominal Exam: Normal Bowel Sounds Extremities: Pedal Edema (right LE edema and redness) Peripheral Pulses: 1+: Dorsalis Pedis (L), Dorsalis Pedis (R) Skin: Warm, Other (right LE red, scaps noted, no drainage, warm to touch) Wound/Incisions: Healing Well, Erythema Improving Neurological: No New Focal Deficit Psy/Mental Status: Alert, Normal Affect, Normal Mood - Problem List & Annotations (1) Cellulitis of right leg SNOMED Code(s): 979767403 Code(s): L03.115 - CELLULITIS OF RIGHT LOWER LIMB Status: Acute Priority : High Current Visit: Yes Annotation/Comment:: continue on IV therapy, PICC line in place (2) Diabetes mellitus SNOMED Code(s): 77257129 Code(s): E11.9 - TYPE 2 DIABETES MELLITUS WITHOUT COMPLICATIONS Status: Acute Current Visit: No Qualifiers: Diabetes mellitus type: type 2 Diabetes mellitus 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 Will need more days of treatment as patient leg is improving but slowly. Will recheck labs in the morning. Consulted with Dr Javier. Ariela Cameron CNP 12/14/18 Concepcion Osorio MD Leg continues slow improvement. Continue IV antibiotics. 12/15/2018 Patient states pain controlled with oral Lortab. Leg continues to improve with redness and warmth. Patient continues to need swingbed treatment with IV antibiotics, leg improving but slowly. Ariela Cameron CNP 12/18/18 Concepcion Osorio MD The leg is clinically worse today. Increased swelling and increased redness right anterior compartment. Will re-CT leg tomorrow and continue IV antibiotics. Also discussed anemia. Will start oral iron and vitamin C. 12/23/2018 Patient continues with pain to the right LE mainly in the foot. CT scan done recently , continue to show significant edema and cellulitis. Patient needing to continue on IV antibiotics due to the significant cellulitis, delayed healing , and little improvement noted on CT scan. Will recheck labs in the am, Increase Lantus now that blood sugars are increasing. Try Tubigrip to LEs to help with circulation and healing. Discussed with Dr Javier. Ariela Cameron CNP
[2018-12-23] MEDS: Montelukast 10 MG Tab PO SCH (21:12)
[2018-12-23] MEDS: diphenhydrAMINE 25 MG Cap PO SCH (21:12)
[2018-12-23] MEDS: Acetaminophen 325 MG Tab PO SCH (21:13)
[2018-12-23] MEDS: Acetaminophen/HYDROcodone 325-7.5 MG Tab PO SCH (21:56)
[2018-12-24] MEDS: Clindamycin Phosphate 900 MG in Sodium Chloride 0.9% 100 ML IV SCH ×3 (04:26→20:59)
[2018-12-24] MEDS: Sodium Chloride 0.9% 10 ML Syringe FLUSH SCH ×9 (04:26→21:34)
[2018-12-24] MEDS: Acetaminophen/HYDROcodone 325-5 MG Tab PO PRN ×3 (04:34→17:28)
[2018-12-24] MEDS: Lisinopril 10 MG Tab PO SCH (08:04)
[2018-12-24] MEDS: Trospium 20 MG Tab PO SCH ×2 (08:04→17:28)
[2018-12-24] MEDS: Multivitamin Tab PO SCH ×2 (08:04→17:28)
[2018-12-24] MEDS: Ascorbic Acid 500 MG Tab PO SCH ×2 (08:04→17:28)
[2018-12-24] MEDS: Metoprolol Tartrate 25 MG Tab PO SCH ×2 (08:04→19:18)
[2018-12-24] MEDS: Potassium Chloride 10 MEQ Tab.ER PO SCH (08:04)
[2018-12-24] MEDS: Ferrous Sulfate 325 MG Tab PO SCH ×2 (08:04→17:28)
[2018-12-24] MEDS: Insulin Glarg,Human.Rec.Analog 100 UNIT/ML ML SUBCUT SCH (08:05)
[2018-12-24] MEDS: Fluconazole 100 MG Tab PO SCH (08:05)
[2018-12-24] MEDS: MILNACIPRAN 50 MG PO SCH ×2 (08:05→19:17)
[2018-12-24] MEDS: Clopidogrel 75 MG Tab PO SCH (08:05)
[2018-12-24 08:10] LABS: CHLORIDE,CL 105 mmol/L (98-107); SODIUM,NA 140 mmol/L (136-145)
[2018-12-24] MEDS: Ondansetron 4 MG Tab.DIS PO PRN (12:31)
[2018-12-24] MEDS: Acetaminophen 325 MG Tab PO SCH (19:17)
[2018-12-24] MEDS: Montelukast 10 MG Tab PO SCH (19:18)
[2018-12-24] MEDS: diphenhydrAMINE 25 MG Cap PO SCH (19:18)
[2018-12-24] MEDS: Acetaminophen/HYDROcodone 325-7.5 MG Tab PO SCH (21:32)
[2018-12-25] MEDS: Clindamycin Phosphate 900 MG in Sodium Chloride 0.9% 100 ML IV SCH ×3 (04:03→19:55)
[2018-12-25] MEDS: Acetaminophen/HYDROcodone 325-5 MG Tab PO PRN ×4 (04:03→21:51)
[2018-12-25] MEDS: Sodium Chloride 0.9% 10 ML Syringe FLUSH SCH ×6 (04:04→12:38)
[2018-12-25 08:45] LABS: CHLORIDE,CL 105 mmol/L (98-107); SODIUM,NA 140 mmol/L (136-145)
[2018-12-25] MEDS: Multivitamin Tab PO SCH ×2 (09:15→17:33)
[2018-12-25] MEDS: Potassium Chloride 10 MEQ Tab.ER PO SCH (09:16)
[2018-12-25] MEDS: Ferrous Sulfate 325 MG Tab PO SCH ×2 (09:16→17:34)
[2018-12-25] MEDS: Trospium 20 MG Tab PO SCH ×2 (09:16→17:33)
[2018-12-25] MEDS: Ascorbic Acid 500 MG Tab PO SCH ×2 (09:16→17:37)
[2018-12-25] MEDS: Fluconazole 100 MG Tab PO SCH (09:17)
[2018-12-25] MEDS: Clopidogrel 75 MG Tab PO SCH (09:17)
[2018-12-25] MEDS: Metoprolol Tartrate 25 MG Tab PO SCH ×2 (09:18→21:51)
[2018-12-25] MEDS: Lisinopril 10 MG Tab PO SCH (09:18)
[2018-12-25] MEDS: Insulin Glarg,Human.Rec.Analog 100 UNIT/ML ML SUBCUT SCH (09:19)
[2018-12-25] MEDS: MILNACIPRAN 50 MG PO SCH ×2 (09:19→21:56)
[2018-12-25] MEDS: diphenhydrAMINE 25 MG Cap PO SCH (21:51)
[2018-12-25] MEDS: Montelukast 10 MG Tab PO SCH (21:55)
[2018-12-25] MEDS: Acetaminophen 325 MG Tab PO SCH (21:56)
[2018-12-25] MEDS: Acetaminophen/HYDROcodone 325-7.5 MG Tab PO SCH (22:31)
[2018-12-26] MEDS: Acetaminophen/HYDROcodone 325-5 MG Tab PO PRN ×3 (03:06→17:26)
[2018-12-26] MEDS: Clindamycin Phosphate 900 MG in Sodium Chloride 0.9% 100 ML IV SCH ×3 (03:08→21:09)
[2018-12-26] MEDS: Sodium Chloride 0.9% 10 ML Syringe FLUSH SCH ×11 (03:10→21:45)
[2018-12-26] MEDS: Trospium 20 MG Tab PO SCH ×2 (07:40→17:26)
[2018-12-26] MEDS: Potassium Chloride 10 MEQ Tab.ER PO SCH (07:40)
[2018-12-26] MEDS: Ferrous Sulfate 325 MG Tab PO SCH ×2 (07:40→17:26)
[2018-12-26] MEDS: Ascorbic Acid 500 MG Tab PO SCH ×2 (07:40→17:26)
[2018-12-26] MEDS: Fluconazole 100 MG Tab PO SCH (07:40)
[2018-12-26] MEDS: Clopidogrel 75 MG Tab PO SCH (07:41)
[2018-12-26] MEDS: Lisinopril 10 MG Tab PO SCH (07:41)
[2018-12-26] MEDS: Metoprolol Tartrate 25 MG Tab PO SCH ×2 (07:41→19:42)
[2018-12-26] MEDS: Multivitamin Tab PO SCH ×2 (07:41→17:26)
[2018-12-26] MEDS: MILNACIPRAN 50 MG PO SCH ×2 (07:41→19:42)
[2018-12-26] MEDS: Insulin Glarg,Human.Rec.Analog 100 UNIT/ML ML SUBCUT SCH (07:42)
[2018-12-26] MEDS: diphenhydrAMINE 25 MG Cap PO SCH (19:40)
[2018-12-26] MEDS: Montelukast 10 MG Tab PO SCH (19:40)
[2018-12-26] MEDS: Acetaminophen 325 MG Tab PO SCH (19:40)
[2018-12-26] MEDS: Acetaminophen/HYDROcodone 325-7.5 MG Tab PO SCH (21:19)
[2018-12-27] MEDS: Clindamycin Phosphate 900 MG in Sodium Chloride 0.9% 100 ML IV SCH ×3 (03:06→20:55)
[2018-12-27] MEDS: Sodium Chloride 0.9% 10 ML Syringe FLUSH SCH ×7 (03:07→21:45)
[2018-12-27] MEDS: Acetaminophen/HYDROcodone 325-5 MG Tab PO PRN ×3 (03:44→17:55)
[2018-12-27] MEDS: MILNACIPRAN 50 MG PO SCH ×2 (07:47→21:02)
[2018-12-27] MEDS: Fluconazole 100 MG Tab PO SCH (07:48)
[2018-12-27] MEDS: Metoprolol Tartrate 25 MG Tab PO SCH ×2 (07:49→21:01)
[2018-12-27] MEDS: Ferrous Sulfate 325 MG Tab PO SCH ×2 (07:49→17:11)
[2018-12-27] MEDS: Clopidogrel 75 MG Tab PO SCH (07:50)
[2018-12-27] MEDS: Multivitamin Tab PO SCH ×2 (07:50→17:11)
[2018-12-27] MEDS: Lisinopril 10 MG Tab PO SCH (07:50)
[2018-12-27] MEDS: Potassium Chloride 10 MEQ Tab.ER PO SCH (07:50)
[2018-12-27] MEDS: Ascorbic Acid 500 MG Tab PO SCH ×2 (07:50→17:11)
[2018-12-27] MEDS: Trospium 20 MG Tab PO SCH ×2 (07:51→17:11)
[2018-12-27] MEDS: Insulin Glarg,Human.Rec.Analog 100 UNIT/ML ML SUBCUT SCH (07:53)
[2018-12-27] MEDS: diphenhydrAMINE 25 MG Cap PO SCH (20:59)
[2018-12-27] MEDS: Montelukast 10 MG Tab PO SCH (21:00)
[2018-12-27] MEDS: Acetaminophen 325 MG Tab PO SCH (21:00)
[2018-12-27] MEDS: Acetaminophen/HYDROcodone 325-7.5 MG Tab PO SCH (21:42)
[2018-12-28] MEDS: Clindamycin Phosphate 900 MG in Sodium Chloride 0.9% 100 ML IV SCH ×3 (03:44→21:15)
[2018-12-28] MEDS: Acetaminophen/HYDROcodone 325-5 MG Tab PO PRN ×3 (03:47→17:45)
[2018-12-28] MEDS: Sodium Chloride 0.9% 10 ML Syringe FLUSH SCH ×7 (04:29→21:52)
[2018-12-28] MEDS: Metoprolol Tartrate 25 MG Tab PO SCH ×2 (08:49→19:49)
[2018-12-28] MEDS: Ferrous Sulfate 325 MG Tab PO SCH ×2 (08:50→17:38)
[2018-12-28] MEDS: Ascorbic Acid 500 MG Tab PO SCH ×2 (08:50→17:38)
[2018-12-28] MEDS: Trospium 20 MG Tab PO SCH ×2 (08:50→17:45)
[2018-12-28] MEDS: Lisinopril 10 MG Tab PO SCH (08:50)
[2018-12-28] MEDS: Fluconazole 100 MG Tab PO SCH (08:51)
[2018-12-28] MEDS: Multivitamin Tab PO SCH ×2 (08:51→17:39)
[2018-12-28] MEDS: Potassium Chloride 10 MEQ Tab.ER PO SCH (08:51)
[2018-12-28] MEDS: Clopidogrel 75 MG Tab PO SCH (08:52)
[2018-12-28] MEDS: Insulin Glarg,Human.Rec.Analog 100 UNIT/ML ML SUBCUT SCH (08:54)
[2018-12-28] MEDS: MILNACIPRAN 50 MG PO SCH ×2 (08:57→19:47)
[2018-12-28 09:52] LABS: CHLORIDE,CL 105 mmol/L (98-107); SODIUM,NA 139 mmol/L (136-145)
[2018-12-28] MEDS: Acetaminophen 325 MG Tab PO SCH (19:48)
[2018-12-28] MEDS: diphenhydrAMINE 25 MG Cap PO SCH (19:48)
[2018-12-28] MEDS: Montelukast 10 MG Tab PO SCH (19:49)
[2018-12-28] MEDS: Acetaminophen/HYDROcodone 325-7.5 MG Tab PO SCH (21:49)
--- NOTE | 2018-12-28 22:58 | PCM.PN ---
- General Info Date of Service: 12/28/18 Functional Status: Reports: Other (still pain in the right leg) - Review of Systems HEENT: Reports: No Symptoms Pulmonary: Reports: No Symptoms Cardiovascular: Reports: No Symptoms Gastrointestinal: Reports: No Symptoms Genitourinary: Reports: No Symptoms Musculoskeletal: Reports: Leg Pain, Foot Pain Skin: Reports: Other (RLE redness, warmth, swelling, scabbing skin peeling) Neurological: Reports: No Symptoms Psychiatric: Reports: No Symptoms - Patient Data Vitals - Most Recent: Last Vital Signs Temp 98.7 F 12/28/18 20:00 Pulse 71 12/28/18 20:00 Resp 16 12/28/18 20:00 BP 144/62 H 12/28/18 20:00 Pulse Ox 98 12/28/18 20:00 Weight - Most Recent: 286 lb I&O - Last 24 Hours: Intake & Output 12/28/18 12/28/18 12/28/18 06:59 14:59 22:59 Intake Total 350 720 650 Balance 350 720 650 Lab Results Last 24 Hours: Laboratory Results - last 24 hr 12/28/18 12/28/18 12/28/18 Range/Units 08:34 08:40 08:40 WBC 4.2 (4.0-10.2) K/uL RBC 2.86 L (3.77-5.09) M/uL Hgb 8.7 L (11.7-15.5) g/dL Hct 27.9 L (34.0-46.0) % MCV 97.6 (84.0-98.0) fL MCH 30.4 (28.2-33.3) pg MCHC 31.2 L (31.7-36.0) g/dL RDW 15.1 H (11.2-14.1) % Plt Count 482 H (150-350) K/uL Neut % (Auto) 54.8 (45.0-80.0) % Lymph % (Auto) 25.2 (10.0-50.0) % [place] % (Auto) 12.6 (2.0-14.0) % Eos % (Auto) 5.5 H (0.0-5.0) % Baso % (Auto) 1.9 (0.0-2.0) % Neut # (Auto) 2.31 (1.40-7.00) K/uL Lymph # (Auto) 1.06 (0.50-3.50) K/uL [place] # (Auto) 0.53 (0.00-1.00) K/uL Eos # (Auto) 0.23 (0.00-0.50) K/uL Baso # (Auto) 0.08 (0.00-0.20) K/uL ESR 117 H (0-30) mm/hr Sodium 139 (136-145) mmol/L Potassium 3.9 (3.5-5.1) mmol/L Chloride 105 (98-107) mmol/L Carbon Dioxide 28.0 (21.0-32.0) mmol/L BUN 7 (7-18) mg/dL Creatinine 0.72 (0.51-1.17) mg/dL Est Cr Clr Drug Dosing 80.25 mL/min Estimated GFR (MDRD) > 60 mL/min Glucose 200 H (74-106) mg/dL POC Glucose 195 H (65-110) mg/dl Calcium 8.7 (8.5-10.1) mg/dL Total Bilirubin 0.2 (0.2-1.0) mg/dL AST 24 (15-37) U/L ALT 23 (12-78) U/L Alkaline Phosphatase 87 (46-116) IU/L C-Reactive Protein 1.2 H (<=0.9) mg/dL Total Protein 7.4 (6.4-8.2) g/dL Albumin 2.4 L (3.4-5.0) g/dL 12/28/18 12/28/18 Range/Units 11:36 16:58 WBC (4.0-10.2) K/uL RBC (3.77-5.09) M/uL Hgb (11.7-15.5) g/dL Hct (34.0-46.0) % MCV (84.0-98.0) fL MCH (28.2-33.3) pg MCHC (31.7-36.0) g/dL RDW (11.2-14.1) % Plt Count (150-350) K/uL Neut % (Auto) (45.0-80.0) % Lymph % (Auto) (10.0-50.0) % [place] % (Auto) (2.0-14.0) % Eos % (Auto) (0.0-5.0) % Baso % (Auto) (0.0-2.0) % Neut # (Auto) (1.40-7.00) K/uL Lymph # (Auto) (0.50-3.50) K/uL [place] # (Auto) (0.00-1.00) K/uL Eos # (Auto) (0.00-0.50) K/uL Baso # (Auto) (0.00-0.20) K/uL ESR (0-30) mm/hr Sodium (136-145) mmol/L Potassium (3.5-5.1) mmol/L Chloride (98-107) mmol/L Carbon Dioxide (21.0-32.0) mmol/L BUN (7-18) mg/dL Creatinine (0.51-1.17) mg/dL Est Cr Clr Drug Dosing mL/min Estimated GFR (MDRD) mL/min Glucose (74-106) mg/dL POC Glucose 145 H 165 H (65-110) mg/dl Calcium (8.5-10.1) mg/dL Total Bilirubin (0.2-1.0) mg/dL AST (15-37) U/L ALT (12-78) U/L Alkaline Phosphatase (46-116) IU/L C-Reactive Protein (<=0.9) mg/dL Total Protein (6.4-8.2) g/dL Albumin (3.4-5.0) g/dL Med Orders - Current: Current Medications Acetaminophen (Tylenol Extra Strength) 500 mg PO Q4H PRN PRN Reason: Fever Acetaminophen (Tylenol) 650 mg PO BEDTIME [facility] Last Admin: 12/28/18 19:48 Dose: 650 mg Hydrocodone Bitart/Acetaminophen (Marks 325-5 Mg) 1 tab PO Q4H PRN PRN Reason: Pain/Fever Last Admin: 12/28/18 17:45 Dose: 1 tab Hydrocodone Bitart/Acetaminophen ([place]arks 325-7.5 Mg) 1 tab PO DAILY@2200 [facility] Last Admin: 12/28/18 21:49 Dose: 1 tab Ascorbic Acid (Vitamin C) 500 mg PO BID [facility] Last Admin: 12/28/18 17:38 Dose: 500 mg Clopidogrel Bisulfate (Plavix) 75 mg PO DAILY [facility] Last Admin: 12/28/18 08:52 Dose: 75 mg Diphenhydramine HCl (Benadryl) 25 mg PO BEDTIME [facility] Last Admin: 12/28/18 19:48 Dose: 25 mg Docusate Sodium (Colace) 100 mg PO BID PRN PRN Reason: Constipation Ferrous Sulfate (Ferrous Sulfate) 325 mg PO BID [facility] Last Admin: 12/28/18 17:38 Dose: 325 mg Fluconazole (Diflucan) 50 mg PO DAILY [facility] Last Admin: 12/28/18 08:51 Dose: 50 mg Heparin Sodium (Porcine) (Heparin Lock Flush 100 Units/Ml) 300 units FLUSH ASDIRECTED PRN PRN Reason: IV Use Last Admin: 12/21/18 13:07 Dose: 300 units Heparin Sodium (Porcine) (Heparin Lock Flush 100 Units/Ml) 300 units FLUSH 0430 ,0830,1230,2030 [facility] Last Admin: 12/28/18 21:50 Dose: 300 units Heparin Sodium (Porcine) (Heparin Lock Flush 100 Units/Ml) 300 units FLUSH Q12H [facility] Last Admin: 12/28/18 21:50 Dose: 300 units Clindamycin Phosphate 900 mg/ (Sodium Chloride) 106 mls @ 200 mls/hr IV Q8H [facility] Stop: 01/04/19 20:32 Vancomycin HCl 1 gm/ Dextrose/ (Water) 250 mls @ 165 mls/hr IV Q12H [facility] Stop: 01/04/19 20:31 Insulin Glargine (Lantus) 18 unit SUBCUT DAILY [facility] Last Admin: 12/28/18 08:54 Dose: 18 unit Lisinopril (Prinivil) 10 mg PO DAILY [facility] Last Admin: 12/28/18 08:50 Dose: 10 mg Magnesium Hydroxide (Milk Of Magnesia) 30 ml PO DAILY PRN PRN Reason: Constipation Meclizine HCl (Antivert) 25 mg PO Q6H PRN PRN Reason: Dizziness Last Admin: 12/19/18 08:05 Dose: 25 mg Metoprolol Tartrate (Lopressor) 25 mg PO Q12HR [facility] Last Admin: 12/28/18 19:49 Dose: 25 mg Montelukast Sodium (Singulair) 10 mg PO BEDTIME [facility] Last Admin: 12/28/18 19:49 Dose: 10 mg Multivitamins/Minerals/Vitamin C (Tab-A-Noam) 0.5 tab PO BID [facility] Last Admin: 12/28/18 17:39 Dose: 0.5 tab Milnacipran [Savella ] 50mg Tab Own Med 1 each PO BID@0800,2000 [facility] Last Admin: 12/28/18 19:47 Dose: 1 each Ondansetron HCl (Zofran Odt) 4 mg PO Q6H PRN PRN Reason: Nausea/Vomiting Last Admin: 12/24/18 12:31 Dose: 4 mg Polyethylene Glycol (Miralax) 17 gm PO BEDTIME PRN PRN Reason: Constipation Potassium Chloride (Klor-Con 10) 10 meq PO DAILY [facility] Last Admin: 12/28/18 08:51 Dose: 10 meq Sodium Chloride (Saline Flush) 10 ml FLUSH ASDIRECTED [facility] Last Admin: 12/28/18 21:52 Dose: 10 ml Trospium (Sanctura) 20 mg PO BIDAC [facility] Last Admin: 12/28/18 17:45 Dose: 20 mg Vancomycin HCl (Pharmacy To Dose - Vancomycin) 1 dose .XX ASDIRECTED [facility] Discontinued Medications Alteplase, Recombinant (Cathflo Activase) 2 mg IVPUSH ONETIME ONE Stop: 12/21/18 20:07 Last Admin: 12/21/18 22:01 Dose: 2 mg Clindamycin Phosphate 900 mg/ (Sodium Chloride) 106 mls @ 200 mls/hr IV Q8H [facility] Stop: 12/28/18 20:30 Last Admin: 12/23/18 12:23 Dose: 200 mls/hr Vancomycin HCl 1.25 gm/ Sodium (Chloride) 250 mls @ 135 mls/hr IV Q12H [facility] Last Admin: 12/14/18 09:27 Dose: Not Given Vancomycin HCl 1 gm/ Sodium (Chloride) 250 mls @ 165 mls/hr IV Q12H [facility] Last Admin: 12/15/18 08:32 Dose: 165 mls/hr Vancomycin HCl 1 gm/ Sodium (Chloride) 250 mls @ 165 mls/hr IV Q12H [facility] Stop: 12/28/18 21:30 Last Admin: 12/28/18 19:38 Dose: 165 mls/hr Clindamycin Phosphate 900 mg/ (Sodium Chloride) 106 mls @ 200 mls/hr IV Q8H [facility] Stop: 12/28/18 20:30 Last Admin: 12/28/18 21:15 Dose: 200 mls/hr Insulin Glargine (Lantus) 35 unit SUBCUT DAILY [facility] Last Admin: 12/12/18 09:14 Dose: 35 units Insulin Glargine (Lantus) 30 unit SUBCUT DAILY [facility] Last Admin: 12/15/18 08:13 Dose: 30 units Insulin Glargine (Lantus) 25 unit SUBCUT DAILY [facility] Last Admin: 12/16/18 07:59 Dose: 25 unit Insulin Glargine (Lantus) 20 unit SUBCUT DAILY [facility] Last Admin: 12/17/18 08:00 Dose: 20 unit Insulin Glargine (Lantus) 16 unit SUBCUT DAILY [facility] Last Admin: 12/23/18 08:21 Dose: 16 units Lisinopril (Prinivil) 10 mg PO DAILY [facility] Last Admin: 12/22/18 08:47 Dose: 10 mg Metoprolol Tartrate (Lopressor) 25 mg PO Q12H [facility] Last Admin: 12/12/18 09:12 Dose: 25 mg Multivitamins/Minerals/Vitamin C (Tab-A-Noam) 1 tab PO DAILY [facility] Last Admin: 12/18/18 07:51 Dose: 1 tab Mupirocin (Bactroban Oint) 0 gm TOP TID [facility] Last Admin: 12/14/18 21:38 Dose: Not Given Mupirocin (Bactroban Oint) 0 gm TOP DAILY [facility] Last Admin: 12/17/18 08:00 Dose: 1 applic Potassium Chloride (Klor-Con 10) 10 meq PO TID [facility] Last Admin: 12/12/18 14:05 Dose: Not Given Potassium Chloride (Klor-Con 10) 10 meq PO BID [facility]O - Exam Quality Assessment: Central Line/PICC, DVT Prophylaxis (on Plavix) General: Alert, Cooperative HEENT: Mucous Membr. Moist/[place] Neck: Trachea Midline, No JVD Lungs: Clear to Auscultation, Normal Respiratory Effort Cardiovascular: Regular Rate, Regular Rhythm GI/Abdominal Exam: Soft, Non-Tender, No Distention (Female) Exam: Deferred Back Exam: Normal Inspection Extremities: Pedal Edema (right and swelling, redness, and warmth from knee to ankle) Skin: Other (RLE skin peeling, scabbing) Wound/Incisions: No Drainage, Erythema Improving (but persists RLE) Neurological: No New Focal Deficit Psy/Mental Status: Alert, Normal Affect, Normal Mood - Problem List & Annotations (1) Staphylococcus epidermidis bacteremia SNOMED Code(s): 834677860903, 094993516375 Code(s): R78.81 - BACTEREMIA Status: Acute Priority: High Current Visit : Yes (2) Staph aureus infection SNOMED Code(s): 296732180 Code(s): A49.01 - METHICILLIN SUSCEP STAPH INFECTION, UNSP SITE Status: Acute Priority: High Current Visit: Yes (3) Cellulitis of right leg SNOMED Code(s): 467802480 Code(s): L03.115 - CELLULITIS OF RIGHT LOWER LIMB Status: Acute Priority : High Current Visit: Yes Annotation/Comment:: continue on IV therapy, PICC line in place (4) Chills (without fever) SNOMED Code(s): 79181397 Code(s): R68.83 - CHILLS (WITHOUT FEVER) Status: Acute Priority: High Current Visit: No (5) Diabetes mellitus SNOMED Code(s): 25299974 Code(s): E11.9 - TYPE 2 DIABETES MELLITUS WITHOUT COMPLICATIONS Status: Acute Current Visit: No Qualifiers: Diabetes mellitus type: type 2 Diabetes mellitus 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 insulin use: with long-term use (6) Essential (primary) hypertension SNOMED Code(s): 26794693 Code(s): I10 - ESSENTIAL (PRIMARY) HYPERTENSION Status: Acute Priority: Low Current Visit: No (7) Vertigo SNOMED Code(s): 637425464 Code(s): R42 - DIZZINESS AND GIDDINESS Status: Acute Current Visit: No - Problem List Review Problem List Initiated/Reviewed/Updated: Yes - My Orders Last 24 Hours: My Active Orders 12/29/18 04:00 Clindamycin Phosphate [Cleocin] 900 mg Sodium Chloride 0.9% [Normal Saline] 100 ml IV Q8H 12/29/18 07:00 Vancomycin 1 gm Dextrose 5% in Water 250 ml IV Q12H 12/29/18 08:30 Echo Comp wo Cont [US] Routine - Plan Plan:: 12/12/2018 Patient needing IV antibiotics in swingbed, monitoring daily of the leg and lab results. Will need more days of treatment as patient leg is improving but slowly. Will recheck labs in the morning. Consulted with Dr Javier. Ariela Cameron, DONNIE 12/14/18 Concepcion Osorio MD Leg continues slow improvement. Continue IV antibiotics. 12/15/2018 Patient states pain controlled with oral Lortab. Leg continues to improve with redness and warmth. Patient continues to need swingbed treatment with IV antibiotics, leg improving but slowly. Ariela Cameron,DONNIE 12/18/18 Concepcion Osorio MD The leg is clinically worse today. Increased swelling and increased redness right anterior compartment. Will re-CT leg tomorrow and continue IV antibiotics. Also discussed anemia. Will start oral iron and vitamin C. 12/23/2018 Patient continues with pain to the right LE mainly in the foot. CT scan done recently , continue to show significant edema and cellulitis. Patient needing to continue on IV antibiotics due to the significant cellulitis, delayed healing , and little improvement noted on CT scan. Will recheck labs in the am, Increase Lantus now that blood sugars are increasing. Try Tubigrip to LEs to help with circulation and healing. Discussed with Dr Javier. Ariela Cameron,DONNIE 12/28/18 Concepcion Osorio MD The RLE is improved but is still swollen, red, warm to touch anterior compartment and into ankle and foot. Due to +staph bacteremia, +staph culture from the crack over right great toe, and clinically the leg still has evidence of active infection need to continue IV antibiotics and swingbed. The IVs required to treat staph are several times a day. It is two different types of staph. She has complicated factors of diabetes mellitus, obesity, s/p chemotherapy, s/p radiation, immunocompromised status thus needs prolonged IV antibiotics. Recommendation is for 1-3 weeks more IV antibiotics. I also explained medically necessity for echocardiogram due to staph bacteremia. She agrees to the echocardiogram continued IV antibiotics and continued swingbed status.
[2018-12-29] MEDS: Acetaminophen/HYDROcodone 325-5 MG Tab PO PRN ×3 (04:32→17:41)
[2018-12-29] MEDS: Clindamycin Phosphate 900 MG in Sodium Chloride 0.9% 100 ML IV SCH ×3 (04:33→21:24)
[2018-12-29] MEDS: Sodium Chloride 0.9% 10 ML Syringe FLUSH SCH ×10 (04:34→21:34)
[2018-12-29] MEDS: Multivitamin Tab PO SCH ×2 (07:54→17:40)
[2018-12-29] MEDS: Fluconazole 100 MG Tab PO SCH (07:54)
[2018-12-29] MEDS: Trospium 20 MG Tab PO SCH ×2 (08:01→17:42)
[2018-12-29] MEDS: Metoprolol Tartrate 25 MG Tab PO SCH ×2 (08:02→21:22)
[2018-12-29] MEDS: Lisinopril 10 MG Tab PO SCH (08:03)
[2018-12-29] MEDS: Clopidogrel 75 MG Tab PO SCH (08:03)
[2018-12-29] MEDS: Potassium Chloride 10 MEQ Tab.ER PO SCH (08:03)
[2018-12-29] MEDS: Ascorbic Acid 500 MG Tab PO SCH ×2 (08:03→17:41)
[2018-12-29] MEDS: Ferrous Sulfate 325 MG Tab PO SCH ×2 (08:03→17:41)
[2018-12-29] MEDS: MILNACIPRAN 50 MG PO SCH ×2 (08:17→21:19)
[2018-12-29] MEDS: Insulin Glarg,Human.Rec.Analog 100 UNIT/ML ML SUBCUT SCH (08:27)
[2018-12-29] MEDS: Acetaminophen 325 MG Tab PO SCH (21:20)
[2018-12-29] MEDS: diphenhydrAMINE 25 MG Cap PO SCH (21:21)
[2018-12-29] MEDS: Montelukast 10 MG Tab PO SCH (21:21)
[2018-12-29] MEDS: Acetaminophen/HYDROcodone 325-7.5 MG Tab PO SCH (21:23)
[2018-12-30] MEDS: Acetaminophen/HYDROcodone 325-5 MG Tab PO PRN ×2 (03:33→12:44)
[2018-12-30] MEDS: Clindamycin Phosphate 900 MG in Sodium Chloride 0.9% 100 ML IV SCH ×3 (03:33→21:13)
[2018-12-30] MEDS: Sodium Chloride 0.9% 10 ML Syringe FLUSH SCH ×9 (03:39→21:15)
[2018-12-30] MEDS: Fluconazole 100 MG Tab PO SCH (08:19)
[2018-12-30] MEDS: Metoprolol Tartrate 25 MG Tab PO SCH ×2 (08:21→19:35)
[2018-12-30] MEDS: Ferrous Sulfate 325 MG Tab PO SCH ×2 (08:21→17:28)
[2018-12-30] MEDS: Ascorbic Acid 500 MG Tab PO SCH ×2 (08:21→17:28)
[2018-12-30] MEDS: Lisinopril 10 MG Tab PO SCH (08:22)
[2018-12-30] MEDS: Trospium 20 MG Tab PO SCH ×2 (08:23→17:27)
[2018-12-30] MEDS: Potassium Chloride 10 MEQ Tab.ER PO SCH (08:23)
[2018-12-30] MEDS: Clopidogrel 75 MG Tab PO SCH (08:23)
[2018-12-30] MEDS: Multivitamin Tab PO SCH ×2 (08:24→17:27)
[2018-12-30] MEDS: MILNACIPRAN 50 MG PO SCH ×2 (08:25→19:32)
[2018-12-30] MEDS: Insulin Glarg,Human.Rec.Analog 100 UNIT/ML ML SUBCUT SCH (08:28)
[2018-12-30] MEDS: Ondansetron 4 MG Tab.DIS PO PRN (09:12)
[2018-12-30] MEDS: Montelukast 10 MG Tab PO SCH (19:33)
[2018-12-30] MEDS: diphenhydrAMINE 25 MG Cap PO SCH (19:33)
[2018-12-30] MEDS: Acetaminophen 325 MG Tab PO SCH (19:36)
[2018-12-30] MEDS: Acetaminophen/HYDROcodone 325-7.5 MG Tab PO SCH (21:55)
[2018-12-31] MEDS: Clindamycin Phosphate 900 MG in Sodium Chloride 0.9% 100 ML IV SCH ×3 (03:40→21:30)
[2018-12-31] MEDS: Acetaminophen/HYDROcodone 325-5 MG Tab PO PRN ×2 (03:40→12:40)
[2018-12-31] MEDS: Sodium Chloride 0.9% 10 ML Syringe FLUSH SCH ×9 (03:41→21:29)
[2018-12-31] MEDS: Ascorbic Acid 500 MG Tab PO SCH ×2 (07:44→17:27)
[2018-12-31] MEDS: Ferrous Sulfate 325 MG Tab PO SCH ×2 (07:44→17:27)
[2018-12-31] MEDS: Trospium 20 MG Tab PO SCH ×2 (07:45→17:27)
[2018-12-31] MEDS: Metoprolol Tartrate 25 MG Tab PO SCH ×2 (07:45→19:47)
[2018-12-31] MEDS: Potassium Chloride 10 MEQ Tab.ER PO SCH (07:45)
[2018-12-31] MEDS: Lisinopril 10 MG Tab PO SCH (07:45)
[2018-12-31] MEDS: Clopidogrel 75 MG Tab PO SCH (07:45)
[2018-12-31] MEDS: MILNACIPRAN 50 MG PO SCH ×2 (07:46→19:48)
[2018-12-31] MEDS: Insulin Glarg,Human.Rec.Analog 100 UNIT/ML ML SUBCUT SCH (07:46)
[2018-12-31] MEDS: Fluconazole 100 MG Tab PO SCH (07:47)
[2018-12-31] MEDS: Multivitamin Tab PO SCH ×2 (07:47→17:27)
[2018-12-31] MEDS: Ondansetron 4 MG Tab.DIS PO PRN (18:23)
[2018-12-31] MEDS: Montelukast 10 MG Tab PO SCH (19:46)
[2018-12-31] MEDS: diphenhydrAMINE 25 MG Cap PO SCH (19:47)
[2018-12-31] MEDS: Acetaminophen 325 MG Tab PO SCH (19:47)
[2018-12-31] MEDS: Acetaminophen/HYDROcodone 325-7.5 MG Tab PO SCH (21:36)
[2019-01-01] MEDS: Acetaminophen/HYDROcodone 325-5 MG Tab PO PRN ×2 (03:28→12:08)
[2019-01-01] MEDS: Clindamycin Phosphate 900 MG in Sodium Chloride 0.9% 100 ML IV SCH ×3 (03:29→21:06)
[2019-01-01] MEDS: Sodium Chloride 0.9% 10 ML Syringe FLUSH SCH ×10 (03:30→21:15)
[2019-01-01] MEDS: MILNACIPRAN 50 MG PO SCH ×2 (07:50→19:22)
[2019-01-01] MEDS: Multivitamin Tab PO SCH ×2 (07:50→17:22)
[2019-01-01] MEDS: Trospium 20 MG Tab PO SCH ×2 (07:50→17:22)
[2019-01-01] MEDS: Clopidogrel 75 MG Tab PO SCH (07:51)
[2019-01-01] MEDS: Ferrous Sulfate 325 MG Tab PO SCH ×2 (07:51→17:22)
[2019-01-01] MEDS: Ascorbic Acid 500 MG Tab PO SCH ×2 (07:51→17:22)
[2019-01-01] MEDS: Fluconazole 100 MG Tab PO SCH (07:51)
[2019-01-01] MEDS: Potassium Chloride 10 MEQ Tab.ER PO SCH (07:51)
[2019-01-01] MEDS: Insulin Glarg,Human.Rec.Analog 100 UNIT/ML ML SUBCUT SCH (07:51)
[2019-01-01] MEDS: Metoprolol Tartrate 25 MG Tab PO SCH ×2 (07:51→19:24)
[2019-01-01] MEDS: Lisinopril 10 MG Tab PO SCH (07:51)
[2019-01-01 08:11] LABS: CHLORIDE,CL 105 mmol/L (98-107); SODIUM,NA 139 mmol/L (136-145)
--- NOTE | 2019-01-01 16:24 | PCM.PN ---
- General Info Date of Service: 01/01/19 Admission Dx/Problem (Free Text): cellulitis of the right LE Functional Status: Reports: Other (pain RLE is improving) - Review of Systems General: Reports: No Symptoms HEENT: Reports: No Symptoms Pulmonary: Reports: No Symptoms Cardiovascular: Reports: No Symptoms Gastrointestinal: Reports: No Symptoms Genitourinary: Reports: No Symptoms Musculoskeletal: Reports: Leg Pain (swelling RLE), Foot Pain Skin: Reports: Other (RLE scabs healed) Neurological: Reports: No Symptoms Psychiatric: Reports: No Symptoms - Patient Data Vitals - Most Recent: Last Vital Signs Temp 97.1 F 01/01/19 08:00 Pulse 72 01/01/19 08:00 Resp 20 01/01/19 08:00 BP 142/72 H 01/01/19 08:00 Pulse Ox 100 01/01/19 08:00 Weight - Most Recent: 286 lb I&O - Last 24 Hours: Intake & Output 01/01/19 01/01/19 01/01/19 06:59 14:59 22:59 Intake Total 450 440 Balance 450 440 Lab Results Last 24 Hours: Laboratory Results - last 24 hr 12/31/18 12/31/18 01/01/19 Range/Units 16:39 22:13 07:11 WBC (4.0-10.2) K/uL RBC (3.77-5.09) M/uL Hgb (11.7-15.5) g/dL Hct (34.0-46.0) % MCV (84.0-98.0) fL MCH (28.2-33.3) pg MCHC (31.7-36.0) g/dL RDW (11.2-14.1) % Plt Count (150-350) K/uL Neut % (Auto) (45.0-80.0) % Lymph % (Auto) (10.0-50.0) % Esmeralda % (Auto) (2.0-14.0) % Eos % (Auto) (0.0-5.0) % Baso % (Auto) (0.0-2.0) % Neut # (Auto) (1.40-7.00) K/uL Lymph # (Auto) (0.50-3.50) K/uL Esmeralda # (Auto) (0.00-1.00) K/uL Eos # (Auto) (0.00-0.50) K/uL Baso # (Auto) (0.00-0.20) K/uL ESR (0-30) mm/hr Sodium 139 (136-145) mmol/L Potassium 4.1 (3.5-5.1) mmol/L Chloride 105 (98-107) mmol/L Carbon Dioxide 27.6 (21.0-32.0) mmol/L BUN 10 (7-18) mg/dL Creatinine 0.72 (0.51-1.17) mg/dL Est Cr Clr Drug Dosing 80.25 mL/min Estimated GFR (MDRD) > 60 mL/min Glucose 137 H (74-106) mg/dL POC Glucose 162 H 210 H (65-110) mg/dl Calcium 8.9 (8.5-10.1) mg/dL Total Bilirubin 0.2 (0.2-1.0) mg/dL AST 20 (15-37) U/L ALT 25 (12-78) U/L Alkaline Phosphatase 85 (46-116) IU/L C-Reactive Protein 0.9 (<=0.9) mg/dL Total Protein 7.4 (6.4-8.2) g/dL Albumin 2.6 L (3.4-5.0) g/dL Vancomycin Trough 18.5 (10-20) ug/mL 01/01/19 01/01/19 01/01/19 Range/Units 07:11 07:42 11:33 WBC 3.9 L (4.0-10.2) K/uL RBC 3.03 L (3.77-5.09) M/uL Hgb 9.1 L (11.7-15.5) g/dL Hct 29.6 L (34.0-46.0) % MCV 97.7 (84.0-98.0) fL MCH 30.0 (28.2-33.3) pg MCHC 30.7 L (31.7-36.0) g/dL RDW 15.4 H (11.2-14.1) % Plt Count 448 H (150-350) K/uL Neut % (Auto) 55.3 (45.0-80.0) % Lymph % (Auto) 24.1 (10.0-50.0) % Esmeralda % (Auto) 11.3 (2.0-14.0) % Eos % (Auto) 7.2 H (0.0-5.0) % Baso % (Auto) 2.1 H (0.0-2.0) % Neut # (Auto) 2.16 (1.40-7.00) K/uL Lymph # (Auto) 0.94 (0.50-3.50) K/uL Esmeralda # (Auto) 0.44 (0.00-1.00) K/uL Eos # (Auto) 0.28 (0.00-0.50) K/uL Baso # (Auto) 0.08 (0.00-0.20) K/uL ESR 110 H (0-30) mm/hr Sodium (136-145) mmol/L Potassium (3.5-5.1) mmol/L Chloride (98-107) mmol/L Carbon Dioxide (21.0-32.0) mmol/L BUN (7-18) mg/dL Creatinine (0.51-1.17) mg/dL Est Cr Clr Drug Dosing mL/min Estimated GFR (MDRD) mL/min Glucose (74-106) mg/dL POC Glucose 156 H 206 H (65-110) mg/dl Calcium (8.5-10.1) mg/dL Total Bilirubin (0.2-1.0) mg/dL AST (15-37) U/L ALT (12-78) U/L Alkaline Phosphatase (46-116) IU/L C-Reactive Protein (<=0.9) mg/dL Total Protein (6.4-8.2) g/dL Albumin (3.4-5.0) g/dL Vancomycin Trough (10-20) ug/mL Med Orders - Current: Current Medications Acetaminophen (Tylenol Extra Strength) 500 mg PO Q4H PRN PRN Reason: Fever Acetaminophen (Tylenol) 650 mg PO BEDTIME AMANDO Last Admin: 12/31/18 19:47 Dose: 650 mg Hydrocodone Bitart/Acetaminophen ([place] 325-5 Mg) 1 tab PO Q4H PRN PRN Reason: Pain/Fever Last Admin: 01/01/19 12:08 Dose: 1 tab Hydrocodone Bitart/Acetaminophen ([place] 325-7.5 Mg) 1 tab PO DAILY@2200 [facility] Last Admin: 12/31/18 21:36 Dose: 1 tab Ascorbic Acid (Vitamin C) 500 mg PO BID [facility] Last Admin: 01/01/19 07:51 Dose: 500 mg Clopidogrel Bisulfate (Plavix) 75 mg PO DAILY [facility] Last Admin: 01/01/19 07:51 Dose: 75 mg Diphenhydramine HCl (Benadryl) 25 mg PO BEDTIME [facility] Last Admin: 12/31/18 19:47 Dose: 25 mg Docusate Sodium (Colace) 100 mg PO BID PRN PRN Reason: Constipation Ferrous Sulfate (Ferrous Sulfate) 325 mg PO BID [facility] Last Admin: 01/01/19 07:51 Dose: 325 mg Fluconazole (Diflucan) 50 mg PO DAILY [facility] Last Admin: 01/01/19 07:51 Dose: 50 mg Heparin Sodium (Porcine) (Heparin Lock Flush 100 Units/Ml) 300 units FLUSH ASDIRECTED PRN PRN Reason: IV Use Last Admin: 01/01/19 03:30 Dose: 300 units Heparin Sodium (Porcine) (Heparin Lock Flush 100 Units/Ml) 300 units FLUSH 0430 ,0830,1230,2030 [facility] Last Admin: 01/01/19 12:38 Dose: 300 units Heparin Sodium (Porcine) (Heparin Lock Flush 100 Units/Ml) 300 units FLUSH Q12H [facility] Last Admin: 01/01/19 10:16 Dose: 300 units Clindamycin Phosphate 900 mg/ (Sodium Chloride) 106 mls @ 200 mls/hr IV Q8H [facility] Stop: 01/04/19 20:32 Last Admin: 01/01/19 12:00 Dose: 200 mls/hr Vancomycin HCl 1 gm/ Sodium (Chloride) 250 mls @ 165 mls/hr IV Q12H [facility] Stop: 01/04/19 20:31 Last Admin: 01/01/19 08:21 Dose: 165 mls/hr Insulin Glargine (Lantus) 20 unit SUBCUT DAILY [facility] Last Admin: 01/01/19 07:51 Dose: 20 unit Lisinopril (Prinivil) 10 mg PO DAILY [facility] Last Admin: 01/01/19 07:51 Dose: 10 mg Magnesium Hydroxide (Milk Of Magnesia) 30 ml PO DAILY PRN PRN Reason: Constipation Meclizine HCl (Antivert) 25 mg PO Q6H PRN PRN Reason: Dizziness Last Admin: 12/19/18 08:05 Dose: 25 mg Metoprolol Tartrate (Lopressor) 25 mg PO Q12HR [facility] Last Admin: 01/01/19 07:51 Dose: 25 mg Montelukast Sodium (Singulair) 10 mg PO BEDTIME [facility] Last Admin: 12/31/18 19:46 Dose: 10 mg Multivitamins/Minerals/Vitamin C (Tab-A-Noam) 0.5 tab PO BID [facility] Last Admin: 01/01/19 07:50 Dose: 0.5 tab Milnacipran [Savella ] 50mg Tab Own Med 1 each PO BID@0800,2000 [facility] Last Admin: 01/01/19 07:50 Dose: 1 each Ondansetron HCl (Zofran Odt) 4 mg PO Q6H PRN PRN Reason: Nausea/Vomiting Last Admin: 12/31/18 18:23 Dose: 4 mg Polyethylene Glycol (Miralax) 17 gm PO BEDTIME PRN PRN Reason: Constipation Potassium Chloride (Klor-Con 10) 10 meq PO DAILY [facility] Last Admin: 01/01/19 07:51 Dose: 10 meq Sodium Chloride (Saline Flush) 10 ml FLUSH ASDIRECTED [facility] Last Admin: 01/01/19 12:37 Dose: 10 ml Trospium (Sanctura) 20 mg PO BIDAC [facility] Last Admin: 01/01/19 07:50 Dose: 20 mg Vancomycin HCl (Pharmacy To Dose - Vancomycin) 1 dose .XX ASDIRECTED [facility] Discontinued Medications Alteplase, Recombinant (Cathflo Activase) 2 mg IVPUSH ONETIME ONE Stop: 12/21/18 20:07 Last Admin: 12/21/18 22:01 Dose: 2 mg Clindamycin Phosphate 900 mg/ (Sodium Chloride) 106 mls @ 200 mls/hr IV Q8H [facility] Stop: 12/28/18 20:30 Last Admin: 12/23/18 12:23 Dose: 200 mls/hr Vancomycin HCl 1.25 gm/ Sodium (Chloride) 250 mls @ 135 mls/hr IV Q12H [facility] Last Admin: 12/14/18 09:27 Dose: Not Given Vancomycin HCl 1 gm/ Sodium (Chloride) 250 mls @ 165 mls/hr IV Q12H [facility] Last Admin: 12/15/18 08:32 Dose: 165 mls/hr Vancomycin HCl 1 gm/ Sodium (Chloride) 250 mls @ 165 mls/hr IV Q12H [facility] Stop: 12/28/18 21:30 Last Admin: 12/28/18 19:38 Dose: 165 mls/hr Clindamycin Phosphate 900 mg/ (Sodium Chloride) 106 mls @ 200 mls/hr IV Q8H [facility] Stop: 12/28/18 20:30 Last Admin: 12/28/18 21:15 Dose: 200 mls/hr Vancomycin HCl 1 gm/ Dextrose/ (Water) 250 mls @ 165 mls/hr IV Q12H [facility] Stop: 01/04/19 20:31 Last Admin: 12/29/18 08:18 Dose: Not Given Insulin Glargine (Lantus) 35 unit SUBCUT DAILY [facility] Last Admin: 12/12/18 09:14 Dose: 35 units Insulin Glargine (Lantus) 30 unit SUBCUT DAILY [facility] Last Admin: 12/15/18 08:13 Dose: 30 units Insulin Glargine (Lantus) 25 unit SUBCUT DAILY [facility] Last Admin: 12/16/18 07:59 Dose: 25 unit Insulin Glargine (Lantus) 20 unit SUBCUT DAILY [facility] Last Admin: 12/17/18 08:00 Dose: 20 unit Insulin Glargine (Lantus) 16 unit SUBCUT DAILY [facility] Last Admin: 12/23/18 08:21 Dose: 16 units Insulin Glargine (Lantus) 18 unit SUBCUT DAILY [facility] Last Admin: 12/29/18 08:27 Dose: 18 unit Lisinopril (Prinivil) 10 mg PO DAILY [facility] Last Admin: 12/22/18 08:47 Dose: 10 mg Metoprolol Tartrate (Lopressor) 25 mg PO Q12H [facility] Last Admin: 12/12/18 09:12 Dose: 25 mg Multivitamins/Minerals/Vitamin C (Tab-A-Noam) 1 tab PO DAILY [facility] Last Admin: 12/18/18 07:51 Dose: 1 tab Mupirocin (Bactroban Oint) 0 gm TOP TID [facility] Last Admin: 12/14/18 21:38 Dose: Not Given Mupirocin (Bactroban Oint) 0 gm TOP DAILY [facility] Last Admin: 12/17/18 08:00 Dose: 1 applic Potassium Chloride (Klor-Con 10) 10 meq PO TID [facility] Last Admin: 12/12/18 14:05 Dose: Not Given Potassium Chloride (Klor-Con 10) 10 meq PO BID [facility] - Exam Quality Assessment: Central Line/PICC General: Alert, Cooperative, No Acute Distress HEENT: Pupils Equal, Pupils Reactive, Mucous Membr. Moist/[place] Neck: Trachea Midline, No JVD Lungs: Clear to Auscultation, Normal Respiratory Effort Cardiovascular: Regular Rate, Regular Rhythm GI/Abdominal Exam: Normal Bowel Sounds, Soft, Non-Tender (Female) Exam: Deferred Back Exam: Normal Inspection Extremities: Redness (RLE is continuing to recede but still present), Other ( swelling RLE calf/anterior compartment persists) Skin: Warm, Dry, Intact Wound/Incisions: No Drainage, Erythema Improving (RLE) Neurological: No New Focal Deficit Psy/Mental Status: Alert, Normal Affect, Normal Mood - Problem List & Annotations (1) Staphylococcus epidermidis bacteremia SNOMED Code(s): 487196426682, 271459285298 Code(s): R78.81 - BACTEREMIA Status: Acute Priority: High Current Visit : Yes (2) Staph aureus infection SNOMED Code(s): 454546663 Code(s): A49.01 - METHICILLIN SUSCEP STAPH INFECTION, UNSP SITE Status: Acute Priority: High Current Visit: Yes (3) Cellulitis of right leg SNOMED Code(s): 760806490 Code(s): L03.115 - CELLULITIS OF RIGHT LOWER LIMB Status: Acute Priority : High Current Visit: Yes Annotation/Comment:: continue on IV therapy, PICC line in place (4) Chills (without fever) SNOMED Code(s): 39210713 Code(s): R68.83 - CHILLS (WITHOUT FEVER) Status: Acute Priority: High Current Visit: No (5) Diabetes mellitus SNOMED Code(s): 06274631 Code(s): E11.9 - TYPE 2 DIABETES MELLITUS WITHOUT COMPLICATIONS Status: Acute Current Visit: No Qualifiers: Diabetes mellitus type: type 2 Diabetes mellitus long line teamster insulin use: with long line teamster use (6) Essential (primary) hypertension SNOMED Code(s): 69441133 Code(s): I10 - ESSENTIAL (PRIMARY) HYPERTENSION Status: Acute Priority: Low Current Visit: No (7) Vertigo SNOMED Code(s): 109679774 Code(s): R42 - DIZZINESS AND GIDDINESS Status: Acute Current Visit: No - Problem List Review Problem List Initiated/Reviewed/Updated: Yes - My Orders Last 24 Hours: My Active Orders 01/04/19 06:30 VANCOMYCIN TROUGH [CHEM] Routine - Plan Plan:: 12/12/2018 Patient needing IV antibiotics in swingbed, monitoring daily of the leg and lab results. Will need more days of treatment as patient leg is improving but slowly. Will recheck labs in the morning. Consulted with Dr Javier. Ariela Cameron CNP 12/14/18 Concepcion Osorio MD Leg continues slow improvement. Continue IV antibiotics. 12/15/2018 Patient states pain controlled with oral Lortab. Leg continues to improve with redness and warmth. Patient continues to need swingbed treatment with IV antibiotics, leg improving but slowly. Ariela Cameron CNP 12/18/18 Concepcion Osorio MD The leg is clinically worse today. Increased swelling and increased redness right anterior compartment. Will re-CT leg tomorrow and continue IV antibiotics. Also discussed anemia. Will start oral iron and vitamin C. 12/23/2018 Patient continues with pain to the right LE mainly in the foot. CT scan done recently , continue to show significant edema and cellulitis. Patient needing to continue on IV antibiotics due to the significant cellulitis, delayed healing , and little improvement noted on CT scan. Will recheck labs in the am, Increase Lantus now that blood sugars are increasing. Try Tubigrip to LEs to help with circulation and healing. Discussed with Dr Javier. Ariela Cameron CNP 12/28/18 Concepcion Osorio MD The RLE is improved but is still swollen, red, warm to touch anterior compartment and into ankle and foot. Due to +staph bacteremia, +staph culture from the crack over right great toe, and clinically the leg still has evidence of active infection need to continue IV antibiotics and swingbed. The IVs required to treat staph are several times a day. It is two different types of staph. She has complicated factors of diabetes mellitus, obesity, s/p chemotherapy, s/p radiation, immunocompromised status thus needs prolonged IV antibiotics. Recommendation is for 1-3 weeks more IV antibiotics. I also explained medically necessity for echocardiogram due to staph bacteremia. She agrees to the echocardiogram continued IV antibiotics and continued swingbed status. 01/01/19 Concepcion Osorio MD Slow improvement of RLE continues. Still redness and swelling RLE. Labs also slowly improving. Continue IV antibiotics.
[2019-01-01] MEDS: diphenhydrAMINE 25 MG Cap PO SCH (19:23)
[2019-01-01] MEDS: Montelukast 10 MG Tab PO SCH (19:24)
[2019-01-01] MEDS: Acetaminophen 325 MG Tab PO SCH (19:32)
[2019-01-01] MEDS: Acetaminophen/HYDROcodone 325-7.5 MG Tab PO SCH (21:11)
[2019-01-02] MEDS: Clindamycin Phosphate 900 MG in Sodium Chloride 0.9% 100 ML IV SCH ×3 (03:16→21:47)
[2019-01-02] MEDS: Sodium Chloride 0.9% 10 ML Syringe FLUSH SCH ×6 (03:17→21:48)
[2019-01-02] MEDS: Acetaminophen/HYDROcodone 325-5 MG Tab PO PRN ×2 (03:18→16:46)
[2019-01-02] MEDS: Insulin Glarg,Human.Rec.Analog 100 UNIT/ML ML SUBCUT SCH (08:00)
[2019-01-02] MEDS: Ascorbic Acid 500 MG Tab PO SCH ×2 (08:01→17:19)
[2019-01-02] MEDS: Multivitamin Tab PO SCH ×2 (08:01→17:19)
[2019-01-02] MEDS: MILNACIPRAN 50 MG PO SCH ×2 (08:01→21:51)
[2019-01-02] MEDS: Lisinopril 10 MG Tab PO SCH (08:01)
[2019-01-02] MEDS: Trospium 20 MG Tab PO SCH ×2 (08:02→17:19)
[2019-01-02] MEDS: Potassium Chloride 10 MEQ Tab.ER PO SCH (08:02)
[2019-01-02] MEDS: Metoprolol Tartrate 25 MG Tab PO SCH ×2 (08:02→21:45)
[2019-01-02] MEDS: Clopidogrel 75 MG Tab PO SCH (08:02)
[2019-01-02] MEDS: Ferrous Sulfate 325 MG Tab PO SCH ×2 (08:02→17:19)
[2019-01-02] MEDS: Fluconazole 100 MG Tab PO SCH (08:02)
[2019-01-02] MEDS: Montelukast 10 MG Tab PO SCH (21:44)
[2019-01-02] MEDS: Acetaminophen 325 MG Tab PO SCH (21:45)
[2019-01-02] MEDS: diphenhydrAMINE 25 MG Cap PO SCH (21:46)
[2019-01-02] MEDS ORDERED: Alteplase 2 MG Vial IVPUSH STA (22:16)
[2019-01-02] MEDS: Acetaminophen/HYDROcodone 325-7.5 MG Tab PO SCH (22:37)
[2019-01-03] MEDS: Acetaminophen/HYDROcodone 325-5 MG Tab PO PRN ×2 (03:26→16:40)
[2019-01-03] MEDS: Clindamycin Phosphate 900 MG in Sodium Chloride 0.9% 100 ML IV SCH ×3 (03:26→19:46)
[2019-01-03] MEDS: Sodium Chloride 0.9% 10 ML Syringe FLUSH SCH ×7 (03:27→19:47)
[2019-01-03] MEDS: Trospium 20 MG Tab PO SCH ×2 (07:59→16:39)
[2019-01-03] MEDS: Clopidogrel 75 MG Tab PO SCH (07:59)
[2019-01-03] MEDS: Ascorbic Acid 500 MG Tab PO SCH ×2 (07:59→17:13)
[2019-01-03] MEDS: Multivitamin Tab PO SCH ×2 (07:59→17:12)
[2019-01-03] MEDS: Potassium Chloride 10 MEQ Tab.ER PO SCH (07:59)
[2019-01-03] MEDS: Fluconazole 100 MG Tab PO SCH (08:00)
[2019-01-03] MEDS: Lisinopril 10 MG Tab PO SCH (08:01)
[2019-01-03] MEDS: Ferrous Sulfate 325 MG Tab PO SCH ×2 (08:01→17:12)
[2019-01-03] MEDS: Metoprolol Tartrate 25 MG Tab PO SCH ×2 (08:05→21:52)
[2019-01-03] MEDS: MILNACIPRAN 50 MG PO SCH ×2 (08:06→21:53)
[2019-01-03] MEDS: Insulin Glarg,Human.Rec.Analog 100 UNIT/ML ML SUBCUT SCH (08:06)
[2019-01-03] MEDS: Acetaminophen/HYDROcodone 325-7.5 MG Tab PO SCH (21:50)
[2019-01-03] MEDS: Acetaminophen 325 MG Tab PO SCH (21:51)
[2019-01-03] MEDS: Montelukast 10 MG Tab PO SCH (21:53)
[2019-01-03] MEDS: diphenhydrAMINE 25 MG Cap PO SCH (21:53)
[2019-01-04] MEDS: Acetaminophen/HYDROcodone 325-5 MG Tab PO PRN ×2 (03:51→16:00)
[2019-01-04] MEDS: Clindamycin Phosphate 900 MG in Sodium Chloride 0.9% 100 ML IV SCH ×3 (03:51→19:35)
[2019-01-04] MEDS: Sodium Chloride 0.9% 10 ML Syringe FLUSH SCH ×9 (03:51→19:44)
[2019-01-04 07:12] LABS: CHLORIDE,CL 106 mmol/L (98-107); SODIUM,NA 141 mmol/L (136-145)
[2019-01-04] MEDS: MILNACIPRAN 50 MG PO SCH ×2 (08:14→21:40)
[2019-01-04] MEDS: Multivitamin Tab PO SCH ×2 (08:17→17:21)
[2019-01-04] MEDS: Trospium 20 MG Tab PO SCH ×2 (08:17→17:21)
[2019-01-04] MEDS: Lisinopril 10 MG Tab PO SCH (08:17)
[2019-01-04] MEDS: Ascorbic Acid 500 MG Tab PO SCH ×2 (08:18→17:25)
[2019-01-04] MEDS: Potassium Chloride 10 MEQ Tab.ER PO SCH (08:18)
[2019-01-04] MEDS: Metoprolol Tartrate 25 MG Tab PO SCH ×2 (08:18→21:42)
[2019-01-04] MEDS: Fluconazole 100 MG Tab PO SCH (08:18)
[2019-01-04] MEDS: Clopidogrel 75 MG Tab PO SCH (08:19)
[2019-01-04] MEDS: Insulin Glarg,Human.Rec.Analog 100 UNIT/ML ML SUBCUT SCH (08:19)
[2019-01-04] MEDS: Ferrous Sulfate 325 MG Tab PO SCH ×2 (08:19→17:25)
[2019-01-04] MEDS: Ondansetron 4 MG Tab.DIS PO PRN (12:48)
--- NOTE | 2019-01-04 19:31 | PCM.PN ---
- General Info Date of Service: 01/04/19 Admission Dx/Problem (Free Text): cellulitis of the right LE Functional Status: Reports: Other (pain improving) - Review of Systems General: Reports: No Symptoms HEENT: Reports: No Symptoms Pulmonary: Reports: No Symptoms Cardiovascular: Reports: No Symptoms Gastrointestinal: Reports: No Symptoms Genitourinary: Reports: No Symptoms Musculoskeletal: Reports: Leg Pain (RLE), Foot Pain (RLE) Skin: Reports: No Symptoms Neurological: Reports: No Symptoms Psychiatric: Reports: No Symptoms - Patient Data Vitals - Most Recent: Last Vital Signs Temp 97.9 F 01/04/19 07:53 Pulse 83 01/04/19 08:18 Resp 15 01/04/19 07:53 BP 151/66 H 01/04/19 08:18 Pulse Ox 99 01/04/19 07:53 Weight - Most Recent: 283 lb 11.2 oz I&O - Last 24 Hours: Intake & Output 01/04/19 01/04/19 01/04/19 06:59 14:59 22:59 Intake Total 450 730 100 Balance 450 730 100 Lab Results Last 24 Hours: Laboratory Results - last 24 hr 01/03/19 01/04/19 01/04/19 Range/Units 19:59 06:40 06:40 WBC 3.9 L (4.0-10.2) K/uL RBC 2.80 L (3.77-5.09) M/uL Hgb 8.5 L (11.7-15.5) g/dL Hct 27.3 L (34.0-46.0) % MCV 97.5 (84.0-98.0) fL MCH 30.4 (28.2-33.3) pg MCHC 31.1 L (31.7-36.0) g/dL RDW 15.2 H (11.2-14.1) % Plt Count 354 H D (150-350) K/uL Neut % (Auto) 54.6 (45.0-80.0) % Lymph % (Auto) 25.1 (10.0-50.0) % [place] % (Auto) 13.2 (2.0-14.0) % Eos % (Auto) 5.8 H (0.0-5.0) % Baso % (Auto) 1.3 (0.0-2.0) % Neut # (Auto) 2.15 (1.40-7.00) K/uL Lymph # (Auto) 0.99 (0.50-3.50) K/uL [place] # (Auto) 0.52 (0.00-1.00) K/uL Eos # (Auto) 0.23 (0.00-0.50) K/uL Baso # (Auto) 0.05 (0.00-0.20) K/uL ESR 99 H (0-30) mm/hr Sodium 141 (136-145) mmol/L Potassium 3.8 (3.5-5.1) mmol/L Chloride 106 (98-107) mmol/L Carbon Dioxide 27.7 (21.0-32.0) mmol/L BUN 10 (7-18) mg/dL Creatinine 0.68 (0.51-1.17) mg/dL Est Cr Clr Drug Dosing 84.97 mL/min Estimated GFR (MDRD) > 60 mL/min Glucose 140 H (74-106) mg/dL POC Glucose 221 H (65-110) mg/dl Calcium 8.3 L (8.5-10.1) mg/dL Total Bilirubin 0.2 (0.2-1.0) mg/dL AST 25 (15-37) U/L ALT 25 (12-78) U/L Alkaline Phosphatase 81 (46-116) IU/L C-Reactive Protein 0.6 (<=0.9) mg/dL Total Protein 6.7 (6.4-8.2) g/dL Albumin 2.5 L (3.4-5.0) g/dL Vancomycin Trough 18.3 (10-20) ug/mL 01/04/19 01/04/19 01/04/19 Range/Units 06:50 11:09 16:53 WBC (4.0-10.2) K/uL RBC (3.77-5.09) M/uL Hgb (11.7-15.5) g/dL Hct (34.0-46.0) % MCV (84.0-98.0) fL MCH (28.2-33.3) pg MCHC (31.7-36.0) g/dL RDW (11.2-14.1) % Plt Count (150-350) K/uL Neut % (Auto) (45.0-80.0) % Lymph % (Auto) (10.0-50.0) % [place] % (Auto) (2.0-14.0) % Eos % (Auto) (0.0-5.0) % Baso % (Auto) (0.0-2.0) % Neut # (Auto) (1.40-7.00) K/uL Lymph # (Auto) (0.50-3.50) K/uL [place] # (Auto) (0.00-1.00) K/uL Eos # (Auto) (0.00-0.50) K/uL Baso # (Auto) (0.00-0.20) K/uL ESR (0-30) mm/hr Sodium (136-145) mmol/L Potassium (3.5-5.1) mmol/L Chloride (98-107) mmol/L Carbon Dioxide (21.0-32.0) mmol/L BUN (7-18) mg/dL Creatinine (0.51-1.17) mg/dL Est Cr Clr Drug Dosing mL/min Estimated GFR (MDRD) mL/min Glucose (74-106) mg/dL POC Glucose 167 H 146 H 150 H (65-110) mg/dl Calcium (8.5-10.1) mg/dL Total Bilirubin (0.2-1.0) mg/dL AST (15-37) U/L ALT (12-78) U/L Alkaline Phosphatase (46-116) IU/L C-Reactive Protein (<=0.9) mg/dL Total Protein (6.4-8.2) g/dL Albumin (3.4-5.0) g/dL Vancomycin Trough (10-20) ug/mL Med Orders - Current: Current Medications Acetaminophen (Tylenol Extra Strength) 500 mg PO Q4H PRN PRN Reason: Fever Acetaminophen (Tylenol) 650 mg PO BEDTIME MAANDO Last Admin: 01/03/19 21:51 Dose: 650 mg Hydrocodone Bitart/Acetaminophen ([place] 325-5 Mg) 1 tab PO Q4H PRN PRN Reason: Pain/Fever Last Admin: 01/04/19 16:00 Dose: 1 tab Hydrocodone Bitart/Acetaminophen ([place] 325-7.5 Mg) 1 tab PO DAILY@2200 [facility] Last Admin: 01/03/19 21:50 Dose: 1 tab Ascorbic Acid (Vitamin C) 500 mg PO BID [facility] Last Admin: 01/04/19 17:25 Dose: 500 mg Clopidogrel Bisulfate (Plavix) 75 mg PO DAILY [facility] Last Admin: 01/04/19 08:19 Dose: 75 mg Diphenhydramine HCl (Benadryl) 25 mg PO BEDTIME [facility] Last Admin: 01/03/19 21:53 Dose: 25 mg Docusate Sodium (Colace) 100 mg PO BID PRN PRN Reason: Constipation Ferrous Sulfate (Ferrous Sulfate) 325 mg PO BID [facility] Last Admin: 01/04/19 17:25 Dose: 325 mg Fluconazole (Diflucan) 50 mg PO DAILY [facility] Last Admin: 01/04/19 08:18 Dose: 50 mg Heparin Sodium (Porcine) (Heparin Lock Flush 100 Units/Ml) 300 units FLUSH ASDIRECTED PRN PRN Reason: IV Use Last Admin: 01/01/19 03:30 Dose: 300 units Heparin Sodium (Porcine) (Heparin Lock Flush 100 Units/Ml) 300 units FLUSH 0430 ,0830,1230,2030 [facility] Last Admin: 01/04/19 13:18 Dose: 300 units Heparin Sodium (Porcine) (Heparin Lock Flush 100 Units/Ml) 300 units FLUSH Q12H [facility] Last Admin: 01/04/19 08:08 Dose: 300 units Clindamycin Phosphate 900 mg/ (Sodium Chloride) 106 mls @ 200 mls/hr IV Q8H [facility] Stop: 01/04/19 20:32 Last Admin: 01/04/19 12:41 Dose: 200 mls/hr Vancomycin HCl 1 gm/ Sodium (Chloride) 250 mls @ 165 mls/hr IV Q12H [facility] Stop: 01/04/19 20:31 Last Admin: 01/04/19 08:09 Dose: 165 mls/hr Insulin Glargine (Lantus) 20 unit SUBCUT DAILY [facility] Last Admin: 01/04/19 08:19 Dose: 20 unit Lisinopril (Prinivil) 10 mg PO DAILY [facility] Last Admin: 01/04/19 08:17 Dose: 10 mg Magnesium Hydroxide (Milk Of Magnesia) 30 ml PO DAILY PRN PRN Reason: Constipation Meclizine HCl (Antivert) 25 mg PO Q6H PRN PRN Reason: Dizziness Last Admin: 12/19/18 08:05 Dose: 25 mg Metoprolol Tartrate (Lopressor) 25 mg PO Q12HR [facility] Last Admin: 01/04/19 08:18 Dose: 25 mg Montelukast Sodium (Singulair) 10 mg PO BEDTIME [facility] Last Admin: 01/03/19 21:53 Dose: 10 mg Multivitamins/Minerals/Vitamin C (Tab-A-Noam) 0.5 tab PO BID [facility] Last Admin: 01/04/19 17:21 Dose: 0.5 tab Milnacipran [Savella ] 50mg Tab Own Med 1 each PO BID@0800,2000 [facility] Last Admin: 01/04/19 08:14 Dose: 1 each Ondansetron HCl (Zofran Odt) 4 mg PO Q6H PRN PRN Reason: Nausea/Vomiting Last Admin: 01/04/19 12:48 Dose: 4 mg Polyethylene Glycol (Miralax) 17 gm PO BEDTIME PRN PRN Reason: Constipation Potassium Chloride (Klor-Con 10) 10 meq PO DAILY [facility] Last Admin: 01/04/19 08:18 Dose: 10 meq Sodium Chloride (Saline Flush) 10 ml FLUSH ASDIRECTED [facility] Last Admin: 01/04/19 13:17 Dose: 10 ml Trospium (Sanctura) 20 mg PO BIDAC [facility] Last Admin: 01/04/19 17:21 Dose: 20 mg Vancomycin HCl (Pharmacy To Dose - Vancomycin) 1 dose .XX ASDIRECTED [facility] Discontinued Medications Alteplase, Recombinant (Cathflo Activase) 2 mg IVPUSH ONETIME ONE Stop: 12/21/18 20:07 Last Admin: 12/21/18 22:01 Dose: 2 mg Alteplase, Recombinant (Cathflo Activase) 2 mg IVPUSH ONETIME STA Stop: 01/02/19 22:17 Last Admin: 01/02/19 22:37 Dose: 2 mg Clindamycin Phosphate 900 mg/ (Sodium Chloride) 106 mls @ 200 mls/hr IV Q8H [facility] Stop: 12/28/18 20:30 Last Admin: 12/23/18 12:23 Dose: 200 mls/hr Vancomycin HCl 1.25 gm/ Sodium (Chloride) 250 mls @ 135 mls/hr IV Q12H [facility] Last Admin: 12/14/18 09:27 Dose: Not Given Vancomycin HCl 1 gm/ Sodium (Chloride) 250 mls @ 165 mls/hr IV Q12H [facility] Last Admin: 12/15/18 08:32 Dose: 165 mls/hr Vancomycin HCl 1 gm/ Sodium (Chloride) 250 mls @ 165 mls/hr IV Q12H [facility] Stop: 12/28/18 21:30 Last Admin: 12/28/18 19:38 Dose: 165 mls/hr Clindamycin Phosphate 900 mg/ (Sodium Chloride) 106 mls @ 200 mls/hr IV Q8H [facility] Stop: 12/28/18 20:30 Last Admin: 12/28/18 21:15 Dose: 200 mls/hr Vancomycin HCl 1 gm/ Dextrose/ (Water) 250 mls @ 165 mls/hr IV Q12H [facility] Stop: 01/04/19 20:31 Last Admin: 12/29/18 08:18 Dose: Not Given Insulin Glargine (Lantus) 35 unit SUBCUT DAILY [facility] Last Admin: 12/12/18 09:14 Dose: 35 units Insulin Glargine (Lantus) 30 unit SUBCUT DAILY [facility] Last Admin: 12/15/18 08:13 Dose: 30 units Insulin Glargine (Lantus) 25 unit SUBCUT DAILY [facility] Last Admin: 12/16/18 07:59 Dose: 25 unit Insulin Glargine (Lantus) 20 unit SUBCUT DAILY [facility] Last Admin: 12/17/18 08:00 Dose: 20 unit Insulin Glargine (Lantus) 16 unit SUBCUT DAILY [facility] Last Admin: 12/23/18 08:21 Dose: 16 units Insulin Glargine (Lantus) 18 unit SUBCUT DAILY [facility] Last Admin: 12/29/18 08:27 Dose: 18 unit Lisinopril (Prinivil) 10 mg PO DAILY [facility] Last Admin: 12/22/18 08:47 Dose: 10 mg Metoprolol Tartrate (Lopressor) 25 mg PO Q12H [facility] Last Admin: 12/12/18 09:12 Dose: 25 mg Multivitamins/Minerals/Vitamin C (Tab-A-Noam) 1 tab PO DAILY [facility] Last Admin: 12/18/18 07:51 Dose: 1 tab Mupirocin (Bactroban Oint) 0 gm TOP TID [facility] Last Admin: 12/14/18 21:38 Dose: Not Given Mupirocin (Bactroban Oint) 0 gm TOP DAILY [facility] Last Admin: 12/17/18 08:00 Dose: 1 applic Potassium Chloride (Klor-Con 10) 10 meq PO TID [facility] Last Admin: 12/12/18 14:05 Dose: Not Given Potassium Chloride (Klor-Con 10) 10 meq PO BID [facility] - Exam Quality Assessment: Central Line/PICC General: Alert, Cooperative, No Acute Distress HEENT: Mucous Membr. Moist/[place] Neck: Trachea Midline, No JVD Lungs: Clear to Auscultation, Normal Respiratory Effort Cardiovascular: Regular Rate, Regular Rhythm GI/Abdominal Exam: Soft, Non-Tender, No Distention (Female) Exam: Deferred Back Exam: Normal Inspection Extremities: Pedal Edema (R>L), Leg Pain (right), Increased Warmth (right ankle and foot is decreased but still present), Redness (right lower extremity) Skin: Warm, Dry, Intact Wound/Incisions: Healing Well, No Drainage Neurological: No New Focal Deficit Psy/Mental Status: Alert, Normal Affect, Normal Mood - Problem List & Annotations (1) Staphylococcus epidermidis bacteremia SNOMED Code(s): 223165649201, 760038094823 Code(s): R78.81 - BACTEREMIA Status: Acute Priority: High Current Visit : Yes (2) Staph aureus infection SNOMED Code(s): 170146639 Code(s): A49.01 - METHICILLIN SUSCEP STAPH INFECTION, UNSP SITE Status: Acute Priority: High Current Visit: Yes (3) Cellulitis of right leg SNOMED Code(s): 544476280 Code(s): L03.115 - CELLULITIS OF RIGHT LOWER LIMB Status: Acute Priority : High Current Visit: Yes Annotation/Comment:: continue on IV therapy, PICC line in place (4) Chills (without fever) SNOMED Code(s): 06038516 Code(s): R68.83 - CHILLS (WITHOUT FEVER) Status: Acute Priority: High Current Visit: No (5) Diabetes mellitus SNOMED Code(s): 96104336 Code(s): E11.9 - TYPE 2 DIABETES MELLITUS WITHOUT COMPLICATIONS Status: Acute Current Visit: No Qualifiers: Diabetes mellitus type: type 2 Diabetes mellitus longterm insulin use: with longterm use (6) Essential (primary) hypertension SNOMED Code(s): 91340046 Code(s): I10 - ESSENTIAL (PRIMARY) HYPERTENSION Status: Acute Priority: Low Current Visit: No (7) Vertigo SNOMED Code(s): 369485801 Code(s): R42 - DIZZINESS AND GIDDINESS Status: Acute Current Visit: No - Problem List Review Problem List Initiated/Reviewed/Updated: Yes - Plan Plan:: 12/12/2018 Patient needing IV antibiotics in swingbed, monitoring daily of the leg and lab results. Will need more days of treatment as patient leg is improving but slowly. Will recheck labs in the morning. Consulted with Dr Javier. Ariela Cameron CNP 12/14/18 Concepcion Osorio MD Leg continues slow improvement. Continue IV antibiotics. 12/15/2018 Patient states pain controlled with oral Lortab. Leg continues to improve with redness and warmth. Patient continues to need swingbed treatment with IV antibiotics, leg improving but slowly. Ariela Cameron CNP 12/18/18 Concepcion Osorio MD The leg is clinically worse today. Increased swelling and increased redness right anterior compartment. Will re-CT leg tomorrow and continue IV antibiotics. Also discussed anemia. Will start oral iron and vitamin C. 12/23/2018 Patient continues with pain to the right LE mainly in the foot. CT scan done recently , continue to show significant edema and cellulitis. Patient needing to continue on IV antibiotics due to the significant cellulitis, delayed healing , and little improvement noted on CT scan. Will recheck labs in the am, Increase Lantus now that blood sugars are increasing. Try Tubigrip to LEs to help with circulation and healing. Discussed with Dr Javier. Ariela Cameron,DONNIE 12/28/18 Concepcion Osorio MD The RLE is improved but is still swollen, red, warm to touch anterior compartment and into ankle and foot. Due to +staph bacteremia, +staph culture from the crack over right great toe, and clinically the leg still has evidence of active infection need to continue IV antibiotics and swingbed. The IVs required to treat staph are several times a day. It is two different types of staph. She has complicated factors of diabetes mellitus, obesity, s/p chemotherapy, s/p radiation, immunocompromised status thus needs prolonged IV antibiotics. Recommendation is for 1-3 weeks more IV antibiotics. I also explained medically necessity for echocardiogram due to staph bacteremia. She agrees to the echocardiogram continued IV antibiotics and continued swingbed status. 01/01/19 Concepcion Osorio MD Slow improvement of RLE continues. Still redness and swelling RLE. Labs also slowly improving. Continue IV antibiotics. 01/04/19 Concepcion Osorio MD Continues slow clinical improvement of RLE. Still redness and swelling RLE although continues to recede down the leg but still present. ESR still quite elevated. Continue IV antibiotics for 1-2 more weeks.
[2019-01-04] MEDS ORDERED: Vancomycin 2 GM in Sodium Chloride 0.9% 500 ML IV ONE (20:00)
[2019-01-04] MEDS: Acetaminophen/HYDROcodone 325-7.5 MG Tab PO SCH (21:41)
[2019-01-04] MEDS: Acetaminophen 325 MG Tab PO SCH (21:43)
[2019-01-04] MEDS: Montelukast 10 MG Tab PO SCH (21:43)
[2019-01-04] MEDS: diphenhydrAMINE 25 MG Cap PO SCH (21:43)
[2019-01-05] MEDS: Acetaminophen/HYDROcodone 325-5 MG Tab PO PRN ×2 (03:13→16:53)
[2019-01-05] MEDS: Sodium Chloride 0.9% 10 ML Syringe FLUSH SCH ×6 (03:15→21:31)
[2019-01-05] MEDS: Clindamycin Phosphate 900 MG in Sodium Chloride 0.9% 100 ML IV SCH ×3 (03:15→20:52)
[2019-01-05] MEDS: MILNACIPRAN 50 MG PO SCH ×2 (07:38→20:58)
[2019-01-05] MEDS: Metoprolol Tartrate 25 MG Tab PO SCH ×2 (07:39→20:57)
[2019-01-05] MEDS: Trospium 20 MG Tab PO SCH ×2 (07:39→17:12)
[2019-01-05] MEDS: Multivitamin Tab PO SCH ×2 (07:39→17:12)
[2019-01-05] MEDS: Lisinopril 10 MG Tab PO SCH (07:40)
[2019-01-05] MEDS: Potassium Chloride 10 MEQ Tab.ER PO SCH (07:40)
[2019-01-05] MEDS: Fluconazole 100 MG Tab PO SCH (07:40)
[2019-01-05] MEDS: Clopidogrel 75 MG Tab PO SCH (07:40)
[2019-01-05] MEDS: Ascorbic Acid 500 MG Tab PO SCH ×2 (07:40→17:12)
[2019-01-05] MEDS: Ferrous Sulfate 325 MG Tab PO SCH ×2 (07:40→17:12)
[2019-01-05] MEDS: Insulin Glarg,Human.Rec.Analog 100 UNIT/ML ML SUBCUT SCH (07:41)
[2019-01-05] MEDS: Montelukast 10 MG Tab PO SCH (20:57)
[2019-01-05] MEDS: diphenhydrAMINE 25 MG Cap PO SCH (20:57)
[2019-01-05] MEDS: Acetaminophen 325 MG Tab PO SCH (20:58)
[2019-01-05] MEDS: Acetaminophen/HYDROcodone 325-7.5 MG Tab PO SCH (21:29)
[2019-01-06] MEDS: Acetaminophen/HYDROcodone 325-5 MG Tab PO PRN ×2 (03:28→18:03)
[2019-01-06] MEDS: Clindamycin Phosphate 900 MG in Sodium Chloride 0.9% 100 ML IV SCH ×3 (03:29→21:07)
[2019-01-06] MEDS: Sodium Chloride 0.9% 10 ML Syringe FLUSH SCH ×10 (03:29→21:13)
[2019-01-06] MEDS: Insulin Glarg,Human.Rec.Analog 100 UNIT/ML ML SUBCUT SCH (08:12)
[2019-01-06] MEDS: MILNACIPRAN 50 MG PO SCH ×2 (08:12→19:24)
[2019-01-06] MEDS: Clopidogrel 75 MG Tab PO SCH (08:13)
[2019-01-06] MEDS: Fluconazole 100 MG Tab PO SCH (08:14)
[2019-01-06] MEDS: Ferrous Sulfate 325 MG Tab PO SCH ×2 (08:14→17:11)
[2019-01-06] MEDS: Trospium 20 MG Tab PO SCH ×2 (08:14→17:11)
[2019-01-06] MEDS: Lisinopril 10 MG Tab PO SCH (08:14)
[2019-01-06] MEDS: Multivitamin Tab PO SCH ×2 (08:14→17:11)
[2019-01-06] MEDS: Ascorbic Acid 500 MG Tab PO SCH ×2 (08:14→17:11)
[2019-01-06] MEDS: Potassium Chloride 10 MEQ Tab.ER PO SCH (08:15)
[2019-01-06] MEDS: Metoprolol Tartrate 25 MG Tab PO SCH ×2 (08:15→19:23)
[2019-01-06] MEDS: diphenhydrAMINE 25 MG Cap PO SCH (19:23)
[2019-01-06] MEDS: Acetaminophen 325 MG Tab PO SCH (19:23)
[2019-01-06] MEDS: Montelukast 10 MG Tab PO SCH (19:23)
[2019-01-06] MEDS: Acetaminophen/HYDROcodone 325-7.5 MG Tab PO SCH (21:10)
[2019-01-07] MEDS: Sodium Chloride 0.9% 10 ML Syringe FLUSH SCH ×9 (03:10→20:31)
[2019-01-07] MEDS: Acetaminophen/HYDROcodone 325-5 MG Tab PO PRN ×2 (03:10→16:57)
[2019-01-07] MEDS: Clindamycin Phosphate 900 MG in Sodium Chloride 0.9% 100 ML IV SCH ×3 (03:10→19:48)
[2019-01-07 07:25] LABS: CHLORIDE,CL 107 mmol/L (98-107); SODIUM,NA 140 mmol/L (136-145)
[2019-01-07] MEDS: Fluconazole 100 MG Tab PO SCH (08:44)
[2019-01-07] MEDS: Metoprolol Tartrate 25 MG Tab PO SCH ×2 (08:45→19:52)
[2019-01-07] MEDS: Multivitamin Tab PO SCH ×2 (08:45→17:24)
[2019-01-07] MEDS: Lisinopril 10 MG Tab PO SCH (08:46)
[2019-01-07] MEDS: Clopidogrel 75 MG Tab PO SCH (08:46)
[2019-01-07] MEDS: Potassium Chloride 10 MEQ Tab.ER PO SCH (08:46)
[2019-01-07] MEDS: Ferrous Sulfate 325 MG Tab PO SCH ×2 (08:46→17:26)
[2019-01-07] MEDS: Trospium 20 MG Tab PO SCH ×2 (08:46→17:25)
[2019-01-07] MEDS: Ascorbic Acid 500 MG Tab PO SCH ×2 (08:47→17:25)
[2019-01-07] MEDS: MILNACIPRAN 50 MG PO SCH ×2 (08:48→19:50)
[2019-01-07] MEDS: Insulin Glarg,Human.Rec.Analog 100 UNIT/ML ML SUBCUT SCH (08:48)
[2019-01-07] MEDS: Acetaminophen 325 MG Tab PO SCH (19:48)
[2019-01-07] MEDS: diphenhydrAMINE 25 MG Cap PO SCH (19:49)
[2019-01-07] MEDS: Montelukast 10 MG Tab PO SCH (19:50)
[2019-01-07] MEDS: Acetaminophen/HYDROcodone 325-7.5 MG Tab PO SCH (21:20)
[2019-01-08] MEDS: Acetaminophen/HYDROcodone 325-5 MG Tab PO PRN ×2 (03:07→16:06)
[2019-01-08] MEDS: Clindamycin Phosphate 900 MG in Sodium Chloride 0.9% 100 ML IV SCH ×3 (03:07→20:20)
[2019-01-08] MEDS: Sodium Chloride 0.9% 10 ML Syringe FLUSH SCH ×10 (03:09→20:35)
[2019-01-08] MEDS: MILNACIPRAN 50 MG PO SCH ×2 (08:34→20:30)
[2019-01-08] MEDS: Potassium Chloride 10 MEQ Tab.ER PO SCH (08:35)
[2019-01-08] MEDS: Ferrous Sulfate 325 MG Tab PO SCH ×2 (08:35→17:24)
[2019-01-08] MEDS: Multivitamin Tab PO SCH ×2 (08:35→17:24)
[2019-01-08] MEDS: Trospium 20 MG Tab PO SCH ×2 (08:35→17:24)
[2019-01-08] MEDS: Fluconazole 100 MG Tab PO SCH (08:36)
[2019-01-08] MEDS: Insulin Glarg,Human.Rec.Analog 100 UNIT/ML ML SUBCUT SCH (08:36)
[2019-01-08] MEDS: Ascorbic Acid 500 MG Tab PO SCH ×2 (08:36→17:24)
[2019-01-08] MEDS: Clopidogrel 75 MG Tab PO SCH (08:36)
[2019-01-08] MEDS: Ondansetron 4 MG Tab.DIS PO PRN (08:49)
[2019-01-08] MEDS: Metoprolol Tartrate 25 MG Tab PO SCH ×2 (08:58→20:29)
[2019-01-08] MEDS: Lisinopril 10 MG Tab PO SCH (08:59)
[2019-01-08] MEDS: Acetaminophen 325 MG Tab PO SCH (20:27)
[2019-01-08] MEDS: diphenhydrAMINE 25 MG Cap PO SCH (20:29)
[2019-01-08] MEDS: Montelukast 10 MG Tab PO SCH (20:29)
[2019-01-08] MEDS: Acetaminophen/HYDROcodone 325-7.5 MG Tab PO SCH (21:55)
[2019-01-09] MEDS: Sodium Chloride 0.9% 10 ML Syringe FLUSH SCH ×7 (01:38→20:36)
[2019-01-09] MEDS: Acetaminophen/HYDROcodone 325-5 MG Tab PO PRN ×2 (02:53→16:09)
[2019-01-09] MEDS: Clindamycin Phosphate 900 MG in Sodium Chloride 0.9% 100 ML IV SCH ×3 (03:00→19:38)
[2019-01-09] MEDS: Fluconazole 100 MG Tab PO SCH (07:41)
[2019-01-09] MEDS: Potassium Chloride 10 MEQ Tab.ER PO SCH (07:42)
[2019-01-09] MEDS: Metoprolol Tartrate 25 MG Tab PO SCH ×2 (07:42→20:35)
[2019-01-09] MEDS: Clopidogrel 75 MG Tab PO SCH (07:42)
[2019-01-09] MEDS: Multivitamin Tab PO SCH ×2 (07:43→17:19)
[2019-01-09] MEDS: Trospium 20 MG Tab PO SCH ×2 (07:43→17:19)
[2019-01-09] MEDS: Ferrous Sulfate 325 MG Tab PO SCH ×2 (07:43→17:19)
[2019-01-09] MEDS: Lisinopril 10 MG Tab PO SCH (07:44)
[2019-01-09] MEDS: MILNACIPRAN 50 MG PO SCH ×2 (07:44→20:35)
[2019-01-09] MEDS: Ascorbic Acid 500 MG Tab PO SCH ×2 (07:45→17:19)
[2019-01-09] MEDS: Insulin Glarg,Human.Rec.Analog 100 UNIT/ML ML SUBCUT SCH (07:45)
[2019-01-09] MEDS: Acetaminophen 325 MG Tab PO SCH (20:34)
[2019-01-09] MEDS: Montelukast 10 MG Tab PO SCH (20:35)
[2019-01-09] MEDS: diphenhydrAMINE 25 MG Cap PO SCH (20:35)
[2019-01-09] MEDS: Acetaminophen/HYDROcodone 325-7.5 MG Tab PO SCH (21:27)
[2019-01-10] MEDS: Acetaminophen/HYDROcodone 325-5 MG Tab PO PRN ×2 (03:32→17:14)
[2019-01-10] MEDS: Clindamycin Phosphate 900 MG in Sodium Chloride 0.9% 100 ML IV SCH ×3 (03:33→20:38)
[2019-01-10] MEDS: Sodium Chloride 0.9% 10 ML Syringe FLUSH SCH ×8 (03:33→20:49)
[2019-01-10] MEDS: Insulin Glarg,Human.Rec.Analog 100 UNIT/ML ML SUBCUT SCH (07:35)
[2019-01-10] MEDS: Potassium Chloride 10 MEQ Tab.ER PO SCH (07:36)
[2019-01-10] MEDS: Metoprolol Tartrate 25 MG Tab PO SCH ×2 (07:36→20:43)
[2019-01-10] MEDS: Ascorbic Acid 500 MG Tab PO SCH ×2 (07:36→17:15)
[2019-01-10] MEDS: Lisinopril 10 MG Tab PO SCH (07:36)
[2019-01-10] MEDS: Trospium 20 MG Tab PO SCH ×2 (07:36→17:14)
[2019-01-10] MEDS: Multivitamin Tab PO SCH ×2 (07:36→17:15)
[2019-01-10] MEDS: Ferrous Sulfate 325 MG Tab PO SCH ×2 (07:36→17:15)
[2019-01-10] MEDS: Clopidogrel 75 MG Tab PO SCH (07:36)
[2019-01-10] MEDS: Fluconazole 100 MG Tab PO SCH (07:37)
[2019-01-10] MEDS: MILNACIPRAN 50 MG PO SCH ×2 (07:37→20:45)
[2019-01-10 13:39] LABS: CHLORIDE,CL 104 mmol/L (98-107); SODIUM,NA 138 mmol/L (136-145)
[2019-01-10] MEDS: Montelukast 10 MG Tab PO SCH (20:43)
[2019-01-10] MEDS: Acetaminophen 325 MG Tab PO SCH (20:44)
[2019-01-10] MEDS: diphenhydrAMINE 25 MG Cap PO SCH (20:44)
[2019-01-10] MEDS: Acetaminophen/HYDROcodone 325-7.5 MG Tab PO SCH (21:12)
[2019-01-11] MEDS: Clindamycin Phosphate 900 MG in Sodium Chloride 0.9% 100 ML IV SCH ×3 (03:02→19:33)
[2019-01-11] MEDS: Sodium Chloride 0.9% 10 ML Syringe FLUSH SCH ×5 (03:03→12:25)
[2019-01-11] MEDS: Acetaminophen/HYDROcodone 325-5 MG Tab PO PRN ×2 (03:04→16:39)
[2019-01-11] MEDS: Trospium 20 MG Tab PO SCH ×2 (08:22→18:14)
[2019-01-11] MEDS: MILNACIPRAN 50 MG PO SCH ×2 (08:22→19:36)
[2019-01-11] MEDS: Fluconazole 100 MG Tab PO SCH (08:22)
[2019-01-11] MEDS: Multivitamin Tab PO SCH ×2 (08:23→18:14)
[2019-01-11] MEDS: Potassium Chloride 10 MEQ Tab.ER PO SCH (08:23)
[2019-01-11] MEDS: Lisinopril 10 MG Tab PO SCH (08:24)
[2019-01-11] MEDS: Metoprolol Tartrate 25 MG Tab PO SCH ×2 (08:25→19:32)
[2019-01-11] MEDS: Ferrous Sulfate 325 MG Tab PO SCH ×2 (08:25→18:14)
[2019-01-11] MEDS: Clopidogrel 75 MG Tab PO SCH (08:25)
[2019-01-11] MEDS: Ascorbic Acid 500 MG Tab PO SCH ×2 (08:25→18:13)
[2019-01-11] MEDS: Insulin Glarg,Human.Rec.Analog 100 UNIT/ML ML SUBCUT SCH (08:26)
[2019-01-11] MEDS: Montelukast 10 MG Tab PO SCH (19:31)
[2019-01-11] MEDS: diphenhydrAMINE 25 MG Cap PO SCH (19:32)
[2019-01-11] MEDS: Acetaminophen 325 MG Tab PO SCH (19:32)
--- NOTE | 2019-01-11 19:40 | PCM.PN ---
- General Info Date of Service: 01/11/19 Functional Status: Reports: Pain Controlled (improving in right foot and ankle) , Tolerating Diet, Ambulating - Review of Systems General: Reports: No Symptoms HEENT: Reports: No Symptoms Pulmonary: Reports: No Symptoms Cardiovascular: Reports: No Symptoms Gastrointestinal: Reports: Diarrhea Genitourinary: Reports: No Symptoms Musculoskeletal: Reports: Leg Pain, Foot Pain Skin: Reports: No Symptoms Neurological: Reports: No Symptoms - Patient Data Vitals - Most Recent: Last Vital Signs Temp 97.5 F 01/11/19 07:59 Pulse 68 01/11/19 08:25 Resp 17 01/11/19 07:59 BP 137/59 L 01/11/19 08:25 Pulse Ox 98 01/11/19 07:59 Weight - Most Recent: 283 lb I&O - Last 24 Hours: Intake & Output 01/11/19 01/11/19 01/11/19 06:59 14:59 22:59 Intake Total 100 480 750 Balance 100 480 750 Lab Results Last 24 Hours: Laboratory Results - last 24 hr 01/10/19 01/11/19 01/11/19 Range/Units 20:53 06:50 11:23 POC Glucose 206 H 147 H 174 H (65-110) mg/dl 01/11/19 Range/Units 17:17 POC Glucose 142 H (65-110) mg/dl Med Orders - Current: Current Medications Acetaminophen (Tylenol Extra Strength) 500 mg PO Q4H PRN PRN Reason: Fever Acetaminophen (Tylenol) 650 mg PO BEDTIME [facility] Last Admin: 01/10/19 20:44 Dose: 650 mg Hydrocodone Bitart/Acetaminophen ([place] 325-5 Mg) 1 tab PO Q4H PRN PRN Reason: Pain/Fever Last Admin: 01/11/19 16:39 Dose: 1 tab Hydrocodone Bitart/Acetaminophen ([place] 325-7.5 Mg) 1 tab PO DAILY@2200 [facility] Last Admin: 01/10/19 21:12 Dose: 1 tab Ascorbic Acid (Vitamin C) 500 mg PO BID [facility] Last Admin: 01/11/19 18:13 Dose: 500 mg Clopidogrel Bisulfate (Plavix) 75 mg PO DAILY [facility] Last Admin: 01/11/19 08:25 Dose: 75 mg Diphenhydramine HCl (Benadryl) 25 mg PO BEDTIME [facility] Last Admin: 01/10/19 20:44 Dose: 25 mg Docusate Sodium (Colace) 100 mg PO BID PRN PRN Reason: Constipation Ferrous Sulfate (Ferrous Sulfate) 325 mg PO BID [facility] Last Admin: 01/11/19 18:14 Dose: 325 mg Fluconazole (Diflucan) 50 mg PO DAILY [facility] Last Admin: 01/11/19 08:22 Dose: 50 mg Heparin Sodium (Porcine) (Heparin Lock Flush 100 Units/Ml) 300 units FLUSH ASDIRECTED PRN PRN Reason: IV Use Last Admin: 01/11/19 03:09 Dose: 300 units Heparin Sodium (Porcine) (Heparin Lock Flush 100 Units/Ml) 300 units FLUSH 0430 ,0830,1230,2030 [facility] Last Admin: 01/11/19 12:26 Dose: 300 units Heparin Sodium (Porcine) (Heparin Lock Flush 100 Units/Ml) 300 units FLUSH Q12H [facility] Last Admin: 01/11/19 10:14 Dose: 300 units Clindamycin Phosphate 900 mg/ (Sodium Chloride) 106 mls @ 200 mls/hr IV Q8H [facility] Stop: 01/11/19 20:32 Last Admin: 01/11/19 11:46 Dose: 200 mls/hr Vancomycin HCl 1 gm/ Sodium (Chloride) 250 mls @ 165 mls/hr IV Q18H [facility] Last Admin: 01/11/19 08:25 Dose: 165 mls/hr Insulin Glargine (Lantus) 22 unit SUBCUT DAILY [facility] Last Admin: 01/11/19 08:26 Dose: 22 unit Lisinopril (Prinivil) 10 mg PO DAILY [facility] Last Admin: 01/11/19 08:24 Dose: 10 mg Magnesium Hydroxide (Milk Of Magnesia) 30 ml PO DAILY PRN PRN Reason: Constipation Meclizine HCl (Antivert) 25 mg PO Q6H PRN PRN Reason: Dizziness Last Admin: 12/19/18 08:05 Dose: 25 mg Metoprolol Tartrate (Lopressor) 25 mg PO Q12HR [facility] Last Admin: 01/11/19 08:25 Dose: 25 mg Montelukast Sodium (Singulair) 10 mg PO BEDTIME [facility] Last Admin: 01/10/19 20:43 Dose: 10 mg Multivitamins/Minerals/Vitamin C (Tab-A-Noam) 0.5 tab PO BID [facility] Last Admin: 01/11/19 18:14 Dose: 0.5 tab Milnacipran [Savella ] 50mg Tab Own Med 1 each PO BID@0800,2000 [facility] Last Admin: 01/11/19 08:22 Dose: 1 each Ondansetron HCl (Zofran Odt) 4 mg PO Q6H PRN PRN Reason: Nausea/Vomiting Last Admin: 01/08/19 08:49 Dose: 4 mg Polyethylene Glycol (Miralax) 17 gm PO BEDTIME PRN PRN Reason: Constipation Potassium Chloride (Klor-Con 10) 10 meq PO DAILY [facility] Last Admin: 01/11/19 08:23 Dose: 10 meq Sodium Chloride (Saline Flush) 10 ml FLUSH ASDIRECTED [facility] Last Admin: 01/11/19 12:25 Dose: 10 ml Trospium (Sanctura) 20 mg PO BIDAC [facility] Last Admin: 01/11/19 18:14 Dose: 20 mg Vancomycin HCl (Pharmacy To Dose - Vancomycin) 1 dose .XX ASDIRECTED [facility] Discontinued Medications Alteplase, Recombinant (Cathflo Activase) 2 mg IVPUSH ONETIME ONE Stop: 12/21/18 20:07 Last Admin: 12/21/18 22:01 Dose: 2 mg Alteplase, Recombinant (Cathflo Activase) 2 mg IVPUSH ONETIME STA Stop: 01/02/19 22:17 Last Admin: 01/02/19 22:37 Dose: 2 mg Clindamycin Phosphate 900 mg/ (Sodium Chloride) 106 mls @ 200 mls/hr IV Q8H [facility] Stop: 12/28/18 20:30 Last Admin: 12/23/18 12:23 Dose: 200 mls/hr Vancomycin HCl 1.25 gm/ Sodium (Chloride) 250 mls @ 135 mls/hr IV Q12H [facility] Last Admin: 12/14/18 09:27 Dose: Not Given Vancomycin HCl 1 gm/ Sodium (Chloride) 250 mls @ 165 mls/hr IV Q12H [facility] Last Admin: 12/15/18 08:32 Dose: 165 mls/hr Vancomycin HCl 1 gm/ Sodium (Chloride) 250 mls @ 165 mls/hr IV Q12H [facility] Stop: 12/28/18 21:30 Last Admin: 12/28/18 19:38 Dose: 165 mls/hr Clindamycin Phosphate 900 mg/ (Sodium Chloride) 106 mls @ 200 mls/hr IV Q8H [facility] Stop: 12/28/18 20:30 Last Admin: 12/28/18 21:15 Dose: 200 mls/hr Clindamycin Phosphate 900 mg/ (Sodium Chloride) 106 mls @ 200 mls/hr IV Q8H [facility] Stop: 01/04/19 20:32 Last Admin: 01/04/19 19:35 Dose: 200 mls/hr Vancomycin HCl 1 gm/ Dextrose/ (Water) 250 mls @ 165 mls/hr IV Q12H [facility] Stop: 01/04/19 20:31 Last Admin: 12/29/18 08:18 Dose: Not Given Vancomycin HCl 1 gm/ Sodium (Chloride) 250 mls @ 165 mls/hr IV Q12H [facility] Last Admin: 01/07/19 08:40 Dose: Not Given Vancomycin HCl 1.25 gm/ Sodium (Chloride) 250 mls @ 135 mls/hr IV Q12H [facility] Insulin Glargine (Lantus) 35 unit SUBCUT DAILY [facility] Last Admin: 12/12/18 09:14 Dose: 35 units Insulin Glargine (Lantus) 30 unit SUBCUT DAILY [facility] Last Admin: 12/15/18 08:13 Dose: 30 units Insulin Glargine (Lantus) 25 unit SUBCUT DAILY [facility] Last Admin: 12/16/18 07:59 Dose: 25 unit Insulin Glargine (Lantus) 20 unit SUBCUT DAILY [facility] Last Admin: 12/17/18 08:00 Dose: 20 unit Insulin Glargine (Lantus) 16 unit SUBCUT DAILY [facility] Last Admin: 12/23/18 08:21 Dose: 16 units Insulin Glargine (Lantus) 18 unit SUBCUT DAILY [facility] Last Admin: 12/29/18 08:27 Dose: 18 unit Insulin Glargine (Lantus) 20 unit SUBCUT DAILY [facility] Last Admin: 01/08/19 08:36 Dose: 20 unit Lisinopril (Prinivil) 10 mg PO DAILY [facility] Last Admin: 12/22/18 08:47 Dose: 10 mg Metoprolol Tartrate (Lopressor) 25 mg PO Q12H [facility] Last Admin: 12/12/18 09:12 Dose: 25 mg Multivitamins/Minerals/Vitamin C (Tab-A-Noam) 1 tab PO DAILY [facility] Last Admin: 12/18/18 07:51 Dose: 1 tab Mupirocin (Bactroban Oint) 0 gm TOP TID [facility] Last Admin: 12/14/18 21:38 Dose: Not Given Mupirocin (Bactroban Oint) 0 gm TOP DAILY [facility] Last Admin: 12/17/18 08:00 Dose: 1 applic Potassium Chloride (Klor-Con 10) 10 meq PO TID [facility] Last Admin: 12/12/18 14:05 Dose: Not Given Potassium Chloride (Klor-Con 10) 10 meq PO BID [facility] - Exam Quality Assessment: Central Line/PICC General: Alert, Cooperative, No Acute Distress HEENT: Mucous Membr. Moist/[place] Neck: Trachea Midline, No JVD Lungs: Clear to Auscultation, Normal Respiratory Effort Cardiovascular: Regular Rate, Regular Rhythm GI/Abdominal Exam: Soft, Non-Tender, No Distention (Female) Exam: Deferred Back Exam: Normal Inspection Extremities: Pedal Edema (right), Leg Pain (right), Increased Warmth (right LE) , Redness (LRE) Skin: Warm, Dry, Intact Neurological: No New Focal Deficit Psy/Mental Status: Alert, Normal Affect, Normal Mood - Problem List & Annotations (1) Staphylococcus epidermidis bacteremia SNOMED Code(s): 910705913418, 340282087780 Code(s): R78.81 - BACTEREMIA Status: Acute Priority: High Current Visit : Yes (2) Staph aureus infection SNOMED Code(s): 290967293 Code(s): A49.01 - METHICILLIN SUSCEP STAPH INFECTION, UNSP SITE Status: Acute Priority: High Current Visit: Yes (3) Cellulitis of right leg SNOMED Code(s): 799056396 Code(s): L03.115 - CELLULITIS OF RIGHT LOWER LIMB Status: Acute Priority : High Current Visit: Yes Annotation/Comment:: continue on IV therapy, PICC line in place (4) Chills (without fever) SNOMED Code(s): 36214493 Code(s): R68.83 - CHILLS (WITHOUT FEVER) Status: Acute Priority: High Current Visit: No (5) Diabetes mellitus SNOMED Code(s): 64915649 Code(s): E11.9 - TYPE 2 DIABETES MELLITUS WITHOUT COMPLICATIONS Status: Acute Current Visit: No Qualifiers: Diabetes mellitus type: type 2 Diabetes mellitus terminal carman insulin use: with terminal carman use (6) Essential (primary) hypertension SNOMED Code(s): 05424128 Code(s): I10 - ESSENTIAL (PRIMARY) HYPERTENSION Status: Acute Priority: Low Current Visit: No (7) Vertigo SNOMED Code(s): 725481114 Code(s): R42 - DIZZINESS AND GIDDINESS Status: Acute Current Visit: No (8) Diarrhea SNOMED Code(s): 93756056 Code(s): R19.7 - DIARRHEA, UNSPECIFIED Status: Acute Priority: High Current Visit: Yes Qualifiers: Diarrhea type: unspecified type Qualified Code(s): R19.7 - Diarrhea, unspecified - Problem List Review Problem List Initiated/Reviewed/Updated: Yes - Plan Plan:: 12/12/2018 Patient needing IV antibiotics in swingbed, monitoring daily of the leg and lab results. Will need more days of treatment as patient leg is improving but slowly. Will recheck labs in the morning. Consulted with Dr Javier. Ariela Cameron CNP 12/14/18 Concepcion Osorio MD Leg continues slow improvement. Continue IV antibiotics. 12/15/2018 Patient states pain controlled with oral Lortab. Leg continues to improve with redness and warmth. Patient continues to need swingbed treatment with IV antibiotics, leg improving but slowly. Ariela Cameron CNP 12/18/18 Concepcion Osorio MD The leg is clinically worse today. Increased swelling and increased redness right anterior compartment. Will re-CT leg tomorrow and continue IV antibiotics. Also discussed anemia. Will start oral iron and vitamin C. 12/23/2018 Patient continues with pain to the right LE mainly in the foot. CT scan done recently , continue to show significant edema and cellulitis. Patient needing to continue on IV antibiotics due to the significant cellulitis, delayed healing , and little improvement noted on CT scan. Will recheck labs in the am, Increase Lantus now that blood sugars are increasing. Try Tubigrip to LEs to help with circulation and healing. Discussed with Dr Javier. Ariela Cameron CNP 12/28/18 Concepcion Osorio MD The RLE is improved but is still swollen, red, warm to touch anterior compartment and into ankle and foot. Due to +staph bacteremia, +staph culture from the crack over right great toe, and clinically the leg still has evidence of active infection need to continue IV antibiotics and swingbed. The IVs required to treat staph are several times a day. It is two different types of staph. She has complicated factors of diabetes mellitus, obesity, s/p chemotherapy, s/p radiation, immunocompromised status thus needs prolonged IV antibiotics. Recommendation is for 1-3 weeks more IV antibiotics. I also explained medically necessity for echocardiogram due to staph bacteremia. She agrees to the echocardiogram continued IV antibiotics and continued swingbed status. 01/01/19 Concepcion Osorio MD Slow improvement of RLE continues. Still redness and swelling RLE. Labs also slowly improving. Continue IV antibiotics. 01/04/19 Concepcion Osorio MD Continues slow clinical improvement of RLE. Still redness and swelling RLE although continues to recede down the leg but still present. ESR still quite elevated. Continue IV antibiotics for 1-2 more weeks. 01/11/19 Concepcion Osorio MD The right lower extremity continues swollen, red, warmth. Some modest improvement. ESR still markedly elevated. Some diarrhea starting today. Will check c-dif. Continue IV antibiotics at least 1 more week.
[2019-01-11] MEDS: Acetaminophen/HYDROcodone 325-7.5 MG Tab PO SCH (21:16)
[2019-01-12] MEDS: Sodium Chloride 0.9% 10 ML Syringe FLUSH SCH ×10 (02:58→22:07)
[2019-01-12] MEDS: Acetaminophen/HYDROcodone 325-5 MG Tab PO PRN ×2 (02:58→17:07)
[2019-01-12] MEDS: Clindamycin Phosphate 900 MG in Sodium Chloride 0.9% 100 ML IV SCH ×3 (04:40→19:51)
[2019-01-12] MEDS: MILNACIPRAN 50 MG PO SCH ×2 (07:58→20:32)
[2019-01-12] MEDS: Clopidogrel 75 MG Tab PO SCH (07:59)
[2019-01-12] MEDS: Ferrous Sulfate 325 MG Tab PO SCH ×2 (07:59→17:07)
[2019-01-12] MEDS: Metoprolol Tartrate 25 MG Tab PO SCH ×2 (07:59→20:30)
[2019-01-12] MEDS: Ascorbic Acid 500 MG Tab PO SCH ×2 (07:59→17:07)
[2019-01-12] MEDS: Lisinopril 10 MG Tab PO SCH (08:00)
[2019-01-12] MEDS: Trospium 20 MG Tab PO SCH ×2 (08:00→17:07)
[2019-01-12] MEDS: Potassium Chloride 10 MEQ Tab.ER PO SCH (08:01)
[2019-01-12] MEDS: Fluconazole 100 MG Tab PO SCH (08:01)
[2019-01-12] MEDS: Multivitamin Tab PO SCH ×2 (08:02→17:07)
[2019-01-12] MEDS: Insulin Glarg,Human.Rec.Analog 100 UNIT/ML ML SUBCUT SCH (08:06)
[2019-01-12] MEDS: diphenhydrAMINE 25 MG Cap PO SCH (20:31)
[2019-01-12] MEDS: Montelukast 10 MG Tab PO SCH (20:32)
[2019-01-12] MEDS: Acetaminophen 325 MG Tab PO SCH (20:32)
[2019-01-12] MEDS: Acetaminophen/HYDROcodone 325-7.5 MG Tab PO SCH (21:50)
[2019-01-13] MEDS: Sodium Chloride 0.9% 10 ML Syringe FLUSH SCH ×10 (03:09→20:00)
[2019-01-13] MEDS: Clindamycin Phosphate 900 MG in Sodium Chloride 0.9% 100 ML IV SCH ×3 (03:09→19:35)
[2019-01-13] MEDS: Acetaminophen/HYDROcodone 325-5 MG Tab PO PRN ×2 (03:10→17:02)
[2019-01-13] MEDS: Ferrous Sulfate 325 MG Tab PO SCH ×2 (07:46→17:02)
[2019-01-13] MEDS: Trospium 20 MG Tab PO SCH ×2 (07:46→17:02)
[2019-01-13] MEDS: Fluconazole 100 MG Tab PO SCH (07:46)
[2019-01-13] MEDS: Potassium Chloride 10 MEQ Tab.ER PO SCH (07:46)
[2019-01-13] MEDS: Metoprolol Tartrate 25 MG Tab PO SCH ×2 (07:47→19:54)
[2019-01-13] MEDS: MILNACIPRAN 50 MG PO SCH ×2 (07:47→19:49)
[2019-01-13] MEDS: Multivitamin Tab PO SCH ×2 (07:48→17:02)
[2019-01-13] MEDS: Lisinopril 10 MG Tab PO SCH (07:48)
[2019-01-13] MEDS: Clopidogrel 75 MG Tab PO SCH (07:48)
[2019-01-13] MEDS: Ascorbic Acid 500 MG Tab PO SCH ×2 (07:49→17:02)
[2019-01-13] MEDS: Insulin Glarg,Human.Rec.Analog 100 UNIT/ML ML SUBCUT SCH (07:49)
--- NOTE | 2019-01-13 15:28 | PCM.SN ---
- Free Text/Narrative Note: 01/13/19 Concepcion Osorio MD C-difficele stool negative.
[2019-01-13] MEDS: diphenhydrAMINE 25 MG Cap PO SCH (19:45)
[2019-01-13] MEDS: Montelukast 10 MG Tab PO SCH (19:46)
[2019-01-13] MEDS: Acetaminophen 325 MG Tab PO SCH (19:46)
[2019-01-13] MEDS: Acetaminophen/HYDROcodone 325-7.5 MG Tab PO SCH (21:48)
[2019-01-14] MEDS: Clindamycin Phosphate 900 MG in Sodium Chloride 0.9% 100 ML IV SCH ×3 (03:27→19:44)
[2019-01-14] MEDS: Acetaminophen/HYDROcodone 325-5 MG Tab PO PRN ×2 (03:27→17:02)
[2019-01-14] MEDS: Sodium Chloride 0.9% 10 ML Syringe FLUSH SCH ×6 (07:11→19:51)
[2019-01-14 08:26] LABS: CHLORIDE,CL 107 mmol/L (98-107); SODIUM,NA 140 mmol/L (136-145)
[2019-01-14] MEDS: Fluconazole 100 MG Tab PO SCH (09:01)
[2019-01-14] MEDS: Trospium 20 MG Tab PO SCH ×2 (09:01→17:02)
[2019-01-14] MEDS: Ferrous Sulfate 325 MG Tab PO SCH ×2 (09:01→17:02)
[2019-01-14] MEDS: Metoprolol Tartrate 25 MG Tab PO SCH ×2 (09:02→19:55)
[2019-01-14] MEDS: Potassium Chloride 10 MEQ Tab.ER PO SCH (09:02)
[2019-01-14] MEDS: Multivitamin Tab PO SCH ×2 (09:03→17:02)
[2019-01-14] MEDS: MILNACIPRAN 50 MG PO SCH ×2 (09:03→19:48)
[2019-01-14] MEDS: Clopidogrel 75 MG Tab PO SCH (09:03)
[2019-01-14] MEDS: Lisinopril 10 MG Tab PO SCH (09:03)
[2019-01-14] MEDS: Ascorbic Acid 500 MG Tab PO SCH ×2 (09:04→17:02)
[2019-01-14] MEDS: Insulin Glarg,Human.Rec.Analog 100 UNIT/ML ML SUBCUT SCH (09:05)
[2019-01-14] MEDS: Acetaminophen 325 MG Tab PO SCH (19:49)
[2019-01-14] MEDS: diphenhydrAMINE 25 MG Cap PO SCH (19:50)
[2019-01-14] MEDS: Montelukast 10 MG Tab PO SCH (19:50)
[2019-01-14] MEDS: Acetaminophen/HYDROcodone 325-7.5 MG Tab PO SCH (21:52)
[2019-01-15] MEDS: Sodium Chloride 0.9% 10 ML Syringe FLUSH SCH ×7 (02:31→22:24)
[2019-01-15] MEDS: Acetaminophen/HYDROcodone 325-5 MG Tab PO PRN ×2 (03:50→17:25)
[2019-01-15] MEDS: Clindamycin Phosphate 900 MG in Sodium Chloride 0.9% 100 ML IV SCH ×3 (03:52→19:40)
[2019-01-15] MEDS: Trospium 20 MG Tab PO SCH ×2 (07:41→17:25)
[2019-01-15] MEDS: Ascorbic Acid 500 MG Tab PO SCH ×2 (07:41→17:25)
[2019-01-15] MEDS: Ferrous Sulfate 325 MG Tab PO SCH ×2 (07:41→17:25)
[2019-01-15] MEDS: Fluconazole 100 MG Tab PO SCH (07:41)
[2019-01-15] MEDS: Potassium Chloride 10 MEQ Tab.ER PO SCH (07:41)
[2019-01-15] MEDS: Multivitamin Tab PO SCH ×2 (07:41→17:25)
[2019-01-15] MEDS: Clopidogrel 75 MG Tab PO SCH (07:41)
[2019-01-15] MEDS: Lisinopril 10 MG Tab PO SCH (07:42)
[2019-01-15] MEDS: MILNACIPRAN 50 MG PO SCH ×2 (07:42→19:35)
[2019-01-15] MEDS: Metoprolol Tartrate 25 MG Tab PO SCH ×2 (07:42→19:36)
[2019-01-15] MEDS: Insulin Glarg,Human.Rec.Analog 100 UNIT/ML ML SUBCUT SCH (07:45)
[2019-01-15] MEDS: Acetaminophen 325 MG Tab PO SCH (19:36)
[2019-01-15] MEDS: Montelukast 10 MG Tab PO SCH (19:39)
[2019-01-15] MEDS: diphenhydrAMINE 25 MG Cap PO SCH (19:39)
[2019-01-15] MEDS: Acetaminophen/HYDROcodone 325-7.5 MG Tab PO SCH (21:54)
[2019-01-15] MEDS: Ondansetron 4 MG Tab.DIS PO PRN (21:54)
[2019-01-16] MEDS: Clindamycin Phosphate 900 MG in Sodium Chloride 0.9% 100 ML IV SCH ×3 (03:29→19:29)
[2019-01-16] MEDS: Acetaminophen/HYDROcodone 325-5 MG Tab PO PRN ×2 (03:29→18:36)
[2019-01-16] MEDS: Sodium Chloride 0.9% 10 ML Syringe FLUSH SCH ×8 (03:31→19:34)
[2019-01-16] MEDS: MILNACIPRAN 50 MG PO SCH ×2 (07:42→19:33)
[2019-01-16] MEDS: Trospium 20 MG Tab PO SCH ×2 (07:42→17:54)
[2019-01-16] MEDS: Multivitamin Tab PO SCH ×2 (07:42→17:53)
[2019-01-16] MEDS: Potassium Chloride 10 MEQ Tab.ER PO SCH (07:43)
[2019-01-16] MEDS: Lisinopril 10 MG Tab PO SCH (07:43)
[2019-01-16] MEDS: Ferrous Sulfate 325 MG Tab PO SCH ×2 (07:43→17:54)
[2019-01-16] MEDS: Fluconazole 100 MG Tab PO SCH (07:44)
[2019-01-16] MEDS: Metoprolol Tartrate 25 MG Tab PO SCH ×2 (07:45→19:29)
[2019-01-16] MEDS: Ascorbic Acid 500 MG Tab PO SCH ×2 (07:45→17:54)
[2019-01-16] MEDS: Clopidogrel 75 MG Tab PO SCH (07:45)
[2019-01-16] MEDS: Insulin Glarg,Human.Rec.Analog 100 UNIT/ML ML SUBCUT SCH (07:49)
[2019-01-16] MEDS: Acetaminophen 325 MG Tab PO SCH (19:29)
[2019-01-16] MEDS: Montelukast 10 MG Tab PO SCH (19:29)
[2019-01-16] MEDS: diphenhydrAMINE 25 MG Cap PO SCH (19:30)
[2019-01-16] MEDS: Acetaminophen/HYDROcodone 325-7.5 MG Tab PO SCH (22:31)
[2019-01-17] MEDS: Clindamycin Phosphate 900 MG in Sodium Chloride 0.9% 100 ML IV SCH ×4 (04:00→19:40)
[2019-01-17] MEDS: Ferrous Sulfate 325 MG Tab PO SCH ×2 (09:22→18:26)
[2019-01-17] MEDS: Potassium Chloride 10 MEQ Tab.ER PO SCH (09:22)
[2019-01-17] MEDS: Insulin Glarg,Human.Rec.Analog 100 UNIT/ML ML SUBCUT SCH (09:22)
[2019-01-17] MEDS: Fluconazole 100 MG Tab PO SCH (09:22)
[2019-01-17] MEDS: Trospium 20 MG Tab PO SCH ×2 (09:22→18:27)
[2019-01-17] MEDS: Clopidogrel 75 MG Tab PO SCH (09:23)
[2019-01-17] MEDS: Metoprolol Tartrate 25 MG Tab PO SCH ×2 (09:23→19:40)
[2019-01-17] MEDS: MILNACIPRAN 50 MG PO SCH ×2 (09:23→19:42)
[2019-01-17] MEDS: Lisinopril 10 MG Tab PO SCH (09:24)
[2019-01-17] MEDS: Multivitamin Tab PO SCH ×2 (09:24→18:27)
[2019-01-17] MEDS: Ascorbic Acid 500 MG Tab PO SCH ×2 (09:24→18:28)
[2019-01-17] MEDS: Sodium Chloride 0.9% 10 ML Syringe FLUSH SCH ×5 (10:19→19:39)
[2019-01-17] MEDS: Acetaminophen/HYDROcodone 325-5 MG Tab PO PRN (18:29)
[2019-01-17] MEDS: Acetaminophen 325 MG Tab PO SCH (19:40)
[2019-01-17] MEDS: Montelukast 10 MG Tab PO SCH (19:40)
[2019-01-17] MEDS: diphenhydrAMINE 25 MG Cap PO SCH (19:40)
[2019-01-17] MEDS: Acetaminophen/HYDROcodone 325-7.5 MG Tab PO SCH (22:26)
[2019-01-18] MEDS: Sodium Chloride 0.9% 10 ML Syringe FLUSH SCH ×6 (01:43→20:41)
[2019-01-18] MEDS: Clindamycin Phosphate 900 MG in Sodium Chloride 0.9% 100 ML IV SCH ×3 (03:49→20:29)
[2019-01-18] MEDS: Acetaminophen/HYDROcodone 325-5 MG Tab PO PRN ×2 (03:54→18:26)
[2019-01-18] MEDS: Fluconazole 100 MG Tab PO SCH (07:24)
[2019-01-18] MEDS: Ferrous Sulfate 325 MG Tab PO SCH ×2 (07:24→17:10)
[2019-01-18] MEDS: Potassium Chloride 10 MEQ Tab.ER PO SCH (07:24)
[2019-01-18] MEDS: Trospium 20 MG Tab PO SCH ×2 (07:24→17:10)
[2019-01-18] MEDS: MILNACIPRAN 50 MG PO SCH ×2 (07:25→20:33)
[2019-01-18] MEDS: Clopidogrel 75 MG Tab PO SCH (07:25)
[2019-01-18] MEDS: Metoprolol Tartrate 25 MG Tab PO SCH ×2 (07:25→20:36)
[2019-01-18] MEDS: Lisinopril 10 MG Tab PO SCH (07:25)
[2019-01-18] MEDS: Multivitamin Tab PO SCH ×2 (07:26→17:10)
[2019-01-18] MEDS: Ascorbic Acid 500 MG Tab PO SCH ×2 (07:26→17:10)
[2019-01-18] MEDS: Insulin Glarg,Human.Rec.Analog 100 UNIT/ML ML SUBCUT SCH (07:29)
--- NOTE | 2019-01-18 19:31 | PCM.PN ---
- General Info Date of Service: 01/18/19 Admission Dx/Problem (Free Text): cellulitis of the right LE Functional Status: Reports: Other (pain right ankle and foot slowly improving) - Review of Systems General: Reports: No Symptoms HEENT: Reports: No Symptoms Pulmonary: Reports: No Symptoms Cardiovascular: Reports: No Symptoms Gastrointestinal: Reports: No Symptoms Genitourinary: Reports: No Symptoms Musculoskeletal: Reports: Foot Pain, Joint Pain (ankle, right) Skin: Reports: Other (redness RLE) Neurological: Reports: No Symptoms Psychiatric: Reports: No Symptoms - Patient Data Vitals - Most Recent: Last Vital Signs Temp 98.6 F 01/18/19 18:00 Pulse 92 01/18/19 18:00 Resp 16 01/18/19 18:00 BP 147/89 H 01/18/19 18:00 Pulse Ox 98 01/18/19 18:00 Weight - Most Recent: 279 lb 9.6 oz I&O - Last 24 Hours: Intake & Output 01/18/19 01/18/19 01/18/19 06:59 14:59 22:59 Intake Total 690 660 289 Balance 690 660 289 Lab Results Last 24 Hours: Laboratory Results - last 24 hr 01/17/19 01/18/19 01/18/19 Range/Units 20:46 07:23 11:17 POC Glucose 203 H 118 H 169 H (65-110) mg/dl 01/18/19 Range/Units 16:57 POC Glucose 189 H (65-110) mg/dl Med Orders - Current: Current Medications Acetaminophen (Tylenol Extra Strength) 500 mg PO Q4H PRN PRN Reason: Fever Acetaminophen (Tylenol) 650 mg PO BEDTIME [facility] Last Admin: 01/17/19 19:40 Dose: 650 mg Hydrocodone Bitart/Acetaminophen ([place] 325-5 Mg) 1 tab PO Q4H PRN PRN Reason: Pain/Fever Last Admin: 01/18/19 18:26 Dose: 1 tab Hydrocodone Bitart/Acetaminophen ([place] 325-7.5 Mg) 1 tab PO DAILY@2200 [facility] Last Admin: 01/17/19 22:26 Dose: 1 tab Ascorbic Acid (Vitamin C) 500 mg PO BID [facility] Last Admin: 01/18/19 17:10 Dose: 500 mg Clopidogrel Bisulfate (Plavix) 75 mg PO DAILY [facility] Last Admin: 01/18/19 07:25 Dose: 75 mg Diphenhydramine HCl (Benadryl) 25 mg PO BEDTIME [facility] Last Admin: 01/17/19 19:40 Dose: 25 mg Docusate Sodium (Colace) 100 mg PO BID PRN PRN Reason: Constipation Ferrous Sulfate (Ferrous Sulfate) 325 mg PO BID [facility] Last Admin: 01/18/19 17:10 Dose: 325 mg Fluconazole (Diflucan) 50 mg PO DAILY [facility] Last Admin: 01/18/19 07:24 Dose: 50 mg Heparin Sodium (Porcine) (Heparin Lock Flush 100 Units/Ml) 300 units FLUSH ASDIRECTED PRN PRN Reason: IV Use Last Admin: 01/16/19 17:49 Dose: 300 units Heparin Sodium (Porcine) (Heparin Lock Flush 100 Units/Ml) 300 units FLUSH 0430 ,0830,1230,2030 [facility] Last Admin: 01/18/19 12:00 Dose: 300 units Heparin Sodium (Porcine) (Heparin Lock Flush 100 Units/Ml) 300 units FLUSH Q12H [facility] Last Admin: 01/18/19 07:32 Dose: 300 units Clindamycin Phosphate 900 mg/ (Sodium Chloride) 106 mls @ 200 mls/hr IV Q8H [facility] Stop: 01/18/19 20:32 Last Admin: 01/18/19 11:18 Dose: 200 mls/hr Vancomycin HCl 1.25 gm/ Sodium (Chloride) 250 mls @ 135 mls/hr IV Q18H [facility] Last Admin: 01/18/19 01:42 Dose: 135 mls/hr Clindamycin Phosphate 900 mg/ (Sodium Chloride) 106 mls @ 200 mls/hr IV Q8H [facility] Stop: 01/25/19 20:32 Insulin Glargine (Lantus) 22 unit SUBCUT DAILY [facility] Last Admin: 01/18/19 07:29 Dose: 22 unit Lisinopril (Prinivil) 10 mg PO DAILY [facility] Last Admin: 01/18/19 07:25 Dose: 10 mg Magnesium Hydroxide (Milk Of Magnesia) 30 ml PO DAILY PRN PRN Reason: Constipation Meclizine HCl (Antivert) 25 mg PO Q6H PRN PRN Reason: Dizziness Last Admin: 12/19/18 08:05 Dose: 25 mg Metoprolol Tartrate (Lopressor) 25 mg PO Q12HR [facility] Last Admin: 01/18/19 07:25 Dose: 25 mg Montelukast Sodium (Singulair) 10 mg PO BEDTIME [facility] Last Admin: 01/17/19 19:40 Dose: 10 mg Multivitamins/Minerals/Vitamin C (Tab-A-Noam) 0.5 tab PO BID [facility] Last Admin: 01/18/19 17:10 Dose: 0.5 tab Milnacipran [Savella ] 50mg Tab Own Med 1 each PO BID@0800,2000 [facility] Last Admin: 01/18/19 07:25 Dose: 1 each Ondansetron HCl (Zofran Odt) 4 mg PO Q6H PRN PRN Reason: Nausea/Vomiting Last Admin: 01/15/19 21:54 Dose: 4 mg Polyethylene Glycol (Miralax) 17 gm PO BEDTIME PRN PRN Reason: Constipation Potassium Chloride (Klor-Con 10) 10 meq PO DAILY [facility] Last Admin: 01/18/19 07:24 Dose: 10 meq Sodium Chloride (Saline Flush) 10 ml FLUSH ASDIRECTED [facility] Last Admin: 01/18/19 12:01 Dose: 10 ml Trospium (Sanctura) 20 mg PO BIDAC [facility] Last Admin: 01/18/19 17:10 Dose: 20 mg Vancomycin HCl (Pharmacy To Dose - Vancomycin) 1 dose .XX ASDIRECTED [facility] Discontinued Medications Alteplase, Recombinant (Cathflo Activase) 2 mg IVPUSH ONETIME ONE Stop: 12/21/18 20:07 Last Admin: 12/21/18 22:01 Dose: 2 mg Alteplase, Recombinant (Cathflo Activase) 2 mg IVPUSH ONETIME STA Stop: 01/02/19 22:17 Last Admin: 01/02/19 22:37 Dose: 2 mg Clindamycin Phosphate 900 mg/ (Sodium Chloride) 106 mls @ 200 mls/hr IV Q8H [facility] Stop: 12/28/18 20:30 Last Admin: 12/23/18 12:23 Dose: 200 mls/hr Vancomycin HCl 1.25 gm/ Sodium (Chloride) 250 mls @ 135 mls/hr IV Q12H [facility] Last Admin: 12/14/18 09:27 Dose: Not Given Vancomycin HCl 1 gm/ Sodium (Chloride) 250 mls @ 165 mls/hr IV Q12H [facility] Last Admin: 12/15/18 08:32 Dose: 165 mls/hr Vancomycin HCl 1 gm/ Sodium (Chloride) 250 mls @ 165 mls/hr IV Q12H [facility] Stop: 12/28/18 21:30 Last Admin: 12/28/18 19:38 Dose: 165 mls/hr Clindamycin Phosphate 900 mg/ (Sodium Chloride) 106 mls @ 200 mls/hr IV Q8H [facility] Stop: 12/28/18 20:30 Last Admin: 12/28/18 21:15 Dose: 200 mls/hr Clindamycin Phosphate 900 mg/ (Sodium Chloride) 106 mls @ 200 mls/hr IV Q8H [facility] Stop: 01/04/19 20:32 Last Admin: 01/04/19 19:35 Dose: 200 mls/hr Vancomycin HCl 1 gm/ Dextrose/ (Water) 250 mls @ 165 mls/hr IV Q12H [facility] Stop: 01/04/19 20:31 Last Admin: 12/29/18 08:18 Dose: Not Given Vancomycin HCl 1 gm/ Sodium (Chloride) 250 mls @ 165 mls/hr IV Q12H [facility] Last Admin: 01/07/19 08:40 Dose: Not Given Clindamycin Phosphate 900 mg/ (Sodium Chloride) 106 mls @ 200 mls/hr IV Q8H [facility] Stop: 01/11/19 20:32 Last Admin: 01/11/19 19:33 Dose: 200 mls/hr Vancomycin HCl 1.25 gm/ Sodium (Chloride) 250 mls @ 135 mls/hr IV Q12H [facility] Vancomycin HCl 1 gm/ Sodium (Chloride) 250 mls @ 165 mls/hr IV Q18H [facility] Last Admin: 01/14/19 10:02 Dose: Not Given Insulin Glargine (Lantus) 35 unit SUBCUT DAILY [facility] Last Admin: 12/12/18 09:14 Dose: 35 units Insulin Glargine (Lantus) 30 unit SUBCUT DAILY [facility] Last Admin: 12/15/18 08:13 Dose: 30 units Insulin Glargine (Lantus) 25 unit SUBCUT DAILY [facility] Last Admin: 12/16/18 07:59 Dose: 25 unit Insulin Glargine (Lantus) 20 unit SUBCUT DAILY [facility] Last Admin: 12/17/18 08:00 Dose: 20 unit Insulin Glargine (Lantus) 16 unit SUBCUT DAILY [facility] Last Admin: 12/23/18 08:21 Dose: 16 units Insulin Glargine (Lantus) 18 unit SUBCUT DAILY [facility] Last Admin: 12/29/18 08:27 Dose: 18 unit Insulin Glargine (Lantus) 20 unit SUBCUT DAILY [facility] Last Admin: 01/08/19 08:36 Dose: 20 unit Lisinopril (Prinivil) 10 mg PO DAILY [facility] Last Admin: 12/22/18 08:47 Dose: 10 mg Metoprolol Tartrate (Lopressor) 25 mg PO Q12H [facility] Last Admin: 12/12/18 09:12 Dose: 25 mg Multivitamins/Minerals/Vitamin C (Tab-A-Noam) 1 tab PO DAILY [facility] Last Admin: 12/18/18 07:51 Dose: 1 tab Mupirocin (Bactroban Oint) 0 gm TOP TID [facility] Last Admin: 12/14/18 21:38 Dose: Not Given Mupirocin (Bactroban Oint) 0 gm TOP DAILY [facility] Last Admin: 12/17/18 08:00 Dose: 1 applic Potassium Chloride (Klor-Con 10) 10 meq PO TID [facility] Last Admin: 12/12/18 14:05 Dose: Not Given Potassium Chloride (Klor-Con 10) 10 meq PO BID [facility] - Exam Quality Assessment: Central Line/PICC General: Alert, Oriented, Cooperative HEENT: Mucous Membr. Moist/[place] Neck: Trachea Midline, No JVD Lungs: Clear to Auscultation, Normal Respiratory Effort Cardiovascular: Regular Rate, Regular Rhythm GI/Abdominal Exam: Soft, Non-Tender, No Distention (Female) Exam: Deferred Back Exam: Normal Inspection Extremities: Pedal Edema (right), Redness (RLE) Skin: Warm, Dry, Intact, Other (warm to touch FLE) Wound/Incisions: No Drainage, Erythema Improving Neurological: No New Focal Deficit Psy/Mental Status: Alert, Normal Affect, Normal Mood - Problem List & Annotations (1) Staphylococcus epidermidis bacteremia SNOMED Code(s): 126683929451, 915919578310 Code(s): R78.81 - BACTEREMIA Status: Acute Priority: High Current Visit : Yes (2) Staph aureus infection SNOMED Code(s): 917231338 Code(s): A49.01 - METHICILLIN SUSCEP STAPH INFECTION, UNSP SITE Status: Acute Priority: High Current Visit: Yes (3) Cellulitis of right leg SNOMED Code(s): 873872544 Code(s): L03.115 - CELLULITIS OF RIGHT LOWER LIMB Status: Acute Priority : High Current Visit: Yes Annotation/Comment:: continue on IV therapy, PICC line in place (4) Chills (without fever) SNOMED Code(s): 31725763 Code(s): R68.83 - CHILLS (WITHOUT FEVER) Status: Acute Priority: High Current Visit: No (5) Diabetes mellitus SNOMED Code(s): 32270682 Code(s): E11.9 - TYPE 2 DIABETES MELLITUS WITHOUT COMPLICATIONS Status: Acute Current Visit: No Qualifiers: Diabetes mellitus type: type 2 Diabetes mellitus 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 insulin use: with 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 use (6) Essential (primary) hypertension SNOMED Code(s): 57989967 Code(s): I10 - ESSENTIAL (PRIMARY) HYPERTENSION Status: Acute Priority: Low Current Visit: No (7) Vertigo SNOMED Code(s): 412861714 Code(s): R42 - DIZZINESS AND GIDDINESS Status: Acute Current Visit: No (8) Diarrhea SNOMED Code(s): 43675500 Code(s): R19.7 - DIARRHEA, UNSPECIFIED Status: Acute Priority: High Current Visit: Yes Qualifiers: Diarrhea type: unspecified type Qualified Code(s): R19.7 - Diarrhea, unspecified (9) Elevated erythrocyte sedimentation rate SNOMED Code(s): 196169926 Code(s): R70.0 - ELEVATED ERYTHROCYTE SEDIMENTATION RATE Status: Acute Priority: High Current Visit: Yes - Problem List Review Problem List Initiated/Reviewed/Updated: Yes - My Orders Last 24 Hours: My Active Orders 01/19/19 04:00 Clindamycin Phosphate [Cleocin] 900 mg Sodium Chloride 0.9% [Normal Saline] 100 ml IV Q8H - Plan Plan:: 12/12/2018 Patient needing IV antibiotics in swingbed, monitoring daily of the leg and lab results. Will need more days of treatment as patient leg is improving but slowly. Will recheck labs in the morning. Consulted with Dr Sheets. Ariela Cameron, [employer]IL [employer] 12/14/18 Concepcion Osorio MD Leg continues slow improvement. Continue IV antibiotics. 12/15/2018 Patient states pain controlled with oral Lortab. Leg continues to improve with redness and warmth. Patient continues to need swingbed treatment with IV antibiotics, leg improving but slowly. 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 Increased swelling and increased redness right anterior compartment. Will re-CT leg tomorrow and continue IV antibiotics. Also discussed anemia. Will start oral iron and vitamin C. 12/23/2018 Patient continues with pain to the right LE mainly in the foot. CT scan done recently , continue to show significant edema and cellulitis. Patient needing to continue on IV antibiotics due to the significant cellulitis, delayed healing , and little improvement noted on CT scan. Will recheck labs in the am, Increase Lantus now that blood sugars are increasing. Try Tubigrip to LEs to help with circulation and healing. Discussed with Dr Javier. 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 Due to +staph bacteremia, +staph culture from the crack over right great toe, and clinically the leg still has evidence of active infection need to continue IV antibiotics and swingbed. The IVs required to treat staph are several times a day. It is two different types of staph. She has complicated factors of diabetes mellitus, obesity, s/p chemotherapy, s/p radiation, immunocompromised status thus needs prolonged IV antibiotics. Recommendation is for 1-3 weeks more IV antibiotics. I also explained medically necessity for echocardiogram due to staph bacteremia. She agrees to the echocardiogram continued IV antibiotics and continued swingbed status. 01/01/19 Concepcion Osorio MD Slow improvement of RLE continues. Still redness and swelling RLE. Labs also slowly improving. Continue IV antibiotics. 01/04/19 Concepcion Osorio MD Continues slow clinical improvement of RLE. Still redness and swelling RLE although continues to recede down the leg but still present. ESR still quite elevated. Continue IV antibiotics for 1-2 more weeks. 01/11/19 Concepcion Osorio MD The right lower extremity continues swollen, red, warmth. Some modest improvement. ESR still markedly elevated. Some diarrhea starting today. Will check c-dif. Continue IV antibiotics at least 1 more week. 01/18/19 Concepcion Osorio MD Slow slow improvement right ankle area and right foot. Still some pain. ESR still markedly elevated. C-dif was negative. Continue the IV antibiotics at least 1 more week.
[2019-01-18] MEDS: Montelukast 10 MG Tab PO SCH (20:34)
[2019-01-18] MEDS: diphenhydrAMINE 25 MG Cap PO SCH (20:34)
[2019-01-18] MEDS: Acetaminophen 325 MG Tab PO SCH (20:34)
[2019-01-18] MEDS: Acetaminophen/HYDROcodone 325-7.5 MG Tab PO SCH (21:00)
[2019-01-19] MEDS: Acetaminophen/HYDROcodone 325-5 MG Tab PO PRN ×2 (03:37→18:15)
[2019-01-19] MEDS: Sodium Chloride 0.9% 10 ML Syringe FLUSH SCH ×8 (03:37→20:36)
[2019-01-19] MEDS: Clindamycin Phosphate 900 MG in Sodium Chloride 0.9% 100 ML IV SCH ×3 (03:37→20:22)
[2019-01-19] MEDS: Insulin Glarg,Human.Rec.Analog 100 UNIT/ML ML SUBCUT SCH (08:02)
[2019-01-19] MEDS: MILNACIPRAN 50 MG PO SCH ×2 (08:03→20:34)
[2019-01-19] MEDS: Trospium 20 MG Tab PO SCH ×2 (08:05→17:13)
[2019-01-19] MEDS: Lisinopril 10 MG Tab PO SCH (08:05)
[2019-01-19] MEDS: Potassium Chloride 10 MEQ Tab.ER PO SCH (08:05)
[2019-01-19] MEDS: Multivitamin Tab PO SCH ×2 (08:06→17:13)
[2019-01-19] MEDS: Fluconazole 100 MG Tab PO SCH (08:06)
[2019-01-19] MEDS: Clopidogrel 75 MG Tab PO SCH (08:06)
[2019-01-19] MEDS: Ferrous Sulfate 325 MG Tab PO SCH ×2 (08:07→17:13)
[2019-01-19] MEDS: Metoprolol Tartrate 25 MG Tab PO SCH ×2 (08:07→20:23)
[2019-01-19] MEDS: Ascorbic Acid 500 MG Tab PO SCH ×2 (08:07→17:12)
[2019-01-19] MEDS: diphenhydrAMINE 25 MG Cap PO SCH (20:23)
[2019-01-19] MEDS: Acetaminophen 325 MG Tab PO SCH (20:23)
[2019-01-19] MEDS: Montelukast 10 MG Tab PO SCH (20:23)
[2019-01-19] MEDS: Acetaminophen/HYDROcodone 325-7.5 MG Tab PO SCH (22:44)
[2019-01-20] MEDS: Clindamycin Phosphate 900 MG in Sodium Chloride 0.9% 100 ML IV SCH ×3 (03:08→19:15)
[2019-01-20] MEDS: Sodium Chloride 0.9% 10 ML Syringe FLUSH SCH ×8 (03:08→19:52)
[2019-01-20] MEDS: Acetaminophen/HYDROcodone 325-5 MG Tab PO PRN ×2 (03:09→18:21)
[2019-01-20] MEDS: Lisinopril 10 MG Tab PO SCH (09:00)
[2019-01-20] MEDS: Potassium Chloride 10 MEQ Tab.ER PO SCH (09:00)
[2019-01-20] MEDS: Ferrous Sulfate 325 MG Tab PO SCH ×2 (09:01→17:10)
[2019-01-20] MEDS: Clopidogrel 75 MG Tab PO SCH (09:01)
[2019-01-20] MEDS: Trospium 20 MG Tab PO SCH ×2 (09:01→17:10)
[2019-01-20] MEDS: Metoprolol Tartrate 25 MG Tab PO SCH ×2 (09:01→19:14)
[2019-01-20] MEDS: Insulin Glarg,Human.Rec.Analog 100 UNIT/ML ML SUBCUT SCH (09:02)
[2019-01-20] MEDS: Ascorbic Acid 500 MG Tab PO SCH ×2 (09:03→17:10)
[2019-01-20] MEDS: Fluconazole 100 MG Tab PO SCH (09:04)
[2019-01-20] MEDS: Multivitamin Tab PO SCH ×2 (09:05→17:10)
[2019-01-20] MEDS: MILNACIPRAN 50 MG PO SCH ×2 (09:06→22:19)
[2019-01-20] MEDS: diphenhydrAMINE 25 MG Cap PO SCH (19:14)
[2019-01-20] MEDS: Montelukast 10 MG Tab PO SCH (19:14)
[2019-01-20] MEDS: Acetaminophen/HYDROcodone 325-7.5 MG Tab PO SCH (22:18)
[2019-01-20] MEDS: Acetaminophen 325 MG Tab PO SCH (22:19)
[2019-01-21] MEDS: Sodium Chloride 0.9% 10 ML Syringe FLUSH SCH ×7 (03:19→20:08)
[2019-01-21] MEDS: Clindamycin Phosphate 900 MG in Sodium Chloride 0.9% 100 ML IV SCH ×3 (03:19→20:06)
[2019-01-21] MEDS: Acetaminophen/HYDROcodone 325-5 MG Tab PO PRN ×2 (03:20→18:19)
[2019-01-21] MEDS: Ferrous Sulfate 325 MG Tab PO SCH ×2 (07:32→17:07)
[2019-01-21] MEDS: Metoprolol Tartrate 25 MG Tab PO SCH ×2 (07:32→20:07)
[2019-01-21] MEDS: Potassium Chloride 10 MEQ Tab.ER PO SCH (07:32)
[2019-01-21] MEDS: Lisinopril 10 MG Tab PO SCH (07:32)
[2019-01-21] MEDS: Trospium 20 MG Tab PO SCH ×2 (07:33→17:07)
[2019-01-21] MEDS: Ascorbic Acid 500 MG Tab PO SCH ×2 (07:33→17:07)
[2019-01-21] MEDS: Clopidogrel 75 MG Tab PO SCH (07:33)
[2019-01-21] MEDS: Fluconazole 100 MG Tab PO SCH (07:34)
[2019-01-21] MEDS: Multivitamin Tab PO SCH ×2 (07:34→17:07)
[2019-01-21] MEDS: Insulin Glarg,Human.Rec.Analog 100 UNIT/ML ML SUBCUT SCH (07:35)
[2019-01-21] MEDS: MILNACIPRAN 50 MG PO SCH ×2 (07:35→20:07)
[2019-01-21] MEDS: Montelukast 10 MG Tab PO SCH (20:07)
[2019-01-21] MEDS: diphenhydrAMINE 25 MG Cap PO SCH (20:07)
[2019-01-21] MEDS: Acetaminophen 325 MG Tab PO SCH (20:08)
[2019-01-21] MEDS: Acetaminophen/HYDROcodone 325-7.5 MG Tab PO SCH (22:37)
[2019-01-22] MEDS: Acetaminophen/HYDROcodone 325-5 MG Tab PO PRN (03:29)
[2019-01-22] MEDS: Clindamycin Phosphate 900 MG in Sodium Chloride 0.9% 100 ML IV SCH ×3 (03:30→20:35)
[2019-01-22] MEDS: Sodium Chloride 0.9% 10 ML Syringe FLUSH SCH ×9 (03:31→20:35)
[2019-01-22] MEDS: Ferrous Sulfate 325 MG Tab PO SCH ×2 (07:29→17:07)
[2019-01-22] MEDS: MILNACIPRAN 50 MG PO SCH ×2 (07:29→20:42)
[2019-01-22] MEDS: Clopidogrel 75 MG Tab PO SCH (07:29)
[2019-01-22] MEDS: Ascorbic Acid 500 MG Tab PO SCH ×2 (07:30→17:07)
[2019-01-22] MEDS: Fluconazole 100 MG Tab PO SCH (07:30)
[2019-01-22] MEDS: Metoprolol Tartrate 25 MG Tab PO SCH ×2 (07:30→20:41)
[2019-01-22] MEDS: Lisinopril 10 MG Tab PO SCH (07:31)
[2019-01-22] MEDS: Multivitamin Tab PO SCH ×2 (07:32→17:06)
[2019-01-22] MEDS: Insulin Glarg,Human.Rec.Analog 100 UNIT/ML ML SUBCUT SCH (07:33)
[2019-01-22] MEDS: Trospium 20 MG Tab PO SCH ×2 (07:34→17:07)
[2019-01-22] MEDS: Potassium Chloride 10 MEQ Tab.ER PO SCH (07:35)
[2019-01-22] MEDS: Montelukast 10 MG Tab PO SCH (20:41)
[2019-01-22] MEDS: Acetaminophen 325 MG Tab PO SCH (20:41)
[2019-01-22] MEDS: diphenhydrAMINE 25 MG Cap PO SCH (20:42)
[2019-01-22] MEDS: Acetaminophen/HYDROcodone 325-7.5 MG Tab PO SCH (21:13)
[2019-01-23] MEDS: Acetaminophen/HYDROcodone 325-5 MG Tab PO PRN (03:12)
[2019-01-23] MEDS: Sodium Chloride 0.9% 10 ML Syringe FLUSH SCH ×4 (03:12→19:51)
[2019-01-23] MEDS: Clindamycin Phosphate 900 MG in Sodium Chloride 0.9% 100 ML IV SCH ×3 (03:13→19:52)
[2019-01-23] MEDS: Clopidogrel 75 MG Tab PO SCH (07:33)
[2019-01-23] MEDS: Fluconazole 100 MG Tab PO SCH (07:33)
[2019-01-23] MEDS: Trospium 20 MG Tab PO SCH ×2 (07:33→17:36)
[2019-01-23] MEDS: Ascorbic Acid 500 MG Tab PO SCH ×2 (07:34→17:36)
[2019-01-23] MEDS: Potassium Chloride 10 MEQ Tab.ER PO SCH (07:34)
[2019-01-23] MEDS: Metoprolol Tartrate 25 MG Tab PO SCH ×2 (07:34→19:56)
[2019-01-23] MEDS: Ferrous Sulfate 325 MG Tab PO SCH ×2 (07:34→17:36)
[2019-01-23] MEDS: Lisinopril 10 MG Tab PO SCH (07:34)
[2019-01-23] MEDS: Multivitamin Tab PO SCH ×2 (07:35→17:35)
[2019-01-23] MEDS: Insulin Glarg,Human.Rec.Analog 100 UNIT/ML ML SUBCUT SCH (07:36)
[2019-01-23] MEDS: MILNACIPRAN 50 MG PO SCH ×2 (07:37→19:57)
[2019-01-23] MEDS: Acetaminophen 325 MG Tab PO SCH (19:56)
[2019-01-23] MEDS: diphenhydrAMINE 25 MG Cap PO SCH (19:56)
[2019-01-23] MEDS: Montelukast 10 MG Tab PO SCH (19:56)
[2019-01-23] MEDS: Acetaminophen/HYDROcodone 325-7.5 MG Tab PO SCH (21:30)
[2019-01-24] MEDS: Sodium Chloride 0.9% 10 ML Syringe FLUSH SCH ×6 (01:03→19:45)
[2019-01-24] MEDS: Acetaminophen/HYDROcodone 325-5 MG Tab PO PRN (04:03)
[2019-01-24] MEDS: Clindamycin Phosphate 900 MG in Sodium Chloride 0.9% 100 ML IV SCH ×3 (04:05→19:08)
[2019-01-24] MEDS: MILNACIPRAN 50 MG PO SCH ×2 (08:03→19:53)
[2019-01-24] MEDS: Metoprolol Tartrate 25 MG Tab PO SCH ×2 (08:04→19:48)
[2019-01-24] MEDS: Ferrous Sulfate 325 MG Tab PO SCH ×2 (08:05→17:18)
[2019-01-24] MEDS: Trospium 20 MG Tab PO SCH ×2 (08:05→17:18)
[2019-01-24] MEDS: Potassium Chloride 10 MEQ Tab.ER PO SCH (08:05)
[2019-01-24] MEDS: Clopidogrel 75 MG Tab PO SCH (08:05)
[2019-01-24] MEDS: Multivitamin Tab PO SCH ×2 (08:06→17:18)
[2019-01-24] MEDS: Fluconazole 100 MG Tab PO SCH (08:06)
[2019-01-24] MEDS: Ascorbic Acid 500 MG Tab PO SCH ×2 (08:07→17:18)
[2019-01-24] MEDS: Lisinopril 10 MG Tab PO SCH (08:07)
[2019-01-24] MEDS: Insulin Glarg,Human.Rec.Analog 100 UNIT/ML ML SUBCUT SCH (08:08)
[2019-01-24] MEDS: diphenhydrAMINE 25 MG Cap PO SCH (19:48)
[2019-01-24] MEDS: Acetaminophen 325 MG Tab PO SCH (19:49)
[2019-01-24] MEDS: Montelukast 10 MG Tab PO SCH (19:49)
[2019-01-24] MEDS: Acetaminophen/HYDROcodone 325-7.5 MG Tab PO SCH (21:50)
[2019-01-25] MEDS: Sodium Chloride 0.9% 10 ML Syringe FLUSH SCH ×7 (04:00→19:44)
[2019-01-25] MEDS: Acetaminophen/HYDROcodone 325-5 MG Tab PO PRN (04:00)
[2019-01-25] MEDS: Clindamycin Phosphate 900 MG in Sodium Chloride 0.9% 100 ML IV SCH ×2 (04:00→12:10)
[2019-01-25] MEDS: Fluconazole 100 MG Tab PO SCH (08:10)
[2019-01-25] MEDS: Potassium Chloride 10 MEQ Tab.ER PO SCH (08:11)
[2019-01-25] MEDS: Clopidogrel 75 MG Tab PO SCH (08:12)
[2019-01-25] MEDS: Metoprolol Tartrate 25 MG Tab PO SCH ×2 (08:12→19:41)
[2019-01-25] MEDS: Ascorbic Acid 500 MG Tab PO SCH ×2 (08:13→17:09)
[2019-01-25] MEDS: Multivitamin Tab PO SCH ×2 (08:13→17:09)
[2019-01-25] MEDS: Trospium 20 MG Tab PO SCH ×2 (08:14→17:08)
[2019-01-25] MEDS: Lisinopril 10 MG Tab PO SCH (08:15)
[2019-01-25] MEDS: Ferrous Sulfate 325 MG Tab PO SCH ×2 (08:15→17:08)
[2019-01-25] MEDS: MILNACIPRAN 50 MG PO SCH ×2 (08:16→19:42)
[2019-01-25] MEDS: Insulin Glarg,Human.Rec.Analog 100 UNIT/ML ML SUBCUT SCH (08:21)
[2019-01-25 14:03] LABS: CHLORIDE,CL 104 mmol/L (98-107); SODIUM,NA 137 mmol/L (136-145)
[2019-01-25] MEDS: diphenhydrAMINE 25 MG Cap PO SCH (19:41)
[2019-01-25] MEDS: Acetaminophen 325 MG Tab PO SCH (19:41)
[2019-01-25] MEDS: Montelukast 10 MG Tab PO SCH (19:42)
[2019-01-25] MEDS ORDERED: Clindamycin Phosphate in D5W 900 MG in Premix Bag 1 BAG IV SCH ×2 (20:00)
[2019-01-25] MEDS: Acetaminophen/HYDROcodone 325-7.5 MG Tab PO SCH (21:44)
--- NOTE | 2019-01-25 23:59 | PCM.PN ---
- General Info Date of Service: 01/25/19 Functional Status: Reports: Pain Controlled, Ambulating - Review of Systems General: Reports: No Symptoms HEENT: Reports: No Symptoms Pulmonary: Reports: No Symptoms Cardiovascular: Reports: No Symptoms Gastrointestinal: Reports: No Symptoms Genitourinary: Reports: No Symptoms Musculoskeletal: Reports: Foot Pain (right), Joint Pain (right ankle), Joint Swelling (right ankle) Skin: Reports: No Symptoms Neurological: Reports: No Symptoms Psychiatric: Reports: No Symptoms - Patient Data Vitals - Most Recent: Last Vital Signs Temp 97.8 F 01/25/19 18:00 Pulse 83 01/25/19 19:41 Resp 16 01/25/19 18:00 BP 152/81 H 01/25/19 19:41 Pulse Ox 99 01/25/19 18:00 Weight - Most Recent: 278 lb I&O - Last 24 Hours: Intake & Output 01/25/19 01/25/19 01/26/19 14:59 22:59 06:59 Intake Total 480 719 Balance 480 719 Lab Results Last 24 Hours: Laboratory Results - last 24 hr 01/25/19 01/25/19 01/25/19 Range/Units 07:40 11:33 13:35 WBC 5.1 (4.0-10.2) K/uL RBC 3.24 L (3.77-5.09) M/uL Hgb 9.9 L (11.7-15.5) g/dL Hct 31.3 L (34.0-46.0) % MCV 96.6 (84.0-98.0) fL MCH 30.6 (28.2-33.3) pg MCHC 31.6 L (31.7-36.0) g/dL RDW 14.7 H (11.2-14.1) % Plt Count 324 (150-350) K/uL Neut % (Auto) 64.1 (45.0-80.0) % Lymph % (Auto) 22.1 (10.0-50.0) % Casey % (Auto) 8.3 (2.0-14.0) % Eos % (Auto) 4.9 (0.0-5.0) % Baso % (Auto) 0.6 (0.0-2.0) % Neut # (Auto) 3.24 (1.40-7.00) K/uL Lymph # (Auto) 1.12 (0.50-3.50) K/uL Casey # (Auto) 0.42 (0.00-1.00) K/uL Eos # (Auto) 0.25 (0.00-0.50) K/uL Baso # (Auto) 0.03 (0.00-0.20) K/uL ESR 73 H (0-30) mm/hr Sodium (136-145) mmol/L Potassium (3.5-5.1) mmol/L Chloride (98-107) mmol/L Carbon Dioxide (21.0-32.0) mmol/L BUN (7-18) mg/dL Creatinine (0.51-1.17) mg/dL Est Cr Clr Drug Dosing mL/min Estimated GFR (MDRD) mL/min Glucose (74-106) mg/dL POC Glucose 126 H 152 H (65-110) mg/dl Calcium (8.5-10.1) mg/dL Total Bilirubin (0.2-1.0) mg/dL AST (15-37) U/L ALT (12-78) U/L Alkaline Phosphatase (46-116) IU/L C-Reactive Protein (<=0.9) mg/dL Total Protein (6.4-8.2) g/dL Albumin (3.4-5.0) g/dL Vancomycin Trough (10-20) ug/mL 01/25/19 01/25/19 01/25/19 Range/Units 13:35 13:35 16:53 WBC (4.0-10.2) K/uL RBC (3.77-5.09) M/uL Hgb (11.7-15.5) g/dL Hct (34.0-46.0) % MCV (84.0-98.0) fL MCH (28.2-33.3) pg MCHC (31.7-36.0) g/dL RDW (11.2-14.1) % Plt Count (150-350) K/uL Neut % (Auto) (45.0-80.0) % Lymph % (Auto) (10.0-50.0) % Casey % (Auto) (2.0-14.0) % Eos % (Auto) (0.0-5.0) % Baso % (Auto) (0.0-2.0) % Neut # (Auto) (1.40-7.00) K/uL Lymph # (Auto) (0.50-3.50) K/uL Casey # (Auto) (0.00-1.00) K/uL Eos # (Auto) (0.00-0.50) K/uL Baso # (Auto) (0.00-0.20) K/uL ESR (0-30) mm/hr Sodium 137 (136-145) mmol/L Potassium 4.2 (3.5-5.1) mmol/L Chloride 104 (98-107) mmol/L Carbon Dioxide 23.4 (21.0-32.0) mmol/L BUN 16 (7-18) mg/dL Creatinine 0.79 (0.51-1.17) mg/dL Est Cr Clr Drug Dosing 73.14 mL/min Estimated GFR (MDRD) > 60 mL/min Glucose 217 H (74-106) mg/dL POC Glucose 128 H (65-110) mg/dl Calcium 8.8 (8.5-10.1) mg/dL Total Bilirubin 0.2 (0.2-1.0) mg/dL AST 18 (15-37) U/L ALT 27 (12-78) U/L Alkaline Phosphatase 83 (46-116) IU/L C-Reactive Protein 0.2 (<=0.9) mg/dL Total Protein 7.0 (6.4-8.2) g/dL Albumin 3.0 L (3.4-5.0) g/dL Vancomycin Trough 15.6 (10-20) ug/mL 01/25/19 Range/Units 19:51 WBC (4.0-10.2) K/uL RBC (3.77-5.09) M/uL Hgb (11.7-15.5) g/dL Hct (34.0-46.0) % MCV (84.0-98.0) fL MCH (28.2-33.3) pg MCHC (31.7-36.0) g/dL RDW (11.2-14.1) % Plt Count (150-350) K/uL Neut % (Auto) (45.0-80.0) % Lymph % (Auto) (10.0-50.0) % Casey % (Auto) (2.0-14.0) % Eos % (Auto) (0.0-5.0) % Baso % (Auto) (0.0-2.0) % Neut # (Auto) (1.40-7.00) K/uL Lymph # (Auto) (0.50-3.50) K/uL Casey # (Auto) (0.00-1.00) K/uL Eos # (Auto) (0.00-0.50) K/uL Baso # (Auto) (0.00-0.20) K/uL ESR (0-30) mm/hr Sodium (136-145) mmol/L Potassium (3.5-5.1) mmol/L Chloride (98-107) mmol/L Carbon Dioxide (21.0-32.0) mmol/L BUN (7-18) mg/dL Creatinine (0.51-1.17) mg/dL Est Cr Clr Drug Dosing mL/min Estimated GFR (MDRD) mL/min Glucose (74-106) mg/dL POC Glucose 209 H (65-110) mg/dl Calcium (8.5-10.1) mg/dL Total Bilirubin (0.2-1.0) mg/dL AST (15-37) U/L ALT (12-78) U/L Alkaline Phosphatase (46-116) IU/L C-Reactive Protein (<=0.9) mg/dL Total Protein (6.4-8.2) g/dL Albumin (3.4-5.0) g/dL Vancomycin Trough (10-20) ug/mL Med Orders - Current: Current Medications Acetaminophen (Tylenol Extra Strength) 500 mg PO Q4H PRN PRN Reason: Fever Acetaminophen (Tylenol) 650 mg PO BEDTIME [facility] Last Admin: 01/25/19 19:41 Dose: 650 mg Hydrocodone Bitart/Acetaminophen ([place] 325-5 Mg) 1 tab PO Q4H PRN PRN Reason: Pain/Fever Last Admin: 01/25/19 04:00 Dose: 1 tab Hydrocodone Bitart/Acetaminophen ([place] 325-7.5 Mg) 1 tab PO DAILY@2200 [facility] Last Admin: 01/25/19 21:44 Dose: 1 tab Ascorbic Acid (Vitamin C) 500 mg PO BID [facility] Last Admin: 01/25/19 17:09 Dose: 500 mg Clopidogrel Bisulfate (Plavix) 75 mg PO DAILY [facility] Last Admin: 01/25/19 08:12 Dose: 75 mg Diphenhydramine HCl (Benadryl) 25 mg PO BEDTIME [facility] Last Admin: 01/25/19 19:41 Dose: 25 mg Docusate Sodium (Colace) 100 mg PO BID PRN PRN Reason: Constipation Ferrous Sulfate (Ferrous Sulfate) 325 mg PO BID [facility] Last Admin: 01/25/19 17:08 Dose: 325 mg Fluconazole (Diflucan) 50 mg PO DAILY [facility] Last Admin: 01/25/19 08:10 Dose: 50 mg Heparin Sodium (Porcine) (Heparin Lock Flush 100 Units/Ml) 300 units FLUSH ASDIRECTED PRN PRN Reason: IV Use Last Admin: 01/24/19 12:01 Dose: 300 units Heparin Sodium (Porcine) (Heparin Lock Flush 100 Units/Ml) 300 units FLUSH 0430 ,0830,1230,2030 [facility] Last Admin: 01/25/19 19:42 Dose: 300 units Heparin Sodium (Porcine) (Heparin Lock Flush 100 Units/Ml) 300 units FLUSH Q12H [facility] Last Admin: 01/25/19 19:43 Dose: 300 units Vancomycin HCl 1.25 gm/ Sodium (Chloride) 250 mls @ 135 mls/hr IV Q18H [facility] Last Admin: 01/25/19 14:33 Dose: 135 mls/hr Insulin Glargine (Lantus) 22 unit SUBCUT DAILY [facility] Last Admin: 01/25/19 08:21 Dose: 22 unit Lisinopril (Prinivil) 10 mg PO DAILY [facility] Last Admin: 01/25/19 08:15 Dose: 10 mg Magnesium Hydroxide (Milk Of Magnesia) 30 ml PO DAILY PRN PRN Reason: Constipation Meclizine HCl (Antivert) 25 mg PO Q6H PRN PRN Reason: Dizziness Last Admin: 12/19/18 08:05 Dose: 25 mg Metoprolol Tartrate (Lopressor) 25 mg PO Q12HR [facility] Last Admin: 01/25/19 19:41 Dose: 25 mg Montelukast Sodium (Singulair) 10 mg PO BEDTIME [facility] Last Admin: 01/25/19 19:42 Dose: 10 mg Multivitamins/Minerals/Vitamin C (Tab-A-Noam) 0.5 tab PO BID [facility] Last Admin: 01/25/19 17:09 Dose: 0.5 tab Milnacipran [Savella ] 50mg Tab Own Med 1 each PO BID@0800,2000 [facility] Last Admin: 01/25/19 19:42 Dose: 1 each Ondansetron HCl (Zofran Odt) 4 mg PO Q6H PRN PRN Reason: Nausea/Vomiting Last Admin: 01/15/19 21:54 Dose: 4 mg Polyethylene Glycol (Miralax) 17 gm PO BEDTIME PRN PRN Reason: Constipation Potassium Chloride (Klor-Con 10) 10 meq PO DAILY [facility] Last Admin: 01/25/19 08:11 Dose: 10 meq Sodium Chloride (Saline Flush) 10 ml FLUSH ASDIRECTED [facility] Last Admin: 01/25/19 19:44 Dose: 10 ml Trospium (Sanctura) 20 mg PO BIDAC [facility] Last Admin: 01/25/19 17:08 Dose: 20 mg Vancomycin HCl (Pharmacy To Dose - Vancomycin) 1 dose .XX ASDIRECTED [facility] Discontinued Medications Alteplase, Recombinant (Cathflo Activase) 2 mg IVPUSH ONETIME ONE Stop: 12/21/18 20:07 Last Admin: 12/21/18 22:01 Dose: 2 mg Alteplase, Recombinant (Cathflo Activase) 2 mg IVPUSH ONETIME STA Stop: 01/02/19 22:17 Last Admin: 01/02/19 22:37 Dose: 2 mg Clindamycin Phosphate 900 mg/ (Sodium Chloride) 106 mls @ 200 mls/hr IV Q8H [facility] Stop: 12/28/18 20:30 Last Admin: 12/23/18 12:23 Dose: 200 mls/hr Vancomycin HCl 1.25 gm/ Sodium (Chloride) 250 mls @ 135 mls/hr IV Q12H [facility] Last Admin: 12/14/18 09:27 Dose: Not Given Vancomycin HCl 1 gm/ Sodium (Chloride) 250 mls @ 165 mls/hr IV Q12H [facility] Last Admin: 12/15/18 08:32 Dose: 165 mls/hr Vancomycin HCl 1 gm/ Sodium (Chloride) 250 mls @ 165 mls/hr IV Q12H [facility] Stop: 12/28/18 21:30 Last Admin: 12/28/18 19:38 Dose: 165 mls/hr Clindamycin Phosphate 900 mg/ (Sodium Chloride) 106 mls @ 200 mls/hr IV Q8H [facility] Stop: 12/28/18 20:30 Last Admin: 12/28/18 21:15 Dose: 200 mls/hr Clindamycin Phosphate 900 mg/ (Sodium Chloride) 106 mls @ 200 mls/hr IV Q8H [facility] Stop: 01/04/19 20:32 Last Admin: 01/04/19 19:35 Dose: 200 mls/hr Vancomycin HCl 1 gm/ Dextrose/ (Water) 250 mls @ 165 mls/hr IV Q12H [facility] Stop: 01/04/19 20:31 Last Admin: 12/29/18 08:18 Dose: Not Given Vancomycin HCl 1 gm/ Sodium (Chloride) 250 mls @ 165 mls/hr IV Q12H [facility] Last Admin: 01/07/19 08:40 Dose: Not Given Clindamycin Phosphate 900 mg/ (Sodium Chloride) 106 mls @ 200 mls/hr IV Q8H [facility] Stop: 01/11/19 20:32 Last Admin: 01/11/19 19:33 Dose: 200 mls/hr Vancomycin HCl 1.25 gm/ Sodium (Chloride) 250 mls @ 135 mls/hr IV Q12H [facility] Vancomycin HCl 1 gm/ Sodium (Chloride) 250 mls @ 165 mls/hr IV Q18H [facility] Last Admin: 01/14/19 10:02 Dose: Not Given Clindamycin Phosphate 900 mg/ (Sodium Chloride) 106 mls @ 200 mls/hr IV Q8H [facility] Stop: 01/18/19 20:32 Last Admin: 01/18/19 20:29 Dose: 200 mls/hr Clindamycin Phosphate 900 mg/ (Sodium Chloride) 106 mls @ 200 mls/hr IV Q8H [facility] Stop: 01/25/19 20:32 Last Admin: 01/25/19 12:10 Dose: 200 mls/hr Clindamycin Phosphate 900 mg/ (Premix) 50 mls @ 100 mls/hr IV Q8H [facility] Stop: 01/25/19 20:29 Last Admin: 01/25/19 19:41 Dose: 100 mls/hr Insulin Glargine (Lantus) 35 unit SUBCUT DAILY [facility] Last Admin: 12/12/18 09:14 Dose: 35 units Insulin Glargine (Lantus) 30 unit SUBCUT DAILY [facility] Last Admin: 12/15/18 08:13 Dose: 30 units Insulin Glargine (Lantus) 25 unit SUBCUT DAILY [facility] Last Admin: 12/16/18 07:59 Dose: 25 unit Insulin Glargine (Lantus) 20 unit SUBCUT DAILY [facility] Last Admin: 12/17/18 08:00 Dose: 20 unit Insulin Glargine (Lantus) 16 unit SUBCUT DAILY [facility] Last Admin: 12/23/18 08:21 Dose: 16 units Insulin Glargine (Lantus) 18 unit SUBCUT DAILY [facility] Last Admin: 12/29/18 08:27 Dose: 18 unit Insulin Glargine (Lantus) 20 unit SUBCUT DAILY [facility] Last Admin: 01/08/19 08:36 Dose: 20 unit Lisinopril (Prinivil) 10 mg PO DAILY [facility] Last Admin: 12/22/18 08:47 Dose: 10 mg Metoprolol Tartrate (Lopressor) 25 mg PO Q12H [facility] Last Admin: 12/12/18 09:12 Dose: 25 mg Multivitamins/Minerals/Vitamin C (Tab-A-Noam) 1 tab PO DAILY [facility] Last Admin: 12/18/18 07:51 Dose: 1 tab Mupirocin (Bactroban Oint) 0 gm TOP TID [facility] Last Admin: 12/14/18 21:38 Dose: Not Given Mupirocin (Bactroban Oint) 0 gm TOP DAILY [facility] Last Admin: 12/17/18 08:00 Dose: 1 applic Potassium Chloride (Klor-Con 10) 10 meq PO TID [facility] Last Admin: 12/12/18 14:05 Dose: Not Given Potassium Chloride (Klor-Con 10) 10 meq PO BID [facility] - Exam Quality Assessment: Central Line/PICC General: Alert, Cooperative, No Acute Distress HEENT: Mucous Membr. Moist/[place] Neck: Trachea Midline, No JVD Lungs: Clear to Auscultation, Normal Respiratory Effort Cardiovascular: Regular Rate, Regular Rhythm GI/Abdominal Exam: Soft, Non-Tender, No Distention (Female) Exam: Deferred Back Exam: Normal Inspection Extremities: Pedal Edema (right is improving but still persists), Joint Swelling (right ankle decreased but persists), Increased Warmth (right ankle and right foot improving but still persists) Skin: Other (redness and warmth right ankle and right foot) Neurological: No New Focal Deficit Psy/Mental Status: Alert, Normal Affect, Normal Mood - Problem List & Annotations (1) Staphylococcus epidermidis bacteremia SNOMED Code(s): 152762744244, 756625233788 Code(s): R78.81 - BACTEREMIA Status: Acute Priority: High Current Visit : Yes (2) Staph aureus infection SNOMED Code(s): 877395663 Code(s): A49.01 - METHICILLIN SUSCEP STAPH INFECTION, UNSP SITE Status: Acute Priority: High Current Visit: Yes (3) Cellulitis of right leg SNOMED Code(s): 113823670 Code(s): L03.115 - CELLULITIS OF RIGHT LOWER LIMB Status: Acute Priority : High Current Visit: Yes Annotation/Comment:: continue on IV therapy, PICC line in place (4) Chills (without fever) SNOMED Code(s): 52911437 Code(s): R68.83 - CHILLS (WITHOUT FEVER) Status: Acute Priority: High Current Visit: No (5) Diabetes mellitus SNOMED Code(s): 06712412 Code(s): E11.9 - TYPE 2 DIABETES MELLITUS WITHOUT COMPLICATIONS Status: Acute Current Visit: No Qualifiers: Diabetes mellitus type: type 2 Diabetes mellitus rn transfer insulin use: with rn transfer use (6) Essential (primary) hypertension SNOMED Code(s): 07558093 Code(s): I10 - ESSENTIAL (PRIMARY) HYPERTENSION Status: Acute Priority: Low Current Visit: No (7) Vertigo SNOMED Code(s): 243409002 Code(s): R42 - DIZZINESS AND GIDDINESS Status: Acute Current Visit: No (8) Diarrhea SNOMED Code(s): 48993981 Code(s): R19.7 - DIARRHEA, UNSPECIFIED Status: Acute Priority: High Current Visit: Yes Qualifiers: Diarrhea type: unspecified type Qualified Code(s): R19.7 - Diarrhea, unspecified (9) Elevated erythrocyte sedimentation rate SNOMED Code(s): 780222069 Code(s): R70.0 - ELEVATED ERYTHROCYTE SEDIMENTATION RATE Status: Acute Priority: High Current Visit: Yes - Problem List Review Problem List Initiated/Reviewed/Updated: Yes - My Orders Last 24 Hours: My Active Orders 01/26/19 04:00 Clindamycin Phosphate [Cleocin] 900 mg Sodium Chloride 0.9% [Normal Saline] 100 ml IV Q8H 02/01/19 05:11 CBC WITH AUTO DIFF [HEME] Routine CMP [COMPREHENSIVE METABOLIC PN,CMP] [CHEM] Routine CRP [C-REACTIVE PROTEIN] [CHEM] Routine SEDIMENTATION RATE AUTO [HEME] Routine - Plan Plan:: 12/12/2018 Patient needing IV antibiotics in swingbed, monitoring daily of the leg and lab results. Will need more days of treatment as patient leg is improving but slowly. Will recheck labs in the morning. Consulted with Dr Javier. Ariela Cameron CNP 12/14/18 Concepcion Osorio MD Leg continues slow improvement. Continue IV antibiotics. 12/15/2018 Patient states pain controlled with oral Lortab. Leg continues to improve with redness and warmth. Patient continues to need swingbed treatment with IV antibiotics, leg improving but slowly. Ariela Cameron CNP 12/18/18 Concepcion Osorio MD The leg is clinically worse today. Increased swelling and increased redness right anterior compartment. Will re-CT leg tomorrow and continue IV antibiotics. Also discussed anemia. Will start oral iron and vitamin C. 12/23/2018 Patient continues with pain to the right LE mainly in the foot. CT scan done recently , continue to show significant edema and cellulitis. Patient needing to continue on IV antibiotics due to the significant cellulitis, delayed healing , and little improvement noted on CT scan. Will recheck labs in the am, Increase Lantus now that blood sugars are increasing. Try Tubigrip to LEs to help with circulation and healing. Discussed with Dr Javier. Ariela Cameron CNP 12/28/18 Concepcion Osorio MD The RLE is improved but is still swollen, red, warm to touch anterior compartment and into ankle and foot. Due to +staph bacteremia, +staph culture from the crack over right great toe, and clinically the leg still has evidence of active infection need to continue IV antibiotics and swingbed. The IVs required to treat staph are several times a day. It is two different types of staph. She has complicated factors of diabetes mellitus, obesity, s/p chemotherapy, s/p radiation, immunocompromised status thus needs prolonged IV antibiotics. Recommendation is for 1-3 weeks more IV antibiotics. I also explained medically necessity for echocardiogram due to staph bacteremia. She agrees to the echocardiogram continued IV antibiotics and continued swingbed status. 01/01/19 Concepcion Osorio MD Slow improvement of RLE continues. Still redness and swelling RLE. Labs also slowly improving. Continue IV antibiotics. 01/04/19 Concepcion Osorio MD Continues slow clinical improvement of RLE. Still redness and swelling RLE although continues to recede down the leg but still present. ESR still quite elevated. Continue IV antibiotics for 1-2 more weeks. 01/11/19 Concepcion Osorio MD The right lower extremity continues swollen, red, warmth. Some modest improvement. ESR still markedly elevated. Some diarrhea starting today. Will check c-dif. Continue IV antibiotics at least 1 more week. 01/18/19 Concepcion Osorio MD Slow slow improvement right ankle area and right foot. Still some pain. ESR still markedly elevated. C-dif was negative. Continue the IV antibiotics at least 1 more week. 01/25/19 Concepcion Osorio MD Continues slow improvement. ESR finally starting to decrease but not back to normal. The redness and warmth in the RLE continues to slowly decrease and improve as well as the pain in the RLE but does persists. No obvious adverse effects to the rn transfer antibiotics. Continue the antibiotics at least one week more.
[2019-01-26] MEDS ORDERED: Clindamycin Phosphate in D5W 50 ML IV ONE (03:01)
[2019-01-26] MEDS: Acetaminophen/HYDROcodone 325-5 MG Tab PO PRN (03:04)
[2019-01-26] MEDS: Sodium Chloride 0.9% 10 ML Syringe FLUSH SCH ×7 (03:05→19:31)
[2019-01-26] MEDS ORDERED: Clindamycin Phosphate 900 MG in Sodium Chloride 0.9% 100 ML IV SCH (04:00)
[2019-01-26] MEDS: MILNACIPRAN 50 MG PO SCH ×2 (07:52→19:28)
[2019-01-26] MEDS: Fluconazole 100 MG Tab PO SCH (07:53)
[2019-01-26] MEDS: Multivitamin Tab PO SCH ×2 (07:53→17:28)
[2019-01-26] MEDS: Potassium Chloride 10 MEQ Tab.ER PO SCH (07:53)
[2019-01-26] MEDS: Ferrous Sulfate 325 MG Tab PO SCH ×2 (07:53→17:28)
[2019-01-26] MEDS: Clopidogrel 75 MG Tab PO SCH (07:54)
[2019-01-26] MEDS: Ascorbic Acid 500 MG Tab PO SCH ×2 (07:54→17:29)
[2019-01-26] MEDS: Lisinopril 10 MG Tab PO SCH (07:54)
[2019-01-26] MEDS: Metoprolol Tartrate 25 MG Tab PO SCH ×2 (07:54→19:29)
[2019-01-26] MEDS: Insulin Glarg,Human.Rec.Analog 100 UNIT/ML ML SUBCUT SCH (07:55)
[2019-01-26] MEDS: Trospium 20 MG Tab PO SCH ×2 (07:55→17:29)
[2019-01-26] MEDS: Ondansetron 4 MG Tab.DIS PO PRN (08:55)
[2019-01-26] MEDS: Clindamycin Phosphate in D5W 900 MG in Premix Bag 1 BAG IV SCH ×4 (12:06→19:27)
[2019-01-26] MEDS: Acetaminophen 325 MG Tab PO SCH (19:28)
[2019-01-26] MEDS: Montelukast 10 MG Tab PO SCH (19:28)
[2019-01-26] MEDS: diphenhydrAMINE 25 MG Cap PO SCH (19:29)
[2019-01-26] MEDS: Acetaminophen/HYDROcodone 325-7.5 MG Tab PO SCH (21:32)
[2019-01-27] MEDS: Sodium Chloride 0.9% 10 ML Syringe FLUSH SCH ×7 (01:14→22:44)
[2019-01-27] MEDS: Acetaminophen/HYDROcodone 325-5 MG Tab PO PRN (03:22)
[2019-01-27] MEDS: Clindamycin Phosphate in D5W 900 MG in Premix Bag 1 BAG IV SCH ×6 (03:23→20:04)
[2019-01-27] MEDS: MILNACIPRAN 50 MG PO SCH ×2 (07:28→20:32)
[2019-01-27] MEDS: Metoprolol Tartrate 25 MG Tab PO SCH ×2 (07:29→20:02)
[2019-01-27] MEDS: Ascorbic Acid 500 MG Tab PO SCH ×2 (07:29→17:10)
[2019-01-27] MEDS: Ferrous Sulfate 325 MG Tab PO SCH ×2 (07:29→17:10)
[2019-01-27] MEDS: Lisinopril 10 MG Tab PO SCH (07:29)
[2019-01-27] MEDS: Clopidogrel 75 MG Tab PO SCH (07:30)
[2019-01-27] MEDS: Trospium 20 MG Tab PO SCH ×2 (07:30→17:10)
[2019-01-27] MEDS: Potassium Chloride 10 MEQ Tab.ER PO SCH (07:30)
[2019-01-27] MEDS: Insulin Glarg,Human.Rec.Analog 100 UNIT/ML ML SUBCUT SCH (07:32)
[2019-01-27] MEDS: Multivitamin Tab PO SCH ×2 (07:34→17:11)
[2019-01-27] MEDS: Fluconazole 100 MG Tab PO SCH (07:34)
[2019-01-27] MEDS: Loperamide 2 MG Tab PO PRN (10:13)
[2019-01-27] MEDS: diphenhydrAMINE 25 MG Cap PO SCH (20:02)
[2019-01-27] MEDS: Acetaminophen 325 MG Tab PO SCH (20:03)
[2019-01-27] MEDS: Montelukast 10 MG Tab PO SCH (20:04)
[2019-01-27] MEDS: Acetaminophen/HYDROcodone 325-7.5 MG Tab PO SCH (21:29)
[2019-01-28] MEDS: Sodium Chloride 0.9% 10 ML Syringe FLUSH SCH ×6 (02:55→20:58)
[2019-01-28] MEDS: Acetaminophen/HYDROcodone 325-5 MG Tab PO PRN (02:55)
[2019-01-28] MEDS: Clindamycin Phosphate in D5W 900 MG in Premix Bag 1 BAG IV SCH ×6 (02:59→20:52)
[2019-01-28] MEDS: Lisinopril 10 MG Tab PO SCH (07:31)
[2019-01-28] MEDS: Trospium 20 MG Tab PO SCH ×2 (07:32→17:15)
[2019-01-28] MEDS: Multivitamin Tab PO SCH ×2 (07:32→17:15)
[2019-01-28] MEDS: Potassium Chloride 10 MEQ Tab.ER PO SCH (07:32)
[2019-01-28] MEDS: Fluconazole 100 MG Tab PO SCH (07:33)
[2019-01-28] MEDS: Ascorbic Acid 500 MG Tab PO SCH ×2 (07:33→17:15)
[2019-01-28] MEDS: Ferrous Sulfate 325 MG Tab PO SCH ×2 (07:33→17:16)
[2019-01-28] MEDS: MILNACIPRAN 50 MG PO SCH ×2 (07:34→20:57)
[2019-01-28] MEDS: Clopidogrel 75 MG Tab PO SCH (07:34)
[2019-01-28] MEDS: Metoprolol Tartrate 25 MG Tab PO SCH ×2 (07:34→20:57)
[2019-01-28] MEDS: Insulin Glarg,Human.Rec.Analog 100 UNIT/ML ML SUBCUT SCH (07:35)
[2019-01-28] MEDS: Montelukast 10 MG Tab PO SCH (20:52)
[2019-01-28] MEDS: diphenhydrAMINE 25 MG Cap PO SCH (20:52)
[2019-01-28] MEDS: Acetaminophen 325 MG Tab PO SCH (20:54)
[2019-01-28] MEDS: Acetaminophen/HYDROcodone 325-7.5 MG Tab PO SCH (21:51)
[2019-01-29] MEDS: Acetaminophen/HYDROcodone 325-5 MG Tab PO PRN (03:01)
[2019-01-29] MEDS: Clindamycin Phosphate in D5W 900 MG in Premix Bag 1 BAG IV SCH ×6 (03:02→20:00)
[2019-01-29] MEDS: Sodium Chloride 0.9% 10 ML Syringe FLUSH SCH ×8 (03:05→20:08)
[2019-01-29] MEDS: Fluconazole 100 MG Tab PO SCH (07:53)
[2019-01-29] MEDS: Trospium 20 MG Tab PO SCH ×2 (07:53→17:23)
[2019-01-29] MEDS: Ferrous Sulfate 325 MG Tab PO SCH ×2 (07:54→17:23)
[2019-01-29] MEDS: Potassium Chloride 10 MEQ Tab.ER PO SCH (07:54)
[2019-01-29] MEDS: MILNACIPRAN 50 MG PO SCH ×2 (07:56→20:01)
[2019-01-29] MEDS: Clopidogrel 75 MG Tab PO SCH (07:58)
[2019-01-29] MEDS: Multivitamin Tab PO SCH ×2 (07:59→17:24)
[2019-01-29] MEDS: Ascorbic Acid 500 MG Tab PO SCH ×2 (07:59→17:23)
[2019-01-29] MEDS: Metoprolol Tartrate 25 MG Tab PO SCH ×2 (08:00→20:03)
[2019-01-29] MEDS: Lisinopril 10 MG Tab PO SCH (08:00)
[2019-01-29] MEDS: Insulin Glarg,Human.Rec.Analog 100 UNIT/ML ML SUBCUT SCH (08:01)
--- NOTE | 2019-01-29 12:14 | PCM.PN ---
- General Info Date of Service: 01/29/19 Admission Dx/Problem (Free Text): cellulitis of the right LE Functional Status: Reports: Pain Controlled (patient is having to take a pain pill at night as pain becomes more intense) - Review of Systems General: Reports: No Symptoms HEENT: Reports: No Symptoms Pulmonary: Reports: No Symptoms Cardiovascular: Reports: No Symptoms Gastrointestinal: Reports: No Symptoms Genitourinary: Reports: No Symptoms Musculoskeletal: Reports: Leg Pain (right foot and leg (calf) pain), Foot Pain Skin: Reports: No Symptoms Neurological: Reports: No Symptoms Psychiatric: Reports: No Symptoms - Patient Data Vitals - Most Recent: Last Vital Signs Temp 98 F 01/29/19 08:00 Pulse 65 01/29/19 08:00 Resp 16 01/29/19 08:00 BP 130/72 01/29/19 08:00 Pulse Ox 97 01/29/19 08:00 Weight - Most Recent: 278 lb I&O - Last 24 Hours: Intake & Output 01/28/19 01/29/19 01/29/19 22:59 06:59 14:59 Intake Total 590 100 240 Balance 590 100 240 Lab Results Last 24 Hours: Laboratory Results - last 24 hr 01/28/19 01/28/19 01/28/19 Range/Units 13:30 13:30 21:00 ESR 70 H (0-30) mm/hr POC Glucose 170 H (65-110) mg/dl Vancomycin Trough 15.7 (10-20) ug/mL 01/29/19 Range/Units 07:50 ESR (0-30) mm/hr POC Glucose 153 H (65-110) mg/dl Vancomycin Trough (10-20) ug/mL Med Orders - Current: Current Medications Acetaminophen (Tylenol Extra Strength) 500 mg PO Q4H PRN PRN Reason: Fever Acetaminophen (Tylenol) 650 mg PO BEDTIME [facility] Last Admin: 01/28/19 20:54 Dose: 650 mg Hydrocodone Bitart/Acetaminophen ([place] 325-5 Mg) 1 tab PO Q4H PRN PRN Reason: Pain/Fever Last Admin: 01/29/19 03:01 Dose: 1 tab Hydrocodone Bitart/Acetaminophen ([place] 325-7.5 Mg) 1 tab PO DAILY@2200 [facility] Last Admin: 01/28/19 21:51 Dose: 1 tab Ascorbic Acid (Vitamin C) 500 mg PO BID [facility] Last Admin: 01/29/19 07:59 Dose: 500 mg Clopidogrel Bisulfate (Plavix) 75 mg PO DAILY [facility] Last Admin: 01/29/19 07:58 Dose: 75 mg Diphenhydramine HCl (Benadryl) 25 mg PO BEDTIME [facility] Last Admin: 01/28/19 20:52 Dose: 25 mg Docusate Sodium (Colace) 100 mg PO BID PRN PRN Reason: Constipation Ferrous Sulfate (Ferrous Sulfate) 325 mg PO BID [facility] Last Admin: 01/29/19 07:54 Dose: 325 mg Fluconazole (Diflucan) 50 mg PO DAILY [facility] Last Admin: 01/29/19 07:53 Dose: 50 mg Heparin Sodium (Porcine) (Heparin Lock Flush 100 Units/Ml) 300 units FLUSH ASDIRECTED PRN PRN Reason: IV Use Last Admin: 01/28/19 20:54 Dose: 300 units Heparin Sodium (Porcine) (Heparin Lock Flush 100 Units/Ml) 300 units FLUSH 0430 ,0830,1230,2030 [facility] Last Admin: 01/29/19 08:01 Dose: 300 units Heparin Sodium (Porcine) (Heparin Lock Flush 100 Units/Ml) 300 units FLUSH Q12H [facility] Last Admin: 01/29/19 08:02 Dose: 300 units Vancomycin HCl 1.25 gm/ Sodium (Chloride) 250 mls @ 135 mls/hr IV Q18H [facility] Last Admin: 01/29/19 08:01 Dose: 135 mls/hr Clindamycin Phosphate 900 mg/ (Premix) 50 mls @ 100 mls/hr IV Q8H [facility] Stop: 02/01/19 20:32 Last Admin: 01/29/19 03:02 Dose: 100 mls/hr Insulin Glargine (Lantus) 22 unit SUBCUT DAILY [facility] Last Admin: 01/29/19 08:01 Dose: 22 unit Lisinopril (Prinivil) 10 mg PO DAILY [facility] Last Admin: 01/29/19 08:00 Dose: 10 mg Loperamide HCl (Imodium Ad) 2 mg PO ASDIRECTED PRN PRN Reason: Diarrhea Last Admin: 01/27/19 10:13 Dose: 4 mg Magnesium Hydroxide (Milk Of Magnesia) 30 ml PO DAILY PRN PRN Reason: Constipation Meclizine HCl (Antivert) 25 mg PO Q6H PRN PRN Reason: Dizziness Last Admin: 12/19/18 08:05 Dose: 25 mg Metoprolol Tartrate (Lopressor) 25 mg PO Q12HR [facility] Last Admin: 01/29/19 08:00 Dose: 25 mg Montelukast Sodium (Singulair) 10 mg PO BEDTIME [facility] Last Admin: 01/28/19 20:52 Dose: 10 mg Multivitamins/Minerals/Vitamin C (Tab-A-Noam) 0.5 tab PO BID [facility] Last Admin: 01/29/19 07:59 Dose: 0.5 tab Milnacipran [Savella ] 50mg Tab Own Med 1 each PO BID@0800,2000 [facility] Last Admin: 01/29/19 07:56 Dose: 1 each Ondansetron HCl (Zofran Odt) 4 mg PO Q6H PRN PRN Reason: Nausea/Vomiting Last Admin: 01/26/19 08:55 Dose: 4 mg Polyethylene Glycol (Miralax) 17 gm PO BEDTIME PRN PRN Reason: Constipation Potassium Chloride (Klor-Con 10) 10 meq PO DAILY [facility] Last Admin: 01/29/19 07:54 Dose: 10 meq Sodium Chloride (Saline Flush) 10 ml FLUSH ASDIRECTED [facility] Last Admin: 01/29/19 08:11 Dose: 10 ml Trospium (Sanctura) 20 mg PO BIDAC [facility] Last Admin: 01/29/19 07:53 Dose: 20 mg Vancomycin HCl (Pharmacy To Dose - Vancomycin) 1 dose .XX ASDIRECTED [facility] Discontinued Medications Alteplase, Recombinant (Cathflo Activase) 2 mg IVPUSH ONETIME ONE Stop: 12/21/18 20:07 Last Admin: 12/21/18 22:01 Dose: 2 mg Alteplase, Recombinant (Cathflo Activase) 2 mg IVPUSH ONETIME STA Stop: 01/02/19 22:17 Last Admin: 01/02/19 22:37 Dose: 2 mg Clindamycin Phosphate 900 mg/ (Sodium Chloride) 106 mls @ 200 mls/hr IV Q8H [facility] Stop: 12/28/18 20:30 Last Admin: 12/23/18 12:23 Dose: 200 mls/hr Vancomycin HCl 1.25 gm/ Sodium (Chloride) 250 mls @ 135 mls/hr IV Q12H [facility] Last Admin: 12/14/18 09:27 Dose: Not Given Vancomycin HCl 1 gm/ Sodium (Chloride) 250 mls @ 165 mls/hr IV Q12H [facility] Last Admin: 12/15/18 08:32 Dose: 165 mls/hr Vancomycin HCl 1 gm/ Sodium (Chloride) 250 mls @ 165 mls/hr IV Q12H [facility] Stop: 12/28/18 21:30 Last Admin: 12/28/18 19:38 Dose: 165 mls/hr Clindamycin Phosphate 900 mg/ (Sodium Chloride) 106 mls @ 200 mls/hr IV Q8H [facility] Stop: 12/28/18 20:30 Last Admin: 12/28/18 21:15 Dose: 200 mls/hr Clindamycin Phosphate 900 mg/ (Sodium Chloride) 106 mls @ 200 mls/hr IV Q8H [facility] Stop: 01/04/19 20:32 Last Admin: 01/04/19 19:35 Dose: 200 mls/hr Vancomycin HCl 1 gm/ Dextrose/ (Water) 250 mls @ 165 mls/hr IV Q12H [facility] Stop: 01/04/19 20:31 Last Admin: 12/29/18 08:18 Dose: Not Given Vancomycin HCl 1 gm/ Sodium (Chloride) 250 mls @ 165 mls/hr IV Q12H [facility] Last Admin: 01/07/19 08:40 Dose: Not Given Clindamycin Phosphate 900 mg/ (Sodium Chloride) 106 mls @ 200 mls/hr IV Q8H [facility] Stop: 01/11/19 20:32 Last Admin: 01/11/19 19:33 Dose: 200 mls/hr Vancomycin HCl 1.25 gm/ Sodium (Chloride) 250 mls @ 135 mls/hr IV Q12H [facility] Vancomycin HCl 1 gm/ Sodium (Chloride) 250 mls @ 165 mls/hr IV Q18H [facility] Last Admin: 01/14/19 10:02 Dose: Not Given Clindamycin Phosphate 900 mg/ (Sodium Chloride) 106 mls @ 200 mls/hr IV Q8H [facility] Stop: 01/18/19 20:32 Last Admin: 01/18/19 20:29 Dose: 200 mls/hr Clindamycin Phosphate 900 mg/ (Sodium Chloride) 106 mls @ 200 mls/hr IV Q8H [facility] Stop: 01/25/19 20:32 Last Admin: 01/25/19 12:10 Dose: 200 mls/hr Clindamycin Phosphate 900 mg/ (Premix) 50 mls @ 100 mls/hr IV Q8H [facility] Stop: 01/25/19 20:29 Last Admin: 01/25/19 19:41 Dose: 100 mls/hr Clindamycin Phosphate 900 mg/ (Sodium Chloride) 106 mls @ 200 mls/hr IV Q8H [facility] Stop: 02/01/19 20:32 Last Admin: 01/26/19 03:04 Dose: 200 mls/hr Clindamycin Phosphate (Cleocin In D5w) Confirm Administered Dose 50 mls @ as directed IV .STK-MED ONE Stop: 01/26/19 03:02 Last Admin: 01/26/19 03:14 Dose: Not Given Insulin Glargine (Lantus) 35 unit SUBCUT DAILY [facility] Last Admin: 12/12/18 09:14 Dose: 35 units Insulin Glargine (Lantus) 30 unit SUBCUT DAILY [facility] Last Admin: 12/15/18 08:13 Dose: 30 units Insulin Glargine (Lantus) 25 unit SUBCUT DAILY [facility] Last Admin: 12/16/18 07:59 Dose: 25 unit Insulin Glargine (Lantus) 20 unit SUBCUT DAILY [facility] Last Admin: 12/17/18 08:00 Dose: 20 unit Insulin Glargine (Lantus) 16 unit SUBCUT DAILY [facility] Last Admin: 12/23/18 08:21 Dose: 16 units Insulin Glargine (Lantus) 18 unit SUBCUT DAILY [facility] Last Admin: 12/29/18 08:27 Dose: 18 unit Insulin Glargine (Lantus) 20 unit SUBCUT DAILY [facility] Last Admin: 01/08/19 08:36 Dose: 20 unit Lisinopril (Prinivil) 10 mg PO DAILY [facility] Last Admin: 12/22/18 08:47 Dose: 10 mg Metoprolol Tartrate (Lopressor) 25 mg PO Q12H [facility] Last Admin: 12/12/18 09:12 Dose: 25 mg Multivitamins/Minerals/Vitamin C (Tab-A-Noam) 1 tab PO DAILY [facility] Last Admin: 12/18/18 07:51 Dose: 1 tab Mupirocin (Bactroban Oint) 0 gm TOP TID [facility] Last Admin: 12/14/18 21:38 Dose: Not Given Mupirocin (Bactroban Oint) 0 gm TOP DAILY [facility] Last Admin: 12/17/18 08:00 Dose: 1 applic Potassium Chloride (Klor-Con 10) 10 meq PO TID [facility] Last Admin: 12/12/18 14:05 Dose: Not Given Potassium Chloride (Klor-Con 10) 10 meq PO BID [facility] - Exam Quality Assessment: Central Line/PICC General: Alert, Oriented, Cooperative, No Acute Distress HEENT: Mucous Membr. Moist/[place] Neck: Supple Lungs: Clear to Auscultation, Normal Respiratory Effort Cardiovascular: Regular Rate, Regular Rhythm, No Murmurs GI/Abdominal Exam: Normal Bowel Sounds, Soft, Non-Tender, No Organomegaly, No Distention Extremities: Pedal Edema (trace of pedal edema to RLE, erythematous to bilat LE but improving) Peripheral Pulses: 1+: Posterior Tibial (L), Posterior Tibial (R), Dorsalis Pedis (L), Dorsalis Pedis (R) Skin: Warm, Dry Neurological: No New Focal Deficit Psy/Mental Status: Alert, Normal Affect, Normal Mood - Problem List & Annotations (1) Cellulitis of right leg SNOMED Code(s): 761405501 Code(s): L03.115 - CELLULITIS OF RIGHT LOWER LIMB Status: Acute Priority : High Current Visit: Yes Annotation/Comment:: continue on IV therapy, PICC line in place (2) Diabetes mellitus SNOMED Code(s): 54691599 Code(s): E11.9 - TYPE 2 DIABETES MELLITUS WITHOUT COMPLICATIONS Status: Acute Current Visit: No Qualifiers: Diabetes mellitus type: type 2 Diabetes mellitus fdc insulin use: with fdc use - Problem List Review Problem List Initiated/Reviewed/Updated: Yes - Plan Plan:: 12/12/2018 Patient needing IV antibiotics in swingbed, monitoring daily of the leg and lab results. Will need more days of treatment as patient leg is improving but slowly. Will recheck labs in the morning. Consulted with Dr Javier. Ariela Cameron, [employer] 12/14/18 Concepcion Osorio MD Leg continues slow improvement. Continue IV antibiotics. 12/15/2018 Patient states pain controlled with oral Lortab. Leg continues to improve with redness and warmth. Patient continues to need swingbed treatment with IV antibiotics, leg improving but slowly. Ariela Cameron,[employer] 12/18/18 Concepcion Osorio MD The leg is clinically worse today. Increased swelling and increased redness right anterior compartment. Will re-CT leg tomorrow and continue IV antibiotics. Also discussed anemia. Will start oral iron and vitamin C. 12/23/2018 Patient continues with pain to the right LE mainly in the foot. CT scan done recently , continue to show significant edema and cellulitis. Patient needing to continue on IV antibiotics due to the significant cellulitis, delayed healing , and little improvement noted on CT scan. Will recheck labs in the am, Increase Lantus now that blood sugars are increasing. Try Tubigrip to LEs to help with circulation and healing. Discussed with Dr Javier. Ariela Cameron,[employer] 12/28/18 Concepcion Osorio MD The RLE is improved but is still swollen, red, warm to touch anterior compartment and into ankle and foot. Due to +staph bacteremia, +staph culture from the crack over right great toe, and clinically the leg still has evidence of active infection need to continue IV antibiotics and swingbed. The IVs required to treat staph are several times a day. It is two different types of staph. She has complicated factors of diabetes mellitus, obesity, s/p chemotherapy, s/p radiation, immunocompromised status thus needs prolonged IV antibiotics. Recommendation is for 1-3 weeks more IV antibiotics. I also explained medically necessity for echocardiogram due to staph bacteremia. She agrees to the echocardiogram continued IV antibiotics and continued swingbed status. 01/01/19 Concepcion Osorio MD Slow improvement of RLE continues. Still redness and swelling RLE. Labs also slowly improving. Continue IV antibiotics. 01/04/19 Concepcion Osorio MD Continues slow clinical improvement of RLE. Still redness and swelling RLE although continues to recede down the leg but still present. ESR still quite elevated. Continue IV antibiotics for 1-2 more weeks. 01/11/19 Concepcion Osorio MD The right lower extremity continues swollen, red, warmth. Some modest improvement. ESR still markedly elevated. Some diarrhea starting today. Will check c-dif. Continue IV antibiotics at least 1 more week. 01/18/19 Concepcion Osorio MD Slow slow improvement right ankle area and right foot. Still some pain. ESR still markedly elevated. C-dif was negative. Continue the IV antibiotics at least 1 more week. 01/25/19 Concepcion Osorio MD Continues slow improvement. ESR finally starting to decrease but not back to normal. The redness and warmth in the RLE continues to slowly decrease and improve as well as the pain in the RLE but does persists. 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 Continue the antibiotics at least one week more. 01/29/2019 Patient states pain to right leg/foot is some better but needing to take a pain pill at nighttime as the pain becomes 7/10 and pain pill brings it down to 2-3/ 10 which is tolerable. Continues to receive IV antibiotics and sed rate is slowing decreasing, lab will be rechecked on 02/01/2019. Feet appear much improved, callouses improved but redness and slight warmth still present. Ariela Cameron,[employer]
[2019-01-29] MEDS: Montelukast 10 MG Tab PO SCH (20:01)
[2019-01-29] MEDS: diphenhydrAMINE 25 MG Cap PO SCH (20:01)
[2019-01-29] MEDS: Acetaminophen 325 MG Tab PO SCH (20:02)
[2019-01-29] MEDS: Acetaminophen/HYDROcodone 325-7.5 MG Tab PO SCH (21:26)
[2019-01-30] MEDS: Sodium Chloride 0.9% 10 ML Syringe FLUSH SCH ×10 (01:26→20:53)
[2019-01-30] MEDS: Clindamycin Phosphate in D5W 900 MG in Premix Bag 1 BAG IV SCH ×6 (03:32→20:01)
[2019-01-30] MEDS: Acetaminophen/HYDROcodone 325-5 MG Tab PO PRN (03:33)
[2019-01-30] MEDS: Insulin Glarg,Human.Rec.Analog 100 UNIT/ML ML SUBCUT SCH (08:03)
[2019-01-30] MEDS: Trospium 20 MG Tab PO SCH ×2 (08:05→17:46)
[2019-01-30] MEDS: MILNACIPRAN 50 MG PO SCH ×2 (08:05→20:03)
[2019-01-30] MEDS: Fluconazole 100 MG Tab PO SCH (08:06)
[2019-01-30] MEDS: Lisinopril 10 MG Tab PO SCH (08:06)
[2019-01-30] MEDS: Clopidogrel 75 MG Tab PO SCH (08:06)
[2019-01-30] MEDS: Multivitamin Tab PO SCH ×2 (08:07→17:45)
[2019-01-30] MEDS: Potassium Chloride 10 MEQ Tab.ER PO SCH (08:07)
[2019-01-30] MEDS: Ascorbic Acid 500 MG Tab PO SCH ×2 (08:07→17:45)
[2019-01-30] MEDS: Metoprolol Tartrate 25 MG Tab PO SCH ×2 (08:08→20:04)
[2019-01-30] MEDS: Ferrous Sulfate 325 MG Tab PO SCH ×2 (08:08→17:45)
[2019-01-30] MEDS: Montelukast 10 MG Tab PO SCH (20:01)
[2019-01-30] MEDS: diphenhydrAMINE 25 MG Cap PO SCH (20:02)
[2019-01-30] MEDS: Acetaminophen 325 MG Tab PO SCH (20:02)
[2019-01-30] MEDS: Acetaminophen/HYDROcodone 325-7.5 MG Tab PO SCH (21:34)
[2019-01-31] MEDS: Acetaminophen/HYDROcodone 325-5 MG Tab PO PRN (03:08)
[2019-01-31] MEDS: Clindamycin Phosphate in D5W 900 MG in Premix Bag 1 BAG IV SCH ×6 (03:09→19:26)
[2019-01-31] MEDS: Sodium Chloride 0.9% 10 ML Syringe FLUSH SCH ×11 (03:10→19:41)
[2019-01-31] MEDS: MILNACIPRAN 50 MG PO SCH ×2 (07:57→19:48)
[2019-01-31] MEDS: Insulin Glarg,Human.Rec.Analog 100 UNIT/ML ML SUBCUT SCH (07:57)
[2019-01-31] MEDS: Lisinopril 10 MG Tab PO SCH (08:00)
[2019-01-31] MEDS: Metoprolol Tartrate 25 MG Tab PO SCH ×2 (08:00→19:30)
[2019-01-31] MEDS: Ascorbic Acid 500 MG Tab PO SCH ×2 (08:01→17:29)
[2019-01-31] MEDS: Ferrous Sulfate 325 MG Tab PO SCH ×2 (08:01→17:29)
[2019-01-31] MEDS: Multivitamin Tab PO SCH ×2 (08:01→17:28)
[2019-01-31] MEDS: Trospium 20 MG Tab PO SCH ×2 (08:02→17:29)
[2019-01-31] MEDS: Clopidogrel 75 MG Tab PO SCH (08:02)
[2019-01-31] MEDS: Potassium Chloride 10 MEQ Tab.ER PO SCH (08:02)
[2019-01-31] MEDS: Fluconazole 100 MG Tab PO SCH (08:02)
[2019-01-31] MEDS: Montelukast 10 MG Tab PO SCH (19:30)
[2019-01-31] MEDS: Acetaminophen 325 MG Tab PO SCH (19:31)
[2019-01-31] MEDS: diphenhydrAMINE 25 MG Cap PO SCH (19:32)
[2019-01-31] MEDS: Acetaminophen/HYDROcodone 325-7.5 MG Tab PO SCH (21:51)
[2019-02-01] MEDS: Sodium Chloride 0.9% 10 ML Syringe FLUSH SCH ×6 (04:20→20:30)
[2019-02-01] MEDS: Clindamycin Phosphate in D5W 900 MG in Premix Bag 1 BAG IV SCH ×6 (04:20→20:17)
[2019-02-01] MEDS: Acetaminophen/HYDROcodone 325-5 MG Tab PO PRN (04:21)
[2019-02-01] MEDS: Trospium 20 MG Tab PO SCH ×2 (07:23→17:19)
[2019-02-01] MEDS: Clopidogrel 75 MG Tab PO SCH (07:23)
[2019-02-01] MEDS: Ascorbic Acid 500 MG Tab PO SCH ×2 (07:23→17:16)
[2019-02-01] MEDS: Multivitamin Tab PO SCH ×2 (07:23→17:15)
[2019-02-01] MEDS: Potassium Chloride 10 MEQ Tab.ER PO SCH (07:23)
[2019-02-01] MEDS: Ferrous Sulfate 325 MG Tab PO SCH ×2 (07:23→17:16)
[2019-02-01] MEDS: Fluconazole 100 MG Tab PO SCH (07:23)
[2019-02-01] MEDS: Lisinopril 10 MG Tab PO SCH (07:24)
[2019-02-01] MEDS: MILNACIPRAN 50 MG PO SCH ×2 (07:24→20:14)
[2019-02-01] MEDS: Metoprolol Tartrate 25 MG Tab PO SCH ×2 (07:25→20:12)
[2019-02-01 07:52] LABS: CHLORIDE,CL 109 mmol/L (98-107); SODIUM,NA 142 mmol/L (136-145)
[2019-02-01] MEDS: Insulin Glarg,Human.Rec.Analog 100 UNIT/ML ML SUBCUT SCH (08:38)
[2019-02-01] MEDS: Acetaminophen 325 MG Tab PO SCH (20:13)
[2019-02-01] MEDS: diphenhydrAMINE 25 MG Cap PO SCH (20:13)
[2019-02-01] MEDS: Montelukast 10 MG Tab PO SCH (20:16)
[2019-02-01] MEDS: Acetaminophen/HYDROcodone 325-7.5 MG Tab PO SCH (21:40)
--- NOTE | 2019-02-01 23:07 | PCM.PN ---
- General Info Date of Service: 02/01/19 Admission Dx/Problem (Free Text): cellulitis of the right LE Functional Status: Reports: Pain Controlled (but still having pain in the right foot) - Review of Systems General: Reports: No Symptoms HEENT: Reports: No Symptoms Pulmonary: Reports: No Symptoms Cardiovascular: Reports: No Symptoms Gastrointestinal: Reports: No Symptoms Genitourinary: Reports: No Symptoms Musculoskeletal: Reports: Foot Pain (right) Skin: Reports: Other (redness and warmth to right foot) Neurological: Reports: Numbness (feet) Psychiatric: Reports: No Symptoms - Patient Data Vitals - Most Recent: Last Vital Signs Temp 98.6 F 02/01/19 18:00 Pulse 92 02/01/19 20:12 Resp 18 02/01/19 18:00 BP 140/97 H 02/01/19 20:12 Pulse Ox 94 L 02/01/19 08:00 Weight - Most Recent: 278 lb 9 oz I&O - Last 24 Hours: Intake & Output 02/01/19 02/01/19 02/02/19 14:59 22:59 06:59 Intake Total 480 620 Balance 480 620 Lab Results Last 24 Hours: Laboratory Results - last 24 hr 02/01/19 02/01/19 02/01/19 Range/Units 07:20 07:20 07:20 WBC 3.8 L (4.0-10.2) K/uL RBC 3.13 L (3.77-5.09) M/uL Hgb 9.5 L (11.7-15.5) g/dL Hct 30.0 L (34.0-46.0) % MCV 95.8 (84.0-98.0) fL MCH 30.4 (28.2-33.3) pg MCHC 31.7 (31.7-36.0) g/dL RDW 14.6 H (11.2-14.1) % Plt Count 288 (150-350) K/uL Neut % (Auto) 50.6 (45.0-80.0) % Lymph % (Auto) 29.8 (10.0-50.0) % [place] % (Auto) 11.4 (2.0-14.0) % Eos % (Auto) 6.6 H (0.0-5.0) % Baso % (Auto) 1.6 (0.0-2.0) % Neut # (Auto) 1.90 (1.40-7.00) K/uL Lymph # (Auto) 1.12 (0.50-3.50) K/uL [place] # (Auto) 0.43 (0.00-1.00) K/uL Eos # (Auto) 0.25 (0.00-0.50) K/uL Baso # (Auto) 0.06 (0.00-0.20) K/uL ESR 68 H (0-30) mm/hr Sodium 142 (136-145) mmol/L Potassium 4.1 (3.5-5.1) mmol/L Chloride 109 H (98-107) mmol/L Carbon Dioxide 26.4 (21.0-32.0) mmol/L BUN 18 (7-18) mg/dL Creatinine 0.80 (0.51-1.17) mg/dL Est Cr Clr Drug Dosing 72.23 mL/min Estimated GFR (MDRD) > 60 mL/min Glucose 123 H (74-106) mg/dL POC Glucose (65-110) mg/dl Calcium 9.0 (8.5-10.1) mg/dL Total Bilirubin 0.2 (0.2-1.0) mg/dL AST 23 (15-37) U/L ALT 31 (12-78) U/L Alkaline Phosphatase 79 (46-116) IU/L C-Reactive Protein 0.3 (<=0.9) mg/dL Total Protein 6.4 (6.4-8.2) g/dL Albumin 2.8 L (3.4-5.0) g/dL Vancomycin Trough 18.1 (10-20) ug/mL 02/01/19 02/01/19 Range/Units 07:32 20:40 WBC (4.0-10.2) K/uL RBC (3.77-5.09) M/uL Hgb (11.7-15.5) g/dL Hct (34.0-46.0) % MCV (84.0-98.0) fL MCH (28.2-33.3) pg MCHC (31.7-36.0) g/dL RDW (11.2-14.1) % Plt Count (150-350) K/uL Neut % (Auto) (45.0-80.0) % Lymph % (Auto) (10.0-50.0) % [place] % (Auto) (2.0-14.0) % Eos % (Auto) (0.0-5.0) % Baso % (Auto) (0.0-2.0) % Neut # (Auto) (1.40-7.00) K/uL Lymph # (Auto) (0.50-3.50) K/uL [place] # (Auto) (0.00-1.00) K/uL Eos # (Auto) (0.00-0.50) K/uL Baso # (Auto) (0.00-0.20) K/uL ESR (0-30) mm/hr Sodium (136-145) mmol/L Potassium (3.5-5.1) mmol/L Chloride (98-107) mmol/L Carbon Dioxide (21.0-32.0) mmol/L BUN (7-18) mg/dL Creatinine (0.51-1.17) mg/dL Est Cr Clr Drug Dosing mL/min Estimated GFR (MDRD) mL/min Glucose (74-106) mg/dL POC Glucose 133 H 240 H (65-110) mg/dl Calcium (8.5-10.1) mg/dL Total Bilirubin (0.2-1.0) mg/dL AST (15-37) U/L ALT (12-78) U/L Alkaline Phosphatase (46-116) IU/L C-Reactive Protein (<=0.9) mg/dL Total Protein (6.4-8.2) g/dL Albumin (3.4-5.0) g/dL Vancomycin Trough (10-20) ug/mL Med Orders - Current: Current Medications Acetaminophen (Tylenol Extra Strength) 500 mg PO Q4H PRN PRN Reason: Fever Acetaminophen (Tylenol) 650 mg PO BEDTIME AMANDO Last Admin: 02/01/19 20:13 Dose: 650 mg Hydrocodone Bitart/Acetaminophen ([place] 325-5 Mg) 1 tab PO Q4H PRN PRN Reason: Pain/Fever Last Admin: 02/01/19 04:21 Dose: 1 tab Hydrocodone Bitart/Acetaminophen ([place] 325-7.5 Mg) 1 tab PO DAILY@2200 [facility] Last Admin: 02/01/19 21:40 Dose: 1 tab Ascorbic Acid (Vitamin C) 500 mg PO BID [facility] Last Admin: 02/01/19 17:16 Dose: 500 mg Clopidogrel Bisulfate (Plavix) 75 mg PO DAILY [facility] Last Admin: 02/01/19 07:23 Dose: 75 mg Diphenhydramine HCl (Benadryl) 25 mg PO BEDTIME [facility] Last Admin: 02/01/19 20:13 Dose: 25 mg Docusate Sodium (Colace) 100 mg PO BID PRN PRN Reason: Constipation Ferrous Sulfate (Ferrous Sulfate) 325 mg PO BID [facility] Last Admin: 02/01/19 17:16 Dose: 325 mg Fluconazole (Diflucan) 50 mg PO DAILY [facility] Last Admin: 02/01/19 07:23 Dose: 50 mg Heparin Sodium (Porcine) (Heparin Lock Flush 100 Units/Ml) 300 units FLUSH ASDIRECTED PRN PRN Reason: IV Use Last Admin: 02/01/19 20:28 Dose: 300 units Heparin Sodium (Porcine) (Heparin Lock Flush 100 Units/Ml) 300 units FLUSH 0430 ,0830,1230,2030 [facility] Last Admin: 02/01/19 20:27 Dose: 300 units Heparin Sodium (Porcine) (Heparin Lock Flush 100 Units/Ml) 300 units FLUSH Q12H [facility] Last Admin: 02/01/19 20:29 Dose: 300 units Vancomycin HCl 1.25 gm/ Sodium (Chloride) 250 mls @ 135 mls/hr IV Q18H [facility] Last Admin: 02/01/19 08:37 Dose: 135 mls/hr Clindamycin Phosphate 900 mg/ (Premix) 50 mls @ 100 mls/hr IV Q8H [facility] Stop: 02/08/19 20:29 Insulin Glargine (Lantus) 22 unit SUBCUT DAILY [facility] Last Admin: 02/01/19 08:38 Dose: 22 unit Lisinopril (Prinivil) 10 mg PO DAILY [facility] Last Admin: 02/01/19 07:24 Dose: 10 mg Loperamide HCl (Imodium Ad) 2 mg PO ASDIRECTED PRN PRN Reason: Diarrhea Last Admin: 01/27/19 10:13 Dose: 4 mg Magnesium Hydroxide (Milk Of Magnesia) 30 ml PO DAILY PRN PRN Reason: Constipation Meclizine HCl (Antivert) 25 mg PO Q6H PRN PRN Reason: Dizziness Last Admin: 12/19/18 08:05 Dose: 25 mg Metoprolol Tartrate (Lopressor) 25 mg PO Q12HR [facility] Last Admin: 02/01/19 20:12 Dose: 25 mg Montelukast Sodium (Singulair) 10 mg PO BEDTIME [facility] Last Admin: 02/01/19 20:16 Dose: 10 mg Multivitamins/Minerals/Vitamin C (Tab-A-Noam) 0.5 tab PO BID [facility] Last Admin: 02/01/19 17:15 Dose: 0.5 tab Milnacipran [Savella ] 50mg Tab Own Med 1 each PO BID@0800,2000 [facility] Last Admin: 02/01/19 20:14 Dose: 1 each Ondansetron HCl (Zofran Odt) 4 mg PO Q6H PRN PRN Reason: Nausea/Vomiting Last Admin: 01/26/19 08:55 Dose: 4 mg Polyethylene Glycol (Miralax) 17 gm PO BEDTIME PRN PRN Reason: Constipation Potassium Chloride (Klor-Con 10) 10 meq PO DAILY [facility] Last Admin: 02/01/19 07:23 Dose: 10 meq Sodium Chloride (Saline Flush) 10 ml FLUSH ASDIRECTED [facility] Last Admin: 02/01/19 20:30 Dose: 10 ml Trospium (Sanctura) 20 mg PO BIDAC [facility] Last Admin: 02/01/19 17:19 Dose: 20 mg Vancomycin HCl (Pharmacy To Dose - Vancomycin) 1 dose .XX ASDIRECTED [facility] Discontinued Medications Alteplase, Recombinant (Cathflo Activase) 2 mg IVPUSH ONETIME ONE Stop: 12/21/18 20:07 Last Admin: 12/21/18 22:01 Dose: 2 mg Alteplase, Recombinant (Cathflo Activase) 2 mg IVPUSH ONETIME STA Stop: 01/02/19 22:17 Last Admin: 01/02/19 22:37 Dose: 2 mg Clindamycin Phosphate 900 mg/ (Sodium Chloride) 106 mls @ 200 mls/hr IV Q8H [facility] Stop: 12/28/18 20:30 Last Admin: 12/23/18 12:23 Dose: 200 mls/hr Vancomycin HCl 1.25 gm/ Sodium (Chloride) 250 mls @ 135 mls/hr IV Q12H [facility] Last Admin: 12/14/18 09:27 Dose: Not Given Vancomycin HCl 1 gm/ Sodium (Chloride) 250 mls @ 165 mls/hr IV Q12H [facility] Last Admin: 12/15/18 08:32 Dose: 165 mls/hr Vancomycin HCl 1 gm/ Sodium (Chloride) 250 mls @ 165 mls/hr IV Q12H [facility] Stop: 12/28/18 21:30 Last Admin: 12/28/18 19:38 Dose: 165 mls/hr Clindamycin Phosphate 900 mg/ (Sodium Chloride) 106 mls @ 200 mls/hr IV Q8H [facility] Stop: 12/28/18 20:30 Last Admin: 12/28/18 21:15 Dose: 200 mls/hr Clindamycin Phosphate 900 mg/ (Sodium Chloride) 106 mls @ 200 mls/hr IV Q8H [facility] Stop: 01/04/19 20:32 Last Admin: 01/04/19 19:35 Dose: 200 mls/hr Vancomycin HCl 1 gm/ Dextrose/ (Water) 250 mls @ 165 mls/hr IV Q12H [facility] Stop: 01/04/19 20:31 Last Admin: 12/29/18 08:18 Dose: Not Given Vancomycin HCl 1 gm/ Sodium (Chloride) 250 mls @ 165 mls/hr IV Q12H [facility] Last Admin: 01/07/19 08:40 Dose: Not Given Clindamycin Phosphate 900 mg/ (Sodium Chloride) 106 mls @ 200 mls/hr IV Q8H [facility] Stop: 01/11/19 20:32 Last Admin: 01/11/19 19:33 Dose: 200 mls/hr Vancomycin HCl 1.25 gm/ Sodium (Chloride) 250 mls @ 135 mls/hr IV Q12H [facility] Vancomycin HCl 1 gm/ Sodium (Chloride) 250 mls @ 165 mls/hr IV Q18H [facility] Last Admin: 01/14/19 10:02 Dose: Not Given Clindamycin Phosphate 900 mg/ (Sodium Chloride) 106 mls @ 200 mls/hr IV Q8H [facility] Stop: 01/18/19 20:32 Last Admin: 01/18/19 20:29 Dose: 200 mls/hr Clindamycin Phosphate 900 mg/ (Sodium Chloride) 106 mls @ 200 mls/hr IV Q8H [facility] Stop: 01/25/19 20:32 Last Admin: 01/25/19 12:10 Dose: 200 mls/hr Clindamycin Phosphate 900 mg/ (Premix) 50 mls @ 100 mls/hr IV Q8H [facility] Stop: 01/25/19 20:29 Last Admin: 01/25/19 19:41 Dose: 100 mls/hr Clindamycin Phosphate 900 mg/ (Sodium Chloride) 106 mls @ 200 mls/hr IV Q8H [facility] Stop: 02/01/19 20:32 Last Admin: 01/26/19 03:04 Dose: 200 mls/hr Clindamycin Phosphate (Cleocin In D5w) Confirm Administered Dose 50 mls @ as directed IV .STK-MED ONE Stop: 01/26/19 03:02 Last Admin: 01/26/19 03:14 Dose: Not Given Clindamycin Phosphate 900 mg/ (Premix) 50 mls @ 100 mls/hr IV Q8H [facility] Stop: 02/01/19 20:32 Last Admin: 02/01/19 20:17 Dose: 100 mls/hr Insulin Glargine (Lantus) 35 unit SUBCUT DAILY [facility] Last Admin: 12/12/18 09:14 Dose: 35 units Insulin Glargine (Lantus) 30 unit SUBCUT DAILY [facility] Last Admin: 12/15/18 08:13 Dose: 30 units Insulin Glargine (Lantus) 25 unit SUBCUT DAILY [facility] Last Admin: 12/16/18 07:59 Dose: 25 unit Insulin Glargine (Lantus) 20 unit SUBCUT DAILY [facility] Last Admin: 12/17/18 08:00 Dose: 20 unit Insulin Glargine (Lantus) 16 unit SUBCUT DAILY [facility] Last Admin: 12/23/18 08:21 Dose: 16 units Insulin Glargine (Lantus) 18 unit SUBCUT DAILY [facility] Last Admin: 12/29/18 08:27 Dose: 18 unit Insulin Glargine (Lantus) 20 unit SUBCUT DAILY [facility] Last Admin: 01/08/19 08:36 Dose: 20 unit Lisinopril (Prinivil) 10 mg PO DAILY [facility] Last Admin: 12/22/18 08:47 Dose: 10 mg Metoprolol Tartrate (Lopressor) 25 mg PO Q12H [facility] Last Admin: 12/12/18 09:12 Dose: 25 mg Multivitamins/Minerals/Vitamin C (Tab-A-Noam) 1 tab PO DAILY [facility] Last Admin: 12/18/18 07:51 Dose: 1 tab Mupirocin (Bactroban Oint) 0 gm TOP TID [facility] Last Admin: 12/14/18 21:38 Dose: Not Given Mupirocin (Bactroban Oint) 0 gm TOP DAILY [facility] Last Admin: 12/17/18 08:00 Dose: 1 applic Potassium Chloride (Klor-Con 10) 10 meq PO TID [facility] Last Admin: 12/12/18 14:05 Dose: Not Given Potassium Chloride (Klor-Con 10) 10 meq PO BID [facility] - Exam Quality Assessment: Central Line/PICC General: Alert, Oriented, Cooperative, No Acute Distress HEENT: Pupils Equal, Pupils Reactive, EOMI, Mucous Membr. Moist/[place] Neck: Trachea Midline, No JVD Lungs: Clear to Auscultation, Normal Respiratory Effort Cardiovascular: Regular Rate, Regular Rhythm GI/Abdominal Exam: Soft, Non-Tender, No Distention (Female) Exam: Deferred Back Exam: Normal Inspection Extremities: Pedal Edema (right > left), Increased Warmth (right foot), Redness (right foot) Skin: Warm, Dry, Intact, Other (right foot redness) Neurological: No New Focal Deficit Psy/Mental Status: Alert, Normal Affect, Normal Mood - Problem List & Annotations (1) Staphylococcus epidermidis bacteremia SNOMED Code(s): 058806766201, 955895297661 Code(s): R78.81 - BACTEREMIA Status: Acute Priority: High Current Visit : Yes (2) Staph aureus infection SNOMED Code(s): 520037769 Code(s): A49.01 - METHICILLIN SUSCEP STAPH INFECTION, UNSP SITE Status: Acute Priority: High Current Visit: Yes (3) Cellulitis of right leg SNOMED Code(s): 959087459 Code(s): L03.115 - CELLULITIS OF RIGHT LOWER LIMB Status: Acute Priority : High Current Visit: Yes Annotation/Comment:: continue on IV therapy, PICC line in place (4) Chills (without fever) SNOMED Code(s): 68065298 Code(s): R68.83 - CHILLS (WITHOUT FEVER) Status: Acute Priority: High Current Visit: No (5) Diabetes mellitus SNOMED Code(s): 00571980 Code(s): E11.9 - TYPE 2 DIABETES MELLITUS WITHOUT COMPLICATIONS Status: Acute Current Visit: No Qualifiers: Diabetes mellitus type: type 2 Diabetes mellitus intermediate insulin use: with intermediate use (6) Essential (primary) hypertension SNOMED Code(s): 69914825 Code(s): I10 - ESSENTIAL (PRIMARY) HYPERTENSION Status: Acute Priority: Low Current Visit: No (7) Vertigo SNOMED Code(s): 109208767 Code(s): R42 - DIZZINESS AND GIDDINESS Status: Acute Current Visit: No (8) Diarrhea SNOMED Code(s): 95360589 Code(s): R19.7 - DIARRHEA, UNSPECIFIED Status: Acute Priority: High Current Visit: Yes Qualifiers: Diarrhea type: unspecified type Qualified Code(s): R19.7 - Diarrhea, unspecified (9) Elevated erythrocyte sedimentation rate SNOMED Code(s): 144782284 Code(s): R70.0 - ELEVATED ERYTHROCYTE SEDIMENTATION RATE Status: Acute Priority: High Current Visit: Yes - Problem List Review Problem List Initiated/Reviewed/Updated: Yes - My Orders Last 24 Hours: My Active Orders 02/02/19 04:00 Clindamycin Phosphate in D5W [Cleocin in D5W] 900 mg Premix Bag 1 bag IV Q8H 02/04/19 07:30 VANCOMYCIN TROUGH [CHEM] Routine 02/05/19 08:00 Communication Order [RC] WEEKLY 02/08/19 05:11 CBC WITH AUTO DIFF [HEME] Routine CMP [COMPREHENSIVE METABOLIC PN,CMP] [CHEM] Routine CRP [C-REACTIVE PROTEIN] [CHEM] Routine SEDIMENTATION RATE AUTO [HEME] Routine - Plan Plan:: 12/12/2018 Patient needing IV antibiotics in swingbed, monitoring daily of the leg and lab results. Will need more days of treatment as patient leg is improving but slowly. Will recheck labs in the morning. Consulted with Dr Javier. Ariela Cameron, [employer] 12/14/18 Concepcion Osorio MD Leg continues slow improvement. Continue IV antibiotics. 12/15/2018 Patient states pain controlled with oral Lortab. Leg continues to improve with redness and warmth. Patient continues to need swingbed treatment with IV antibiotics, leg improving but slowly. Ariela Cameron,[employer] 12/18/18 Concepcion Osorio MD The leg is clinically worse today. Increased swelling and increased redness right anterior compartment. Will re-CT leg tomorrow and continue IV antibiotics. Also discussed anemia. Will start oral iron and vitamin C. 12/23/2018 Patient continues with pain to the right LE mainly in the foot. CT scan done recently , continue to show significant edema and cellulitis. Patient needing to continue on IV antibiotics due to the significant cellulitis, delayed healing , and little improvement noted on CT scan. Will recheck labs in the am, Increase Lantus now that blood sugars are increasing. Try Tubigrip to LEs to help with circulation and healing. Discussed with Dr Javier. Ariela Cameron,[employer] ENG[employer] 12/28/18 Concepcion Osorio MD The RLE is improved but is still swollen, red, warm to touch anterior compartment and into ankle and foot. Due to +staph bacteremia, +staph culture from the crack over right great toe, and clinically the leg still has evidence of active infection need to continue IV antibiotics and swingbed. The IVs required to treat staph are several times a day. It is two different types of staph. She has complicated factors of diabetes mellitus, obesity, s/p chemotherapy, s/p radiation, immunocompromised status thus needs prolonged IV antibiotics. Recommendation is for 1-3 weeks more IV antibiotics. I also explained medically necessity for echocardiogram due to staph bacteremia. She agrees to the echocardiogram continued IV antibiotics and continued swingbed status. 01/01/19 Concepcion Osorio MD Slow improvement of RLE continues. Still redness and swelling RLE. Labs also slowly improving. Continue IV antibiotics. 01/04/19 Concepcion Osorio MD Continues slow clinical improvement of RLE. Still redness and swelling RLE although continues to recede down the leg but still present. ESR still quite elevated. Continue IV antibiotics for 1-2 more weeks. 01/11/19 Concepcion Osorio MD The right lower extremity continues swollen, red, warmth. Some modest improvement. ESR still markedly elevated. Some diarrhea starting today. Will check c-dif. Continue IV antibiotics at least 1 more week. 01/18/19 Concepcion Osorio MD Slow slow improvement right ankle area and right foot. Still some pain. ESR still markedly elevated. C-dif was negative. Continue the IV antibiotics at least 1 more week. 01/25/19 Concepcion Osorio MD Continues slow improvement. ESR finally starting to decrease but not back to normal. The redness and warmth in the RLE continues to slowly decrease and improve as well as the pain in the RLE but does persists. 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 Continue the antibiotics at least one week more. 01/29/2019 Patient states pain to right leg/foot is some better but needing to take a pain pill at nighttime as the pain becomes 7/10 and pain pill brings it down to 2-3/ 10 which is tolerable. Continues to receive IV antibiotics and sed rate is slowing decreasing, lab will be rechecked on 02/01/2019. Feet appear much improved, callouses improved but redness and slight warmth still present. Ariela Cameron,[employer] 02/01/19 Concepcion Osorio MD Continues very slow improvement. Redness and warmth persist right foot. ESR still elevated. Medically necessary to continue IV antibiotics for at least one more week. Will continue to assess clinically and with blood work.
[2019-02-02] MEDS: Sodium Chloride 0.9% 10 ML Syringe FLUSH SCH ×9 (01:56→22:05)
[2019-02-02] MEDS: Clindamycin Phosphate in D5W 900 MG in Premix Bag 1 BAG IV SCH ×6 (03:59→19:09)
[2019-02-02] MEDS: Acetaminophen/HYDROcodone 325-5 MG Tab PO PRN ×3 (04:26→22:03)
[2019-02-02] MEDS: Multivitamin Tab PO SCH ×2 (07:34→17:37)
[2019-02-02] MEDS: Fluconazole 100 MG Tab PO SCH (07:35)
[2019-02-02] MEDS: Ascorbic Acid 500 MG Tab PO SCH ×2 (07:35→17:37)
[2019-02-02] MEDS: Ferrous Sulfate 325 MG Tab PO SCH ×2 (07:35→17:37)
[2019-02-02] MEDS: Potassium Chloride 10 MEQ Tab.ER PO SCH (07:35)
[2019-02-02] MEDS: Trospium 20 MG Tab PO SCH ×2 (07:35→17:37)
[2019-02-02] MEDS: Clopidogrel 75 MG Tab PO SCH (07:35)
[2019-02-02] MEDS: Metoprolol Tartrate 25 MG Tab PO SCH ×2 (07:35→20:01)
[2019-02-02] MEDS: Insulin Glarg,Human.Rec.Analog 100 UNIT/ML ML SUBCUT SCH (07:36)
[2019-02-02] MEDS: Lisinopril 10 MG Tab PO SCH (07:36)
[2019-02-02] MEDS: MILNACIPRAN 50 MG PO SCH ×2 (07:36→20:01)
[2019-02-02] MEDS: Ondansetron 4 MG Tab.DIS PO PRN (08:13)
[2019-02-02] MEDS: Acetaminophen 325 MG Tab PO SCH (20:00)
[2019-02-02] MEDS: Montelukast 10 MG Tab PO SCH (20:01)
[2019-02-02] MEDS: diphenhydrAMINE 25 MG Cap PO SCH (20:01)
[2019-02-02] MEDS: Acetaminophen/HYDROcodone 325-7.5 MG Tab PO SCH (22:07)
[2019-02-03] MEDS: Clindamycin Phosphate in D5W 900 MG in Premix Bag 1 BAG IV SCH ×6 (04:29→19:48)
[2019-02-03] MEDS: Sodium Chloride 0.9% 10 ML Syringe FLUSH SCH ×8 (04:30→20:20)
[2019-02-03] MEDS: Acetaminophen/HYDROcodone 325-5 MG Tab PO PRN (04:36)
[2019-02-03] MEDS: Potassium Chloride 10 MEQ Tab.ER PO SCH (07:41)
[2019-02-03] MEDS: Metoprolol Tartrate 25 MG Tab PO SCH ×2 (07:41→19:50)
[2019-02-03] MEDS: MILNACIPRAN 50 MG PO SCH ×2 (07:41→19:47)
[2019-02-03] MEDS: Ferrous Sulfate 325 MG Tab PO SCH ×2 (07:42→17:14)
[2019-02-03] MEDS: Multivitamin Tab PO SCH ×2 (07:42→17:14)
[2019-02-03] MEDS: Trospium 20 MG Tab PO SCH ×2 (07:42→17:14)
[2019-02-03] MEDS: Clopidogrel 75 MG Tab PO SCH (07:42)
[2019-02-03] MEDS: Ascorbic Acid 500 MG Tab PO SCH ×2 (07:42→17:14)
[2019-02-03] MEDS: Lisinopril 10 MG Tab PO SCH (07:42)
[2019-02-03] MEDS: Fluconazole 100 MG Tab PO SCH (07:42)
[2019-02-03] MEDS: Insulin Glarg,Human.Rec.Analog 100 UNIT/ML ML SUBCUT SCH (07:44)
[2019-02-03] MEDS: Acetaminophen 325 MG Tab PO SCH (19:49)
[2019-02-03] MEDS: Montelukast 10 MG Tab PO SCH (19:49)
[2019-02-03] MEDS: diphenhydrAMINE 25 MG Cap PO SCH (19:49)
[2019-02-03] MEDS: Acetaminophen/HYDROcodone 325-7.5 MG Tab PO SCH (21:30)
[2019-02-04] MEDS: Acetaminophen/HYDROcodone 325-5 MG Tab PO PRN (02:59)
[2019-02-04] MEDS: Sodium Chloride 0.9% 10 ML Syringe FLUSH SCH ×9 (03:00→20:05)
[2019-02-04] MEDS: Clindamycin Phosphate in D5W 900 MG in Premix Bag 1 BAG IV SCH ×6 (03:00→19:56)
[2019-02-04] MEDS: Potassium Chloride 10 MEQ Tab.ER PO SCH (08:05)
[2019-02-04] MEDS: Trospium 20 MG Tab PO SCH ×2 (08:06→17:49)
[2019-02-04] MEDS: Lisinopril 10 MG Tab PO SCH (08:06)
[2019-02-04] MEDS: Ferrous Sulfate 325 MG Tab PO SCH ×2 (08:06→17:49)
[2019-02-04] MEDS: Ascorbic Acid 500 MG Tab PO SCH ×2 (08:06→17:49)
[2019-02-04] MEDS: Metoprolol Tartrate 25 MG Tab PO SCH ×2 (08:06→20:01)
[2019-02-04] MEDS: Clopidogrel 75 MG Tab PO SCH (08:07)
[2019-02-04] MEDS: Fluconazole 100 MG Tab PO SCH (08:07)
[2019-02-04] MEDS: MILNACIPRAN 50 MG PO SCH ×2 (08:08→20:02)
[2019-02-04] MEDS: Multivitamin Tab PO SCH ×2 (08:08→17:49)
[2019-02-04] MEDS: Insulin Glarg,Human.Rec.Analog 100 UNIT/ML ML SUBCUT SCH (08:10)
[2019-02-04] MEDS: Acetaminophen 325 MG Tab PO SCH (19:59)
[2019-02-04] MEDS: Montelukast 10 MG Tab PO SCH (20:00)
[2019-02-04] MEDS: diphenhydrAMINE 25 MG Cap PO SCH (20:00)
[2019-02-04] MEDS: Acetaminophen/HYDROcodone 325-7.5 MG Tab PO SCH (21:44)
[2019-02-05] MEDS: Acetaminophen/HYDROcodone 325-5 MG Tab PO PRN (02:11)
[2019-02-05] MEDS: Sodium Chloride 0.9% 10 ML Syringe FLUSH SCH ×8 (02:13→19:41)
[2019-02-05] MEDS: Clindamycin Phosphate in D5W 900 MG in Premix Bag 1 BAG IV SCH ×6 (04:22→19:36)
[2019-02-05] MEDS: Trospium 20 MG Tab PO SCH ×2 (07:37→17:10)
[2019-02-05] MEDS: Ferrous Sulfate 325 MG Tab PO SCH ×2 (07:37→17:09)
[2019-02-05] MEDS: Metoprolol Tartrate 25 MG Tab PO SCH ×2 (07:38→19:38)
[2019-02-05] MEDS: Lisinopril 10 MG Tab PO SCH (07:38)
[2019-02-05] MEDS: Potassium Chloride 10 MEQ Tab.ER PO SCH (07:39)
[2019-02-05] MEDS: Clopidogrel 75 MG Tab PO SCH (07:39)
[2019-02-05] MEDS: Ascorbic Acid 500 MG Tab PO SCH ×2 (07:39→17:09)
[2019-02-05] MEDS: Fluconazole 100 MG Tab PO SCH (07:40)
[2019-02-05] MEDS: MILNACIPRAN 50 MG PO SCH ×2 (07:41→19:41)
[2019-02-05] MEDS: Multivitamin Tab PO SCH ×2 (07:41→17:08)
[2019-02-05] MEDS: Insulin Glarg,Human.Rec.Analog 100 UNIT/ML ML SUBCUT SCH (07:42)
[2019-02-05] MEDS: Ondansetron 4 MG Tab.DIS PO PRN (08:56)
[2019-02-05] MEDS: Acetaminophen 325 MG Tab PO SCH (19:36)
[2019-02-05] MEDS: Montelukast 10 MG Tab PO SCH (19:38)
[2019-02-05] MEDS: diphenhydrAMINE 25 MG Cap PO SCH (19:38)
[2019-02-05] MEDS: Acetaminophen/HYDROcodone 325-7.5 MG Tab PO SCH (21:32)
[2019-02-06] MEDS: Clindamycin Phosphate in D5W 900 MG in Premix Bag 1 BAG IV SCH ×6 (03:05→19:37)
[2019-02-06] MEDS: Acetaminophen/HYDROcodone 325-5 MG Tab PO PRN (03:06)
[2019-02-06] MEDS: Sodium Chloride 0.9% 10 ML Syringe FLUSH SCH ×6 (03:07→19:44)
[2019-02-06] MEDS: MILNACIPRAN 50 MG PO SCH ×2 (07:38→19:40)
[2019-02-06] MEDS: Trospium 20 MG Tab PO SCH ×2 (07:39→17:28)
[2019-02-06] MEDS: Ascorbic Acid 500 MG Tab PO SCH ×2 (07:39→17:28)
[2019-02-06] MEDS: Potassium Chloride 10 MEQ Tab.ER PO SCH (07:39)
[2019-02-06] MEDS: Lisinopril 10 MG Tab PO SCH (07:39)
[2019-02-06] MEDS: Ferrous Sulfate 325 MG Tab PO SCH ×2 (07:39→17:28)
[2019-02-06] MEDS: Clopidogrel 75 MG Tab PO SCH (07:39)
[2019-02-06] MEDS: Fluconazole 100 MG Tab PO SCH (07:40)
[2019-02-06] MEDS: Multivitamin Tab PO SCH ×2 (07:40→17:28)
[2019-02-06] MEDS: Insulin Glarg,Human.Rec.Analog 100 UNIT/ML ML SUBCUT SCH (07:40)
[2019-02-06] MEDS: Metoprolol Tartrate 25 MG Tab PO SCH ×2 (07:40→19:40)
[2019-02-06] MEDS: Montelukast 10 MG Tab PO SCH (19:40)
[2019-02-06] MEDS: Acetaminophen 325 MG Tab PO SCH (19:41)
[2019-02-06] MEDS: diphenhydrAMINE 25 MG Cap PO SCH (19:42)
[2019-02-06] MEDS: Acetaminophen/HYDROcodone 325-7.5 MG Tab PO SCH (21:36)
[2019-02-07] MEDS: Sodium Chloride 0.9% 10 ML Syringe FLUSH SCH ×6 (03:14→20:07)
[2019-02-07] MEDS: Clindamycin Phosphate in D5W 900 MG in Premix Bag 1 BAG IV SCH ×6 (03:14→19:59)
[2019-02-07] MEDS: Acetaminophen/HYDROcodone 325-5 MG Tab PO PRN (03:15)
[2019-02-07] MEDS: Multivitamin Tab PO SCH ×2 (07:19→17:17)
[2019-02-07] MEDS: Potassium Chloride 10 MEQ Tab.ER PO SCH (07:19)
[2019-02-07] MEDS: Ascorbic Acid 500 MG Tab PO SCH ×2 (07:19→17:17)
[2019-02-07] MEDS: Clopidogrel 75 MG Tab PO SCH (07:19)
[2019-02-07] MEDS: Fluconazole 100 MG Tab PO SCH (07:19)
[2019-02-07] MEDS: Metoprolol Tartrate 25 MG Tab PO SCH ×2 (07:19→19:58)
[2019-02-07] MEDS: Lisinopril 10 MG Tab PO SCH (07:20)
[2019-02-07] MEDS: Ferrous Sulfate 325 MG Tab PO SCH ×2 (07:20→17:17)
[2019-02-07] MEDS: MILNACIPRAN 50 MG PO SCH ×2 (07:20→19:54)
[2019-02-07] MEDS: Trospium 20 MG Tab PO SCH ×2 (07:20→17:17)
[2019-02-07] MEDS: Insulin Glarg,Human.Rec.Analog 100 UNIT/ML ML SUBCUT SCH (09:09)
[2019-02-07] MEDS: Loperamide 2 MG Tab PO PRN (09:10)
[2019-02-07] MEDS: Acetaminophen 325 MG Tab PO SCH (19:55)
[2019-02-07] MEDS: Montelukast 10 MG Tab PO SCH (19:55)
[2019-02-07] MEDS: diphenhydrAMINE 25 MG Cap PO SCH (19:58)
[2019-02-07] MEDS: Acetaminophen/HYDROcodone 325-7.5 MG Tab PO SCH (21:37)
[2019-02-08] MEDS: Sodium Chloride 0.9% 10 ML Syringe FLUSH SCH ×5 (01:26→12:25)
[2019-02-08] MEDS: Acetaminophen/HYDROcodone 325-5 MG Tab PO PRN (03:16)
[2019-02-08] MEDS: Clindamycin Phosphate in D5W 900 MG in Premix Bag 1 BAG IV SCH ×4 (03:17→12:25)
[2019-02-08] MEDS: Trospium 20 MG Tab PO SCH (07:42)
[2019-02-08] MEDS: MILNACIPRAN 50 MG PO SCH (07:42)
[2019-02-08] MEDS: Ferrous Sulfate 325 MG Tab PO SCH (07:43)
[2019-02-08] MEDS: Metoprolol Tartrate 25 MG Tab PO SCH (07:43)
[2019-02-08] MEDS: Potassium Chloride 10 MEQ Tab.ER PO SCH (07:43)
[2019-02-08] MEDS: Clopidogrel 75 MG Tab PO SCH (07:43)
[2019-02-08] MEDS: Lisinopril 10 MG Tab PO SCH (07:44)
[2019-02-08] MEDS: Ascorbic Acid 500 MG Tab PO SCH (07:44)
[2019-02-08] MEDS: Fluconazole 100 MG Tab PO SCH (07:45)
[2019-02-08] MEDS: Multivitamin Tab PO SCH (07:45)
[2019-02-08] MEDS: Insulin Glarg,Human.Rec.Analog 100 UNIT/ML ML SUBCUT SCH (07:46)
[2019-02-08 07:49] VITALS: BP 131/75
[2019-02-08 07:54] LABS: CHLORIDE,CL 105 mmol/L (98-107); SODIUM,NA 139 mmol/L (136-145)
--- NOTE | 2019-02-08 16:18 | PCM.PN ---
- General Info Date of Service: 02/08/19 Admission Dx/Problem (Free Text): cellulitis of the right LE Functional Status: Reports: Pain Controlled - Review of Systems General: Reports: No Symptoms HEENT: Reports: No Symptoms Pulmonary: Reports: No Symptoms Cardiovascular: Reports: No Symptoms Gastrointestinal: Reports: No Symptoms Genitourinary: Reports: No Symptoms Musculoskeletal: Reports: Foot Pain (right has slight puffiness) Skin: Reports: Dryness (legs), Other (bilateral lower extremities redness but not warm to touch) Neurological: Reports: No Symptoms Psychiatric: Reports: No Symptoms - Patient Data Vitals - Most Recent: Last Vital Signs Temp 97.6 F 02/08/19 08:00 Pulse 74 02/08/19 08:00 Resp 18 02/08/19 08:00 BP 131/75 02/08/19 08:00 Pulse Ox 99 02/08/19 08:00 Weight - Most Recent: 280 lb 1.6 oz I&O - Last 24 Hours: Intake & Output 02/08/19 02/08/19 02/08/19 06:59 14:59 22:59 Intake Total 325 470 Balance 325 470 Lab Results Last 24 Hours: Laboratory Results - last 24 hr 02/07/19 02/08/19 02/08/19 Range/Units 20:12 07:14 07:20 WBC 4.1 (4.0-10.2) K/uL RBC 3.38 L (3.77-5.09) M/uL Hgb 10.3 L (11.7-15.5) g/dL Hct 32.1 L (34.0-46.0) % MCV 95.0 (84.0-98.0) fL MCH 30.5 (28.2-33.3) pg MCHC 32.1 (31.7-36.0) g/dL RDW 14.3 H (11.2-14.1) % Plt Count 308 (150-350) K/uL Neut % (Auto) 52.6 (45.0-80.0) % Lymph % (Auto) 27.5 (10.0-50.0) % [place]s % (Auto) 10.8 (2.0-14.0) % Eos % (Auto) 8.1 H (0.0-5.0) % Baso % (Auto) 1.0 (0.0-2.0) % Neut # (Auto) 2.14 (1.40-7.00) K/uL Lymph # (Auto) 1.12 (0.50-3.50) K/uL [place]s # (Auto) 0.44 (0.00-1.00) K/uL Eos # (Auto) 0.33 (0.00-0.50) K/uL Baso # (Auto) 0.04 (0.00-0.20) K/uL ESR 61 H (0-30) mm/hr Sodium (136-145) mmol/L Potassium (3.5-5.1) mmol/L Chloride (98-107) mmol/L Carbon Dioxide (21.0-32.0) mmol/L BUN (7-18) mg/dL Creatinine (0.51-1.17) mg/dL Est Cr Clr Drug Dosing mL/min Estimated GFR (MDRD) mL/min Glucose (74-106) mg/dL POC Glucose 245 H 146 H (65-110) mg/dl Calcium (8.5-10.1) mg/dL Total Bilirubin (0.2-1.0) mg/dL AST (15-37) U/L ALT (12-78) U/L Alkaline Phosphatase (46-116) IU/L C-Reactive Protein (<=0.9) mg/dL Total Protein (6.4-8.2) g/dL Albumin (3.4-5.0) g/dL 02/08/19 Range/Units 07:20 WBC (4.0-10.2) K/uL RBC (3.77-5.09) M/uL Hgb (11.7-15.5) g/dL Hct (34.0-46.0) % MCV (84.0-98.0) fL MCH (28.2-33.3) pg MCHC (31.7-36.0) g/dL RDW (11.2-14.1) % Plt Count (150-350) K/uL Neut % (Auto) (45.0-80.0) % Lymph % (Auto) (10.0-50.0) % [place]s % (Auto) (2.0-14.0) % Eos % (Auto) (0.0-5.0) % Baso % (Auto) (0.0-2.0) % Neut # (Auto) (1.40-7.00) K/uL Lymph # (Auto) (0.50-3.50) K/uL [place]s # (Auto) (0.00-1.00) K/uL Eos # (Auto) (0.00-0.50) K/uL Baso # (Auto) (0.00-0.20) K/uL ESR (0-30) mm/hr Sodium 139 (136-145) mmol/L Potassium 4.0 (3.5-5.1) mmol/L Chloride 105 (98-107) mmol/L Carbon Dioxide 24.9 (21.0-32.0) mmol/L BUN 15 (7-18) mg/dL Creatinine 0.71 (0.51-1.17) mg/dL Est Cr Clr Drug Dosing 81.38 mL/min Estimated GFR (MDRD) > 60 mL/min Glucose 147 H (74-106) mg/dL POC Glucose (65-110) mg/dl Calcium 9.0 (8.5-10.1) mg/dL Total Bilirubin 0.2 (0.2-1.0) mg/dL AST 22 (15-37) U/L ALT 31 (12-78) U/L Alkaline Phosphatase 88 (46-116) IU/L C-Reactive Protein 0.5 (<=0.9) mg/dL Total Protein 7.0 (6.4-8.2) g/dL Albumin 3.0 L (3.4-5.0) g/dL Med Orders - Current: Current Medications Acetaminophen (Tylenol Extra Strength) 500 mg PO Q4H PRN PRN Reason: Fever Acetaminophen (Tylenol) 650 mg PO BEDTIME [facility] Last Admin: 02/07/19 19:55 Dose: 650 mg Hydrocodone Bitart/Acetaminophen ([place] 325-5 Mg) 1 tab PO Q4H PRN PRN Reason: Pain/Fever Last Admin: 02/08/19 03:16 Dose: 1 tab Hydrocodone Bitart/Acetaminophen ([place] 325-7.5 Mg) 1 tab PO DAILY@2200 [facility] Last Admin: 02/07/19 21:37 Dose: 1 tab Ascorbic Acid (Vitamin C) 500 mg PO BID [facility] Last Admin: 02/08/19 07:44 Dose: 500 mg Clopidogrel Bisulfate (Plavix) 75 mg PO DAILY [facility] Last Admin: 02/08/19 07:43 Dose: 75 mg Diphenhydramine HCl (Benadryl) 25 mg PO BEDTIME [facility] Last Admin: 02/07/19 19:58 Dose: 25 mg Docusate Sodium (Colace) 100 mg PO BID PRN PRN Reason: Constipation Ferrous Sulfate (Ferrous Sulfate) 325 mg PO BID [facility] Last Admin: 02/08/19 07:43 Dose: 325 mg Fluconazole (Diflucan) 50 mg PO DAILY [facility] Last Admin: 02/08/19 07:45 Dose: 50 mg Heparin Sodium (Porcine) (Heparin Lock Flush 100 Units/Ml) 300 units FLUSH ASDIRECTED PRN PRN Reason: IV Use Last Admin: 02/07/19 03:17 Dose: 300 units Heparin Sodium (Porcine) (Heparin Lock Flush 100 Units/Ml) 300 units FLUSH 0430 ,0830,1230,2030 [facility] Last Admin: 02/08/19 12:26 Dose: 300 units Heparin Sodium (Porcine) (Heparin Lock Flush 100 Units/Ml) 300 units FLUSH Q12H [facility] Last Admin: 02/08/19 07:49 Dose: 300 units Vancomycin HCl 1.25 gm/ Sodium (Chloride) 250 mls @ 135 mls/hr IV Q18H [facility] Last Admin: 02/08/19 01:27 Dose: 135 mls/hr Clindamycin Phosphate 900 mg/ (Premix) 50 mls @ 100 mls/hr IV Q8H [facility] Stop: 02/08/19 20:29 Last Admin: 02/08/19 12:25 Dose: 100 mls/hr Insulin Glargine (Lantus) 22 unit SUBCUT DAILY [facility] Last Admin: 02/08/19 07:46 Dose: 22 unit Lisinopril (Prinivil) 10 mg PO DAILY [facility] Last Admin: 02/08/19 07:44 Dose: 10 mg Loperamide HCl (Imodium Ad) 2 mg PO ASDIRECTED PRN PRN Reason: Diarrhea Last Admin: 02/07/19 09:10 Dose: 4 mg Magnesium Hydroxide (Milk Of Magnesia) 30 ml PO DAILY PRN PRN Reason: Constipation Meclizine HCl (Antivert) 25 mg PO Q6H PRN PRN Reason: Dizziness Last Admin: 12/19/18 08:05 Dose: 25 mg Metoprolol Tartrate (Lopressor) 25 mg PO Q12HR [facility] Last Admin: 02/08/19 07:43 Dose: 25 mg Montelukast Sodium (Singulair) 10 mg PO BEDTIME [facility] Last Admin: 02/07/19 19:55 Dose: 10 mg Multivitamins/Minerals/Vitamin C (Tab-A-Noam) 0.5 tab PO BID [facility] Last Admin: 02/08/19 07:45 Dose: 0.5 tab Milnacipran [Savella ] 50mg Tab Own Med 1 each PO BID@0800,2000 [facility] Last Admin: 02/08/19 07:42 Dose: 1 each Ondansetron HCl (Zofran Odt) 4 mg PO Q6H PRN PRN Reason: Nausea/Vomiting Last Admin: 02/05/19 08:56 Dose: 4 mg Polyethylene Glycol (Miralax) 17 gm PO BEDTIME PRN PRN Reason: Constipation Potassium Chloride (Klor-Con 10) 10 meq PO DAILY [facility] Last Admin: 02/08/19 07:43 Dose: 10 meq Sodium Chloride (Saline Flush) 10 ml FLUSH ASDIRECTED [facility] Last Admin: 02/08/19 12:25 Dose: 10 ml Trospium (Sanctura) 20 mg PO BIDAC [facility] Last Admin: 02/08/19 07:42 Dose: 20 mg Vancomycin HCl (Pharmacy To Dose - Vancomycin) 1 dose .XX ASDIRECTED [facility] Discontinued Medications Alteplase, Recombinant (Cathflo Activase) 2 mg IVPUSH ONETIME ONE Stop: 12/21/18 20:07 Last Admin: 12/21/18 22:01 Dose: 2 mg Alteplase, Recombinant (Cathflo Activase) 2 mg IVPUSH ONETIME STA Stop: 01/02/19 22:17 Last Admin: 01/02/19 22:37 Dose: 2 mg Clindamycin Phosphate 900 mg/ (Sodium Chloride) 106 mls @ 200 mls/hr IV Q8H [facility] Stop: 12/28/18 20:30 Last Admin: 12/23/18 12:23 Dose: 200 mls/hr Vancomycin HCl 1.25 gm/ Sodium (Chloride) 250 mls @ 135 mls/hr IV Q12H [facility] Last Admin: 12/14/18 09:27 Dose: Not Given Vancomycin HCl 1 gm/ Sodium (Chloride) 250 mls @ 165 mls/hr IV Q12H [facility] Last Admin: 12/15/18 08:32 Dose: 165 mls/hr Vancomycin HCl 1 gm/ Sodium (Chloride) 250 mls @ 165 mls/hr IV Q12H [facility] Stop: 12/28/18 21:30 Last Admin: 12/28/18 19:38 Dose: 165 mls/hr Clindamycin Phosphate 900 mg/ (Sodium Chloride) 106 mls @ 200 mls/hr IV Q8H [facility] Stop: 12/28/18 20:30 Last Admin: 12/28/18 21:15 Dose: 200 mls/hr Clindamycin Phosphate 900 mg/ (Sodium Chloride) 106 mls @ 200 mls/hr IV Q8H [facility] Stop: 01/04/19 20:32 Last Admin: 01/04/19 19:35 Dose: 200 mls/hr Vancomycin HCl 1 gm/ Dextrose/ (Water) 250 mls @ 165 mls/hr IV Q12H [facility] Stop: 01/04/19 20:31 Last Admin: 12/29/18 08:18 Dose: Not Given Vancomycin HCl 1 gm/ Sodium (Chloride) 250 mls @ 165 mls/hr IV Q12H [facility] Last Admin: 01/07/19 08:40 Dose: Not Given Clindamycin Phosphate 900 mg/ (Sodium Chloride) 106 mls @ 200 mls/hr IV Q8H [facility] Stop: 01/11/19 20:32 Last Admin: 01/11/19 19:33 Dose: 200 mls/hr Vancomycin HCl 1.25 gm/ Sodium (Chloride) 250 mls @ 135 mls/hr IV Q12H [facility] Vancomycin HCl 1 gm/ Sodium (Chloride) 250 mls @ 165 mls/hr IV Q18H [facility] Last Admin: 01/14/19 10:02 Dose: Not Given Clindamycin Phosphate 900 mg/ (Sodium Chloride) 106 mls @ 200 mls/hr IV Q8H [facility] Stop: 01/18/19 20:32 Last Admin: 01/18/19 20:29 Dose: 200 mls/hr Clindamycin Phosphate 900 mg/ (Sodium Chloride) 106 mls @ 200 mls/hr IV Q8H [facility] Stop: 01/25/19 20:32 Last Admin: 01/25/19 12:10 Dose: 200 mls/hr Clindamycin Phosphate 900 mg/ (Premix) 50 mls @ 100 mls/hr IV Q8H [facility] Stop: 01/25/19 20:29 Last Admin: 01/25/19 19:41 Dose: 100 mls/hr Clindamycin Phosphate 900 mg/ (Sodium Chloride) 106 mls @ 200 mls/hr IV Q8H [facility] Stop: 02/01/19 20:32 Last Admin: 01/26/19 03:04 Dose: 200 mls/hr Clindamycin Phosphate (Cleocin In D5w) Confirm Administered Dose 50 mls @ as directed IV .STK-MED ONE Stop: 01/26/19 03:02 Last Admin: 01/26/19 03:14 Dose: Not Given Clindamycin Phosphate 900 mg/ (Premix) 50 mls @ 100 mls/hr IV Q8H [facility] Stop: 02/01/19 20:32 Last Admin: 02/01/19 20:17 Dose: 100 mls/hr Insulin Glargine (Lantus) 35 unit SUBCUT DAILY [facility] Last Admin: 12/12/18 09:14 Dose: 35 units Insulin Glargine (Lantus) 30 unit SUBCUT DAILY [facility] Last Admin: 12/15/18 08:13 Dose: 30 units Insulin Glargine (Lantus) 25 unit SUBCUT DAILY [facility] Last Admin: 12/16/18 07:59 Dose: 25 unit Insulin Glargine (Lantus) 20 unit SUBCUT DAILY [facility] Last Admin: 12/17/18 08:00 Dose: 20 unit Insulin Glargine (Lantus) 16 unit SUBCUT DAILY [facility] Last Admin: 12/23/18 08:21 Dose: 16 units Insulin Glargine (Lantus) 18 unit SUBCUT DAILY [facility] Last Admin: 12/29/18 08:27 Dose: 18 unit Insulin Glargine (Lantus) 20 unit SUBCUT DAILY [facility] Last Admin: 01/08/19 08:36 Dose: 20 unit Lisinopril (Prinivil) 10 mg PO DAILY [facility] Last Admin: 12/22/18 08:47 Dose: 10 mg Metoprolol Tartrate (Lopressor) 25 mg PO Q12H [facility] Last Admin: 12/12/18 09:12 Dose: 25 mg Multivitamins/Minerals/Vitamin C (Tab-A-Noam) 1 tab PO DAILY [facility] Last Admin: 12/18/18 07:51 Dose: 1 tab Mupirocin (Bactroban Oint) 0 gm TOP TID [facility] Last Admin: 12/14/18 21:38 Dose: Not Given Mupirocin (Bactroban Oint) 0 gm TOP DAILY [facility] Last Admin: 12/17/18 08:00 Dose: 1 applic Potassium Chloride (Klor-Con 10) 10 meq PO TID [facility] Last Admin: 12/12/18 14:05 Dose: Not Given Potassium Chloride (Klor-Con 10) 10 meq PO BID [facility] - Exam Quality Assessment: Central Line/PICC General: Alert, Oriented, Cooperative, No Acute Distress HEENT: Pupils Equal, Pupils Reactive, EOMI, Mucous Membr. Moist/[place] Neck: Supple Lungs: Clear to Auscultation, Normal Respiratory Effort Cardiovascular: Regular Rate, Regular Rhythm GI/Abdominal Exam: Normal Bowel Sounds, Soft, Non-Tender, No Organomegaly, No Distention, No Abnormal Bruit, No Mass, Pelvis Stable (Female) Exam: Deferred Back Exam: Normal Inspection, Full Range of Motion Extremities: Pedal Edema (markedly decreased), Redness (bilateral lower extremities but no warmth and not painful) Skin: Warm, Dry, Intact Wound/Incisions: Healing Well Neurological: No New Focal Deficit Psy/Mental Status: Alert, Normal Affect, Normal Mood - Problem List & Annotations (1) Staphylococcus epidermidis bacteremia SNOMED Code(s): 464152552439, 433212752594 Code(s): R78.81 - BACTEREMIA Status: Acute Priority: High Current Visit : Yes (2) Staph aureus infection SNOMED Code(s): 603922909 Code(s): A49.01 - METHICILLIN SUSCEP STAPH INFECTION, UNSP SITE Status: Acute Priority: High Current Visit: Yes (3) Cellulitis of right leg SNOMED Code(s): 553839537 Code(s): L03.115 - CELLULITIS OF RIGHT LOWER LIMB Status: Acute Priority : High Current Visit: Yes Annotation/Comment:: continue on IV therapy, PICC line in place (4) Chills (without fever) SNOMED Code(s): 92871989 Code(s): R68.83 - CHILLS (WITHOUT FEVER) Status: Acute Priority: High Current Visit: No (5) Diabetes mellitus SNOMED Code(s): 33171983 Code(s): E11.9 - TYPE 2 DIABETES MELLITUS WITHOUT COMPLICATIONS Status: Acute Current Visit: No Qualifiers: Diabetes mellitus type: type 2 Diabetes mellitus oysterman insulin use: with senior care use (6) Essential (primary) hypertension SNOMED Code(s): 62173403 Code(s): I10 - ESSENTIAL (PRIMARY) HYPERTENSION Status: Acute Priority: Low Current Visit: No (7) Vertigo SNOMED Code(s): 079004869 Code(s): R42 - DIZZINESS AND GIDDINESS Status: Acute Current Visit: No (8) Diarrhea SNOMED Code(s): 07792272 Code(s): R19.7 - DIARRHEA, UNSPECIFIED Status: Acute Priority: High Current Visit: Yes Qualifiers: Diarrhea type: unspecified type Qualified Code(s): R19.7 - Diarrhea, unspecified (9) Elevated erythrocyte sedimentation rate SNOMED Code(s): 175985549 Code(s): R70.0 - ELEVATED ERYTHROCYTE SEDIMENTATION RATE Status: Acute Priority: High Current Visit: Yes - Problem List Review Problem List Initiated/Reviewed/Updated: Yes - My Orders Last 24 Hours: My Active Orders 02/08/19 15:37 PICC Discontinue [Central Line PICC Discontinue] [OM.PC] Routine 02/08/19 15:44 Ready for Discharge [RC] PER UNIT ROUTINE - Plan Plan:: 12/12/2018 Patient needing IV antibiotics in swingbed, monitoring daily of the leg and lab results. Will need more days of treatment as patient leg is improving but slowly. Will recheck labs in the morning. Consulted with Dr Javier. Ariela Cameron CNP 12/14/18 Concepcion Osorio MD Leg continues slow improvement. Continue IV antibiotics. 12/15/2018 Patient states pain controlled with oral Lortab. Leg continues to improve with redness and warmth. Patient continues to need swingbed treatment with IV antibiotics, leg improving but slowly. Ariela Cameron CNP 12/18/18 Concepcion Osorio MD The leg is clinically worse today. Increased swelling and increased redness right anterior compartment. Will re-CT leg tomorrow and continue IV antibiotics. Also discussed anemia. Will start oral iron and vitamin C. 12/23/2018 Patient continues with pain to the right LE mainly in the foot. CT scan done recently , continue to show significant edema and cellulitis. Patient needing to continue on IV antibiotics due to the significant cellulitis, delayed healing , and little improvement noted on CT scan. Will recheck labs in the am, Increase Lantus now that blood sugars are increasing. Try Tubigrip to LEs to help with circulation and healing. Discussed with Dr Javier. Ariela Cameron,[facility] DIRECTOR 12/28/18 Concepcion Osorio MD The RLE is improved but is still swollen, red, warm to touch anterior compartment and into ankle and foot. Due to +staph bacteremia, +staph culture from the crack over right great toe, and clinically the leg still has evidence of active infection need to continue IV antibiotics and swingbed. The IVs required to treat staph are several times a day. It is two different types of staph. She has complicated factors of diabetes mellitus, obesity, s/p chemotherapy, s/p radiation, immunocompromised status thus needs prolonged IV antibiotics. Recommendation is for 1-3 weeks more IV antibiotics. I also explained medically necessity for echocardiogram due to staph bacteremia. She agrees to the echocardiogram continued IV antibiotics and continued swingbed status. 01/01/19 Concepcion Osorio MD Slow improvement of RLE continues. Still redness and swelling RLE. Labs also slowly improving. Continue IV antibiotics. 01/04/19 Concepcion Osorio MD Continues slow clinical improvement of RLE. Still redness and swelling RLE although continues to recede down the leg but still present. ESR still quite elevated. Continue IV antibiotics for 1-2 more weeks. 01/11/19 Concepcion Osorio MD The right lower extremity continues swollen, red, warmth. Some modest improvement. ESR still markedly elevated. Some diarrhea starting today. Will check c-dif. Continue IV antibiotics at least 1 more week. 01/18/19 Concepcion Osorio MD Slow slow improvement right ankle area and right foot. Still some pain. ESR still markedly elevated. C-dif was negative. Continue the IV antibiotics at least 1 more week. 01/25/19 Concepcion Osorio MD Continues slow improvement. ESR finally starting to decrease but not back to normal. The redness and warmth in the RLE continues to slowly decrease and improve as well as the pain in the RLE but does persists. No obvious adverse effects to the oysterman antibiotics. Continue the antibiotics at least one week more. 01/29/2019 Patient states pain to right leg/foot is some better but needing to take a pain pill at nighttime as the pain becomes 7/10 and pain pill brings it down to 2-3/ 10 which is tolerable. Continues to receive IV antibiotics and sed rate is slowing decreasing, lab will be rechecked on 02/01/2019. Feet appear much improved, callouses improved but redness and slight warmth still present. Ariela Cameron,[facility] DIRECTOR 02/01/19 Concepcion Osorio MD Continues very slow improvement. Redness and warmth persist right foot. ESR still elevated. Medically necessary to continue IV antibiotics for at least one more week. Will continue to assess clinically and with blood work. 02/08/19 Concepcion Osorio MD Leg markedly improved. Still some mild redness and mild swelling but no pain and markedly improved. ESR continues to decrease slowly. She is stable and ready for discharge.
--- NOTE | 2019-02-08 16:18 | PCM.DCSUM1 ---
Discharge Summary - Hospital Course Diagnosis: Stroke: No - Discharge Data Discharge Date: 02/08/19 Discharge Disposition: Home, Self-Care 01 Condition: Good - Discharge Diagnosis/Problem(s) (1) Staphylococcus epidermidis bacteremia SNOMED Code(s): 447348461044, 858083940630 ICD Code: R78.81 - BACTEREMIA Status: Acute Priority: High Current Visit: Yes (2) Staph aureus infection SNOMED Code(s): 733488316 ICD Code: A49.01 - METHICILLIN SUSCEP STAPH INFECTION, UNSP SITE Status: Acute Priority: High Current Visit: Yes (3) Cellulitis of right leg SNOMED Code(s): 407466115 ICD Code: L03.115 - CELLULITIS OF RIGHT LOWER LIMB Status: Acute Priority : High Current Visit: Yes Problem Details: continue on IV therapy, PICC line in place (4) Chills (without fever) SNOMED Code(s): 69543327 ICD Code: R68.83 - CHILLS (WITHOUT FEVER) Status: Acute Priority: High Current Visit: No (5) Diabetes mellitus SNOMED Code(s): 19983516 ICD Code: E11.9 - TYPE 2 DIABETES MELLITUS WITHOUT COMPLICATIONS Status: Acute Current Visit: No Qualifiers: Diabetes mellitus type: type 2 Diabetes mellitus 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0 - ELEVATED ERYTHROCYTE SEDIMENTATION RATE Status: Acute Priority: High Current Visit: Yes - Patient Summary/Data Consults: Consultations 12/12/18 07:29 OT Evaluation and Treatment [CONS] Routine PT Evaluation and Treatment [CONS] Routine - Patient Instructions Diet: Diabetic Diet Activity: As Tolerated Driving: May Drive Today Showering/Bathing: May Shower Other/Special Instructions: Follow up with Dr. Joy and your oncologist as already scheduled. Follow up at [facility] as needed. - Discharge Plan *PRESCRIPTION DRUG MONITORING PROGRAM REVIEWED*: Not Applicable *COPY OF PRESCRIPTION DRUG MONITORING REPORT IN PATIENT [place]ER: Not Applicable Prescriptions/Med Rec: Insulin Detemir [Levemir] 22 unit SUBCUT DAILY #90 pen Home Medications: Home Meds Acetaminophen/Diphenhydramine [Tylenol Pm Ex-Strength Caplet] 2 tab PO DAILY@ 199904/30/17 [History] Acetaminophen/HYDROcodone [Marvin 325-5 MG] 1 - 2 tab PO DAILY@1999 PRN 04/30/17 [History] Biotin 10,000 mcg PO QAM 04/30/17 [History] Calcium Carbonate/Vitamin D3 [Calcium 600 + Vit D Tablet] 1 tab PO BID@0800, 199904/30/17 [History] Clopidogrel [Plavix] 75 mg PO QAM 04/30/17 [History] Fish Oil/Red Wing-3 Fatty Acids [Fish Oil 1,000 MG] 1 cap PO DAILY@199904/30/17 [ History] Ipratropium [place] 2 sprays NS BID@0800,199904/30/17 [History] Metoprolol Tartrate 25 mg PO BID@04/30/17 [History] Milnacipran HCl [Savella] 50 mg PO BID@,04/30/17 [History] Montelukast [Singulair] 10 mg PO QAM 04/30/17 [History] Solifenacin Succinate [Vesicare] 10 mg PO QPM@199904/30/17 [History] Ubidecarenone [Co Q-10] 200 mg PO QAM 04/30/17 [History] Docusate Sodium [Stool Softener] 1 tab PO BID PRN 08/29/17 [History] Non-Formulary Medication [NF Drug] 1 tab PO BID@08/29/17 [History] Ondansetron [Zofran ODT] 4 mg PO ASDIRECTED PRN 08/29/17 [History] Polyethylene Glycol 3350 [MiraLAX] 17 gm PO DAILY PRN 08/29/17 [History] Lisinopril 10 mg PO QPM 10/17/17 [History] Prochlorperazine [Compazine] 10 mg PO Q6H PRN 12/05/18 [History] Insulin Detemir [Levemir] 22 unit SUBCUT DAILY #90 pen 02/08/19 [Rx] Oxygen Therapy Mode: Room Air Referrals: Sheets-Erinn Osorio MD [Physician] - - Discharge Summary/Plan Comment DC Time >30 min.: No - Patient Data Vitals - Most Recent: Last Vital Signs Temp 97.6 F 02/08/19 08:00 Pulse 74 02/08/19 08:00 Resp 18 02/08/19 08:00 BP 131/75 02/08/19 08:00 Pulse Ox 99 02/08/19 08:00 Weight - Most Recent: 280 lb 1.6 oz I&O - Last 24 hours: Intake & Output 02/08/19 02/08/19 02/08/19 06:59 14:59 22:59 Intake Total 325 470 Balance 325 470 Lab Results - Last 24 hrs: Laboratory Results - last 24 hr 02/07/19 02/08/19 02/08/19 Range/Units 20:12 07:14 07:20 WBC 4.1 (4.0-10.2) K/uL RBC 3.38 L (3.77-5.09) M/uL Hgb 10.3 L (11.7-15.5) g/dL Hct 32.1 L (34.0-46.0) % MCV 95.0 (84.0-98.0) fL MCH 30.5 (28.2-33.3) pg MCHC 32.1 (31.7-36.0) g/dL RDW 14.3 H (11.2-14.1) % Plt Count 308 (150-350) K/uL Neut % (Auto) 52.6 (45.0-80.0) % Lymph % (Auto) 27.5 (10.0-50.0) % [place] % (Auto) 10.8 (2.0-14.0) % Eos % (Auto) 8.1 H (0.0-5.0) % Baso % (Auto) 1.0 (0.0-2.0) % Neut # (Auto) 2.14 (1.40-7.00) K/uL Lymph # (Auto) 1.12 (0.50-3.50) K/uL [place] # (Auto) 0.44 (0.00-1.00) K/uL Eos # (Auto) 0.33 (0.00-0.50) K/uL Baso # (Auto) 0.04 (0.00-0.20) K/uL ESR 61 H (0-30) mm/hr Sodium (136-145) mmol/L Potassium (3.5-5.1) mmol/L Chloride (98-107) mmol/L Carbon Dioxide (21.0-32.0) mmol/L BUN (7-18) mg/dL Creatinine (0.51-1.17) mg/dL Est Cr Clr Drug Dosing mL/min Estimated GFR (MDRD) mL/min Glucose (74-106) mg/dL POC Glucose 245 H 146 H (65-110) mg/dl Calcium (8.5-10.1) mg/dL Total Bilirubin (0.2-1.0) mg/dL AST (15-37) U/L ALT (12-78) U/L Alkaline Phosphatase (46-116) IU/L C-Reactive Protein (<=0.9) mg/dL Total Protein (6.4-8.2) g/dL Albumin (3.4-5.0) g/dL 02/08/19 Range/Units 07:20 WBC (4.0-10.2) K/uL RBC (3.77-5.09) M/uL Hgb (11.7-15.5) g/dL Hct (34.0-46.0) % MCV (84.0-98.0) fL MCH (28.2-33.3) pg MCHC (31.7-36.0) g/dL RDW (11.2-14.1) % Plt Count (150-350) K/uL Neut % (Auto) (45.0-80.0) % Lymph % (Auto) (10.0-50.0) % [place] % (Auto) (2.0-14.0) % Eos % (Auto) (0.0-5.0) % Baso % (Auto) (0.0-2.0) % Neut # (Auto) (1.40-7.00) K/uL Lymph # (Auto) (0.50-3.50) K/uL [place] # (Auto) (0.00-1.00) K/uL Eos # (Auto) (0.00-0.50) K/uL Baso # (Auto) (0.00-0.20) K/uL ESR (0-30) mm/hr Sodium 139 (136-145) mmol/L Potassium 4.0 (3.5-5.1) mmol/L Chloride 105 (98-107) mmol/L Carbon Dioxide 24.9 (21.0-32.0) mmol/L BUN 15 (7-18) mg/dL Creatinine 0.71 (0.51-1.17) mg/dL Est Cr Clr Drug Dosing 81.38 mL/min Estimated GFR (MDRD) > 60 mL/min Glucose 147 H (74-106) mg/dL POC Glucose (65-110) mg/dl Calcium 9.0 (8.5-10.1) mg/dL Total Bilirubin 0.2 (0.2-1.0) mg/dL AST 22 (15-37) U/L ALT 31 (12-78) U/L Alkaline Phosphatase 88 (46-116) IU/L C-Reactive Protein 0.5 (<=0.9) mg/dL Total Protein 7.0 (6.4-8.2) g/dL Albumin 3.0 L (3.4-5.0) g/dL Med Orders - Current: Current Medications Acetaminophen (Tylenol Extra Strength) 500 mg PO Q4H PRN PRN Reason: Fever Acetaminophen (Tylenol) 650 mg PO BEDTIME [facility] Last Admin: 02/07/19 19:55 Dose: 650 mg Hydrocodone Bitart/Acetaminophen (Marvin 325-5 Mg) 1 tab PO Q4H PRN PRN Reason: Pain/Fever Last Admin: 02/08/19 03:16 Dose: 1 tab Hydrocodone Bitart/Acetaminophen (Marvin 325-7.5 Mg) 1 tab PO DAILY@2200 [facility] Last Admin: 02/07/19 21:37 Dose: 1 tab Ascorbic Acid (Vitamin C) 500 mg PO BID [facility] Last Admin: 02/08/19 07:44 Dose: 500 mg Clopidogrel Bisulfate (Plavix) 75 mg PO DAILY [facility] Last Admin: 02/08/19 07:43 Dose: 75 mg Diphenhydramine HCl (Benadryl) 25 mg PO BEDTIME [facility] Last Admin: 02/07/19 19:58 Dose: 25 mg Docusate Sodium (Colace) 100 mg PO BID PRN PRN Reason: Constipation Ferrous Sulfate (Ferrous Sulfate) 325 mg PO BID [facility] Last Admin: 02/08/19 07:43 Dose: 325 mg Fluconazole (Diflucan) 50 mg PO DAILY [facility] Last Admin: 02/08/19 07:45 Dose: 50 mg Heparin Sodium (Porcine) (Heparin Lock Flush 100 Units/Ml) 300 units FLUSH ASDIRECTED PRN PRN Reason: IV Use Last Admin: 02/07/19 03:17 Dose: 300 units Heparin Sodium (Porcine) (Heparin Lock Flush 100 Units/Ml) 300 units FLUSH 0430 ,0830,1230,2030 [facility] Last Admin: 02/08/19 12:26 Dose: 300 units Heparin Sodium (Porcine) (Heparin Lock Flush 100 Units/Ml) 300 units FLUSH Q12H [facility] Last Admin: 02/08/19 07:49 Dose: 300 units Vancomycin HCl 1.25 gm/ Sodium (Chloride) 250 mls @ 135 mls/hr IV Q18H [facility] Last Admin: 02/08/19 01:27 Dose: 135 mls/hr Clindamycin Phosphate 900 mg/ (Premix) 50 mls @ 100 mls/hr IV Q8H [facility] Stop: 02/08/19 20:29 Last Admin: 02/08/19 12:25 Dose: 100 mls/hr Insulin Glargine (Lantus) 22 unit SUBCUT DAILY [facility] Last Admin: 02/08/19 07:46 Dose: 22 unit Lisinopril (Prinivil) 10 mg PO DAILY [facility] Last Admin: 02/08/19 07:44 Dose: 10 mg Loperamide HCl (Imodium Ad) 2 mg PO ASDIRECTED PRN PRN Reason: Diarrhea Last Admin: 02/07/19 09:10 Dose: 4 mg Magnesium Hydroxide (Milk Of Magnesia) 30 ml PO DAILY PRN PRN Reason: Constipation Meclizine HCl (Antivert) 25 mg PO Q6H PRN PRN Reason: Dizziness Last Admin: 12/19/18 08:05 Dose: 25 mg Metoprolol Tartrate (Lopressor) 25 mg PO Q12HR [facility] Last Admin: 02/08/19 07:43 Dose: 25 mg Montelukast Sodium (Singulair) 10 mg PO BEDTIME [facility] Last Admin: 02/07/19 19:55 Dose: 10 mg Multivitamins/Minerals/Vitamin C (Tab-A-Noam) 0.5 tab PO BID [facility] Last Admin: 02/08/19 07:45 Dose: 0.5 tab Milnacipran [Savella ] 50mg Tab Own Med 1 each PO BID@0800,2000 [facility] Last Admin: 02/08/19 07:42 Dose: 1 each Ondansetron HCl (Zofran Odt) 4 mg PO Q6H PRN PRN Reason: Nausea/Vomiting Last Admin: 02/05/19 08:56 Dose: 4 mg Polyethylene Glycol (Miralax) 17 gm PO BEDTIME PRN PRN Reason: Constipation Potassium Chloride (Klor-Con 10) 10 meq PO DAILY [facility] Last Admin: 02/08/19 07:43 Dose: 10 meq Sodium Chloride (Saline Flush) 10 ml FLUSH ASDIRECTED [facility] Last Admin: 02/08/19 12:25 Dose: 10 ml Trospium (Sanctura) 20 mg PO BIDAC [facility] Last Admin: 02/08/19 07:42 Dose: 20 mg Vancomycin HCl (Pharmacy To Dose - Vancomycin) 1 dose .XX ASDIRECTED [facility] Discontinued Medications Alteplase, Recombinant (Cathflo Activase) 2 mg IVPUSH ONETIME ONE Stop: 12/21/18 20:07 Last Admin: 12/21/18 22:01 Dose: 2 mg Alteplase, Recombinant (Cathflo Activase) 2 mg IVPUSH ONETIME STA Stop: 01/02/19 22:17 Last Admin: 01/02/19 22:37 Dose: 2 mg Clindamycin Phosphate 900 mg/ (Sodium Chloride) 106 mls @ 200 mls/hr IV Q8H [facility] Stop: 12/28/18 20:30 Last Admin: 12/23/18 12:23 Dose: 200 mls/hr Vancomycin HCl 1.25 gm/ Sodium (Chloride) 250 mls @ 135 mls/hr IV Q12H [facility] Last Admin: 12/14/18 09:27 Dose: Not Given Vancomycin HCl 1 gm/ Sodium (Chloride) 250 mls @ 165 mls/hr IV Q12H [facility] Last Admin: 12/15/18 08:32 Dose: 165 mls/hr Vancomycin HCl 1 gm/ Sodium (Chloride) 250 mls @ 165 mls/hr IV Q12H [facility] Stop: 12/28/18 21:30 Last Admin: 12/28/18 19:38 Dose: 165 mls/hr Clindamycin Phosphate 900 mg/ (Sodium Chloride) 106 mls @ 200 mls/hr IV Q8H [facility] Stop: 12/28/18 20:30 Last Admin: 12/28/18 21:15 Dose: 200 mls/hr Clindamycin Phosphate 900 mg/ (Sodium Chloride) 106 mls @ 200 mls/hr IV Q8H [facility] Stop: 01/04/19 20:32 Last Admin: 01/04/19 19:35 Dose: 200 mls/hr Vancomycin HCl 1 gm/ Dextrose/ (Water) 250 mls @ 165 mls/hr IV Q12H [facility] Stop: 01/04/19 20:31 Last Admin: 12/29/18 08:18 Dose: Not Given Vancomycin HCl 1 gm/ Sodium (Chloride) 250 mls @ 165 mls/hr IV Q12H [facility] Last Admin: 01/07/19 08:40 Dose: Not Given Clindamycin Phosphate 900 mg/ (Sodium Chloride) 106 mls @ 200 mls/hr IV Q8H [facility] Stop: 01/11/19 20:32 Last Admin: 01/11/19 19:33 Dose: 200 mls/hr Vancomycin HCl 1.25 gm/ Sodium (Chloride) 250 mls @ 135 mls/hr IV Q12H [facility] Vancomycin HCl 1 gm/ Sodium (Chloride) 250 mls @ 165 mls/hr IV Q18H [facility] Last Admin: 01/14/19 10:02 Dose: Not Given Clindamycin Phosphate 900 mg/ (Sodium Chloride) 106 mls @ 200 mls/hr IV Q8H [facility] Stop: 01/18/19 20:32 Last Admin: 01/18/19 20:29 Dose: 200 mls/hr Clindamycin Phosphate 900 mg/ (Sodium Chloride) 106 mls @ 200 mls/hr IV Q8H [facility] Stop: 01/25/19 20:32 Last Admin: 01/25/19 12:10 Dose: 200 mls/hr Clindamycin Phosphate 900 mg/ (Premix) 50 mls @ 100 mls/hr IV Q8H [facility] Stop: 01/25/19 20:29 Last Admin: 01/25/19 19:41 Dose: 100 mls/hr Clindamycin Phosphate 900 mg/ (Sodium Chloride) 106 mls @ 200 mls/hr IV Q8H [facility] Stop: 02/01/19 20:32 Last Admin: 01/26/19 03:04 Dose: 200 mls/hr Clindamycin Phosphate (Cleocin In D5w) Confirm Administered Dose 50 mls @ as directed IV .STK-MED ONE Stop: 01/26/19 03:02 Last Admin: 01/26/19 03:14 Dose: Not Given Clindamycin Phosphate 900 mg/ (Premix) 50 mls @ 100 mls/hr IV Q8H [facility] Stop: 02/01/19 20:32 Last Admin: 02/01/19 20:17 Dose: 100 mls/hr Insulin Glargine (Lantus) 35 unit SUBCUT DAILY [facility] Last Admin: 12/12/18 09:14 Dose: 35 units Insulin Glargine (Lantus) 30 unit SUBCUT DAILY [facility] Last Admin: 12/15/18 08:13 Dose: 30 units Insulin Glargine (Lantus) 25 unit SUBCUT DAILY [facility] Last Admin: 12/16/18 07:59 Dose: 25 unit Insulin Glargine (Lantus) 20 unit SUBCUT DAILY [facility] Last Admin: 12/17/18 08:00 Dose: 20 unit Insulin Glargine (Lantus) 16 unit SUBCUT DAILY [facility] Last Admin: 12/23/18 08:21 Dose: 16 units Insulin Glargine (Lantus) 18 unit SUBCUT DAILY [facility] Last Admin: 12/29/18 08:27 Dose: 18 unit Insulin Glargine (Lantus) 20 unit SUBCUT DAILY [facility] Last Admin: 01/08/19 08:36 Dose: 20 unit Lisinopril (Prinivil) 10 mg PO DAILY [facility] Last Admin: 12/22/18 08:47 Dose: 10 mg Metoprolol Tartrate (Lopressor) 25 mg PO Q12H [facility] Last Admin: 12/12/18 09:12 Dose: 25 mg Multivitamins/Minerals/Vitamin C (Tab-A-Noam) 1 tab PO DAILY [facility] Last Admin: 12/18/18 07:51 Dose: 1 tab Mupirocin (Bactroban Oint) 0 gm TOP TID [facility] Last Admin: 12/14/18 21:38 Dose: Not Given Mupirocin (Bactroban Oint) 0 gm TOP DAILY [facility] Last Admin: 12/17/18 08:00 Dose: 1 applic Potassium Chloride (Klor-Con 10) 10 meq PO TID [facility] Last Admin: 12/12/18 14:05 Dose: Not Given Potassium Chloride (Klor-Con 10) 10 meq PO BID [facility]
== END 2019-02-08 16:35 | disposition home or self-care (01) | DRG 872 ==
LOC: LL.MS 07:20
PROVIDERS: ADMIT Family Medicine; ATTEND Family Medicine
DX: A41.9 Sepsis, unspecified organism (principal); L03.115 Cellulitis of right lower limb; Z68.41 Body mass index [BMI] 40.0-44.9, adult; E11.628 Type 2 diabetes mellitus with other skin complications; I10 Essential (primary) hypertension; E11.51 Type 2 diabetes mellitus with diabetic peripheral angiopathy without gangrene; J44.9 Chronic obstructive pulmonary disease, unspecified; M79.7 Fibromyalgia; R19.7 Diarrhea, unspecified; R70.0 Elevated erythrocyte sedimentation rate; E66.9 Obesity, unspecified; R42 Dizziness and giddiness; B95.62 Methicillin resistant Staphylococcus aureus infection as the cause of diseases classified elsewhere; B95.7 Other staphylococcus as the cause of diseases classified elsewhere; Z79.899 Other long term (current) drug therapy; Z79.4 Long term (current) use of insulin; Z90.49 Acquired absence of other specified parts of digestive tract
CPT/HCPCS: 36415; 73700-RT; 80053; 80202; 82607; 82728; 82746; 82962; 83540; 83550; 85025; 85652; 86140; 87493; 93306; A9270-GY; J1642; J1815-GY; J2997; J3370; J3490; J7050

== ENCOUNTER → 2019-10-07 | Outpatient (CLI) | payer MEDICARE, MEDICAID | LOC: LL.SLEEP 13:21 | PROVIDERS: ATTEND Internal Medicine | DX: G47.33 Obstructive sleep apnea (adult) (pediatric) (principal) | CPT/HCPCS: Q3014 ==

== ENCOUNTER 2023-03-19 22:07 | Emergency (ER) | payer MEDICARE, MEDICAID ==
[2023-03-19] MEDS ORDERED: Ondansetron 4 MG/2 ML SDV IVPUSH ONE (22:23)
[2023-03-19] MEDS ORDERED: HYDROmorphone 0.5 MG/0.5 ML Syringe IVPUSH ONE (22:23)
[2023-03-19] MEDS: Sodium Chloride 0.9% 10 ML Syringe FLUSH PRN (22:29)
[2023-03-19 22:35] LABS: BASOPHILS ABSOLUTE AUTO 0.04 K/uL (0.00-0.20); BASOPHILS PERCENT AUTO 0.5 % (0.0-2.0); EOSINOPHILS ABSOLUTE AUTO 0.19 K/uL (0.00-0.50); EOSINOPHILS PERCENT AUTO 2.6 % (0.0-5.0); HEMATOCRIT 37.9 % (34.0-46.0); HEMOGLOBIN 12.4 g/dL (11.7-15.5); LYMPHOCYTES ABSOLUTE AUTO 2.33 K/uL (0.50-3.50); LYMPHOCYTES PERCENT AUTO 31.3 % (10.0-50.0); MEAN CORPUSCULAR HGB CONC 32.7 g/dL (31.7-36.0); MEAN CORPUSCULAR VOLUME 91.5 fL (84.0-98.0); MONOCYTES ABSOLUTE AUTO 0.51 K/uL (0.00-1.00); MONOCYTES PERCENT AUTO 6.8 % (2.0-14.0); NEUTROPHILS ABSOLUTE AUTO 4.38 K/uL (1.40-7.00); NEUTROPHILS PERCENT AUTO 58.8 % (45.0-80.0); PLATELET COUNT,PLT 332 K/uL (150-350); RED BLOOD CELL COUNT 4.14 M/uL (3.77-5.09); RED CELL DISTRIBUTION WIDTH 13.7 % (11.2-14.1); WHITE BLOOD CELL COUNT,WBC 7.5 K/uL (4.0-10.2)
[2023-03-19 22:55] LABS: ALANINE AMINOTRANSFERASE,ALT 42 U/L (12-78); ALBUMIN 3.3 g/dL (3.4-5.0); ALKALINE PHOSPHATASE 110 IU/L (46-116); ANION GAP 12.2 meq/L (7-15); ASPARTATE AMNIOTRANSFERASE,AST 18 U/L (15-37); BILIRUBIN TOTAL 0.2 mg/dL (0.2-1.0); BLOOD UREA NITROGEN,BUN 23 mg/dL (7-18); CALCIUM 9.2 mg/dL (8.5-10.1); CARBON DIOXIDE,CO2 23.8 mmol/L (21.0-32.0); CHLORIDE,CL 103 mmol/L (98-107); CREATININE 1.19 mg/dL (0.51-1.17); GLUCOSE RANDOM 202 mg/dL (70-99); POTASSIUM,K 3.7 mmol/L (3.5-5.1); PROTEIN TOTAL,TP 7.5 g/dL (6.4-8.2); SODIUM,NA 139 mmol/L (136-145)
[2023-03-19 23:06] LABS: ESTIMATED GFR 50 mL/min (>=60)
[2023-03-19] MEDS ORDERED: HYDROmorphone 1 MG/ML Syringe IVPUSH ONE (23:52)
[2023-03-19] MEDS ORDERED: Acetaminophen/HYDROcodone 325-10 MG Tab PO ONE (23:52)
[2023-03-19] MEDS ORDERED: LORazepam 1 MG Tab PO ONE (23:53)
[2023-03-20] MEDS ORDERED: Sodium Chloride 0.9% 1,000 ML IV SCH
[2023-03-20] MEDS: Sodium Chloride 0.9% 10 ML Syringe FLUSH PRN (00:02)
[2023-03-20] MEDS ORDERED: Ondansetron 4 MG/2 ML SDV IVPUSH STA (00:10)
[2023-03-20] MEDS: Ondansetron 4 MG/2 ML SDV IVPUSH ONE ×2 (00:18→00:19)
[2023-03-20 00:38] VITALS: BP 138/72; PULSE 96
== END 2023-03-20 00:55 ==
LOC: LL.ED 22:07
DX: S72.401A Unspecified fracture of lower end of right femur, initial encounter for closed fracture (principal); I10 Essential (primary) hypertension; J44.9 Chronic obstructive pulmonary disease, unspecified; E11.9 Type 2 diabetes mellitus without complications; E66.9 Obesity, unspecified; Z68.30 Body mass index [BMI] 30.0-30.9, adult; Z88.8 Allergy status to other drugs, medicaments and biological substances; Z88.5 Allergy status to narcotic agent; Z79.4 Long term (current) use of insulin; Z79.899 Other long term (current) drug therapy; Z79.02 Long term (current) use of antithrombotics/antiplatelets; W19.XXXA Unspecified fall, initial encounter
CPT/HCPCS: 36415; 51702; 73560-RT; 80053; 85025; 96361; 96374; 96375; 96376; 99283; 99284-25; A9270-GY; J1170; J2405; J3490; J7030

== ENCOUNTER 2023-03-31 09:40 | Inpatient (IN) | payer MEDICARE, MEDICAID ==
[2023-03-31] MEDS ORDERED: Acetaminophen 325 MG Tab PO PRN (15:33)
[2023-03-31] MEDS ORDERED: Non-Formulary Medication 1 Each (Semaglutide [Ozempic] 1 MG/0.75 ML Pen.Injctr) SQ SCH (15:45)
[2023-03-31] MEDS ORDERED: Glucagon,Human Recombinant 1 MG Vial IM PRN (15:47)
[2023-03-31] MEDS ORDERED: 50% Dextrose in Water 50 ML Syringe IVPUSH PRN (15:47)
[2023-03-31] MEDS ORDERED: Polyethylene Glycol 3350 Powder 510 GM Bot PO PRN (16:26)
[2023-03-31] MEDS: Insulin Lispro 100 Units/ML 3 ML Vial SUBCUT SCH ×2 (17:19→21:37)
[2023-03-31] MEDS: Lisinopril 10 MG Tab PO SCH (17:33)
[2023-03-31] MEDS: oxyCODONE 5 MG Tab PO PRN ×2 (17:34→23:41)
[2023-03-31] MEDS: Milnacipran Hcl [Savella] 50 MG Tablet PO SCH (17:35)
[2023-03-31] MEDS: Aspirin 81 MG Tab.EC PO SCH (17:35)
[2023-03-31] MEDS: Calcium Carbonate/Vitamin D3 1500 MG-400 Units Tab PO SCH (17:35)
[2023-03-31] MEDS: Insulin Glarg,Human.Rec.Analog 100 Unit/ML SUBCUT SCH (19:59)
[2023-03-31] MEDS: atorvaSTATin 20 MG Tab PO SCH (20:02)
[2023-03-31] MEDS: Metoprolol Tartrate 25 MG Tab PO SCH (20:03)
[2023-03-31] MEDS: Acetaminophen 325 MG Tab PO SCH (20:04)
[2023-04-01] MEDS: oxyCODONE 5 MG Tab PO PRN ×3 (05:41→19:03)
[2023-04-01] MEDS ORDERED: Escitalopram 20 MG Tab PO SCH (08:00)
[2023-04-01] MEDS: Milnacipran Hcl [Savella] 50 MG Tablet PO SCH ×2 (08:14→17:39)
[2023-04-01] MEDS: Mirabegron 25 MG Tab Extended Release PO SCH (08:14)
[2023-04-01] MEDS: Aspirin 81 MG Tab.EC PO SCH ×2 (08:15→17:41)
[2023-04-01] MEDS: Metoprolol Tartrate 25 MG Tab PO SCH ×2 (08:15→19:38)
[2023-04-01] MEDS: Insulin Lispro 100 Units/ML 3 ML Vial SUBCUT SCH ×4 (08:15→21:25)
[2023-04-01] MEDS: Clopidogrel 75 MG Tab PO SCH (08:15)
[2023-04-01] MEDS: Calcium Carbonate/Vitamin D3 1500 MG-400 Units Tab PO SCH ×2 (08:15→17:41)
[2023-04-01] MEDS: Acetaminophen 325 MG Tab PO SCH ×3 (08:16→19:40)
[2023-04-01] MEDS: Montelukast 10 MG Tab PO SCH (08:16)
[2023-04-01] MEDS: Lisinopril 10 MG Tab PO SCH (17:39)
[2023-04-01] MEDS: Insulin Glarg,Human.Rec.Analog 100 Unit/ML SUBCUT SCH (19:33)
[2023-04-01] MEDS: atorvaSTATin 20 MG Tab PO SCH (19:37)
[2023-04-02] MEDS: oxyCODONE 5 MG Tab PO PRN ×4 (02:20→23:24)
[2023-04-02] MEDS: Calcium Carbonate/Vitamin D3 1500 MG-400 Units Tab PO SCH ×2 (07:59→17:35)
[2023-04-02] MEDS: Insulin Lispro 100 Units/ML 3 ML Vial SUBCUT SCH ×4 (07:59→21:00)
[2023-04-02] MEDS: Aspirin 81 MG Tab.EC PO SCH ×2 (08:00→17:36)
[2023-04-02] MEDS: Escitalopram 10 MG Tab PO SCH (08:11)
[2023-04-02] MEDS: Metoprolol Tartrate 25 MG Tab PO SCH ×2 (08:13→19:32)
[2023-04-02] MEDS: Milnacipran Hcl [Savella] 50 MG Tablet PO SCH ×2 (08:14→17:36)
[2023-04-02] MEDS: Polyethylene Glycol 3350 Powder 510 GM Bot PO SCH (08:14)
[2023-04-02] MEDS: Mirabegron 25 MG Tab Extended Release PO SCH (08:15)
[2023-04-02] MEDS: Montelukast 10 MG Tab PO SCH (08:16)
[2023-04-02] MEDS: Clopidogrel 75 MG Tab PO SCH (08:16)
[2023-04-02] MEDS: Acetaminophen 325 MG Tab PO SCH ×3 (08:20→19:33)
[2023-04-02] MEDS: Lisinopril 10 MG Tab PO SCH (17:37)
[2023-04-02] MEDS: Insulin Glarg,Human.Rec.Analog 100 Unit/ML SUBCUT SCH (19:28)
[2023-04-02] MEDS: atorvaSTATin 20 MG Tab PO SCH (19:31)
[2023-04-03] MEDS: oxyCODONE 5 MG Tab PO PRN ×3 (05:25→19:33)
[2023-04-03] MEDS: Clopidogrel 75 MG Tab PO SCH (08:13)
[2023-04-03] MEDS: Milnacipran Hcl [Savella] 50 MG Tablet PO SCH ×2 (08:13→17:44)
[2023-04-03] MEDS: Calcium Carbonate/Vitamin D3 1500 MG-400 Units Tab PO SCH ×2 (08:13→17:42)
[2023-04-03] MEDS: Aspirin 81 MG Tab.EC PO SCH ×2 (08:13→17:43)
[2023-04-03] MEDS: Escitalopram 10 MG Tab PO SCH (08:14)
[2023-04-03] MEDS: Montelukast 10 MG Tab PO SCH (08:16)
[2023-04-03] MEDS: Mirabegron 25 MG Tab Extended Release PO SCH (08:16)
[2023-04-03] MEDS: Metoprolol Tartrate 25 MG Tab PO SCH ×2 (08:16→20:28)
[2023-04-03] MEDS: Polyethylene Glycol 3350 Powder 510 GM Bot PO SCH (08:17)
[2023-04-03] MEDS: Insulin Lispro 100 Units/ML 3 ML Vial SUBCUT SCH ×4 (08:18→21:55)
[2023-04-03] MEDS: Acetaminophen 325 MG Tab PO SCH (08:20)
[2023-04-03] MEDS: Acetaminophen 500 MG Tab PO SCH ×2 (13:44→20:29)
[2023-04-03] MEDS: Lisinopril 10 MG Tab PO SCH (17:45)
[2023-04-03] MEDS: Insulin Glarg,Human.Rec.Analog 100 Unit/ML SUBCUT SCH (20:23)
[2023-04-03] MEDS: atorvaSTATin 20 MG Tab PO SCH (20:26)
[2023-04-04] MEDS: oxyCODONE 5 MG Tab PO PRN ×3 (02:35→18:59)
[2023-04-04 07:22] LABS: BASOPHILS ABSOLUTE AUTO 0.02 K/uL (0.00-0.20); BASOPHILS PERCENT AUTO 0.3 % (0.0-2.0); EOSINOPHILS ABSOLUTE AUTO 0.41 K/uL (0.00-0.50); EOSINOPHILS PERCENT AUTO 5.6 % (0.0-5.0); HEMATOCRIT 28.5 % (34.0-46.0); HEMOGLOBIN 8.9 g/dL (11.7-15.5); LYMPHOCYTES ABSOLUTE AUTO 1.67 K/uL (0.50-3.50); LYMPHOCYTES PERCENT AUTO 22.8 % (10.0-50.0); MEAN CORPUSCULAR HEMOGLOBIN 29.3 pg (28.2-33.3); MEAN CORPUSCULAR HGB CONC 31.2 g/dL (31.7-36.0); MEAN CORPUSCULAR VOLUME 93.8 fL (84.0-98.0); MONOCYTES ABSOLUTE AUTO 0.45 K/uL (0.00-1.00); MONOCYTES PERCENT AUTO 6.1 % (2.0-14.0); NEUTROPHILS ABSOLUTE AUTO 4.79 K/uL (1.40-7.00); NEUTROPHILS PERCENT AUTO 65.2 % (45.0-80.0); PLATELET COUNT,PLT 760 K/uL (150-350); RED BLOOD CELL COUNT 3.04 M/uL (3.77-5.09); RED CELL DISTRIBUTION WIDTH 13.8 % (11.2-14.1); WHITE BLOOD CELL COUNT,WBC 7.3 K/uL (4.0-10.2)
[2023-04-04] MEDS ORDERED: OZEMPIC 4 MG/3 ML SUBCUT SCH (08:00)
[2023-04-04] MEDS: Calcium Carbonate/Vitamin D3 1500 MG-400 Units Tab PO SCH ×2 (08:01→17:32)
[2023-04-04] MEDS: Aspirin 81 MG Tab.EC PO SCH ×2 (08:01→17:32)
[2023-04-04] MEDS: Escitalopram 10 MG Tab PO SCH (08:02)
[2023-04-04] MEDS: Metoprolol Tartrate 25 MG Tab PO SCH ×2 (08:04→20:11)
[2023-04-04] MEDS: Milnacipran Hcl [Savella] 50 MG Tablet PO SCH ×2 (08:05→17:32)
[2023-04-04] MEDS: Polyethylene Glycol 3350 Powder 510 GM Bot PO SCH (08:06)
[2023-04-04] MEDS: Mirabegron 25 MG Tab Extended Release PO SCH (08:07)
[2023-04-04] MEDS: Clopidogrel 75 MG Tab PO SCH (08:08)
[2023-04-04] MEDS: Montelukast 10 MG Tab PO SCH (08:14)
[2023-04-04] MEDS: Acetaminophen 500 MG Tab PO SCH ×3 (08:14→20:12)
[2023-04-04] MEDS: Insulin Lispro 100 Units/ML 3 ML Vial SUBCUT SCH ×4 (08:26→21:08)
[2023-04-04] MEDS: Ondansetron 4 MG Tab.DIS PO PRN (10:32)
[2023-04-04] MEDS: Lisinopril 10 MG Tab PO SCH (17:33)
[2023-04-04] MEDS: hydrOXYzine Pamoate 25 MG Cap PO PRN (19:02)
[2023-04-04] MEDS: atorvaSTATin 20 MG Tab PO SCH (20:10)
[2023-04-04] MEDS: Insulin Glarg,Human.Rec.Analog 100 Unit/ML SUBCUT SCH (20:37)
[2023-04-05] MEDS: oxyCODONE 5 MG Tab PO PRN ×4 (03:09→21:06)
[2023-04-05] MEDS: hydrOXYzine Pamoate 25 MG Cap PO PRN ×3 (03:09→21:06)
[2023-04-05] MEDS: Aspirin 81 MG Tab.EC PO SCH ×2 (08:16→17:24)
[2023-04-05] MEDS: Calcium Carbonate/Vitamin D3 1500 MG-400 Units Tab PO SCH ×2 (08:16→17:24)
[2023-04-05] MEDS: Insulin Lispro 100 Units/ML 3 ML Vial SUBCUT SCH ×4 (08:16→21:07)
[2023-04-05] MEDS: Escitalopram 10 MG Tab PO SCH (08:17)
[2023-04-05] MEDS: Metoprolol Tartrate 25 MG Tab PO SCH ×2 (08:18→20:05)
[2023-04-05] MEDS: Milnacipran Hcl [Savella] 50 MG Tablet PO SCH ×2 (08:18→17:24)
[2023-04-05] MEDS: Polyethylene Glycol 3350 Powder 510 GM Bot PO SCH (08:19)
[2023-04-05] MEDS: Mirabegron 25 MG Tab Extended Release PO SCH (08:19)
[2023-04-05] MEDS: Montelukast 10 MG Tab PO SCH (08:20)
[2023-04-05] MEDS: Clopidogrel 75 MG Tab PO SCH (08:20)
[2023-04-05] MEDS: Acetaminophen 500 MG Tab PO SCH ×3 (08:21→20:06)
[2023-04-05] MEDS: Ondansetron 4 MG Tab.DIS PO PRN (10:03)
[2023-04-05] MEDS: Lisinopril 10 MG Tab PO SCH (17:25)
[2023-04-05] MEDS: atorvaSTATin 20 MG Tab PO SCH (20:06)
[2023-04-05] MEDS: Insulin Glarg,Human.Rec.Analog 100 Unit/ML SUBCUT SCH (20:07)
[2023-04-06] MEDS: Insulin Lispro 100 Units/ML 3 ML Vial SUBCUT SCH ×4 (07:57→21:11)
[2023-04-06] MEDS: Milnacipran Hcl [Savella] 50 MG Tablet PO SCH ×2 (07:58→17:39)
[2023-04-06] MEDS: Aspirin 81 MG Tab.EC PO SCH ×2 (07:58→17:39)
[2023-04-06] MEDS: Calcium Carbonate/Vitamin D3 1500 MG-400 Units Tab PO SCH ×2 (07:58→17:38)
[2023-04-06] MEDS: Escitalopram 10 MG Tab PO SCH (07:59)
[2023-04-06] MEDS: Metoprolol Tartrate 25 MG Tab PO SCH ×2 (08:00→20:12)
[2023-04-06] MEDS: Polyethylene Glycol 3350 Powder 510 GM Bot PO SCH (08:00)
[2023-04-06] MEDS: Clopidogrel 75 MG Tab PO SCH (08:01)
[2023-04-06] MEDS: Mirabegron 25 MG Tab Extended Release PO SCH (08:01)
[2023-04-06] MEDS: Acetaminophen 500 MG Tab PO SCH ×3 (08:02→20:13)
[2023-04-06] MEDS: Montelukast 10 MG Tab PO SCH (08:02)
[2023-04-06] MEDS: oxyCODONE 5 MG Tab PO PRN ×2 (08:03→16:40)
[2023-04-06] MEDS: hydrOXYzine Pamoate 25 MG Cap PO PRN ×2 (08:09→16:39)
[2023-04-06] MEDS: Ondansetron 4 MG Tab.DIS PO PRN (10:10)
[2023-04-06] MEDS: Lisinopril 10 MG Tab PO SCH (17:40)
[2023-04-06] MEDS: Insulin Glarg,Human.Rec.Analog 100 Unit/ML SUBCUT SCH (20:09)
[2023-04-06] MEDS: atorvaSTATin 20 MG Tab PO SCH (20:13)
[2023-04-07] MEDS: oxyCODONE 5 MG Tab PO PRN ×3 (01:12→19:38)
[2023-04-07] MEDS: hydrOXYzine Pamoate 25 MG Cap PO PRN ×2 (01:13→11:12)
[2023-04-07] MEDS: Insulin Lispro 100 Units/ML 3 ML Vial SUBCUT SCH ×4 (08:15→20:27)
[2023-04-07] MEDS: Aspirin 81 MG Tab.EC PO SCH ×2 (08:16→17:27)
[2023-04-07] MEDS: Calcium Carbonate/Vitamin D3 1500 MG-400 Units Tab PO SCH ×2 (08:16→17:26)
[2023-04-07] MEDS: Mirabegron 25 MG Tab Extended Release PO SCH (08:17)
[2023-04-07] MEDS: Escitalopram 10 MG Tab PO SCH (08:17)
[2023-04-07] MEDS: Metoprolol Tartrate 25 MG Tab PO SCH ×2 (08:18→20:26)
[2023-04-07] MEDS: Polyethylene Glycol 3350 Powder 510 GM Bot PO SCH (08:19)
[2023-04-07] MEDS: Milnacipran Hcl [Savella] 50 MG Tablet PO SCH ×2 (08:19→17:27)
[2023-04-07] MEDS: Clopidogrel 75 MG Tab PO SCH (08:20)
[2023-04-07] MEDS: Acetaminophen 500 MG Tab PO SCH ×3 (08:21→20:27)
[2023-04-07] MEDS: Montelukast 10 MG Tab PO SCH (08:21)
[2023-04-07] MEDS: Lisinopril 10 MG Tab PO SCH (17:28)
[2023-04-07 17:30] VITALS: BP 0/0
[2023-04-07] MEDS: Ondansetron 4 MG Tab.DIS PO PRN (18:25)
[2023-04-07] MEDS: atorvaSTATin 20 MG Tab PO SCH (20:26)
[2023-04-07] MEDS: Insulin Glarg,Human.Rec.Analog 100 Unit/ML SUBCUT SCH (20:28)
[2023-04-07 20:31] VITALS: PULSE 0
[2023-04-08] MEDS: Calcium Carbonate/Vitamin D3 1500 MG-400 Units Tab PO SCH ×2 (07:57→17:51)
[2023-04-08] MEDS: Escitalopram 10 MG Tab PO SCH (07:58)
[2023-04-08] MEDS: Aspirin 81 MG Tab.EC PO SCH ×2 (07:58→17:51)
[2023-04-08] MEDS: Milnacipran Hcl [Savella] 50 MG Tablet PO SCH ×2 (08:00→17:52)
[2023-04-08] MEDS: Polyethylene Glycol 3350 Powder 510 GM Bot PO SCH (08:01)
[2023-04-08] MEDS: Mirabegron 25 MG Tab Extended Release PO SCH (08:02)
[2023-04-08] MEDS: Clopidogrel 75 MG Tab PO SCH (08:03)
[2023-04-08] MEDS: Montelukast 10 MG Tab PO SCH (08:03)
[2023-04-08] MEDS: Acetaminophen 500 MG Tab PO SCH ×3 (08:03→19:56)
[2023-04-08] MEDS: Metoprolol Tartrate 25 MG Tab PO SCH ×2 (08:11→19:53)
[2023-04-08] MEDS: oxyCODONE 5 MG Tab PO PRN ×2 (08:17→17:50)
[2023-04-08] MEDS: hydrOXYzine Pamoate 25 MG Cap PO PRN ×2 (08:19→17:51)
[2023-04-08] MEDS: Insulin Lispro 100 Units/ML 3 ML Vial SUBCUT SCH ×4 (08:43→20:58)
[2023-04-08 09:16] LABS: BASOPHILS ABSOLUTE AUTO 0.03 K/uL (0.00-0.20); BASOPHILS PERCENT AUTO 0.4 % (0.0-2.0); EOSINOPHILS ABSOLUTE AUTO 0.37 K/uL (0.00-0.50); EOSINOPHILS PERCENT AUTO 5.4 % (0.0-5.0); HEMATOCRIT 31.1 % (34.0-46.0); HEMOGLOBIN 9.5 g/dL (11.7-15.5); LYMPHOCYTES ABSOLUTE AUTO 1.32 K/uL (0.50-3.50); LYMPHOCYTES PERCENT AUTO 19.2 % (10.0-50.0); MEAN CORPUSCULAR HEMOGLOBIN 29.1 pg (28.2-33.3); MEAN CORPUSCULAR HGB CONC 30.5 g/dL (31.7-36.0); MEAN CORPUSCULAR VOLUME 95.1 fL (84.0-98.0); MONOCYTES ABSOLUTE AUTO 0.38 K/uL (0.00-1.00); MONOCYTES PERCENT AUTO 5.5 % (2.0-14.0); NEUTROPHILS ABSOLUTE AUTO 4.77 K/uL (1.40-7.00); NEUTROPHILS PERCENT AUTO 69.5 % (45.0-80.0); PLATELET COUNT,PLT 770 K/uL (150-350); RED BLOOD CELL COUNT 3.27 M/uL (3.77-5.09); RED CELL DISTRIBUTION WIDTH 15.1 % (11.2-14.1); WHITE BLOOD CELL COUNT,WBC 6.9 K/uL (4.0-10.2)
[2023-04-08 09:29] LABS: ANION GAP 10.9 meq/L (7-15); CARBON DIOXIDE,CO2 26.1 mmol/L (21.0-32.0); CREATININE 1.02 mg/dL (0.51-1.17); EST CRCL DRUG DOSING (CG) 52.76 mL/min
[2023-04-08 09:30] LABS: CALCIUM 8.6 mg/dL (8.5-10.1)
[2023-04-08] MEDS: Lisinopril 10 MG Tab PO SCH (17:52)
[2023-04-08] MEDS: atorvaSTATin 20 MG Tab PO SCH (19:53)
[2023-04-08] MEDS: Insulin Glarg,Human.Rec.Analog 100 Unit/ML SUBCUT SCH (19:54)
[2023-04-09] MEDS: oxyCODONE 5 MG Tab PO PRN (01:52)
[2023-04-09] MEDS: hydrOXYzine Pamoate 25 MG Cap PO PRN (01:55)
[2023-04-09] MEDS: Insulin Lispro 100 Units/ML 3 ML Vial SUBCUT SCH (08:20)
[2023-04-09] MEDS: Calcium Carbonate/Vitamin D3 1500 MG-400 Units Tab PO SCH (08:21)
[2023-04-09] MEDS: Aspirin 81 MG Tab.EC PO SCH (08:21)
[2023-04-09] MEDS: Escitalopram 10 MG Tab PO SCH (08:22)
[2023-04-09] MEDS: Metoprolol Tartrate 25 MG Tab PO SCH (08:25)
[2023-04-09] MEDS: Mirabegron 25 MG Tab Extended Release PO SCH (08:26)
[2023-04-09] MEDS: Milnacipran Hcl [Savella] 50 MG Tablet PO SCH (08:27)
[2023-04-09] MEDS: Polyethylene Glycol 3350 Powder 510 GM Bot PO SCH (08:28)
[2023-04-09] MEDS: Clopidogrel 75 MG Tab PO SCH (08:28)
[2023-04-09] MEDS: Acetaminophen 500 MG Tab PO SCH (08:29)
[2023-04-09] MEDS: Montelukast 10 MG Tab PO SCH (08:29)
[2023-04-09] MEDS: Ondansetron 4 MG Tab.DIS PO PRN (08:50)
== END 2023-04-09 10:00 | DRG 560 ==
LOC: LL.SWG 15:32
PROVIDERS: ADMIT Hospitalist; ATTEND Nurse Practitioner Family
DX: S72.401D Unspecified fracture of lower end of right femur, subsequent encounter for closed fracture with routine healing (principal); Z68.41 Body mass index [BMI] 40.0-44.9, adult; D64.9 Anemia, unspecified; I10 Essential (primary) hypertension; E66.01 Morbid (severe) obesity due to excess calories; E11.65 Type 2 diabetes mellitus with hyperglycemia; E78.00 Pure hypercholesterolemia, unspecified; M79.7 Fibromyalgia; F32.9 Major depressive disorder, single episode, unspecified; E78.2 Mixed hyperlipidemia; K59.00 Constipation, unspecified; G47.33 Obstructive sleep apnea (adult) (pediatric); J44.9 Chronic obstructive pulmonary disease, unspecified; N32.81 Overactive bladder; E53.8 Deficiency of other specified B group vitamins; Z90.49 Acquired absence of other specified parts of digestive tract; Z88.5 Allergy status to narcotic agent; Z88.8 Allergy status to other drugs, medicaments and biological substances; Z79.4 Long term (current) use of insulin; Z79.02 Long term (current) use of antithrombotics/antiplatelets; Z98.890 Other specified postprocedural states; Z98.84 Bariatric surgery status; Z79.899 Other long term (current) drug therapy
CPT/HCPCS: 36415; 80048; 82947; 85025; 97110-GP; 97162-GP; 97165-GO; 97530-GO; 97530-GP; 97535-GO; A9270-GY; J1815-GY; Q0177; U0002

== ENCOUNTER 2023-05-28 19:07 | Emergency (ER) | payer MEDICARE, MEDICAID ==
[2023-05-28 19:11] VITALS: BP 140/88; PULSE 85
[2023-05-28 19:22] LABS: BASOPHILS ABSOLUTE AUTO 0.04 K/uL (0.00-0.20); BASOPHILS PERCENT AUTO 0.4 % (0.0-2.0); EOSINOPHILS PERCENT AUTO 2.7 % (0.0-5.0); HEMATOCRIT 33.9 % (34.0-46.0); HEMOGLOBIN 10.7 g/dL (11.7-15.5); LYMPHOCYTES ABSOLUTE AUTO 1.91 K/uL (0.50-3.50); LYMPHOCYTES PERCENT AUTO 17.2 % (10.0-50.0); MEAN CORPUSCULAR HEMOGLOBIN 28.2 pg (28.2-33.3); MEAN CORPUSCULAR HGB CONC 31.6 g/dL (31.7-36.0); MEAN CORPUSCULAR VOLUME 89.4 fL (84.0-98.0); MONOCYTES ABSOLUTE AUTO 0.68 K/uL (0.00-1.00); MONOCYTES PERCENT AUTO 6.1 % (2.0-14.0); NEUTROPHILS ABSOLUTE AUTO 8.18 K/uL (1.40-7.00); NEUTROPHILS PERCENT AUTO 73.6 % (45.0-80.0); PLATELET COUNT,PLT 467 K/uL (150-350); RED BLOOD CELL COUNT 3.79 M/uL (3.77-5.09); RED CELL DISTRIBUTION WIDTH 14.7 % (11.2-14.1); WHITE BLOOD CELL COUNT,WBC 11.1 K/uL (4.0-10.2)
[2023-05-28] MEDS: oxyCODONE 5 MG Tab PO ONE (20:09)
== END 2023-05-28 21:15 ==
LOC: LL.ED 19:07
DX: R04.0 Epistaxis (principal); E78.00 Pure hypercholesterolemia, unspecified; I10 Essential (primary) hypertension; E11.9 Type 2 diabetes mellitus without complications; E66.9 Obesity, unspecified; Z79.899 Other long term (current) drug therapy; Z88.8 Allergy status to other drugs, medicaments and biological substances; Z88.5 Allergy status to narcotic agent; Z79.02 Long term (current) use of antithrombotics/antiplatelets; Z79.4 Long term (current) use of insulin; Z79.82 Long term (current) use of aspirin
CPT/HCPCS: 30903; 36415; 85025; 99283; A9270-GY

== ENCOUNTER 2024-07-18 15:35 | Inpatient (IN) | payer MEDICARE, MEDICAID ==
[2024-07-18 16:12] LABS: BASOPHILS ABSOLUTE AUTO 0.02 K/uL (0.00-0.20); BASOPHILS PERCENT AUTO 0.2 % (0.0-2.0); HEMATOCRIT 34.9 % (34.0-46.0); HEMOGLOBIN 11.6 g/dL (11.7-15.5); LYMPHOCYTES ABSOLUTE AUTO 1.23 K/uL (0.50-3.50); LYMPHOCYTES PERCENT AUTO 11.9 % (10.0-50.0); MEAN CORPUSCULAR HEMOGLOBIN 29.4 pg (28.2-33.3); MEAN CORPUSCULAR HGB CONC 33.2 g/dL (31.7-36.0); MEAN CORPUSCULAR VOLUME 88.4 fL (84.0-98.0); MONOCYTES PERCENT AUTO 4.9 % (2.0-14.0); NEUTROPHILS ABSOLUTE AUTO 8.45 K/uL (1.40-7.00); PLATELET COUNT,PLT 395 K/uL (150-350); RED BLOOD CELL COUNT 3.95 M/uL (3.77-5.09); RED CELL DISTRIBUTION WIDTH 12.6 % (11.2-14.1); WHITE BLOOD CELL COUNT,WBC 10.3 K/uL (4.0-10.2)
[2024-07-18 16:33] LABS: LACTIC ACID 1.8 mmol/L (0.4-2.0)
[2024-07-18 16:45] LABS: ALBUMIN 1.9 g/dL (3.4-5.0); BILIRUBIN TOTAL 0.3 mg/dL (0.2-1.0); CALCIUM 8.5 mg/dL (8.5-10.1); CARBON DIOXIDE,CO2 21.1 mmol/L (21.0-32.0); CREATININE 1.65 mg/dL (0.51-1.17); EST CRCL DRUG DOSING (CG) 32.17 mL/min; POTASSIUM,K 3.6 mmol/L (3.5-5.1); PROTEIN TOTAL,TP 6.9 g/dL (6.4-8.2)
[2024-07-18 16:47] LABS: ANION GAP 15.5 meq/L (7-15)
[2024-07-18 16:51] LABS: APPEARANCE,URINE TURBID; BILIRUBIN,URINE NEGATIVE (NEGATIVE); COLOR,URINE YELLOW; GLUCOSE,URINE NEGATIVE (NEGATIVE); KETONES,URINE TRACE mg/dL (NEGATIVE); LEUKOCYTE ESTERASE,URINE LARGE (NEGATIVE); NITRITE,URINE NEGATIVE (NEGATIVE); OCCULT BLOOD,URINE MODERATE (NEGATIVE); PH,URINE 8.5 (5.0-9.0); PROTEIN,URINE >=300 mg/dL (NEGATIVE); UROBILINOGEN,URINE 0.2 E.U./dL (0.2-1.0)
[2024-07-18 17:13] LABS: BACTERIA,URINE MANY /HPF (NONE TO FEW); WBC,URINE >100 /HPF
[2024-07-18] MEDS ORDERED: Ondansetron 4 MG/2 ML SDV IVPUSH PRN (17:57)
[2024-07-18] MEDS ORDERED: Ondansetron 4 MG Tab.DIS PO PRN (17:57)
[2024-07-18] MEDS ORDERED: Glucagon,Human Recombinant 1 MG Vial IM PRN (18:18)
[2024-07-18] MEDS ORDERED: 50% Dextrose in Water 50 ML Syringe IVPUSH PRN (18:18)
[2024-07-18] MEDS: Sodium Chloride 0.9% 10 ML Syringe FLUSH PRN (19:20)
[2024-07-18] MEDS: Cefepime 1 GM in Sodium Chloride 0.9% 100 ML IV SCH (19:20)
[2024-07-18] MEDS: Acetaminophen 325 MG Tab PO PRN (20:50)
[2024-07-18] MEDS ORDERED: Non-Formulary Medication 1 Each (Semaglutide [Ozempic] 1 MG/0.75 ML Pen.Injctr) SQ SCH (21:00)
[2024-07-18] MEDS: Phenazopyridine 95 MG Tab PO SCH (21:25)
[2024-07-18] MEDS: Metoprolol Tartrate 25 MG Tab PO SCH (21:25)
[2024-07-18] MEDS: Lisinopril 10 MG Tab PO SCH (21:25)
[2024-07-18] MEDS: Insulin Lispro 100 Units/ML 3 ML Vial SUBCUT SCH (21:26)
[2024-07-18] MEDS: Melatonin 3 MG Tab PO SCH (23:08)
[2024-07-19] MEDS: diphenhydrAMINE 25 MG Cap PO PRN (01:42)
[2024-07-19] MEDS ORDERED: Insulin Lispro 100 Units/ML 3 ML Vial SUBCUT SCH (07:30)
[2024-07-19] MEDS: Ipratropium 0.06% Nasal Spray 15 ML Bottle NASBOTH SCH ×2 (07:36→18:31)
[2024-07-19] MEDS: Clopidogrel 75 MG Tab PO SCH (07:38)
[2024-07-19] MEDS: Potassium Chloride 10 MEQ Tab.ER PO SCH (07:38)
[2024-07-19] MEDS: Montelukast 10 MG Tab PO SCH (07:38)
[2024-07-19] MEDS: Mirabegron 25 MG Tab Extended Release PO SCH (07:38)
[2024-07-19] MEDS: Escitalopram 10 MG Tab PO SCH (07:38)
[2024-07-19] MEDS: Cyanocobalamin (Vitamin B12) 1,000 MCG Tab PO SCH (07:38)
[2024-07-19] MEDS: Prenatal Multivitamin with Calcium/Folic Acid/Iron Tab PO SCH (07:50)
[2024-07-19 07:55] LABS: BASOPHILS ABSOLUTE AUTO 0.02 K/uL (0.00-0.20); BASOPHILS PERCENT AUTO 0.2 % (0.0-2.0); EOSINOPHILS PERCENT AUTO 0.9 % (0.0-5.0); HEMATOCRIT 34.6 % (34.0-46.0); HEMOGLOBIN 11.6 g/dL (11.7-15.5); MEAN CORPUSCULAR HEMOGLOBIN 29.7 pg (28.2-33.3); MEAN CORPUSCULAR HGB CONC 33.5 g/dL (31.7-36.0); MEAN CORPUSCULAR VOLUME 88.7 fL (84.0-98.0); MONOCYTES ABSOLUTE AUTO 0.51 K/uL (0.00-1.00); MONOCYTES PERCENT AUTO 4.8 % (2.0-14.0); NEUTROPHILS ABSOLUTE AUTO 8.31 K/uL (1.40-7.00); NEUTROPHILS PERCENT AUTO 78.1 % (45.0-80.0); PLATELET COUNT,PLT 436 K/uL (150-350); RED CELL DISTRIBUTION WIDTH 12.5 % (11.2-14.1); WHITE BLOOD CELL COUNT,WBC 10.6 K/uL (4.0-10.2)
[2024-07-19] MEDS ORDERED: [UNRECOGNIZED DRUG - OTHER] PO SCH (08:00)
[2024-07-19] MEDS ORDERED: ASCORBIC ACID PO SCH (08:00)
[2024-07-19] MEDS ORDERED: Non-Formulary Medication 1 Each (Calcium Citrate/Vitamin D3 [Calcium Citrate - Vit D3 Tab] PO SCH (08:00)
[2024-07-19] MEDS ORDERED: COLLAGEN PO SCH (08:00)
[2024-07-19] MEDS ORDERED: BIOTIN PO SCH (08:00)
[2024-07-19 08:10] LABS: ALBUMIN 1.9 g/dL (3.4-5.0); BILIRUBIN TOTAL 0.3 mg/dL (0.2-1.0); CALCIUM 8.4 mg/dL (8.5-10.1); CREATININE 1.52 mg/dL (0.51-1.17); EST CRCL DRUG DOSING (CG) 34.93 mL/min; MAGNESIUM 1.7 mg/dL (1.8-2.4); POTASSIUM,K 3.7 mmol/L (3.5-5.1); PROTEIN TOTAL,TP 6.9 g/dL (6.4-8.2)
[2024-07-19 08:11] LABS: ANION GAP 15.7 meq/L (7-15)
[2024-07-19] MEDS: Loperamide 2 MG Tab PO PRN (09:15)
[2024-07-19] MEDS ORDERED: Lactated Ringers 1,000 ML IV SCH (10:30)
[2024-07-19] MEDS: Magnesium Sulfate/Water 2 GM in Premix Bag 1 BAG IV ONE (11:57)
[2024-07-19] MEDS: Sodium Chloride 0.9% 1,000 ML IV SCH (11:57)
[2024-07-19] MEDS: Fluconazole 100 MG Tab PO ONE (12:20)
[2024-07-19] MEDS ORDERED: Melatonin 3 MG Tab PO SCH (20:00)
[2024-07-19] MEDS: atorvaSTATin 40 MG Tab PO SCH (21:02)
[2024-07-19] MEDS: LORazepam 1 MG Tab PO PRN (21:09)
[2024-07-19] MEDS: Insulin Glarg,Human.Rec.Analog 100 Unit/ML 10 ML Vial SUBCUT SCH (21:41)
[2024-07-20 07:35] LABS: BASOPHILS ABSOLUTE AUTO 0.03 K/uL (0.00-0.20); BASOPHILS PERCENT AUTO 0.2 % (0.0-2.0); EOSINOPHILS ABSOLUTE AUTO 0.05 K/uL (0.00-0.50); EOSINOPHILS PERCENT AUTO 0.4 % (0.0-5.0); HEMATOCRIT 32.8 % (34.0-46.0); HEMOGLOBIN 10.8 g/dL (11.7-15.5); LYMPHOCYTES ABSOLUTE AUTO 1.44 K/uL (0.50-3.50); LYMPHOCYTES PERCENT AUTO 11.1 % (10.0-50.0); MEAN CORPUSCULAR HEMOGLOBIN 29.5 pg (28.2-33.3); MEAN CORPUSCULAR HGB CONC 32.9 g/dL (31.7-36.0); MEAN CORPUSCULAR VOLUME 89.6 fL (84.0-98.0); MONOCYTES PERCENT AUTO 3.8 % (2.0-14.0); NEUTROPHILS ABSOLUTE AUTO 10.98 K/uL (1.40-7.00); NEUTROPHILS PERCENT AUTO 84.5 % (45.0-80.0); PLATELET COUNT,PLT 471 K/uL (150-350); RED BLOOD CELL COUNT 3.66 M/uL (3.77-5.09)
[2024-07-20 08:08] LABS: CALCIUM 8.2 mg/dL (8.5-10.1); CREATININE 1.56 mg/dL (0.51-1.17); EST CRCL DRUG DOSING (CG) 34.03 mL/min; POTASSIUM,K 4.5 mmol/L (3.5-5.1)
[2024-07-20 08:14] LABS: ANION GAP 18.5 meq/L (7-15)
[2024-07-20] MEDS: Fluconazole 100 MG Tab PO ONE (09:59)
[2024-07-20] MEDS: ceFAZolin 1 GM in Sodium Chloride 0.9% 100 ML IV SCH (15:03)
[2024-07-20] MEDS: traMADol 50 MG Tab PO PRN (20:42)
[2024-07-21 07:47] LABS: BASOPHILS ABSOLUTE AUTO 0.02 K/uL (0.00-0.20); BASOPHILS PERCENT AUTO 0.3 % (0.0-2.0); EOSINOPHILS ABSOLUTE AUTO 0.16 K/uL (0.00-0.50); EOSINOPHILS PERCENT AUTO 2.3 % (0.0-5.0); HEMATOCRIT 32.2 % (34.0-46.0); HEMOGLOBIN 10.6 g/dL (11.7-15.5); LYMPHOCYTES ABSOLUTE AUTO 1.65 K/uL (0.50-3.50); LYMPHOCYTES PERCENT AUTO 24.2 % (10.0-50.0); MEAN CORPUSCULAR HEMOGLOBIN 29.5 pg (28.2-33.3); MEAN CORPUSCULAR HGB CONC 32.9 g/dL (31.7-36.0); MEAN CORPUSCULAR VOLUME 89.7 fL (84.0-98.0); MONOCYTES ABSOLUTE AUTO 0.41 K/uL (0.00-1.00); NEUTROPHILS ABSOLUTE AUTO 4.58 K/uL (1.40-7.00); NEUTROPHILS PERCENT AUTO 67.2 % (45.0-80.0); PLATELET COUNT,PLT 486 K/uL (150-350); RED BLOOD CELL COUNT 3.59 M/uL (3.77-5.09); RED CELL DISTRIBUTION WIDTH 13.1 % (11.2-14.1); WHITE BLOOD CELL COUNT,WBC 6.8 K/uL (4.0-10.2)
[2024-07-21 07:54] LABS: CALCIUM 8.2 mg/dL (8.5-10.1); CARBON DIOXIDE,CO2 17.5 mmol/L (21.0-32.0); CREATININE 1.4 mg/dL (0.51-1.17); EST CRCL DRUG DOSING (CG) 37.92 mL/min; MAGNESIUM 2.4 mg/dL (1.8-2.4); POTASSIUM,K 3.7 mmol/L (3.5-5.1)
[2024-07-21 08:02] LABS: ANION GAP 18.2 meq/L (7-15)
[2024-07-21] MEDS: ceFAZolin 1 GM in Sodium Chloride 0.9% 100 ML IV SCH (12:05)
[2024-07-21] MEDS: SAVELLA 50 MG PO SCH (17:19)
[2024-07-22 07:42] LABS: BASOPHILS ABSOLUTE AUTO 0.04 K/uL (0.00-0.20); BASOPHILS PERCENT AUTO 0.5 % (0.0-2.0); EOSINOPHILS ABSOLUTE AUTO 0.15 K/uL (0.00-0.50); EOSINOPHILS PERCENT AUTO 1.9 % (0.0-5.0); HEMATOCRIT 34.3 % (34.0-46.0); HEMOGLOBIN 11.1 g/dL (11.7-15.5); MEAN CORPUSCULAR HEMOGLOBIN 29.2 pg (28.2-33.3); MEAN CORPUSCULAR HGB CONC 32.4 g/dL (31.7-36.0); MEAN CORPUSCULAR VOLUME 90.3 fL (84.0-98.0); MONOCYTES PERCENT AUTO 6.4 % (2.0-14.0); NEUTROPHILS ABSOLUTE AUTO 4.99 K/uL (1.40-7.00); NEUTROPHILS PERCENT AUTO 64.2 % (45.0-80.0); PLATELET COUNT,PLT 640 K/uL (150-350); RED CELL DISTRIBUTION WIDTH 13.5 % (11.2-14.1); WHITE BLOOD CELL COUNT,WBC 7.8 K/uL (4.0-10.2)
[2024-07-22 08:02] LABS: CALCIUM 8.9 mg/dL (8.5-10.1); CREATININE 1.6 mg/dL (0.51-1.17); EST CRCL DRUG DOSING (CG) 33.18 mL/min; POTASSIUM,K 3.9 mmol/L (3.5-5.1)
[2024-07-22 08:07] LABS: ANION GAP 15.9 meq/L (7-15)
[2024-07-22] MEDS: Cephalexin 500 MG Cap PO SCH (12:09)
[2024-07-23 07:38] LABS: BASOPHILS ABSOLUTE AUTO 0.04 K/uL (0.00-0.20); BASOPHILS PERCENT AUTO 0.6 % (0.0-2.0); EOSINOPHILS ABSOLUTE AUTO 0.19 K/uL (0.00-0.50); EOSINOPHILS PERCENT AUTO 2.8 % (0.0-5.0); HEMOGLOBIN 10.4 g/dL (11.7-15.5); LYMPHOCYTES ABSOLUTE AUTO 1.34 K/uL (0.50-3.50); LYMPHOCYTES PERCENT AUTO 19.6 % (10.0-50.0); MEAN CORPUSCULAR HEMOGLOBIN 29.1 pg (28.2-33.3); MEAN CORPUSCULAR HGB CONC 32.5 g/dL (31.7-36.0); MEAN CORPUSCULAR VOLUME 89.6 fL (84.0-98.0); MONOCYTES ABSOLUTE AUTO 0.41 K/uL (0.00-1.00); NEUTROPHILS ABSOLUTE AUTO 4.84 K/uL (1.40-7.00); PLATELET COUNT,PLT 629 K/uL (150-350); RED BLOOD CELL COUNT 3.57 M/uL (3.77-5.09); RED CELL DISTRIBUTION WIDTH 13.6 % (11.2-14.1); WHITE BLOOD CELL COUNT,WBC 6.8 K/uL (4.0-10.2)
[2024-07-23 07:52] LABS: CALCIUM 8.9 mg/dL (8.5-10.1); CARBON DIOXIDE,CO2 18.6 mmol/L (21.0-32.0); CREATININE 1.48 mg/dL (0.51-1.17); EST CRCL DRUG DOSING (CG) 35.87 mL/min; POTASSIUM,K 3.9 mmol/L (3.5-5.1)
[2024-07-23 08:15] LABS: ANION GAP 15.3 meq/L (7-15)
[2024-07-23 12:25] VITALS: BP 119/57; PULSE 83
== END 2024-07-23 12:40 | disposition home or self-care (01) | DRG 690 ==
LOC: LL.ED 15:35 → LL.MS 17:24 → OBSVTOIN 07-19 11:37
PROVIDERS: ADMIT Physician Assistant; ATTEND Physician Assistant
DX: N12 Tubulo-interstitial nephritis, not specified as acute or chronic (principal); N39.0 Urinary tract infection, site not specified; E11.65 Type 2 diabetes mellitus with hyperglycemia; I10 Essential (primary) hypertension; E66.9 Obesity, unspecified; E78.00 Pure hypercholesterolemia, unspecified; E11.51 Type 2 diabetes mellitus with diabetic peripheral angiopathy without gangrene; G47.30 Sleep apnea, unspecified; Z79.84 Long term (current) use of oral hypoglycemic drugs; D64.9 Anemia, unspecified; F32.A Depression, unspecified; Z68.35 Body mass index [BMI] 35.0-35.9, adult; G47.00 Insomnia, unspecified; N39.3 Stress incontinence (female) (male); E83.42 Hypomagnesemia; Z88.5 Allergy status to narcotic agent; Z88.8 Allergy status to other drugs, medicaments and biological substances; Z79.4 Long term (current) use of insulin; Z79.02 Long term (current) use of antithrombotics/antiplatelets; Z68.34 Body mass index [BMI] 34.0-34.9, adult; Z98.84 Bariatric surgery status; Z90.49 Acquired absence of other specified parts of digestive tract; Z98.890 Other specified postprocedural states; Z79.899 Other long term (current) drug therapy
CPT/HCPCS: 36415; 80048; 80053; 81001; 82947; 83605; 83735; 85025; 85610; 87040; 87086; 87088; 87186; 96365; 96366; 99223; 99232; 99233; 99239; 99284; A9270-GY; G0378; J0690; J0692; J1815-GY; J3475; J3490; J7030

== ENCOUNTER 2024-08-27 09:20 | Emergency (ER) | payer MEDICARE, MEDICAID ==
[2024-08-27] MEDS: Sodium Chloride 0.9% 1,000 ML IV ONE ×2 (09:58→11:22)
[2024-08-27 10:14] LABS: BASOPHILS ABSOLUTE AUTO 0.04 K/uL (0.00-0.20); BASOPHILS PERCENT AUTO 0.3 % (0.0-2.0); EOSINOPHILS ABSOLUTE AUTO 0.09 K/uL (0.00-0.50); EOSINOPHILS PERCENT AUTO 0.6 % (0.0-5.0); HEMOGLOBIN 7.6 g/dL (11.7-15.5); LYMPHOCYTES ABSOLUTE AUTO 1.94 K/uL (0.50-3.50); LYMPHOCYTES PERCENT AUTO 13.3 % (10.0-50.0); MEAN CORPUSCULAR HEMOGLOBIN 28.7 pg (28.2-33.3); MEAN CORPUSCULAR HGB CONC 31.3 g/dL (31.7-36.0); MEAN CORPUSCULAR VOLUME 91.7 fL (84.0-98.0); MONOCYTES ABSOLUTE AUTO 0.65 K/uL (0.00-1.00); MONOCYTES PERCENT AUTO 4.5 % (2.0-14.0); NEUTROPHILS ABSOLUTE AUTO 11.87 K/uL (1.40-7.00); NEUTROPHILS PERCENT AUTO 81.3 % (45.0-80.0); PLATELET COUNT,PLT 582 K/uL (150-350); RED BLOOD CELL COUNT 2.65 M/uL (3.77-5.09); WHITE BLOOD CELL COUNT,WBC 14.6 K/uL (4.0-10.2)
[2024-08-27 10:23] LABS: HEMATOCRIT 24.3 % (34.0-46.0)
[2024-08-27 10:25] LABS: LACTIC ACID 1.6 mmol/L (0.4-2.0)
[2024-08-27 10:34] LABS: ALBUMIN 1.9 g/dL (3.4-5.0); BILIRUBIN TOTAL 0.2 mg/dL (0.2-1.0); C-REACTIVE PROTEIN 1.14 mg/dL (0.05-0.30); CALCIUM 8.4 mg/dL (8.5-10.1); CARBON DIOXIDE,CO2 14.2 mmol/L (21.0-32.0); CREATININE 2.49 mg/dL (0.51-1.17); EST CRCL DRUG DOSING (CG) 21.32 mL/min; POTASSIUM,K 5.2 mmol/L (3.5-5.1); PROTEIN TOTAL,TP 7.1 g/dL (6.4-8.2)
[2024-08-27] MEDS: Sodium Chloride 0.9% 10 ML Syringe FLUSH PRN (10:37)
[2024-08-27] MEDS: cefTRIAXone 1 GM Vial IVPUSH ONE (10:37)
[2024-08-27 13:04] VITALS: BP 73/59; PULSE 99
== END 2024-08-27 12:50 ==
LOC: LL.ED 09:20
DX: D64.9 Anemia, unspecified (principal); E86.1 Hypovolemia; N93.9 Abnormal uterine and vaginal bleeding, unspecified; N17.9 Acute kidney failure, unspecified; I10 Essential (primary) hypertension; E78.00 Pure hypercholesterolemia, unspecified; E10.9 Type 1 diabetes mellitus without complications; E66.9 Obesity, unspecified; Z79.02 Long term (current) use of antithrombotics/antiplatelets; Z79.899 Other long term (current) drug therapy; Z79.4 Long term (current) use of insulin; Z88.8 Allergy status to other drugs, medicaments and biological substances; Z88.5 Allergy status to narcotic agent; Z90.710 Acquired absence of both cervix and uterus; Z68.32 Body mass index [BMI] 32.0-32.9, adult
CPT/HCPCS: 36415; 71045; 80053; 83605; 84484; 85025; 86140; 86850; 86900; 86901; 87040; 87147; 87186; 93005; 93010; 96361; 96374; 99284; 99285-25; J0696; J3490; J7030

== ENCOUNTER 2025-01-14 14:04 | Inpatient (IN) | payer MEDICARE, MEDICAID ==
[2025-01-14 14:37] LABS: BASOPHILS ABSOLUTE AUTO 0.01 K/uL (0.00-0.20); BASOPHILS PERCENT AUTO 0.1 % (0.0-2.0); IMMATURE GRAN ABSOLUTE AUTO 0.03 10^3/uL (0.00-0.04); IMMATURE GRAN PERCENT AUTO 0.2 % (0.0-0.4); LYMPHOCYTES ABSOLUTE AUTO 0.86 K/uL (0.50-3.50); LYMPHOCYTES PERCENT AUTO 7.1 % (10.0-50.0); MEAN CORPUSCULAR HEMOGLOBIN 27.9 pg (28.2-33.3); MEAN CORPUSCULAR HGB CONC 33.3 g/dL (31.7-36.0); MEAN CORPUSCULAR VOLUME 83.8 fL (84.0-98.0); MONOCYTES ABSOLUTE AUTO 0.27 K/uL (0.00-1.00); MONOCYTES PERCENT AUTO 2.2 % (2.0-14.0); NEUTROPHILS ABSOLUTE AUTO 10.98 K/uL (1.40-7.00); NEUTROPHILS PERCENT AUTO 90.4 % (45.0-80.0); PLATELET COUNT,PLT 252 K/uL (150-350); RED BLOOD CELL COUNT 3.94 M/uL (3.77-5.09); RED CELL DISTRIBUTION WIDTH 16.3 % (11.2-14.1); WHITE BLOOD CELL COUNT,WBC 12.2 K/uL (4.0-10.2)
[2025-01-14 14:58] LABS: ALANINE AMINOTRANSFERASE,ALT 68 U/L (12-78); ALBUMIN 2.7 g/dL (3.4-5.0); ALKALINE PHOSPHATASE 110 IU/L (46-116); ANION GAP 18.5 meq/L (7-15); ASPARTATE AMNIOTRANSFERASE,AST 39 U/L (15-37); BILIRUBIN TOTAL 0.6 mg/dL (0.2-1.0); BLOOD UREA NITROGEN,BUN 38 mg/dL (7-18); C-REACTIVE PROTEIN 19.04 mg/dL (0.05-0.30); CALCIUM 9.1 mg/dL (8.5-10.1); CARBON DIOXIDE,CO2 19.2 mmol/L (21.0-32.0); CHLORIDE,CL 102 mmol/L (98-107); CREATININE 1.42 mg/dL (0.51-1.17); GLUCOSE RANDOM 169 mg/dL (70-99); POTASSIUM,K 3.7 mmol/L (3.5-5.1); PROTEIN TOTAL,TP 7.4 g/dL (6.4-8.2); SODIUM,NA 136 mmol/L (136-145)
[2025-01-14 14:59] LABS: ESTIMATED GFR 40 mL/min (>=60)
[2025-01-14 15:03] LABS: LACTIC ACID 1.3 mmol/L (0.4-2.0)
[2025-01-14] MEDS ORDERED: Ondansetron 4 MG Tab.DIS PO PRN (16:08)
[2025-01-14] MEDS ORDERED: Melatonin 3 MG Tab PO PRN (16:08)
[2025-01-14] MEDS: ceFAZolin 1 GM in Sodium Chloride 0.9% 100 ML IV SCH (17:03)
[2025-01-14] MEDS: Acetaminophen 325 MG Tab PO PRN (17:06)
[2025-01-14] MEDS ORDERED: Glucagon,Human Recombinant 1 MG Vial IM PRN (19:37)
[2025-01-14] MEDS ORDERED: 50% Dextrose in Water 50 ML Syringe IVPUSH PRN (19:37)
[2025-01-14] MEDS ORDERED: atorvaSTATin 20 MG Tab PO SCH (20:00)
[2025-01-14] MEDS ORDERED: MELATONIN 10 MG PO SCH (20:00)
[2025-01-14] MEDS: Insulin Glarg,Human.Rec.Analog 100 Unit/ML 10 ML Vial SUBCUT SCH (20:14)
[2025-01-14] MEDS: Melatonin 3 MG Tab PO PRN (20:17)
[2025-01-14] MEDS: Metoprolol Tartrate 25 MG Tab PO SCH (20:17)
[2025-01-14] MEDS: atorvaSTATin 40 MG Tab PO SCH (21:12)
[2025-01-14] MEDS: Sodium Chloride 0.9% 10 ML Syringe FLUSH PRN (23:52)
[2025-01-15 07:34] LABS: BASOPHILS ABSOLUTE AUTO 0.01 K/uL (0.00-0.20); BASOPHILS PERCENT AUTO 0.1 % (0.0-2.0); EOSINOPHILS ABSOLUTE AUTO 0.02 K/uL (0.00-0.50); EOSINOPHILS PERCENT AUTO 0.2 % (0.0-5.0); HEMATOCRIT 28.1 % (34.0-46.0); HEMOGLOBIN 9.5 g/dL (11.7-15.5); IMMATURE GRAN ABSOLUTE AUTO 0.04 10^3/uL (0.00-0.04); IMMATURE GRAN PERCENT AUTO 0.4 % (0.0-0.4); LYMPHOCYTES ABSOLUTE AUTO 0.97 K/uL (0.50-3.50); LYMPHOCYTES PERCENT AUTO 9.5 % (10.0-50.0); MEAN CORPUSCULAR HEMOGLOBIN 28.1 pg (28.2-33.3); MEAN CORPUSCULAR HGB CONC 33.8 g/dL (31.7-36.0); MEAN CORPUSCULAR VOLUME 83.1 fL (84.0-98.0); MONOCYTES ABSOLUTE AUTO 0.45 K/uL (0.00-1.00); MONOCYTES PERCENT AUTO 4.4 % (2.0-14.0); NEUTROPHILS ABSOLUTE AUTO 8.73 K/uL (1.40-7.00); NEUTROPHILS PERCENT AUTO 85.4 % (45.0-80.0); PLATELET COUNT,PLT 248 K/uL (150-350); RED BLOOD CELL COUNT 3.38 M/uL (3.77-5.09); WHITE BLOOD CELL COUNT,WBC 10.2 K/uL (4.0-10.2)
[2025-01-15 08:05] LABS: CALCIUM 8.6 mg/dL (8.5-10.1); CARBON DIOXIDE,CO2 21.4 mmol/L (21.0-32.0); CREATININE 1.3 mg/dL (0.51-1.17); EST CRCL DRUG DOSING (CG) 40.28 mL/min; MAGNESIUM 1.8 mg/dL (1.8-2.4); POTASSIUM,K 3.3 mmol/L (3.5-5.1)
[2025-01-15 08:09] LABS: ANION GAP 13.9 meq/L (7-15)
[2025-01-15] MEDS: Ipratropium 0.06% Nasal Spray 15 ML Bottle NASBOTH SCH (08:14)
[2025-01-15] MEDS: Enoxaparin 40 MG/0.4 ML Syringe SUBCUT SCH (08:14)
[2025-01-15] MEDS: Escitalopram 10 MG Tab PO SCH (08:15)
[2025-01-15] MEDS: Cyanocobalamin (Vitamin B12) 1,000 MCG Tab PO SCH (08:16)
[2025-01-15] MEDS: Potassium Chloride 10 MEQ Tab.ER PO SCH ×2 (08:17→17:11)
[2025-01-15] MEDS: Lisinopril 5 MG Tab PO SCH (08:17)
[2025-01-15] MEDS: Calcium Carbonate/Vitamin D3 625 MG-125 Unit Tab PO SCH (08:17)
[2025-01-15] MEDS: Prenatal Multivitamin with Calcium/Folic Acid/Iron Tab PO SCH (08:26)
[2025-01-15] MEDS: Nirmatrelvir/Ritonavir 150 MG/100 MG Dose Pack (Renal Dose) PO ONE ×2 (14:14→21:33)
[2025-01-15] MEDS: Nirmatrelvir/Ritonavir 300 MG/100 MG Dosepak PO SCH (14:27)
[2025-01-15] MEDS: Sodium Chloride 0.9% 10 ML Syringe FLUSH SCH (16:32)
[2025-01-15] MEDS: Sodium Chloride 0.9% 10 ML Syringe IV SCH (17:10)
[2025-01-15] MEDS ORDERED: [UNRECOGNIZED DRUG - OTHER] SUBCUT SCH (18:00)
[2025-01-15] MEDS ORDERED: INSULIN GLARGINE HUM REC ANLOG SUBCUT SCH (18:00)
[2025-01-15] MEDS ORDERED: Insulin Glarg,Human.Rec.Analog 100 Unit/ML 10 ML Vial SUBCUT SCH (18:00)
[2025-01-16 07:32] LABS: BASOPHILS ABSOLUTE AUTO 0.02 K/uL (0.00-0.20); BASOPHILS PERCENT AUTO 0.2 % (0.0-2.0); EOSINOPHILS ABSOLUTE AUTO 0.07 K/uL (0.00-0.50); EOSINOPHILS PERCENT AUTO 0.7 % (0.0-5.0); HEMATOCRIT 26.9 % (34.0-46.0); HEMOGLOBIN 9.2 g/dL (11.7-15.5); IMMATURE GRAN ABSOLUTE AUTO 0.03 10^3/uL (0.00-0.04); IMMATURE GRAN PERCENT AUTO 0.3 % (0.0-0.4); LYMPHOCYTES ABSOLUTE AUTO 1.31 K/uL (0.50-3.50); LYMPHOCYTES PERCENT AUTO 12.5 % (10.0-50.0); MEAN CORPUSCULAR HEMOGLOBIN 28.5 pg (28.2-33.3); MEAN CORPUSCULAR HGB CONC 34.2 g/dL (31.7-36.0); MEAN CORPUSCULAR VOLUME 83.3 fL (84.0-98.0); MONOCYTES ABSOLUTE AUTO 0.57 K/uL (0.00-1.00); MONOCYTES PERCENT AUTO 5.5 % (2.0-14.0); NEUTROPHILS ABSOLUTE AUTO 8.44 K/uL (1.40-7.00); NEUTROPHILS PERCENT AUTO 80.8 % (45.0-80.0); PLATELET COUNT,PLT 260 K/uL (150-350); RED BLOOD CELL COUNT 3.23 M/uL (3.77-5.09); RED CELL DISTRIBUTION WIDTH 16.5 % (11.2-14.1); WHITE BLOOD CELL COUNT,WBC 10.4 K/uL (4.0-10.2)
[2025-01-16 07:48] LABS: CALCIUM 8.4 mg/dL (8.5-10.1); CARBON DIOXIDE,CO2 19.1 mmol/L (21.0-32.0); CREATININE 1.33 mg/dL (0.51-1.17); EST CRCL DRUG DOSING (CG) 39.37 mL/min; MAGNESIUM 1.9 mg/dL (1.8-2.4); POTASSIUM,K 3.2 mmol/L (3.5-5.1)
[2025-01-16 08:12] LABS: ANION GAP 16.1 meq/L (7-15)
[2025-01-16] MEDS: Nirmatrelvir/Ritonavir 150 MG/100 MG Dose Pack (Renal Dose) PO SCH (08:24)
[2025-01-16] MEDS: Sodium Chloride 0.9% 1,000 ML IV SCH (16:42)
[2025-01-16] MEDS: cefTRIAXone 1 GM in Sodium Chloride 0.9% 100 ML IV SCH (16:42)
[2025-01-16] MEDS: Potassium Bicarbonate/Cit Ac 20 MEQ Effervescent Tab PO ONE ×2 (16:43→19:39)
[2025-01-16] MEDS: VANCOmycin 1.75 GM/350 ML 1.75 GM in Premix Bag 1 BAG IV ONE (16:52)
[2025-01-17 07:27] LABS: BASOPHILS ABSOLUTE AUTO 0.03 K/uL (0.00-0.20); BASOPHILS PERCENT AUTO 0.3 % (0.0-2.0); EOSINOPHILS PERCENT AUTO 1.1 % (0.0-5.0); HEMATOCRIT 26.3 % (34.0-46.0); IMMATURE GRAN ABSOLUTE AUTO 0.03 10^3/uL (0.00-0.04); IMMATURE GRAN PERCENT AUTO 0.3 % (0.0-0.4); LYMPHOCYTES ABSOLUTE AUTO 1.43 K/uL (0.50-3.50); LYMPHOCYTES PERCENT AUTO 16.2 % (10.0-50.0); MEAN CORPUSCULAR HEMOGLOBIN 28.6 pg (28.2-33.3); MEAN CORPUSCULAR HGB CONC 34.2 g/dL (31.7-36.0); MEAN CORPUSCULAR VOLUME 83.5 fL (84.0-98.0); MONOCYTES ABSOLUTE AUTO 0.38 K/uL (0.00-1.00); MONOCYTES PERCENT AUTO 4.3 % (2.0-14.0); NEUTROPHILS ABSOLUTE AUTO 6.85 K/uL (1.40-7.00); NEUTROPHILS PERCENT AUTO 77.8 % (45.0-80.0); PLATELET COUNT,PLT 300 K/uL (150-350); RED BLOOD CELL COUNT 3.15 M/uL (3.77-5.09); RED CELL DISTRIBUTION WIDTH 16.5 % (11.2-14.1); WHITE BLOOD CELL COUNT,WBC 8.8 K/uL (4.0-10.2)
[2025-01-17] MEDS: Polyethylene Glycol 3350 Powder 17 GM Packet PO PRN (07:48)
[2025-01-17 08:00] LABS: C-REACTIVE PROTEIN 6.72 mg/dL (0.05-0.30); CALCIUM 8.2 mg/dL (8.5-10.1); CARBON DIOXIDE,CO2 18.9 mmol/L (21.0-32.0); CREATININE 1.13 mg/dL (0.51-1.17); EST CRCL DRUG DOSING (CG) 46.34 mL/min; MAGNESIUM 1.9 mg/dL (1.8-2.4); POTASSIUM,K 3.7 mmol/L (3.5-5.1)
[2025-01-17 08:13] LABS: ANION GAP 15.8 meq/L (7-15)
[2025-01-17] MEDS: Sodium Chloride 0.9% 1,000 ML IV SCH (10:03)
[2025-01-17] MEDS: Potassium Bicarbonate/Cit Ac 20 MEQ Effervescent Tab PO ONE ×2 (10:03→16:29)
[2025-01-17] MEDS: VANCOmycin 1.25 GM in Sodium Chloride 0.9% 250 ML IV SCH (17:05)
[2025-01-18] MEDS: Sodium Chloride 0.9% 10 ML Syringe FLUSH PRN (07:24)
[2025-01-18 07:40] LABS: BASOPHILS ABSOLUTE AUTO 0.03 K/uL (0.00-0.20); BASOPHILS PERCENT AUTO 0.4 % (0.0-2.0); EOSINOPHILS ABSOLUTE AUTO 0.18 K/uL (0.00-0.50); EOSINOPHILS PERCENT AUTO 2.6 % (0.0-5.0); HEMATOCRIT 27.4 % (34.0-46.0); HEMOGLOBIN 9.2 g/dL (11.7-15.5); IMMATURE GRAN ABSOLUTE AUTO 0.04 10^3/uL (0.00-0.04); IMMATURE GRAN PERCENT AUTO 0.6 % (0.0-0.4); LYMPHOCYTES ABSOLUTE AUTO 1.38 K/uL (0.50-3.50); LYMPHOCYTES PERCENT AUTO 19.9 % (10.0-50.0); MEAN CORPUSCULAR HEMOGLOBIN 28.1 pg (28.2-33.3); MEAN CORPUSCULAR HGB CONC 33.6 g/dL (31.7-36.0); MEAN CORPUSCULAR VOLUME 83.8 fL (84.0-98.0); MONOCYTES ABSOLUTE AUTO 0.44 K/uL (0.00-1.00); MONOCYTES PERCENT AUTO 6.3 % (2.0-14.0); NEUTROPHILS ABSOLUTE AUTO 4.87 K/uL (1.40-7.00); NEUTROPHILS PERCENT AUTO 70.2 % (45.0-80.0); PLATELET COUNT,PLT 357 K/uL (150-350); RED BLOOD CELL COUNT 3.27 M/uL (3.77-5.09); WHITE BLOOD CELL COUNT,WBC 6.9 K/uL (4.0-10.2)
[2025-01-18 08:04] LABS: ANION GAP 17.1 meq/L (7-15); CALCIUM 7.9 mg/dL (8.5-10.1); CREATININE 0.97 mg/dL (0.51-1.17); EST CRCL DRUG DOSING (CG) 53.98 mL/min; MAGNESIUM 1.8 mg/dL (1.8-2.4); POTASSIUM,K 4.1 mmol/L (3.5-5.1); VANCOMYCIN RANDOM 17.6 ug/mL
[2025-01-19 07:35] LABS: BASOPHILS ABSOLUTE AUTO 0.04 K/uL (0.00-0.20); BASOPHILS PERCENT AUTO 0.5 % (0.0-2.0); EOSINOPHILS ABSOLUTE AUTO 0.17 K/uL (0.00-0.50); EOSINOPHILS PERCENT AUTO 2.3 % (0.0-5.0); HEMATOCRIT 25.5 % (34.0-46.0); HEMOGLOBIN 8.5 g/dL (11.7-15.5); IMMATURE GRAN ABSOLUTE AUTO 0.06 10^3/uL (0.00-0.04); IMMATURE GRAN PERCENT AUTO 0.8 % (0.0-0.4); LYMPHOCYTES ABSOLUTE AUTO 1.57 K/uL (0.50-3.50); LYMPHOCYTES PERCENT AUTO 21.2 % (10.0-50.0); MEAN CORPUSCULAR HEMOGLOBIN 28.1 pg (28.2-33.3); MEAN CORPUSCULAR HGB CONC 33.3 g/dL (31.7-36.0); MEAN CORPUSCULAR VOLUME 84.4 fL (84.0-98.0); MONOCYTES ABSOLUTE AUTO 0.53 K/uL (0.00-1.00); MONOCYTES PERCENT AUTO 7.2 % (2.0-14.0); NEUTROPHILS ABSOLUTE AUTO 5.02 K/uL (1.40-7.00); PLATELET COUNT,PLT 393 K/uL (150-350); RED BLOOD CELL COUNT 3.02 M/uL (3.77-5.09); WHITE BLOOD CELL COUNT,WBC 7.4 K/uL (4.0-10.2)
[2025-01-19 07:40] LABS: CALCIUM 8.1 mg/dL (8.5-10.1); CARBON DIOXIDE,CO2 18.4 mmol/L (21.0-32.0); CREATININE 0.91 mg/dL (0.51-1.17); EST CRCL DRUG DOSING (CG) 57.54 mL/min; MAGNESIUM 1.9 mg/dL (1.8-2.4); POTASSIUM,K 4.1 mmol/L (3.5-5.1)
[2025-01-19 07:43] LABS: ANION GAP 17.7 meq/L (7-15)
[2025-01-19 13:17] VITALS: BP 125/70; PULSE 68
== END 2025-01-19 15:11 | disposition home or self-care (01) | DRG 602 ==
LOC: LL.ED 14:04 → LL.MS 15:47
PROVIDERS: ADMIT Physician Assistant; ATTEND Physician Assistant
DX: L03.116 Cellulitis of left lower limb (principal); I12.9 Hypertensive chronic kidney disease with stage 1 through stage 4 chronic kidney disease, or unspecified chronic kidney disease; U07.1 COVID-19; N18.30 Chronic kidney disease, stage 3 unspecified; G47.30 Sleep apnea, unspecified; E78.00 Pure hypercholesterolemia, unspecified; E11.9 Type 2 diabetes mellitus without complications; F15.90 Other stimulant use, unspecified, uncomplicated; E11.22 Type 2 diabetes mellitus with diabetic chronic kidney disease; I11.0 Hypertensive heart disease with heart failure; F41.1 Generalized anxiety disorder; F32.A Depression, unspecified; E87.6 Hypokalemia; Z86.16 Personal history of COVID-19; E66.9 Obesity, unspecified; Z88.8 Allergy status to other drugs, medicaments and biological substances; Z88.5 Allergy status to narcotic agent; Z90.49 Acquired absence of other specified parts of digestive tract; Z98.890 Other specified postprocedural states; Z98.84 Bariatric surgery status; Z79.02 Long term (current) use of antithrombotics/antiplatelets; Z79.1 Long term (current) use of non-steroidal anti-inflammatories (NSAID); Z79.899 Other long term (current) drug therapy; Z79.4 Long term (current) use of insulin
CPT/HCPCS: 36415; 80048; 80053; 80202; 82947; 83605; 83735; 85025; 86140; 87040; 93971; 99223; 99232; 99233; 99239; 99285; A9270-GY; J0690; J0696; J1650; J1815-GY; J3371; J3372; J7030; J7050